=== PATIENT | female | born 1950 | race African-American/Black ===

== ENCOUNTER 2016-12-07 19:42 | Emergency (ER) | payer OTHER ==
[2016-12-07 19:53] VITALS: BP 169/86; PULSE 85; TEMP 101.5; BMI 27.4
--- NOTE | 2016-12-07 20:12 | PDOC ---
History of Present Illness - General History Source: Patient Exam Limitations: No Limitations - History of Present Illness Initial Comments: 12/07/16 20:24 The patient is a 66 year old female with significant past medical history of hypertension, hyperlipidemia, diabetes, and renal insufficiency (dialysis MWF) who presents to the ED with 5 days of persistent dry cough. Patient also reports 5 days of pain to the hip, left-sided rib cage, and low back that radiates down the left leg, upon coughing. She denies diaphoresis, chills, SOB, shoulder pain, arm pain, and jaw pain. After going to the dialysis center today , she was notified she had a fever and was sent to the ER for further evaluation. Patient did not complete her dialysis. . The patient denies abdominal pain, nausea, vomiting, and diarrhea. Allergies: NKDA Social History: No alcohol, tobacco, or drug use reported. Past Surgical History: None reported Trucksmith: Dr. Marely Cooper <Mary Ellen Chicas - Last Filed: 12/07/16 20:40> <Mratir Blanco - Last Filed: 12/07/16 21:35> - General Chief Complaint: SIRS, Suspected/Possible Stated Complaint: FEVER Time Seen by Provider: 12/07/16 19:58 Past History <Mary Ellen Chicas - Last Filed: 12/07/16 20:40> - Past Medical History Diabetes: Yes HTN: Yes Hypercholesterolemia: Yes Suicide Attempt (Hx): No - Surgical History Abdominal Surgery: Yes (hernia not repaired) - Psycho/Social/Smoking Cessation Hx Anxiety: No Suicidal Ideation: No Smoking Status: No Smoking History: Former smoker Have you smoked in the past 12 months: No Number of Cigarettes Smoked Daily: 0 If you are a former smoker, when did you quit?: 40YRS AGO Information on smoking cessation initiated: No Hx Alcohol Use: No Drug/Substance Use Hx: No Substance Use Type: None Hx Substance Use Treatment: No <Martir Blanco - Last Filed: 12/07/16 21:35> - Past Medical History Allergies/Adverse Reactions: Allergies Allergy/AdvReac Type Severity Reaction Status Date / Time No Known Drug Allergies Allergy Verified 12/07/16 19:51 Home Medications: Ambulatory Orders Hydralazine HCl [Apresoline -] 50 mg PO TID 05/30/14 Insulin Glargine,Hum.rec.anlog [Lantus Solostar PEN -] 20 - 25 units SQ ASDIR PRN 05/30/14 Simvastatin [Zocor] 80 mg PO HS 05/30/14 Acetaminophen [Tylenol] 325 mg PO PRN PRN 12/20/14 Aspirin [Aspirin EC] 81 mg PO DAILY 11/07/15 Metoprolol Succinate [Toprol XL -] 50 mg PO DAILY 11/07/15 Bisacodyl [Dulcolax] 5 mg PO PRN PRN 12/04/15 Cholecalciferol (Vitamin D3) [Vitamin D3] 50,000 unit PO WEEKLY 12/04/15 Docusate Sodium [Colace -] 100 mg PO TID PRN 12/04/15 Ferrous Sulfate [Feosol] 325 mg PO BID 12/04/15 Oxycodone HCl/Acetaminophen [Percocet 5-325 mg Tablet] 1 combo PO Q6H PRN #20 tablet 12/04/15 Polyethylene Glycol 3350 [Miralax 119 gm Btl -] 17 gm PO DAILY PRN 12/04/15 Review of Systems - Review of Systems Able to Perform ROS?: Yes Comments:: 12/07/16 20:24 +fever, cough, hip pain, left-sided rib cage pain, back pain radiating down the left leg. Absent: chills, diaphoresis, SOB, abdominal pain, nausea, vomiting, and diarrhea <Mary Ellen Chicas - Last Filed: 12/07/16 20:40> *Physical Exam - Vital Signs Last Vital Signs Temp Pulse Resp BP Pulse Ox 101.5 F H 85 18 169/86 95 12/07/16 19:51 12/07/16 19:51 12/07/16 19:51 12/07/16 19:51 12/07/16 19:51 <Mary Ellen Chicas - Last Filed: 12/07/16 20:40> - Vital Signs Last Vital Signs Temp Pulse Resp BP Pulse Ox 101.5 F H 85 18 169/86 95 12/07/16 19:51 12/07/16 19:51 12/07/16 19:51 12/07/16 19:51 12/07/16 19:51 - Physical Exam General Appearance: Yes: Nourished, Appropriately Dressed. No: Apparent Distress HEENT: positive: EOMI, Normal ENT Inspection Neck: positive: Supple. negative: Tender Respiratory/Chest: positive: Chest Tender (left sided), Lungs Clear, Normal Breath Sounds. negative: Respiratory Distress, Accessory Muscle Use Cardiovascular: positive: Regular Rhythm, Regular Rate Gastrointestinal/Abdominal: positive: Normal Bowel Sounds, Soft. negative: Tender Musculoskeletal: positive: Normal Inspection. negative: CVA Tenderness Extremity: positive: Normal Capillary Refill, Normal Inspection, Normal Range of Motion, Other (rt arm shunt) Integumentary: positive: Normal Color. negative: Rash Neurologic: positive: Fully Oriented, Alert, Normal Mood/Affect, Normal Response , Motor Strength 5/5 <Martir Blanco - Last Filed: 12/07/16 21:35> ED Treatment Course - LABORATORY CBC & Chemistry Diagram: 12/07/16 20:30 12/07/16 20:30 <Mary Ellen Chicas - Last Filed: 12/07/16 20:40> - LABORATORY CBC & Chemistry Diagram: 12/07/16 20:30 12/07/16 20:30 <Martir Blanco - Last Filed: 12/07/16 21:35> Progress Note - Progress Note Progress Note: productive cough fever and back pain likely uri w/ back pain 2/2 cough cxr no consolidates will check her cbc and basic if ok, d/c home 9:32 pm better after meds. no cough. pain c/w muscular labs wnl neg cxr has vanc and gent on board will follow w/ pmd and continue her HD <Martir Blanco - Last Filed: 12/07/16 21:35> *DC/Admit/Observation/Transfer - Attestations Scribe Attestion: 12/07/16 20:24 Documentation prepared by Mary Ellen Chicas, acting as certified medical coder for Martir Blanco MD <Mary Ellen Chicas - Last Filed: 12/07/16 20:40> <Martir Blanco - Last Filed: 12/07/16 21:35> Diagnosis at time of Disposition: Viral infection Low back pain Qualifiers: Chronicity: acute Back pain laterality: bilateral Sciatica presence: with sciatica Sciatica laterality: sciatica of left side Qualified Code(s): M54.42 - Lumbago with sciatica, left side - Discharge Dispostion Disposition: HOME Condition at time of disposition: Improved - Patient Instructions Additional Instructions: TAKE MEDICATIONS PRESCRIBED CALL YOUR DOCTOR TOMORROW FOR FOLLOW UP ROBITUSSIN FOR COUGH, TYLENOL FOR FEVER RETURN IF WORSENING OR NEW SYMPTOMS
[2016-12-07] MEDS ORDERED: ACETAMINOPHEN WITH CODEINE 300MG/30MG TABLET PO ONE (20:17)
[2016-12-07] MEDS ORDERED: ACETAMINOPHEN WITH CODEINE 300MG/30MG TABLET ONE (20:38)
[2016-12-07 21:15] LABS: ALBUMIN 3.6 g/dl (3.4-5.0); BILIRUBIN,TOTAL 0.3 mg/dL (0.2-1.0); CALCIUM 8.4 mg/dL (8.5-10.1); CREATININE 2.6 mg/dL (0.55-1.02); TOT PROT 6.8 g/dl (6.4-8.2)
[2016-12-07 21:17] LABS: BASOPHIL 0.7 % (0-2.0); EOSINOPHIL 1.8 % (0-4.5); MCH 20.9 pg (25.7-33.7); MCHC 30.2 g/dl (32.0-36.0); MEAN CELL VOLUME 69.3 fl (80-96); MEAN PLT VOLUME 11.2 fl (7.5-11.1); PLATELET COUNT 127 K/MM3 (134-434); RDW 18.4 % (11.6-15.6); WHITE BLOOD COUNT 7.7 K/mm3 (4.0-10.0)
[2016-12-07 21:39] LABS: PLATELET ESTIMATE DECREASED (NORMAL)
[2016-12-07 21:40] LABS: ANISOCYTOSIS 1+; HYPOCHROMIA 3+; MICROCYTOSIS 1+; OVALOCYTES FEW
== END 2016-12-07 22:02 | disposition home or self-care (01) ==
LOC: JER 19:42
DX: B34.9 Viral infection, unspecified (principal); M54.42 Lumbago with sciatica, left side; I12.0 Hypertensive chronic kidney disease with stage 5 chronic kidney disease or end stage renal disease; N18.6 End stage renal disease; N17.8 Other acute kidney failure; Z99.2 Dependence on renal dialysis; Z87.891 Personal history of nicotine dependence; E11.9 Type 2 diabetes mellitus without complications; Z79.4 Long term (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 insulin; E78.00 Pure hypercholesterolemia, unspecified
CPT/HCPCS: 36415; 71020-TC; 80053; 85025; 87040; 87804; 99283-25

== ENCOUNTER 2017-04-25 15:10 | Inpatient (IN) | payer OTHER ==
--- NOTE | 2017-04-25 15:33 | PDOC ---
History of Present Illness - General Stated Complaint: RIGHT SIDE PAIN Time Seen by Provider: 04/25/17 15:22 History Source: Patient Exam Limitations: No Limitations - History of Present Illness Initial Comments: 04/25/17 15:33 CHIEF COMPLAINT: Flank pain HISTORY OF PRESENT ILLNESS: This is a 66 year old female with a history of HTN, HLD, GERD, pancreatitis, cholelithiasis, IDDM, and ESRD on HD M// who presents to the ED complaining of right flank pain since Wednesday morning with associated nausea and chills. She reports taking Tylenol without relif of pain. She denies dysuria, hematuria, or any other symptoms. V/s on arrival are notable for BP 192/83. PCP: Dr. Saucedo Bale Coverer: Dr. Cooper REVIEW OF SYSTEMS: GENERAL/CONSTITUTIONAL: Chills, no fever. No weakness. No weight change. HEAD, EYES, EARS, NOSE AND THROAT: No change in vision. No ear pain or discharge. No sore throat. CARDIOVASCULAR: No chest pain or palpitations. RESPIRATORY: No cough, wheezing, or shortness of breath. GASTROINTESTINAL: Nausea. No vomiting, diarrhea or constipation. GENITOURINARY: Right flank pain. No dysuria (does still make some urine). MUSCULOSKELETAL: No joint or muscle swelling or pain. No neck or back pain. SKIN: No rash or easy bruising. NEUROLOGIC: No headache, vertigo, loss of consciousness, or loss of sensation. PSYCHIATRIC: No depression or anxiety. ENDOCRINE: No increased thirst. No abnormal weight change. HEMATOLOGIC/LYMPHATIC: No anemia, easy bleeding, or history of blood clots. ALLERGIC/IMMUNOLOGIC: No hives or skin allergy. No latex allergy. PHYSICAL EXAM: GENERAL: The patient is awake, alert, and fully oriented, in no acute distress. ENT: Pupils equal, round and reactive to light, extraocular movements intact, sclera anicteric, conjunctiva clear. Neck supple. LUNGS: Clear to auscultation bilaterally. Normal excursion. No respiratory distress or use of accessory muscles. CV: RRR, S1/S2, no MRG. Cap refill < 2 sec. ABDOMEN: Soft, non-distended, non-tender. Right CVA exquisitely tender. EXTREMITIES: Normal range of motion, no edema. RUE AVF +bruit +thrill. NEUROLOGICAL: Normal speech, normal gait. CN II-XII grossly intact. PSYCH: Normal mood, normal affect. SKIN: Warm, dry, normal turgor, no rashes or lesions noted. Past History - Past Medical History Allergies/Adverse Reactions: Allergies Allergy/AdvReac Type Severity Reaction Status Date / Time No Known Drug Allergies Allergy Verified 12/07/16 19:51 Home Medications: Ambulatory Orders Hydralazine HCl [Apresoline -] 100 mg PO TID 05/30/14 Cholecalciferol (Vitamin D3) [Vitamin D3] 50,000 unit PO WEEKLY 12/04/15 Docusate Sodium [Colace -] 100 mg PO TID PRN 12/04/15 Atorvastatin Ca [Lipitor] 80 mg PO DAILY 12/08/16 Calcium Acetate [Phoslo -] 667 mg PO TID 12/08/16 Famotidine 10 mg PO BID PRN 12/08/16 Isosorbide Mononitrate [Imdur -] 60 mg PO DAILY 12/08/16 Diabetes: Yes HTN: Yes Hypercholesterolemia: Yes Suicide Attempt (Hx): No - Surgical History Abdominal Surgery: Yes (hernia not repaired) - Psycho/Social/Smoking Cessation Hx Anxiety: No Suicidal Ideation: No Smoking Status: No Smoking History: Former smoker Have you smoked in the past 12 months: No Number of Cigarettes Smoked Daily: 0 If you are a former smoker, when did you quit?: 40YRS AGO Hx Alcohol Use: No Drug/Substance Use Hx: No Substance Use Type: None Hx Substance Use Treatment: No ED Treatment Course - LABORATORY CBC & Chemistry Diagram: 04/25/17 16:30 04/25/17 17:12 Medical Decision Making - Medical Decision Making 04/25/17 17:26 A/P: 66 year old female with flank pain. 1. UA, culture 2. Labs including CBC, comp 3. CTAP spiral renal stone protocol 4. Morphine 4mg IVP for pain, Zofran 4mg IVP for nausea 5. Re-assess 04/25/17 18:11 UA: no WBCs or RBCs 04/25/17 18:28 CTAP perImaging business continuity planner report: bilateral perinephric strandingslightly more pronounced on the left side without hydronephrosis or nephrolithiasis. Bladder wall appears thickened with mild stranding of the surrounding pelvic fat. Findings are concerning for cystitis and possibly ascending infection. UA no WBCs or RBCs. Patient re-evaluated and pain is not improved. Will request observation for pain control/further evaluation. Dr. Saucedo's service paged. 04/25/17 18:[address] Rodriguez- will admit for intractable pain and ?renal colic. *DC/Admit/Observation/Transfer Diagnosis at time of Disposition: Flank pain, Intractable pain Hypertension Qualifiers: Hypertension type: essential hypertension Qualified Code(s): I10 - Essential ( primary) hypertension - Discharge Dispostion Condition at time of disposition: Guarded Admit: Yes
[2017-04-25] MEDS ORDERED: morphine CARPU-JECT 4 MG/1 ML DISP.SYRIN IVPUSH ONE ×2 (15:56→17:27)
[2017-04-25] MEDS ORDERED: ONDANSETRON 4 MG/2 ML VIAL IVPUSH ONE (15:57)
[2017-04-25] MEDS ORDERED: morphine CARPU-JECT 4 MG/1 ML DISP.SYRIN ONE ×2 (16:01→17:57)
--- NOTE | 2017-04-25 16:21 | EKG ---
Test Reason : Blood Pressure : / mmHG Vent. Rate : 066 BPM Atrial Rate : 066 BPM P-R Int : 194 ms QRS Dur : 110 ms QT Int : 434 ms P-R-T Axes : 062 -43 072 degrees QTc Int : 454 ms NORMAL SINUS RHYTHM LEFT AXIS DEVIATION MODERATE VOLTAGE CRITERIA FOR LVH, MAY BE NORMAL VARIANT ABNORMAL ECG WHEN COMPARED WITH ECG OF 20-DEC-2014 20:52, VENT. RATE HAS DECREASED BY 34 BPM MINIMAL CRITERIA FOR SEPTAL INFARCT ARE NO LONGER PRESENT Confirmed by ANA TABARES MD ([id number]) on 04/25/2017 4:21:39 PM Referred By: Confirmed By:ANA TABARES MD
[2017-04-25 16:38] LABS: BASOPHIL 0.7 % (0-2.0); EOSINOPHIL 0.6 % (0-4.5); MCH 21.4 pg (25.7-33.7); MCHC 30.5 g/dl (32.0-36.0); MEAN CELL VOLUME 70.3 fl (80-96); MEAN PLT VOLUME 11.3 fl (7.5-11.1); NEUTROPHILS 78.1 % (42.8-82.8); PLATELET COUNT 157 K/MM3 (134-434); WHITE BLOOD COUNT 5.7 K/mm3 (4.0-10.0)
[2017-04-25 17:00] LABS: HYPOCHROMIA 2+; PLATELET ESTIMATE ADEQUATE (NORMAL)
[2017-04-25 17:40] LABS: URINE APPEARANCE CLEAR; URINE BILIRUBIN NEGATIVE (NEGATIVE); URINE BLOOD NEGATIVE (NEGATIVE); URINE COLOR STRAW; URINE GLUCOSE (UA) 3+ (NEGATIVE); URINE KETONE NEGATIVE (NEGATIVE); URINE LEUK ESTERASE NEGATIVE (NEGATIVE); URINE NITRITE NEGATIVE (NEGATIVE); URINE UROBILINOGEN NEGATIVE E.U./dl (0.2-1.0)
[2017-04-25 17:46] LABS: URINE PROTEIN 2+ (NEGATIVE)
[2017-04-25 17:51] LABS: URINE RBC <1 /hpf (0-3); URINE WBC <1 /hpf (3-5)
[2017-04-25 18:14] LABS: ALBUMIN 3.9 g/dl (3.4-5.0); BILIRUBIN,TOTAL 0.3 mg/dL (0.2-1.0); COCKROFT - GAULT 15.725; CREATININE 3.8 mg/dL (0.55-1.02)
[2017-04-25] MEDS ORDERED: ACETAMINOPHEN 1000 MG/100 ML VIAL (NON FORMULARY) IVPB ONE (18:36)
[2017-04-25] MEDS ORDERED: ACETAMINOPHEN INJECTION 100 ML IVPB ONE (18:46)
[2017-04-25] MEDS ORDERED: RANITIDINE HCL 150 MG TABLET (FP) PO PRN (19:20)
[2017-04-25] MEDS ORDERED: DOCUSATE SODIUM 100 MG CAPSULE (FP) PO PRN (19:20)
[2017-04-25] MEDS ORDERED: HYDROmorphone HCL CARPU-JECT 1 MG/1 ML DISP.SYRIN IVPUSH PRN (19:21)
[2017-04-25] MEDS ORDERED: ONDANSETRON 4 MG/2 ML VIAL IVPB PRN (19:21)
[2017-04-25] MEDS ORDERED: INSULIN (NOVOLOG) ASPART 100 UNITS/ML 10ML VIAL ONE (21:19)
[2017-04-25] MEDS: INSULIN SLIDING SCALE (NOVOLOG) 1 VIAL SQ SCH (21:27)
[2017-04-25] MEDS: HEPARIN NA (PORCINE) 5,000 UNITS/ML 1ML VIAL SQ SCH (21:28)
[2017-04-25] MEDS: ATORVASTATIN CA 80 MG TABLET (FP) PO SCH (21:28)
[2017-04-25] MEDS: hydrALAZINE HCL 50 MG TABLET (FP) PO SCH (21:28)
[2017-04-25 22:46] VITALS: BMI 27.5
[2017-04-26] MEDS ORDERED: DEXTROSE 50%-WATER 50 ML VIAL IVPUSH ONE (04:14)
[2017-04-26] MEDS ORDERED: DEXTROSE 50%-WATER 50 ML DISP.SYRIN ONE (04:15)
[2017-04-26] MEDS ORDERED: DEXTROSE 50%-WATER 50 ML DISP.SYRIN IVPUSH ONE (04:30)
[2017-04-26] MEDS: hydrALAZINE HCL 50 MG TABLET (FP) PO SCH ×3 (05:42→21:20)
[2017-04-26] MEDS: HEPARIN NA (PORCINE) 5,000 UNITS/ML 1ML VIAL SQ SCH ×3 (05:43→21:15)
[2017-04-26] MEDS: INSULIN SLIDING SCALE (NOVOLOG) 1 VIAL SQ SCH ×4 (06:33→21:20)
[2017-04-26 07:58] LABS: BASOPHIL 2.1 % (0-2.0); EOSINOPHIL 0.3 % (0-4.5); MCH 21.8 pg (25.7-33.7); MCHC 31.2 g/dl (32.0-36.0); MEAN CELL VOLUME 69.9 fl (80-96); MEAN PLT VOLUME 11.1 fl (7.5-11.1); NEUTROPHILS 78.6 % (42.8-82.8); PLATELET COUNT 171 K/MM3 (134-434)
[2017-04-26 08:17] LABS: MAGNESIUM 2.4 mg/dL (1.8-2.4)
[2017-04-26 08:18] LABS: COCKROFT - GAULT 17.3145; CREATININE 3.7 mg/dL (0.55-1.02); PHOSPHOROUS 4.8 mg/dL (2.5-4.9)
[2017-04-26] MEDS: CALCIUM ACETATE 667 MG CAPSULE (FP) PO SCH ×3 (08:28→17:47)
[2017-04-26] MEDS: ISOSORBIDE MONONITRATE 60 MG TAB.SR.24H (FP) PO SCH (09:21)
[2017-04-26] MEDS: POLYETHYLENE GLYCOL 3350 119 GM BTL PO SCH (09:22)
[2017-04-26 10:04] LABS: ALBUMIN 3.5 g/dl (3.4-5.0); BILIRUBIN,DIRECT 0.1 mg/dL (0.0-0.2); BILIRUBIN,TOTAL 0.3 mg/dL (0.2-1.0); TOT PROT 6.4 g/dl (6.4-8.2)
[2017-04-26] MEDS ORDERED: EPOETIN ALFA 10,000 UNIT/1 ML VIAL IVPUSH ONE (10:30)
--- NOTE | 2017-04-26 10:59 | CONSULT ---
Consult - text type - Consultation Consultation Note: Renal Consult for ESRD on HD This is a 66 year old woman with PMhx of ESRD on HD (since ) secondary to DM/Hypertension, Hyperlipidemia, Pancreatitis who presened with right sided flank pain and admitted for pain control. Pt denies any fevers at home but did report having chills in the ED. No hx of stones, no dysuria, hematuria. Pt still makes a good quanitity of urine. No N/V/D, Chest pain or sob. Last dialysis was Wednesday. No problems with dialysis access. PMhx: as above Allergies: NKDA Family Hx: NC Social Hx: No T/A/D ROS: as per HPI, all other pertinent ros negative Home Meds: Home Medications Medication Instructions Recorded Hydralazine HCl [Apresoline -] 100 mg PO TID 05/30/14 Cholecalciferol (Vitamin D3) 50,000 unit PO WEEKLY 12/04/15 [Vitamin D3] Docusate Sodium [Colace -] 100 mg PO TID PRN 12/04/15 Atorvastatin Ca [Lipitor] 80 mg PO DAILY 12/08/16 Calcium Acetate [Phoslo -] 667 mg PO TID 12/08/16 Famotidine 10 mg PO BID PRN 12/08/16 Isosorbide Mononitrate [Imdur -] 60 mg PO DAILY 12/08/16 Vital Signs Temperature 97.0 F L 04/26/17 06:05 Pulse Rate 64 04/26/17 10:20 Respiratory Rate 18 04/26/17 10:20 Blood Pressure 207/80 04/26/17 10:20 O2 Sat by Pulse Oximetry (%) 96 04/25/17 21:00 Intake & Output 04/23/17 04/24/17 04/25/17 04/26/17 23:59 23:59 23:59 23:59 Intake Total 500 500 Balance 500 500 Weight 165 lb 3.2 oz 166 lb 3 oz Gen: NAD, awake and alert HEENT: NC/AT, MMM, No JVD CVS: RRR, No M/R Lungs: CTA, no rales or wheeze Abd: soft NT/ND Ext: No edema, clubbing or cyanosis Neuro: No focal defects Access: Right ARM AVAF + thrill and bruit CBC, BMP 04/26/17 06:20 04/26/17 06:20 Laboratory Tests 04/25/17 04/26/17 17:30 06:20 Calcium 9.0 Phosphorus 4.8 Albumin 3.5 Urine Protein 2+ H Urine Glucose (UA) 3+ H Ur Leukocyte Esterase Negative Urine RBC <1 Urine WBC <1 Current Medications Acetaminophen (Tylenol -) 650 mg PO Q4H PRN PRN Reason: FEVER OR PAIN Atorvastatin Calcium (Lipitor -) 80 mg PO HS [facility] Last Admin: 04/25/17 21:28 Dose: 80 mg Calcium Acetate (Phoslo -) 667 mg PO TIDCM [facility] Last Admin: 04/26/17 08:28 Dose: 667 mg Docusate Sodium (Colace -) 100 mg PO TID PRN PRN Reason: CONSTIPATION Heparin Sodium (Porcine) (Heparin -) 5,000 unit SQ TID [facility] Last Admin: 04/26/17 05:43 Dose: Not Given Hydralazine HCl (Apresoline -) 100 mg PO TID [facility] Last Admin: 04/26/17 05:42 Dose: 100 mg Hydromorphone HCl (Dilaudid Injection -) 0.5 mg IVPUSH Q4H PRN PRN Reason: PAIN Insulin Aspart (Novolog Vial Sliding Scale -) 1 vial SQ ACHS [facility] PRN Reason: Protocol Last Admin: 04/26/17 06:33 Dose: Not Given Isosorbide Mononitrate (Imdur -) 60 mg PO DAILY [facility] Last Admin: 04/26/17 09:21 Dose: 60 mg Ondansetron HCl (Zofran Injection) 4 mg IVPB Q6H PRN PRN Reason: NAUSEA Polyethylene Glycol (Miralax (For Daily Use) -) 17 gm PO DAILY [facility] Last Admin: 04/26/17 09:22 Dose: Not Given Ranitidine HCl (Zantac -) 150 mg PO BID PRN PRN Reason: DYSPEPSIA A/P 6 year old woman with PMhx of ESRD on HD (since ) secondary to DM/ Hypertension, Hyperlipidemia, Pancreatitis who presened with right sided flank pain and admitted for pain control. #ESRD on HD for dialysis today, 3 horus, 45 mins Goal UF ~1L Dose all meds for intermittent HD #Flank pain no evidence of stones on the CT Abd, however there was perinephric stranding UA showed no evidence of UTI, Urine culture pending Unclear if pt was on any Abx recently (not given any Abx at dialysis) Management as per primary #CKD Related Anemia Continue Epogen (lower dose as hgb is 11) #Hypertension BP very elevated at the start but improved, now 157/71 UF as tolerated resume antihypertensives post dialysis Thank you Will follow Ignacio Callahan DO
--- NOTE | 2017-04-26 11:58 | HP ---
Admitting History and Physical - Primary Care Physician PCP: Filomena Saucedo - Admission Chief Complaint: My back hurt History of Present Illness: Ms Sosa is a very pleasant 66 year old female who comes in with 3 days of flank pain. She was at HD on Wednesday, and there she developed right sided flank pain. She says it was crampy in nature. It radiated throughout her abdomen. She says she took some tylenol and it originally improved, however it came back and worsened. She did not note fevers with it. She had nausea but no vomiting. She did not have diarrhea. She says she still makes urine, she says it witt in the morning however throughout the day it does not burn. She says the pain became so severe she came in for further evaluation. She says she had some pain earlier today but it resolved. She denies chills, lightheadedness, dizziness, passing out, chest pain, shortness of breath, constipation, or swelling. History Source: Patient Limitations to Obtaining History: No Limitations - Past Medical History Cardiovascular: Yes: HTN, Hyperlipdemia Gastrointestinal: Yes: GERD, Pancreatitis, Other (Hd similar abdominal pain in [place] afew years ago and was told she has gallstones.) Hepatobiliary: Yes: Cholelithiasis Renal/: Yes: Renal Inusuff Heme/Onc: Yes: Anemia, Sickle Cell Trait Endocrine: Yes: Diabetes Mellitus - Past Surgical History Past Surgical History: Yes: None - Smoking History Smoking history: Former smoker Have you smoked in the past 12 months: No Aproximately how many cigarettes per day: 0 If you are a former smoker, when did you quit?: 40YRS AGO - Alcohol/Substance Use Hx Alcohol Use: No History of Substance Use: reports: None - Social History Usual Living Arrangement: Yes: Alone ADL: Independent History of Recent Travel: No Home Medications - Allergies Allergies/Adverse Reactions: Allergies Allergy/AdvReac Type Severity Reaction Status Date / Time No Known Drug Allergies Allergy Verified 12/07/16 19:51 - Home Medications Home Medications: Ambulatory Orders Hydralazine HCl [Apresoline -] 100 mg PO TID 05/30/14 Cholecalciferol (Vitamin D3) [Vitamin D3] 50,000 unit PO WEEKLY 12/04/15 Docusate Sodium [Colace -] 100 mg PO TID PRN 12/04/15 Atorvastatin Ca [Lipitor] 80 mg PO DAILY 12/08/16 Calcium Acetate [Phoslo -] 667 mg PO TID 12/08/16 Famotidine 10 mg PO BID PRN 12/08/16 Isosorbide Mononitrate [Imdur -] 60 mg PO DAILY 12/08/16 Family Disease History - Family Disease History Family Disease History: Other: Son (sickle cell disease, ), Daughter ( sickle cell trait) Review of Systems Findings/Remarks: Full review of systems obtained, as per HPI and otherwise negative Physical Examination Vital Signs: Vital Signs Temperature 97.9 F 04/26/17 10:00 Pulse Rate 61 04/26/17 11:50 Respiratory Rate 18 04/26/17 11:50 Blood Pressure 182/76 04/26/17 11:50 O2 Sat by Pulse Oximetry (%) 96 04/25/17 21:00 Constitutional: Yes: Well Nourished, No Distress, Calm Eyes: Yes: Conjunctiva Clear, EOM Intact, PERRL HENT: Yes: Atraumatic, Normocephalic Cardiovascular: Yes: Regular Rate and Rhythm. No: Gallop, Murmur, Rub Respiratory: Yes: Regular, CTA Bilaterally. No: Rales, Rhonchi, Wheezes Gastrointestinal: Yes: Normal Bowel Sounds, Soft. No: Distention, Tenderness Renal/: No: CVA Tenderness - Left, CVA Tenderness - Right Extremities: Yes: WNL Edema: No Labs: CBC, BMP 04/26/17 06:20 04/26/17 06:20 Imaging - Results Cat Scan: Report Reviewed Problem List - Problems (1) Flank pain Assessment/Plan: -urinalysis normal and no fevers, however CT scan showing stranding and with pain -? UTI vs pyelonephritis -will start rocephin empirically -follow up urine culture -if negative, will discontinue Code(s): R10.9 - UNSPECIFIED ABDOMINAL PAIN (2) Hypertension Assessment/Plan: -continue imdur and hydralazine -elevated, but prior to HD -check after HD Code(s): I10 - ESSENTIAL (PRIMARY) HYPERTENSION Qualifiers: Hypertension type: essential hypertension Qualified Code(s): I10 - Essential (primary) hypertension (3) CKD (chronic kidney disease) Assessment/Plan: -nephrology following -receiving HD today Code(s): N18.9 - CHRONIC KIDNEY DISEASE, UNSPECIFIED Qualifiers: Chronic kidney disease stage: on chronic dialysis Qualified Code(s) : N18.6 - End stage renal disease; Z99.2 - Dependence on renal dialysis (4) Diabetes Assessment/Plan: -diabetic diet -FSBS and SSI Code(s): E11.9 - TYPE 2 DIABETES MELLITUS WITHOUT COMPLICATIONS (5) HLD (hyperlipidemia) Assessment/Plan: -continue statin Code(s): E78.5 - HYPERLIPIDEMIA, UNSPECIFIED
[2017-04-26] MEDS: LACTOBACILLUS ACIDOPHILUS 1 EACH TAB (FP) PO SCH (15:05)
[2017-04-26] MEDS: CEFTRIAXONE 50 ML IVPB SCH (15:06)
[2017-04-26 17:02] LABS: CREATININE 1.2 mg/dL (0.55-1.02)
[2017-04-26] MEDS ORDERED: INSULIN (NOVOLOG) ASPART 100 UNITS/ML 10ML VIAL ONE (21:14)
[2017-04-26] MEDS: ATORVASTATIN CA 80 MG TABLET (FP) PO SCH (21:20)
[2017-04-27] MEDS: HEPARIN NA (PORCINE) 5,000 UNITS/ML 1ML VIAL SQ SCH ×3 (06:00→22:03)
[2017-04-27] MEDS: hydrALAZINE HCL 50 MG TABLET (FP) PO SCH ×3 (06:00→22:03)
[2017-04-27] MEDS: INSULIN SLIDING SCALE (NOVOLOG) 1 VIAL SQ SCH ×4 (06:01→22:05)
[2017-04-27 07:13] LABS: BASOPHIL 0.6 % (0-2.0); EOSINOPHIL 1.6 % (0-4.5); MCHC 31.4 g/dl (32.0-36.0); MEAN CELL VOLUME 69.9 fl (80-96); MEAN PLT VOLUME 10.6 fl (7.5-11.1); NEUTROPHILS 63.6 % (42.8-82.8); PLATELET COUNT 147 K/MM3 (134-434); RDW 15.9 % (11.6-15.6); WHITE BLOOD COUNT 8.6 K/mm3 (4.0-10.0)
[2017-04-27 07:36] LABS: CALCIUM 8.4 mg/dL (8.5-10.1); COCKROFT - GAULT 20.638; CREATININE 3.1 mg/dL (0.55-1.02); MAGNESIUM 1.9 mg/dL (1.8-2.4); PHOSPHOROUS 2.6 mg/dL (2.5-4.9)
[2017-04-27] MEDS: CALCIUM ACETATE 667 MG CAPSULE (FP) PO SCH ×3 (08:13→17:11)
[2017-04-27] MEDS: ISOSORBIDE MONONITRATE 60 MG TAB.SR.24H (FP) PO SCH (09:32)
[2017-04-27] MEDS: CEFTRIAXONE 50 ML IVPB SCH (09:32)
[2017-04-27] MEDS: POLYETHYLENE GLYCOL 3350 119 GM BTL PO SCH (09:32)
[2017-04-27] MEDS: LACTOBACILLUS ACIDOPHILUS 1 EACH TAB (FP) PO SCH (09:32)
[2017-04-27] MEDS: oxyCODONE HCL 5 MG TABLET PO PRN (10:55)
--- NOTE | 2017-04-27 11:59 | PN ---
Progress Note (short form) - Note Progress Note: Renal follow up for ESRD on HD Pt seen and examined at the bedside awake and alert s/p PT this am continues to have right sided flank pain that limited her therapy no fever, chills, dysuria Vital Signs Temperature 98.8 F 04/27/17 09:20 Pulse Rate 94 H 04/27/17 09:20 Respiratory Rate 20 04/27/17 09:20 Blood Pressure 156/72 04/27/17 09:20 O2 Sat by Pulse Oximetry (%) 96 04/25/17 21:00 Intake & Output 04/24/17 04/25/17 04/26/17 04/27/17 23:59 23:59 23:59 23:59 Intake Total 500 1625 700 Balance 500 1625 700 Weight 165 lb 3.2 oz 166 lb 3 oz 166 lb Gen: NAD, CVS: RRR, No M/R Lungs: CTA, no rales or wheeze Abd: soft NT/ND Ext: No edema, clubbing or cyanosis Flank: No rash, no overt tenderness on palpation CBC, BMP 04/27/17 06:05 04/27/17 06:05 Current Medications Acetaminophen (Tylenol -) 650 mg PO Q4H PRN PRN Reason: FEVER OR PAIN Atorvastatin Calcium (Lipitor -) 80 mg PO HS [facility] Last Admin: 04/26/17 21:20 Dose: 80 mg Calcium Acetate (Phoslo -) 667 mg PO TIDCM [facility] Last Admin: 04/27/17 08:13 Dose: 667 mg Docusate Sodium (Colace -) 100 mg PO TID PRN PRN Reason: CONSTIPATION Heparin Sodium (Porcine) (Heparin -) 5,000 unit SQ TID [facility] Last Admin: 04/27/17 06:00 Dose: Not Given Hydralazine HCl (Apresoline -) 100 mg PO TID [facility] Last Admin: 04/27/17 06:00 Dose: 100 mg Hydromorphone HCl (Dilaudid Injection -) 0.5 mg IVPUSH Q4H PRN PRN Reason: PAIN Last Admin: 04/26/17 12:26 Dose: 0.5 mg Ceftriaxone Sodium (Rocephin 1gm Ivpb (Pre-Docked)) 50 mls @ 100 mls/hr IVPB DAILY [facility] Last Admin: 04/27/17 09:32 Dose: 100 mls/hr Insulin Aspart (Novolog Vial Sliding Scale -) 1 vial SQ ACHS [facility] PRN Reason: Protocol Last Admin: 04/27/17 06:01 Dose: 8 units Isosorbide Mononitrate (Imdur -) 60 mg PO DAILY [facility] Last Admin: 04/27/17 09:32 Dose: 60 mg Lactobacillus Acidophilus (Bacid -) 1 tab PO DAILY [facility] Last Admin: 04/27/17 09:32 Dose: 1 tab Ondansetron HCl (Zofran Injection) 4 mg IVPB Q6H PRN PRN Reason: NAUSEA Oxycodone HCl (Roxicodone -) 5 mg PO Q6H PRN PRN Reason: PAIN Last Admin: 04/27/17 10:55 Dose: 5 mg Polyethylene Glycol (Miralax (For Daily Use) -) 17 gm PO DAILY [facility] Last Admin: 04/27/17 09:32 Dose: Not Given Ranitidine HCl (Zantac -) 150 mg PO BID PRN PRN Reason: DYSPEPSIA A/P 6 year old woman with PMhx of ESRD on HD (since ) secondary to DM/ Hypertension, Hyperlipidemia, Pancreatitis who presened with right sided flank pain and admitted for pain control. #ESRD on HD tolerating dialysis yesterday w/o compilation no acute indication for dialysis today #Flank pain no evidence of stones on the CT Abd, however there was perinephric stranding Urine Culture grew less then 100k of enterococcus continues to have pain no evidence of herpatic lesions on the skin would consider continuing Abx tx for this #CKD Related Anemia continue epogen with HD #Hypertension continue hydralazine TID Ignacio Callahan DO
--- NOTE | 2017-04-27 14:31 | PN ---
Progress Note, Physician Chief Complaint: Ms Sosa says her pain is improved but still present. No cp, sob, n/v. Pain is still located in her R flank. She also complains of shooting pain down her left leg but this is chronic and unchanged. - Current Medication List Current Medications: Active Medications Acetaminophen (Tylenol -) 650 mg PO Q4H PRN PRN Reason: FEVER OR PAIN Atorvastatin Calcium (Lipitor -) 80 mg PO HS [facility] Last Admin: 04/26/17 21:20 Dose: 80 mg Calcium Acetate (Phoslo -) 667 mg PO TIDCM [facility] Last Admin: 04/27/17 12:02 Dose: 667 mg Docusate Sodium (Colace -) 100 mg PO TID PRN PRN Reason: CONSTIPATION Epoetin Shar (Epogen -) 6,000 units IVPUSH ONCE ONE Stop: 04/28/17 09:01 Heparin Sodium (Porcine) (Heparin -) 5,000 unit SQ TID [facility] Last Admin: 04/27/17 14:00 Dose: Not Given Hydralazine HCl (Apresoline -) 100 mg PO TID [facility] Last Admin: 04/27/17 14:00 Dose: 100 mg Ceftriaxone Sodium (Rocephin 1gm Ivpb (Pre-Docked)) 50 mls @ 100 mls/hr IVPB DAILY [facility] Last Admin: 04/27/17 09:32 Dose: 100 mls/hr Insulin Aspart (Novolog Vial Sliding Scale -) 1 vial SQ ACHS [facility] PRN Reason: Protocol Last Admin: 04/27/17 12:02 Dose: 4 units Isosorbide Mononitrate (Imdur -) 60 mg PO DAILY [facility] Last Admin: 04/27/17 09:32 Dose: 60 mg Lactobacillus Acidophilus (Bacid -) 1 tab PO DAILY [facility] Last Admin: 04/27/17 09:32 Dose: 1 tab Ondansetron HCl (Zofran Injection) 4 mg IVPB Q6H PRN PRN Reason: NAUSEA Oxycodone HCl (Roxicodone -) 5 mg PO Q6H PRN PRN Reason: PAIN Last Admin: 04/27/17 10:55 Dose: 5 mg Polyethylene Glycol (Miralax (For Daily Use) -) 17 gm PO DAILY [facility] Last Admin: 04/27/17 09:32 Dose: Not Given Ranitidine HCl (Zantac -) 150 mg PO BID PRN PRN Reason: DYSPEPSIA - Objective Vital Signs: Vital Signs Temperature 98.7 F 04/27/17 13:38 Pulse Rate 86 04/27/17 13:38 Respiratory Rate 20 04/27/17 09:20 Blood Pressure 155/70 04/27/17 13:38 O2 Sat by Pulse Oximetry (%) 96 04/25/17 21:00 Constitutional: Yes: Well Nourished, No Distress, Calm Cardiovascular: Yes: Regular Rate and Rhythm. No: Gallop, Murmur, Rub Respiratory: Yes: Regular, CTA Bilaterally. No: Rales, Rhonchi, Wheezes Gastrointestinal: Yes: Normal Bowel Sounds, Soft. No: Distention, Tenderness Extremities: Yes: WNL Edema: No Labs: CBC, BMP 04/27/17 06:05 04/27/17 06:05 Problem List - Problems (1) Flank pain Code(s): R10.9 - UNSPECIFIED ABDOMINAL PAIN (2) Hypertension Code(s): I10 - ESSENTIAL (PRIMARY) HYPERTENSION Qualifiers: Hypertension type: essential hypertension Qualified Code(s): I10 - Essential (primary) hypertension (3) CKD (chronic kidney disease) Code(s): N18.9 - CHRONIC KIDNEY DISEASE, UNSPECIFIED Qualifiers: Chronic kidney disease stage: on chronic dialysis Qualified Code(s) : N18.6 - End stage renal disease; Z99.2 - Dependence on renal dialysis (4) Diabetes Code(s): E11.9 - TYPE 2 DIABETES MELLITUS WITHOUT COMPLICATIONS (5) HLD (hyperlipidemia) Code(s): E78.5 - HYPERLIPIDEMIA, UNSPECIFIED Assessment/Plan (1) Flank pain Assessment/Plan: -urine cultures growing enterococcus -between 50-80K, unsure if actual infection vs colonization -will consult ID since patient has pain and CT scan is suspicious for infection Code(s): R10.9 - UNSPECIFIED ABDOMINAL PAIN (2) Hypertension Assessment/Plan: -continue imdur and hydralazine -elevated -will d/w renal if needs second agent Code(s): I10 - ESSENTIAL (PRIMARY) HYPERTENSION Qualifiers: Hypertension type: essential hypertension Qualified Code(s): I10 - Essential (primary) hypertension (3) CKD (chronic kidney disease) Assessment/Plan: -nephrology following -continue HD per regimen Code(s): N18.9 - CHRONIC KIDNEY DISEASE, UNSPECIFIED Qualifiers: Chronic kidney disease stage: on chronic dialysis Qualified Code(s) : N18.6 - End stage renal disease; Z99.2 - Dependence on renal dialysis (4) Diabetes Assessment/Plan: -diabetic diet -FSBS and SSI -add levemir 10 units bid Code(s): E11.9 - TYPE 2 DIABETES MELLITUS WITHOUT COMPLICATIONS (5) HLD (hyperlipidemia) Assessment/Plan: -continue statin Code(s): E78.5 - HYPERLIPIDEMIA, UNSPECIFIED
--- NOTE | 2017-04-27 15:23 | CONSULT ---
Consult Consult Specialty:: infectious diseases Referred by:: Reason for Consultation:: uti,pyelo - History of Present Illness Chief Complaint: pain rt flank. suprapubic pain History of Present Illness: 66 year old female who comes in with 3 days of flank pain. She was at HD on Wednesday, and there she developed right sided flank pain. She says it was crampy in nature. It radiated throughout her abdomen. She says she took some tylenol and it originally improved, however it came back and worsened. She did not note fevers with it. Patient had nausea and no vomiting patient makes urine Other than that patient is stable, currently she has pretty bad flank pain otherwise patient has no complaints patient also mentions that the pain travels on the rt side patient c/o of dysuria and burning in the urine - History Source History Provided By: Patient Limitations to Obtaining History: No Limitations - Past Medical History Cardio/Vascular: Yes: HTN, Hyperlipdemia Gastrointestinal: Yes: GERD, Pancreatitis, Other (Hd similar abdominal pain in [place] afew years ago and was told she has gallstones.) Hepatobiliary: Yes: Cholelithiasis Renal/: Yes: Renal Inusuff Endocrine: Yes: Diabetes Mellitus - Past Surgical History Past Surgical History: Yes: None - Alcohol/Substance Use Hx Alcohol Use: No History of Substance Use: reports: None - Smoking History Smoking history: Former smoker Have you smoked in the past 12 months: No Aproximately how many cigarettes per day: 0 If you are a former smoker, when did you quit?: 40YRS AGO - Social History ADL: Independent History of Recent Travel: No Home Medications - Allergies Allergies/Adverse Reactions: Allergies Allergy/AdvReac Type Severity Reaction Status Date / Time No Known Drug Allergies Allergy Verified 12/07/16 19:51 - Home Medications Home Medications: Ambulatory Orders Hydralazine HCl [Apresoline -] 100 mg PO TID 05/30/14 Cholecalciferol (Vitamin D3) [Vitamin D3] 50,000 unit PO WEEKLY 12/04/15 Docusate Sodium [Colace -] 100 mg PO TID PRN 12/04/15 Atorvastatin Ca [Lipitor] 80 mg PO DAILY 12/08/16 Calcium Acetate [Phoslo -] 667 mg PO TID 12/08/16 Famotidine 10 mg PO BID PRN 12/08/16 Isosorbide Mononitrate [Imdur -] 60 mg PO DAILY 12/08/16 Family Disease History - Family Disease History Family Disease History: Other: Son (sickle cell disease, ), Daughter ( sickle cell trait) Review of Systems - Review of Systems Constitutional: reports: No Symptoms Eyes: reports: No Symptoms HENT: reports: No Symptoms Neck: reports: No Symptoms Cardiovascular: reports: No Symptoms Respiratory: reports: No Symptoms Gastrointestinal: reports: Abdominal Pain (suprapubic) Genitourinary: reports: Dysuria, Flank Pain, Frequency Musculoskeletal: reports: No Symptoms Integumentary: reports: No Symptoms Neurological: reports: No Symptoms Endocrine: reports: No Symptoms Hematology/Lymphatic: reports: No Symptoms Psychiatric: reports: No Symptoms Physical Exam Vital Signs: Vital Signs Temperature 98.7 F 04/27/17 13:38 Pulse Rate 86 04/27/17 13:38 Respiratory Rate 20 04/27/17 09:20 Blood Pressure 155/70 04/27/17 13:38 O2 Sat by Pulse Oximetry (%) 96 04/25/17 21:00 Constitutional: Yes: Well Nourished, Mild Distress Eyes: Yes: Conjunctiva Clear Neck: Yes: Supple Cardiovascular: Yes: Regular Rate and Rhythm Respiratory: Yes: Regular, CTA Bilaterally Gastrointestinal: Yes: Normal Bowel Sounds, Soft Renal/: Yes: CVA Tenderness - Right, Other (suprapupic pain) Musculoskeletal: Yes: WNL Extremities: Yes: Other Neurological: Yes: Alert, Oriented Psychiatric: Yes: Alert, Oriented Labs: CBC, BMP 04/27/17 06:05 04/27/17 06:05 Imaging - Results Cat Scan: Report Reviewed, Image Reviewed Assessment/Plan Problem List - Problems (1) Flank pain Code(s): R10.9 - UNSPECIFIED ABDOMINAL PAIN (2) Hypertension Code(s): I10 - ESSENTIAL (PRIMARY) HYPERTENSION Qualifiers: Hypertension type: essential hypertension Qualified Code(s): I10 - Essential (primary) hypertension (3) CKD (chronic kidney disease) Code(s): N18.9 - CHRONIC KIDNEY DISEASE, UNSPECIFIED Qualifiers: Chronic kidney disease stage: on chronic dialysis Qualified Code(s) : N18.6 - End stage renal disease; Z99.2 - Dependence on renal dialysis (4) Diabetes Code(s): E11.9 - TYPE 2 DIABETES MELLITUS WITHOUT COMPLICATIONS (5) HLD (hyperlipidemia) Code(s): E78.5 - HYPERLIPIDEMIA, UNSPECIFIED pyelonephritis uti after examining the patient and with the symptoms patient has pyelo and also has uti also has bad renal function plan will change abx to zosyn rest continue as per primary hydration
[2017-04-27] MEDS: PIPERACILLIN/TAZOB 2.25 GM 50 ML IVPB SCH ×2 (16:34→17:14)
[2017-04-27] MEDS: ATORVASTATIN CA 80 MG TABLET (FP) PO SCH (22:03)
[2017-04-27] MEDS: INSULIN DETEMIR 100 UNITS/ML MDV SQ SCH (22:04)
[2017-04-28] MEDS: PIPERACILLIN/TAZOB 2.25 GM 50 ML IVPB SCH ×4 (01:27→17:58)
[2017-04-28] MEDS: hydrALAZINE HCL 50 MG TABLET (FP) PO SCH ×3 (06:06→21:26)
[2017-04-28] MEDS: HEPARIN NA (PORCINE) 5,000 UNITS/ML 1ML VIAL SQ SCH ×4 (06:07→21:28)
[2017-04-28] MEDS ORDERED: INSULIN DETEMIR 100 UNITS/ML MDV SQ ONE (06:37)
[2017-04-28] MEDS ORDERED: INSULIN (NOVOLOG) ASPART 100 UNITS/ML 10ML VIAL ONE ×3 (06:38→21:24)
[2017-04-28] MEDS: INSULIN DETEMIR 100 UNITS/ML MDV SQ SCH ×2 (06:53→21:26)
[2017-04-28] MEDS: INSULIN SLIDING SCALE (NOVOLOG) 1 VIAL SQ SCH ×5 (06:54→21:28)
[2017-04-28] MEDS: CALCIUM ACETATE 667 MG CAPSULE (FP) PO SCH ×3 (09:55→17:53)
[2017-04-28] MEDS ORDERED: EPOETIN ALFA 3,000 UNIT/1 ML ML IVPUSH ONE (10:00)
[2017-04-28] MEDS: ISOSORBIDE MONONITRATE 60 MG TAB.SR.24H (FP) PO SCH ×2 (10:40→13:11)
[2017-04-28] MEDS: POLYETHYLENE GLYCOL 3350 119 GM BTL PO SCH ×2 (10:40→17:03)
[2017-04-28] MEDS: LACTOBACILLUS ACIDOPHILUS 1 EACH TAB (FP) PO SCH ×2 (10:40→13:11)
[2017-04-28 11:02] LABS: ALBUMIN 3.3 g/dl (3.4-5.0); BILIRUBIN,TOTAL 0.3 mg/dL (0.2-1.0); COCKROFT - GAULT 18.87; CREATININE 3.4 mg/dL (0.55-1.02); PHOSPHOROUS 2.9 mg/dL (2.5-4.9); TOT PROT 6.1 g/dl (6.4-8.2)
--- NOTE | 2017-04-28 11:57 | PN ---
Progress Note (short form) - Note Progress Note: Renal follow up for ESRD on HD Pt seen and examined during dialysis pt with high venous pressures will start Heparin IV with dialysis has pain in the flank but is improved today no fever, chills no N/V/D started on zosyn as per ID yesterday Vital Signs Temperature 98.2 F 04/28/17 09:51 Pulse Rate 86 04/28/17 09:51 Respiratory Rate 20 04/28/17 09:51 Blood Pressure 186/77 04/28/17 09:51 O2 Sat by Pulse Oximetry (%) 96 04/25/17 21:00 Intake & Output 04/25/17 04/26/17 04/27/17 04/28/17 23:59 23:59 23:59 23:59 Intake Total 500 1625 1850 100 Balance 500 1625 1850 100 Weight 165 lb 3.2 oz 166 lb 3 oz 166 lb 166 lb 7 oz Gen: NAD, CVS: RRR, No M/R Lungs: CTA, no rales or wheeze Abd: soft NT/ND Ext: No edema, clubbing or cyanosis Flank: No rash, no overt tenderness on palpation CBC, BMP 04/28/17 10:00 Laboratory Tests 04/28/17 10:00 AST 16 ALT 20 Albumin 3.3 L Current Medications Acetaminophen (Tylenol -) 650 mg PO Q4H PRN PRN Reason: FEVER OR PAIN Atorvastatin Calcium (Lipitor -) 80 mg PO HS [facility] Last Admin: 04/27/17 22:03 Dose: 80 mg Calcium Acetate (Phoslo -) 667 mg PO TIDCM [facility] Last Admin: 04/28/17 09:55 Dose: Not Given Docusate Sodium (Colace -) 100 mg PO TID PRN PRN Reason: CONSTIPATION Heparin Sodium (Porcine) (Heparin -) 5,000 unit SQ TID [facility] Last Admin: 04/28/17 06:07 Dose: 5,000 unit Heparin Sodium (Porcine) (Heparin -) 1,000 unit IVPUSH ONCE ONE Stop: 04/28/17 11:21 Hydralazine HCl (Apresoline -) 100 mg PO TID [facility] Last Admin: 04/28/17 06:06 Dose: 100 mg Piperacillin Sod/Tazobactam Sod (Zosyn 2.25gm Ivpb (Pre-Docked)) 50 mls @ 100 mls/hr IVPB Q8H-IV [facility] PRN Reason: Protocol Last Admin: 04/28/17 10:41 Dose: Not Given Insulin Aspart (Novolog Vial Sliding Scale -) 1 vial SQ ACHS [facility] PRN Reason: Protocol Last Admin: 04/28/17 06:54 Dose: 2 units Insulin Detemir (Levemir Vial) 10 units SQ BID@0700,2200 [facility] Last Admin: 04/28/17 06:53 Dose: 10 units Isosorbide Mononitrate (Imdur -) 60 mg PO DAILY [facility] Last Admin: 04/28/17 10:40 Dose: Not Given Lactobacillus Acidophilus (Bacid -) 1 tab PO DAILY [facility] Last Admin: 04/28/17 10:40 Dose: Not Given Ondansetron HCl (Zofran Injection) 4 mg IVPB Q6H PRN PRN Reason: NAUSEA Oxycodone HCl (Roxicodone -) 5 mg PO Q6H PRN PRN Reason: PAIN Last Admin: 04/27/17 10:55 Dose: 5 mg Polyethylene Glycol (Miralax (For Daily Use) -) 17 gm PO DAILY [facility] Last Admin: 04/28/17 10:40 Dose: Not Given Ranitidine HCl (Zantac -) 150 mg PO BID PRN PRN Reason: DYSPEPSIA A/P 6 year old woman with PMhx of ESRD on HD (since ) secondary to DM/ Hypertension, Hyperlipidemia, Pancreatitis who presened with right sided flank pain and admitted for pain control. #ESRD on HD Hd today high venous pressures, started Heparin mid treatment UF as tolerated #Flank pain no evidence of stones on the CT Abd, however there was perinephric stranding Urine Culture grew less then 100k of enterococcus continues to have pain on Zosyn as per ID pain with mild improvement if pt without significant improvement in the next few days may need to consider alternate diagnosis such is renal infarction (less likely given pt without afib , or history of vascular disease) #CKD Related Anemia continue epogen with HD #Hypertension continue hydralazine TID Ignacio Callahan DO
[2017-04-28] MEDS ORDERED: HEPARIN NA (PORCINE) 5,000 UNITS/ML 1ML VIAL IVPUSH ONE (12:00)
--- NOTE | 2017-04-28 12:42 | PN ---
Progress Note, Physician Chief Complaint: Ms Sosa says her pain is improving. No cp, sob, n/v. - Current Medication List Current Medications: Active Medications Acetaminophen (Tylenol -) 650 mg PO Q4H PRN PRN Reason: FEVER OR PAIN Atorvastatin Calcium (Lipitor -) 80 mg PO HS [facility] Last Admin: 04/27/17 22:03 Dose: 80 mg Calcium Acetate (Phoslo -) 667 mg PO TIDCM [facility] Last Admin: 04/28/17 09:55 Dose: Not Given Docusate Sodium (Colace -) 100 mg PO TID PRN PRN Reason: CONSTIPATION Heparin Sodium (Porcine) (Heparin -) 5,000 unit SQ TID [facility] Last Admin: 04/28/17 06:07 Dose: 5,000 unit Hydralazine HCl (Apresoline -) 100 mg PO TID [facility] Last Admin: 04/28/17 06:06 Dose: 100 mg Piperacillin Sod/Tazobactam Sod (Zosyn 2.25gm Ivpb (Pre-Docked)) 50 mls @ 100 mls/hr IVPB Q8H-IV [facility] PRN Reason: Protocol Last Admin: 04/28/17 10:41 Dose: Not Given Insulin Aspart (Novolog Vial Sliding Scale -) 1 vial SQ ACHS [facility] PRN Reason: Protocol Last Admin: 04/28/17 06:54 Dose: 2 units Insulin Detemir (Levemir Vial) 10 units SQ BID@0700,2200 [facility] Last Admin: 04/28/17 06:53 Dose: 10 units Isosorbide Mononitrate (Imdur -) 60 mg PO DAILY [facility] Last Admin: 04/28/17 10:40 Dose: Not Given Lactobacillus Acidophilus (Bacid -) 1 tab PO DAILY [facility] Last Admin: 04/28/17 10:40 Dose: Not Given Ondansetron HCl (Zofran Injection) 4 mg IVPB Q6H PRN PRN Reason: NAUSEA Oxycodone HCl (Roxicodone -) 5 mg PO Q6H PRN PRN Reason: PAIN Last Admin: 04/27/17 10:55 Dose: 5 mg Polyethylene Glycol (Miralax (For Daily Use) -) 17 gm PO DAILY [facility] Last Admin: 04/28/17 10:40 Dose: Not Given Ranitidine HCl (Zantac -) 150 mg PO BID PRN PRN Reason: DYSPEPSIA - Objective Vital Signs: Vital Signs Temperature 98.4 F 04/28/17 10:10 Pulse Rate 88 04/28/17 11:45 Respiratory Rate 18 04/28/17 11:45 Blood Pressure 182/84 04/28/17 11:45 O2 Sat by Pulse Oximetry (%) 96 04/25/17 21:00 Constitutional: Yes: Well Nourished, No Distress, Calm Cardiovascular: Yes: Regular Rate and Rhythm. No: Gallop, Murmur, Rub Respiratory: Yes: Regular, CTA Bilaterally. No: Rales, Rhonchi, Wheezes Gastrointestinal: Yes: Normal Bowel Sounds, Soft. No: Distention, Tenderness Extremities: Yes: WNL Edema: No Labs: CBC, BMP 04/28/17 10:00 Problem List - Problems (1) Flank pain Code(s): R10.9 - UNSPECIFIED ABDOMINAL PAIN (2) Hypertension Code(s): I10 - ESSENTIAL (PRIMARY) HYPERTENSION Qualifiers: Hypertension type: essential hypertension Qualified Code(s): I10 - Essential (primary) hypertension (3) CKD (chronic kidney disease) Code(s): N18.9 - CHRONIC KIDNEY DISEASE, UNSPECIFIED Qualifiers: Chronic kidney disease stage: on chronic dialysis Qualified Code(s) : N18.6 - End stage renal disease; Z99.2 - Dependence on renal dialysis (4) Diabetes Code(s): E11.9 - TYPE 2 DIABETES MELLITUS WITHOUT COMPLICATIONS (5) HLD (hyperlipidemia) Code(s): E78.5 - HYPERLIPIDEMIA, UNSPECIFIED Assessment/Plan (1) Pyelonephritis Assessment/Plan: -appreciate ID assistance -changed antibiotics to zosyn -monitor for improvement -case d/w nephrology Code(s): R10.9 - UNSPECIFIED ABDOMINAL PAIN (2) Hypertension Assessment/Plan: -continue imdur and hydralazine Code(s): I10 - ESSENTIAL (PRIMARY) HYPERTENSION Qualifiers: Hypertension type: essential hypertension Qualified Code(s): I10 - Essential (primary) hypertension (3) CKD (chronic kidney disease) Assessment/Plan: -nephrology following -continue HD per regimen Code(s): N18.9 - CHRONIC KIDNEY DISEASE, UNSPECIFIED Qualifiers: Chronic kidney disease stage: on chronic dialysis Qualified Code(s) : N18.6 - End stage renal disease; Z99.2 - Dependence on renal dialysis (4) Diabetes Assessment/Plan: -diabetic diet -FSBS and SSI -levemir 10 units bid added -increase as necessary Code(s): E11.9 - TYPE 2 DIABETES MELLITUS WITHOUT COMPLICATIONS (5) HLD (hyperlipidemia) Assessment/Plan: -continue statin Code(s): E78.5 - HYPERLIPIDEMIA, UNSPECIFIED
[2017-04-28 13:20] LABS: MCH 21.6 pg (25.7-33.7); MCHC 30.9 g/dl (32.0-36.0); MEAN CELL VOLUME 70.1 fl (80-96); PLATELET COUNT 141 K/MM3 (134-434); RDW 16.3 % (11.6-15.6); WHITE BLOOD COUNT 6.1 K/mm3 (4.0-10.0)
[2017-04-28] MEDS: ACETAMINOPHEN 325 MG TABLET (FP) PO PRN ×2 (14:42→22:56)
[2017-04-28] MEDS: oxyCODONE HCL 5 MG TABLET PO PRN (14:43)
--- NOTE | 2017-04-28 16:16 | PN ---
Progress Note, Physician History of Present Illness: patient had dialysis still in pain - Current Medication List Current Medications: Active Medications Acetaminophen (Tylenol -) 650 mg PO Q4H PRN PRN Reason: FEVER OR PAIN Atorvastatin Calcium (Lipitor -) 80 mg PO HS [facility] Last Admin: 04/27/17 22:03 Dose: 80 mg Calcium Acetate (Phoslo -) 667 mg PO TIDCM [facility] Last Admin: 04/28/17 15:14 Dose: Not Given Docusate Sodium (Colace -) 100 mg PO TID PRN PRN Reason: CONSTIPATION Heparin Sodium (Porcine) (Heparin -) 5,000 unit SQ TID [facility] Last Admin: 04/28/17 15:07 Dose: Not Given Hydralazine HCl (Apresoline -) 100 mg PO TID [facility] Last Admin: 04/28/17 13:10 Dose: 100 mg Piperacillin Sod/Tazobactam Sod (Zosyn 2.25gm Ivpb (Pre-Docked)) 50 mls @ 100 mls/hr IVPB Q8H-IV [facility] PRN Reason: Protocol Last Admin: 04/28/17 14:45 Dose: 100 mls/hr Insulin Aspart (Novolog Vial Sliding Scale -) 1 vial SQ ACHS [facility] PRN Reason: Protocol Last Admin: 04/28/17 15:14 Dose: Not Given Insulin Detemir (Levemir Vial) 10 units SQ BID@0700,2200 [facility] Last Admin: 04/28/17 06:53 Dose: 10 units Isosorbide Mononitrate (Imdur -) 60 mg PO DAILY [facility] Last Admin: 04/28/17 13:11 Dose: 60 mg Lactobacillus Acidophilus (Bacid -) 1 tab PO DAILY [facility] Last Admin: 04/28/17 13:11 Dose: 1 tab Ondansetron HCl (Zofran Injection) 4 mg IVPB Q6H PRN PRN Reason: NAUSEA Last Admin: 04/28/17 15:16 Dose: 4 mg Oxycodone HCl (Roxicodone -) 5 mg PO Q6H PRN PRN Reason: PAIN Last Admin: 04/27/17 10:55 Dose: 5 mg Polyethylene Glycol (Miralax (For Daily Use) -) 17 gm PO DAILY [facility] Last Admin: 04/28/17 10:40 Dose: Not Given Ranitidine HCl (Zantac -) 150 mg PO BID PRN PRN Reason: DYSPEPSIA Last Admin: 04/28/17 13:11 Dose: 150 mg - Objective Vital Signs: Vital Signs Temperature 98.4 F 04/28/17 14:50 Pulse Rate 83 04/28/17 14:50 Respiratory Rate 18 04/28/17 14:15 Blood Pressure 163/81 04/28/17 14:50 O2 Sat by Pulse Oximetry (%) 96 04/25/17 21:00 Constitutional: Yes: Calm, Mild Distress HENT: Yes: Atraumatic Neck: Yes: Supple Cardiovascular: Yes: Regular Rate and Rhythm Respiratory: Yes: Regular, CTA Bilaterally Gastrointestinal: Yes: Normal Bowel Sounds, Soft Genitourinary: Yes: CVA Tenderness - Right, Other Musculoskeletal: Yes: Other Extremities: Yes: Other Neurological: Yes: Alert, Oriented Psychiatric: Yes: Alert Labs: CBC, BMP 04/28/17 10:00 04/28/17 10:00 Assessment/Plan Problem List - Problems (1) Flank pain Code(s): R10.9 - UNSPECIFIED ABDOMINAL PAIN (2) Hypertension Code(s): I10 - ESSENTIAL (PRIMARY) HYPERTENSION Qualifiers: Hypertension type: essential hypertension Qualified Code(s): I10 - Essential (primary) hypertension (3) CKD (chronic kidney disease) Code(s): N18.9 - CHRONIC KIDNEY DISEASE, UNSPECIFIED Qualifiers: Chronic kidney disease stage: on chronic dialysis Qualified Code(s) : N18.6 - End stage renal disease; Z99.2 - Dependence on renal dialysis (4) Diabetes Code(s): E11.9 - TYPE 2 DIABETES MELLITUS WITHOUT COMPLICATIONS (5) HLD (hyperlipidemia) Code(s): E78.5 - HYPERLIPIDEMIA, UNSPECIFIED pyelonephritis uti plan continue current mgmt continue as per primary team
[2017-04-28] MEDS: ATORVASTATIN CA 80 MG TABLET (FP) PO SCH (21:26)
[2017-04-29] MEDS: PIPERACILLIN/TAZOB 2.25 GM 50 ML IVPB SCH ×3 (01:11→18:09)
[2017-04-29 06:06] LABS: HEP B SURFACE AB Reactive (.)
[2017-04-29] MEDS ORDERED: INSULIN (NOVOLOG) ASPART 100 UNITS/ML 10ML VIAL ONE ×3 (06:14→21:08)
[2017-04-29] MEDS: hydrALAZINE HCL 50 MG TABLET (FP) PO SCH ×3 (06:22→21:22)
[2017-04-29] MEDS: HEPARIN NA (PORCINE) 5,000 UNITS/ML 1ML VIAL SQ SCH ×3 (06:23→21:22)
[2017-04-29] MEDS: INSULIN SLIDING SCALE (NOVOLOG) 1 VIAL SQ SCH ×4 (06:24→21:23)
[2017-04-29] MEDS: INSULIN DETEMIR 100 UNITS/ML MDV SQ SCH ×2 (06:25→21:22)
[2017-04-29] MEDS: CALCIUM ACETATE 667 MG CAPSULE (FP) PO SCH ×3 (08:44→18:09)
[2017-04-29] MEDS ORDERED: PT OWN MED DRAWER 7, Y5N ONE (09:14)
[2017-04-29] MEDS: POLYETHYLENE GLYCOL 3350 119 GM BTL PO SCH (09:18)
[2017-04-29] MEDS: ISOSORBIDE MONONITRATE 60 MG TAB.SR.24H (FP) PO SCH (09:19)
[2017-04-29] MEDS: LACTOBACILLUS ACIDOPHILUS 1 EACH TAB (FP) PO SCH (09:19)
--- NOTE | 2017-04-29 11:53 | PN ---
Progress Note, Physician Chief Complaint: Ms Sosa had pain and nausea with HD yesterday. Today says it is present but not nearly as severe. No cp, sob, n/v. - Current Medication List Current Medications: Active Medications Acetaminophen (Tylenol -) 650 mg PO Q4H PRN PRN Reason: FEVER OR PAIN Last Admin: 04/28/17 22:56 Dose: 650 mg Atorvastatin Calcium (Lipitor -) 80 mg PO HS [facility] Last Admin: 04/28/17 21:26 Dose: 80 mg Calcium Acetate (Phoslo -) 667 mg PO TIDCM [facility] Last Admin: 04/29/17 11:41 Dose: 667 mg Docusate Sodium (Colace -) 100 mg PO TID PRN PRN Reason: CONSTIPATION Heparin Sodium (Porcine) (Heparin -) 5,000 unit SQ TID [facility] Last Admin: 04/29/17 06:23 Dose: Not Given Hydralazine HCl (Apresoline -) 100 mg PO TID [facility] Last Admin: 04/29/17 06:22 Dose: 100 mg Piperacillin Sod/Tazobactam Sod (Zosyn 2.25gm Ivpb (Pre-Docked)) 50 mls @ 100 mls/hr IVPB Q8H-IV [facility] PRN Reason: Protocol Last Admin: 04/29/17 09:18 Dose: 100 mls/hr Insulin Aspart (Novolog Vial Sliding Scale -) 1 vial SQ ACHS [facility] PRN Reason: Protocol Last Admin: 04/29/17 11:40 Dose: 4 units Insulin Detemir (Levemir Vial) 10 units SQ BID@0700,2200 [facility] Last Admin: 04/29/17 06:25 Dose: 10 units Isosorbide Mononitrate (Imdur -) 60 mg PO DAILY [facility] Last Admin: 04/29/17 09:19 Dose: 60 mg Lactobacillus Acidophilus (Bacid -) 1 tab PO DAILY [facility] Last Admin: 04/29/17 09:19 Dose: 1 tab Ondansetron HCl (Zofran Injection) 4 mg IVPB Q6H PRN PRN Reason: NAUSEA Last Admin: 04/28/17 15:16 Dose: 4 mg Oxycodone HCl (Roxicodone -) 5 mg PO Q6H PRN PRN Reason: PAIN Last Admin: 04/27/17 10:55 Dose: 5 mg Polyethylene Glycol (Miralax (For Daily Use) -) 17 gm PO DAILY [facility] Last Admin: 04/29/17 09:18 Dose: 17 grams Ranitidine HCl (Zantac -) 150 mg PO BID PRN PRN Reason: DYSPEPSIA Last Admin: 04/28/17 13:11 Dose: 150 mg - Objective Vital Signs: Vital Signs Temperature 98.1 F 04/29/17 09:07 Pulse Rate 88 04/29/17 09:07 Respiratory Rate 18 04/29/17 09:07 Blood Pressure 153/72 04/29/17 09:07 O2 Sat by Pulse Oximetry (%) 98 04/29/17 09:00 Constitutional: Yes: Well Nourished, No Distress, Calm Cardiovascular: Yes: Regular Rate and Rhythm. No: Gallop, Murmur, Rub Respiratory: Yes: Regular, CTA Bilaterally. No: Rales, Rhonchi, Wheezes Gastrointestinal: Yes: Normal Bowel Sounds, Soft. No: Distention, Tenderness Extremities: Yes: WNL Edema: No Labs: CBC, BMP 04/28/17 10:00 04/28/17 10:00 Problem List - Problems (1) Flank pain Code(s): R10.9 - UNSPECIFIED ABDOMINAL PAIN (2) Hypertension Code(s): I10 - ESSENTIAL (PRIMARY) HYPERTENSION Qualifiers: Hypertension type: essential hypertension Qualified Code(s): I10 - Essential (primary) hypertension (3) CKD (chronic kidney disease) Code(s): N18.9 - CHRONIC KIDNEY DISEASE, UNSPECIFIED Qualifiers: Chronic kidney disease stage: on chronic dialysis Qualified Code(s) : N18.6 - End stage renal disease; Z99.2 - Dependence on renal dialysis (4) Diabetes Code(s): E11.9 - TYPE 2 DIABETES MELLITUS WITHOUT COMPLICATIONS (5) HLD (hyperlipidemia) Code(s): E78.5 - HYPERLIPIDEMIA, UNSPECIFIED Assessment/Plan (1) Pyelonephritis Assessment/Plan: -appreciate ID assistance -however unsure if this is pyelonephritis -continue antibiotics currently -will d/w nephrology other possible causes Code(s): R10.9 - UNSPECIFIED ABDOMINAL PAIN (2) Hypertension Assessment/Plan: -continue imdur and hydralazine Code(s): I10 - ESSENTIAL (PRIMARY) HYPERTENSION Qualifiers: Hypertension type: essential hypertension Qualified Code(s): I10 - Essential (primary) hypertension (3) CKD (chronic kidney disease) Assessment/Plan: -nephrology following -continue HD per regimen Code(s): N18.9 - CHRONIC KIDNEY DISEASE, UNSPECIFIED Qualifiers: Chronic kidney disease stage: on chronic dialysis Qualified Code(s) : N18.6 - End stage renal disease; Z99.2 - Dependence on renal dialysis (4) Diabetes Assessment/Plan: -diabetic diet -FSBS and SSI -levemir 10 units bid added -monitor today, if still hyperglycemic increase dose Code(s): E11.9 - TYPE 2 DIABETES MELLITUS WITHOUT COMPLICATIONS (5) HLD (hyperlipidemia) Assessment/Plan: -continue statin Code(s): E78.5 - HYPERLIPIDEMIA, UNSPECIFIED
--- NOTE | 2017-04-29 14:08 | PN ---
Progress Note (short form) - Note Progress Note: Renal follow up for ESRD on HD Pt seen and examined at the bedside reports having a lot of pain in her right flank earlier today no N/V, CP, sob s/p dialysis yesterday Vital Signs Temperature 98.2 F 04/29/17 13:59 Pulse Rate 100 H 04/29/17 13:59 Respiratory Rate 18 04/29/17 09:07 Blood Pressure 133/70 04/29/17 13:59 O2 Sat by Pulse Oximetry (%) 98 04/29/17 09:00 Intake & Output 04/26/17 04/27/17 04/28/17 04/29/17 23:59 23:59 23:59 23:59 Intake Total 1625 1850 1100 850 Output Total 200 Balance 1625 1850 900 850 Weight 166 lb 3 oz 166 lb 166 lb 7 oz 166 lb 4 oz Gen: NAD, CVS: RRR, No M/R Lungs: CTA, no rales or wheeze Abd: soft NT/ND Ext: No edema, clubbing or cyanosis Flank: No rash, no overt tenderness on palpation CBC, BMP 04/28/17 10:00 04/28/17 10:00 Current Medications Acetaminophen (Tylenol -) 650 mg PO Q4H PRN PRN Reason: FEVER OR PAIN Last Admin: 04/28/17 22:56 Dose: 650 mg Atorvastatin Calcium (Lipitor -) 80 mg PO HS [facility] Last Admin: 04/28/17 21:26 Dose: 80 mg Calcium Acetate (Phoslo -) 667 mg PO TIDCM [facility] Last Admin: 04/29/17 11:41 Dose: 667 mg Docusate Sodium (Colace -) 100 mg PO TID PRN PRN Reason: CONSTIPATION Heparin Sodium (Porcine) (Heparin -) 5,000 unit SQ TID [facility] Last Admin: 04/29/17 14:03 Dose: 5,000 unit Hydralazine HCl (Apresoline -) 100 mg PO TID [facility] Last Admin: 04/29/17 14:02 Dose: 100 mg Piperacillin Sod/Tazobactam Sod (Zosyn 2.25gm Ivpb (Pre-Docked)) 50 mls @ 100 mls/hr IVPB Q8H-IV [facility] PRN Reason: Protocol Last Admin: 04/29/17 09:18 Dose: 100 mls/hr Insulin Aspart (Novolog Vial Sliding Scale -) 1 vial SQ ACHS [facility] PRN Reason: Protocol Last Admin: 04/29/17 11:40 Dose: 4 units Insulin Detemir (Levemir Vial) 10 units SQ BID@0700,2200 [facility] Last Admin: 04/29/17 06:25 Dose: 10 units Isosorbide Mononitrate (Imdur -) 60 mg PO DAILY [facility] Last Admin: 04/29/17 09:19 Dose: 60 mg Lactobacillus Acidophilus (Bacid -) 1 tab PO DAILY [facility] Last Admin: 04/29/17 09:19 Dose: 1 tab Ondansetron HCl (Zofran Injection) 4 mg IVPB Q6H PRN PRN Reason: NAUSEA Last Admin: 04/28/17 15:16 Dose: 4 mg Oxycodone HCl (Roxicodone -) 5 mg PO Q6H PRN PRN Reason: PAIN Last Admin: 04/27/17 10:55 Dose: 5 mg Polyethylene Glycol (Miralax (For Daily Use) -) 17 gm PO DAILY [facility] Last Admin: 04/29/17 09:18 Dose: 17 grams Ranitidine HCl (Zantac -) 150 mg PO BID PRN PRN Reason: DYSPEPSIA Last Admin: 04/28/17 13:11 Dose: 150 mg A/P 66 year old woman with PMhx of ESRD on HD (since ) secondary to DM/ Hypertension, Hyperlipidemia, Pancreatitis who presened with right sided flank pain and admitted for pain control. #ESRD on HD no acute indication for dialysis today dialysis tomorrow following CT with contrast if needed #Flank pain no evidence of stones on the CT Abd, however there was perinephric stranding Urine Culture grew less then 100k of enterococcus paint continued despite 3 days of Abx consider other etiogies like renal infaction, may need cT with contrast #CKD Related Anemia continue epogen with HD #Hypertension continue hydralazine TID Ignacio Callahan DO
--- NOTE | 2017-04-29 14:58 | PN ---
Progress Note, Physician History of Present Illness: clinically patient improving still has quite flank tenderness dialysis - Current Medication List Current Medications: Active Medications Acetaminophen (Tylenol -) 650 mg PO Q4H PRN PRN Reason: FEVER OR PAIN Last Admin: 04/28/17 22:56 Dose: 650 mg Atorvastatin Calcium (Lipitor -) 80 mg PO HS [facility] Last Admin: 04/28/17 21:26 Dose: 80 mg Calcium Acetate (Phoslo -) 667 mg PO TIDCM [facility] Last Admin: 04/29/17 11:41 Dose: 667 mg Docusate Sodium (Colace -) 100 mg PO TID PRN PRN Reason: CONSTIPATION Epoetin Shar (Epogen -) 6,000 units IVPUSH ONCE ONE Stop: 04/30/17 09:01 Heparin Sodium (Porcine) (Heparin -) 5,000 unit SQ TID [facility] Last Admin: 04/29/17 14:03 Dose: 5,000 unit Heparin Sodium (Porcine) (Heparin -) 1,000 unit IVPUSH ONCE ONE Stop: 04/30/17 06:01 Hydralazine HCl (Apresoline -) 100 mg PO TID [facility] Last Admin: 04/29/17 14:02 Dose: 100 mg Piperacillin Sod/Tazobactam Sod (Zosyn 2.25gm Ivpb (Pre-Docked)) 50 mls @ 100 mls/hr IVPB Q8H-IV [facility] PRN Reason: Protocol Last Admin: 04/29/17 09:18 Dose: 100 mls/hr Insulin Aspart (Novolog Vial Sliding Scale -) 1 vial SQ ACHS [facility] PRN Reason: Protocol Last Admin: 04/29/17 11:40 Dose: 4 units Insulin Detemir (Levemir Vial) 10 units SQ BID@0700,2200 [facility] Last Admin: 04/29/17 06:25 Dose: 10 units Isosorbide Mononitrate (Imdur -) 60 mg PO DAILY [facility] Last Admin: 04/29/17 09:19 Dose: 60 mg Lactobacillus Acidophilus (Bacid -) 1 tab PO DAILY [facility] Last Admin: 04/29/17 09:19 Dose: 1 tab Ondansetron HCl (Zofran Injection) 4 mg IVPB Q6H PRN PRN Reason: NAUSEA Last Admin: 04/28/17 15:16 Dose: 4 mg Oxycodone HCl (Roxicodone -) 5 mg PO Q6H PRN PRN Reason: PAIN Last Admin: 04/27/17 10:55 Dose: 5 mg Polyethylene Glycol (Miralax (For Daily Use) -) 17 gm PO DAILY [facility] Last Admin: 04/29/17 09:18 Dose: 17 grams Ranitidine HCl (Zantac -) 150 mg PO BID PRN PRN Reason: DYSPEPSIA Last Admin: 04/28/17 13:11 Dose: 150 mg - Objective Vital Signs: Vital Signs Temperature 98.2 F 04/29/17 13:59 Pulse Rate 100 H 04/29/17 13:59 Respiratory Rate 18 04/29/17 09:07 Blood Pressure 133/70 04/29/17 13:59 O2 Sat by Pulse Oximetry (%) 98 04/29/17 09:00 Constitutional: Yes: Calm, Mild Distress Cardiovascular: Yes: Regular Rate and Rhythm Respiratory: Yes: Regular, CTA Bilaterally Gastrointestinal: Yes: Normal Bowel Sounds, Soft Genitourinary: Yes: CVA Tenderness - Right, Other Musculoskeletal: Yes: WNL Extremities: Yes: WNL Neurological: Yes: Alert, Oriented Psychiatric: Yes: Alert Labs: CBC, BMP 04/28/17 10:00 04/28/17 10:00 Assessment/Plan Problem List - Problems (1) Flank pain Code(s): R10.9 - UNSPECIFIED ABDOMINAL PAIN (2) Hypertension Code(s): I10 - ESSENTIAL (PRIMARY) HYPERTENSION Qualifiers: Hypertension type: essential hypertension Qualified Code(s): I10 - Essential (primary) hypertension (3) CKD (chronic kidney disease) Code(s): N18.9 - CHRONIC KIDNEY DISEASE, UNSPECIFIED Qualifiers: Chronic kidney disease stage: on chronic dialysis Qualified Code(s) : N18.6 - End stage renal disease; Z99.2 - Dependence on renal dialysis (4) Diabetes Code(s): E11.9 - TYPE 2 DIABETES MELLITUS WITHOUT COMPLICATIONS (5) HLD (hyperlipidemia) Code(s): E78.5 - HYPERLIPIDEMIA, UNSPECIFIED pyelonephritis uti plan continue current mgmt continue as per primary team ct scan again to see if there is improvement or detoriation patients flank pain is pretty severe still
[2017-04-29] MEDS: ATORVASTATIN CA 80 MG TABLET (FP) PO SCH (21:22)
[2017-04-30] MEDS: PIPERACILLIN/TAZOB 2.25 GM 50 ML IVPB SCH ×3 (01:04→17:18)
[2017-04-30] MEDS: hydrALAZINE HCL 50 MG TABLET (FP) PO SCH ×3 (05:53→21:38)
[2017-04-30] MEDS: HEPARIN NA (PORCINE) 5,000 UNITS/ML 1ML VIAL SQ SCH ×4 (05:53→21:38)
[2017-04-30] MEDS: INSULIN DETEMIR 100 UNITS/ML MDV SQ SCH ×3 (06:07→21:38)
[2017-04-30] MEDS: INSULIN SLIDING SCALE (NOVOLOG) 1 VIAL SQ SCH ×4 (06:24→21:38)
[2017-04-30 07:38] LABS: CALCIUM 9.2 mg/dL (8.5-10.1); COCKROFT - GAULT 17.323; CREATININE 3.7 mg/dL (0.55-1.02); PHOSPHOROUS 3.4 mg/dL (2.5-4.9)
[2017-04-30 07:42] LABS: BASOPHIL 0.7 % (0-2.0); EOSINOPHIL 3.1 % (0-4.5); MCH 21.9 pg (25.7-33.7); MCHC 31.3 g/dl (32.0-36.0); MEAN CELL VOLUME 69.9 fl (80-96); MEAN PLT VOLUME 10.1 fl (7.5-11.1); NEUTROPHILS 58.8 % (42.8-82.8); PLATELET COUNT 168 K/MM3 (134-434); RDW 15.8 % (11.6-15.6); WHITE BLOOD COUNT 7.3 K/mm3 (4.0-10.0)
[2017-04-30] MEDS: CALCIUM ACETATE 667 MG CAPSULE (FP) PO SCH ×3 (07:47→17:18)
[2017-04-30] MEDS ORDERED: EPOETIN ALFA 3,000 UNIT/1 ML ML IVPUSH ONE (09:00)
[2017-04-30] MEDS ORDERED: HEPARIN NA (PORCINE) 5,000 UNITS/ML 1ML VIAL IVPUSH ONE (09:00)
[2017-04-30 09:15] LABS: HYPOCHROMIA 1+; MICROCYTOSIS 1+; PLATELET ESTIMATE ADEQUATE (NORMAL); POLYCHROMASIA FEW
[2017-04-30] MEDS: ISOSORBIDE MONONITRATE 60 MG TAB.SR.24H (FP) PO SCH ×2 (09:20→14:18)
[2017-04-30] MEDS: LACTOBACILLUS ACIDOPHILUS 1 EACH TAB (FP) PO SCH (09:20)
[2017-04-30] MEDS ORDERED: INSULIN (NOVOLOG) ASPART 100 UNITS/ML 10ML VIAL ONE ×4 (12:12→21:29)
[2017-04-30] MEDS: POLYETHYLENE GLYCOL 3350 119 GM BTL PO SCH (12:19)
--- NOTE | 2017-04-30 12:34 | PN ---
Progress Note, Physician Chief Complaint: Ms Sosa is without complaint today. No cp, sob, n/v, abdominal pain, or back pain. - Current Medication List Current Medications: Active Medications Acetaminophen (Tylenol -) 650 mg PO Q4H PRN PRN Reason: FEVER OR PAIN Last Admin: 04/28/17 22:56 Dose: 650 mg Atorvastatin Calcium (Lipitor -) 80 mg PO HS [facility] Last Admin: 04/29/17 21:22 Dose: 80 mg Calcium Acetate (Phoslo -) 667 mg PO TIDCM [facility] Last Admin: 04/30/17 12:21 Dose: Not Given Docusate Sodium (Colace -) 100 mg PO TID PRN PRN Reason: CONSTIPATION Heparin Sodium (Porcine) (Heparin -) 5,000 unit SQ TID [facility] Last Admin: 04/30/17 07:20 Dose: Not Given Hydralazine HCl (Apresoline -) 100 mg PO TID [facility] Last Admin: 04/30/17 05:53 Dose: 100 mg Piperacillin Sod/Tazobactam Sod (Zosyn 2.25gm Ivpb (Pre-Docked)) 50 mls @ 100 mls/hr IVPB Q8H-IV [facility] PRN Reason: Protocol Last Admin: 04/30/17 09:20 Dose: Not Given Insulin Aspart (Novolog Vial Sliding Scale -) 1 vial SQ ACHS [facility] PRN Reason: Protocol Last Admin: 04/30/17 12:15 Dose: 6 units Insulin Detemir (Levemir Vial) 10 units SQ BID@0700,2200 [facility] Last Admin: 04/30/17 07:19 Dose: Not Given Isosorbide Mononitrate (Imdur -) 60 mg PO DAILY [facility] Last Admin: 04/30/17 09:20 Dose: Not Given Lactobacillus Acidophilus (Bacid -) 1 tab PO DAILY [facility] Last Admin: 04/30/17 09:20 Dose: Not Given Ondansetron HCl (Zofran Injection) 4 mg IVPB Q6H PRN PRN Reason: NAUSEA Last Admin: 04/28/17 15:16 Dose: 4 mg Oxycodone HCl (Roxicodone -) 5 mg PO Q6H PRN PRN Reason: PAIN Last Admin: 04/27/17 10:55 Dose: 5 mg Polyethylene Glycol (Miralax (For Daily Use) -) 17 gm PO DAILY [facility] Last Admin: 04/30/17 12:19 Dose: Not Given Ranitidine HCl (Zantac -) 150 mg PO BID PRN PRN Reason: DYSPEPSIA Last Admin: 04/28/17 13:11 Dose: 150 mg - Objective Vital Signs: Vital Signs Temperature 98.2 F 04/30/17 09:00 Pulse Rate 87 04/30/17 09:00 Respiratory Rate 18 04/30/17 09:00 Blood Pressure 183/78 04/30/17 09:00 O2 Sat by Pulse Oximetry (%) 98 04/30/17 09:00 Constitutional: Yes: Well Nourished, No Distress, Calm Cardiovascular: Yes: Regular Rate and Rhythm. No: Gallop, Murmur, Rub Respiratory: Yes: Regular, CTA Bilaterally. No: Rales, Rhonchi, Wheezes Gastrointestinal: Yes: Normal Bowel Sounds, Soft. No: Distention, Tenderness Extremities: Yes: WNL Edema: No Labs: CBC, BMP 04/30/17 07:05 04/30/17 07:05 Problem List - Problems (1) Flank pain Code(s): R10.9 - UNSPECIFIED ABDOMINAL PAIN (2) Hypertension Code(s): I10 - ESSENTIAL (PRIMARY) HYPERTENSION Qualifiers: Hypertension type: essential hypertension Qualified Code(s): I10 - Essential (primary) hypertension (3) CKD (chronic kidney disease) Code(s): N18.9 - CHRONIC KIDNEY DISEASE, UNSPECIFIED Qualifiers: Chronic kidney disease stage: on chronic dialysis Qualified Code(s) : N18.6 - End stage renal disease; Z99.2 - Dependence on renal dialysis (4) Diabetes Code(s): E11.9 - TYPE 2 DIABETES MELLITUS WITHOUT COMPLICATIONS (5) HLD (hyperlipidemia) Code(s): E78.5 - HYPERLIPIDEMIA, UNSPECIFIED Assessment/Plan (1) Pyelonephritis Assessment/Plan: -CT scan reviewed -no pyelonephritis or infarction -monitor on HD today -if asymptomatic, possible discharge on oral antibiotics if approved by ID Code(s): R10.9 - UNSPECIFIED ABDOMINAL PAIN (2) Hypertension Assessment/Plan: -continue imdur and hydralazine Code(s): I10 - ESSENTIAL (PRIMARY) HYPERTENSION Qualifiers: Hypertension type: essential hypertension Qualified Code(s): I10 - Essential (primary) hypertension (3) CKD (chronic kidney disease) Assessment/Plan: -nephrology following and case discussed -continue HD per regimen Code(s): N18.9 - CHRONIC KIDNEY DISEASE, UNSPECIFIED Qualifiers: Chronic kidney disease stage: on chronic dialysis Qualified Code(s) : N18.6 - End stage renal disease; Z99.2 - Dependence on renal dialysis (4) Diabetes Assessment/Plan: -diabetic diet -FSBS and SSI -will increase levemir in the am and continue pm dose Code(s): E11.9 - TYPE 2 DIABETES MELLITUS WITHOUT COMPLICATIONS (5) HLD (hyperlipidemia) Assessment/Plan: -continue statin Code(s): E78.5 - HYPERLIPIDEMIA, UNSPECIFIED
--- NOTE | 2017-04-30 13:21 | PN ---
Progress Note (short form) - Note Progress Note: Renal follow up for ESRD on HD Pt seen and examined at the bedside no acute complaints s/p CTA of the Abd this am for dialysis today Vital Signs Temperature 98.2 F 04/30/17 09:00 Pulse Rate 87 04/30/17 09:00 Respiratory Rate 18 04/30/17 09:00 Blood Pressure 183/78 04/30/17 09:00 O2 Sat by Pulse Oximetry (%) 98 04/30/17 09:00 Intake & Output 04/27/17 04/28/17 04/29/17 04/30/17 23:59 23:59 23:59 23:59 Intake Total 1850 1100 1150 50 Output Total 200 Balance 1760 125 9053 50 Weight 166 lb 166 lb 7 oz 166 lb 4 oz 166 lb 5 oz Gen: NAD, CVS: RRR, No M/R Lungs: CTA, no rales or wheeze Abd: soft NT/ND Ext: No edema, clubbing or cyanosis CBC, BMP 04/30/17 07:05 04/30/17 07:05 Laboratory Tests 04/30/17 07:05 Calcium 9.2 Phosphorus 3.4 Magnesium 2.0 Current Medications Acetaminophen (Tylenol -) 650 mg PO Q4H PRN PRN Reason: FEVER OR PAIN Last Admin: 04/28/17 22:56 Dose: 650 mg Atorvastatin Calcium (Lipitor -) 80 mg PO HS [facility] Last Admin: 04/29/17 21:22 Dose: 80 mg Calcium Acetate (Phoslo -) 667 mg PO TIDCM [facility] Last Admin: 04/30/17 12:21 Dose: Not Given Docusate Sodium (Colace -) 100 mg PO TID PRN PRN Reason: CONSTIPATION Heparin Sodium (Porcine) (Heparin -) 5,000 unit SQ TID [facility] Last Admin: 04/30/17 07:20 Dose: Not Given Hydralazine HCl (Apresoline -) 100 mg PO TID [facility] Last Admin: 04/30/17 05:53 Dose: 100 mg Piperacillin Sod/Tazobactam Sod (Zosyn 2.25gm Ivpb (Pre-Docked)) 50 mls @ 100 mls/hr IVPB Q8H-IV [facility] PRN Reason: Protocol Last Admin: 04/30/17 09:20 Dose: Not Given Insulin Aspart (Novolog Vial Sliding Scale -) 1 vial SQ ACHS [facility] PRN Reason: Protocol Last Admin: 04/30/17 12:15 Dose: 6 units Insulin Detemir (Levemir Vial) 10 units SQ HS [facility] Insulin Detemir (Levemir Vial) 20 units SQ AM [facility] Isosorbide Mononitrate (Imdur -) 60 mg PO DAILY [facility] Last Admin: 04/30/17 09:20 Dose: Not Given Lactobacillus Acidophilus (Bacid -) 1 tab PO DAILY [facility] Last Admin: 04/30/17 09:20 Dose: Not Given Ondansetron HCl (Zofran Injection) 4 mg IVPB Q6H PRN PRN Reason: NAUSEA Last Admin: 04/28/17 15:16 Dose: 4 mg Oxycodone HCl (Roxicodone -) 5 mg PO Q6H PRN PRN Reason: PAIN Last Admin: 04/27/17 10:55 Dose: 5 mg Polyethylene Glycol (Miralax (For Daily Use) -) 17 gm PO DAILY [facility] Last Admin: 04/30/17 12:19 Dose: Not Given Ranitidine HCl (Zantac -) 150 mg PO BID PRN PRN Reason: DYSPEPSIA Last Admin: 04/28/17 13:11 Dose: 150 mg A/P 66 year old woman with PMhx of ESRD on HD (since ) secondary to DM/ Hypertension, Hyperlipidemia, Pancreatitis who presened with right sided flank pain and admitted for pain control. #ESRD on HD dialysis today with UF as tolerated dose all meds for intermittent HD #Flank pain CTA of the Abd showed no evidence of renal infarction or any other acute pathology pain control continue Abx as per ID pain is overall better today #CKD Related Anemia continue epogen with HD #Hypertension continue hydralazine TID add amlodipine 5mg Daily in addition as BP goal is not achieved Ignacio Callahan DO
[2017-04-30] MEDS: amLODIPine BESYLATE 5 MG TABLET (FP) PO SCH (14:18)
[2017-04-30] MEDS: ACETAMINOPHEN 325 MG TABLET (FP) PO PRN (17:20)
[2017-04-30] MEDS ORDERED: PT OWN MED DRAWER 7, Y5N ONE (19:06)
[2017-04-30] MEDS: ATORVASTATIN CA 80 MG TABLET (FP) PO SCH (21:38)
[2017-05-01] MEDS: ACETAMINOPHEN 325 MG TABLET (FP) PO PRN (00:53)
[2017-05-01] MEDS ORDERED: PT OWN MED DRAWER 7, Y5N ONE (01:03)
[2017-05-01] MEDS: PIPERACILLIN/TAZOB 2.25 GM 50 ML IVPB SCH ×3 (01:06→17:19)
[2017-05-01] MEDS: hydrALAZINE HCL 50 MG TABLET (FP) PO SCH ×3 (06:16→21:18)
[2017-05-01] MEDS: HEPARIN NA (PORCINE) 5,000 UNITS/ML 1ML VIAL SQ SCH ×3 (06:16→21:18)
[2017-05-01] MEDS: INSULIN SLIDING SCALE (NOVOLOG) 1 VIAL SQ SCH ×4 (06:17→21:23)
[2017-05-01] MEDS: INSULIN DETEMIR 100 UNITS/ML MDV SQ SCH ×2 (06:17→21:23)
[2017-05-01] MEDS ORDERED: INSULIN (NOVOLOG) ASPART 100 UNITS/ML 10ML VIAL ONE ×2 (06:49→11:43)
[2017-05-01 07:30] LABS: BASOPHIL 0.7 % (0-2.0); MCH 21.8 pg (25.7-33.7); MCHC 31.1 g/dl (32.0-36.0); MEAN PLT VOLUME 9.3 fl (7.5-11.1); PLATELET COUNT 148 K/MM3 (134-434); RDW 15.9 % (11.6-15.6)
[2017-05-01 08:04] LABS: CALCIUM 8.8 mg/dL (8.5-10.1); COCKROFT - GAULT 20.655; CREATININE 3.1 mg/dL (0.55-1.02)
[2017-05-01 08:06] LABS: PHOSPHOROUS 2.9 mg/dL (2.5-4.9)
[2017-05-01] MEDS: CALCIUM ACETATE 667 MG CAPSULE (FP) PO SCH ×3 (08:53→17:18)
[2017-05-01] MEDS: ISOSORBIDE MONONITRATE 60 MG TAB.SR.24H (FP) PO SCH (10:29)
[2017-05-01] MEDS: POLYETHYLENE GLYCOL 3350 119 GM BTL PO SCH (10:29)
[2017-05-01] MEDS: amLODIPine BESYLATE 5 MG TABLET (FP) PO SCH (10:29)
[2017-05-01] MEDS: LACTOBACILLUS ACIDOPHILUS 1 EACH TAB (FP) PO SCH (10:29)
--- NOTE | 2017-05-01 11:10 | PN ---
Progress Note, Physician History of Present Illness: Last night was having pain in right suprapubic area, but feeling better now. Back apin has resolved. CT done yesterday shewed no stranding og kidneys now, but bladder looked thickened/ irritated. - Current Medication List Current Medications: Active Medications Acetaminophen (Tylenol -) 650 mg PO Q4H PRN PRN Reason: FEVER OR PAIN Last Admin: 05/01/17 00:53 Dose: 650 mg Amlodipine Besylate (Norvasc -) 5 mg PO DAILY [facility] Last Admin: 05/01/17 10:29 Dose: 5 mg Atorvastatin Calcium (Lipitor -) 80 mg PO HS [facility] Last Admin: 04/30/17 21:38 Dose: 80 mg Calcium Acetate (Phoslo -) 667 mg PO TIDCM [facility] Last Admin: 05/01/17 08:53 Dose: 667 mg Docusate Sodium (Colace -) 100 mg PO TID PRN PRN Reason: CONSTIPATION Heparin Sodium (Porcine) (Heparin -) 5,000 unit SQ TID [facility] Last Admin: 05/01/17 06:16 Dose: 5,000 unit Hydralazine HCl (Apresoline -) 100 mg PO TID [facility] Last Admin: 05/01/17 06:16 Dose: 100 mg Piperacillin Sod/Tazobactam Sod (Zosyn 2.25gm Ivpb (Pre-Docked)) 50 mls @ 100 mls/hr IVPB Q8H-IV [facility] PRN Reason: Protocol Last Admin: 05/01/17 10:30 Dose: 100 mls/hr Insulin Aspart (Novolog Vial Sliding Scale -) 1 vial SQ ACHS [facility] PRN Reason: Protocol Last Admin: 05/01/17 06:17 Dose: 2 units Insulin Detemir (Levemir Vial) 10 units SQ HS [facility] Last Admin: 04/30/17 21:38 Dose: 10 units Insulin Detemir (Levemir Vial) 20 units SQ AM [facility] Last Admin: 05/01/17 06:17 Dose: 20 units Isosorbide Mononitrate (Imdur -) 60 mg PO DAILY [facility] Last Admin: 05/01/17 10:29 Dose: 60 mg Lactobacillus Acidophilus (Bacid -) 1 tab PO DAILY [facility] Last Admin: 05/01/17 10:29 Dose: 1 tab Ondansetron HCl (Zofran Injection) 4 mg IVPB Q6H PRN PRN Reason: NAUSEA Last Admin: 04/28/17 15:16 Dose: 4 mg Polyethylene Glycol (Miralax (For Daily Use) -) 17 gm PO DAILY [facility] Last Admin: 05/01/17 10:29 Dose: 17 grams Ranitidine HCl (Zantac -) 150 mg PO BID PRN PRN Reason: DYSPEPSIA Last Admin: 04/28/17 13:11 Dose: 150 mg - Objective Vital Signs: Vital Signs Temperature 98.9 F 05/01/17 06:44 Pulse Rate 85 05/01/17 06:44 Respiratory Rate 21 05/01/17 06:44 Blood Pressure 143/66 05/01/17 06:44 O2 Sat by Pulse Oximetry (%) 98 04/30/17 21:00 Constitutional: Yes: No Distress, Calm Eyes: Yes: Conjunctiva Clear, EOM Intact Cardiovascular: Yes: Regular Rate and Rhythm, S1, S2. No: Murmur Respiratory: Yes: Regular, CTA Bilaterally. No: Rales, Rhonchi, Wheezes Gastrointestinal: Yes: Normal Bowel Sounds, Soft. No: Distention, Tenderness Edema: No Labs: CBC, BMP 05/01/17 06:00 05/01/17 06:00 Assessment/Plan Current Active Problems Pyelonephritis/ UTI ESRD on HD Flank pain (Acute) HLD (hyperlipidemia) (Acute) Hypertension (Acute) -ID to follow-up -tentative discharge if can switch to PO abx
--- NOTE | 2017-05-01 12:08 | PN ---
Progress Note, Physician Chief Complaint: The patient seen in her bed. Feeling much better. IV Abx infusing. Denies any chest pain, or Shortness of breath. Had uneventful HD yesterday. Suprapubic pain occured last night, but has resolved completely. History of Present Illness: 66 y/o female admitted with acute flank pain. Pyelo nephritis. the patient has ESRD, on HD MWF. Had uneventful dialysis yesterday. - Current Medication List Current Medications: Active Medications Acetaminophen (Tylenol -) 650 mg PO Q4H PRN PRN Reason: FEVER OR PAIN Last Admin: 05/01/17 00:53 Dose: 650 mg Amlodipine Besylate (Norvasc -) 5 mg PO DAILY [facility] Last Admin: 05/01/17 10:29 Dose: 5 mg Atorvastatin Calcium (Lipitor -) 80 mg PO HS [facility] Last Admin: 04/30/17 21:38 Dose: 80 mg Calcium Acetate (Phoslo -) 667 mg PO TIDCM [facility] Last Admin: 05/01/17 11:55 Dose: 667 mg Docusate Sodium (Colace -) 100 mg PO TID PRN PRN Reason: CONSTIPATION Heparin Sodium (Porcine) (Heparin -) 5,000 unit SQ TID [facility] Last Admin: 05/01/17 06:16 Dose: 5,000 unit Hydralazine HCl (Apresoline -) 100 mg PO TID [facility] Last Admin: 05/01/17 06:16 Dose: 100 mg Piperacillin Sod/Tazobactam Sod (Zosyn 2.25gm Ivpb (Pre-Docked)) 50 mls @ 100 mls/hr IVPB Q8H-IV [facility] PRN Reason: Protocol Last Admin: 05/01/17 10:30 Dose: 100 mls/hr Insulin Aspart (Novolog Vial Sliding Scale -) 1 vial SQ ACHS [facility] PRN Reason: Protocol Last Admin: 05/01/17 11:57 Dose: 4 units Insulin Detemir (Levemir Vial) 10 units SQ HS [facility] Last Admin: 04/30/17 21:38 Dose: 10 units Insulin Detemir (Levemir Vial) 20 units SQ AM [facility] Last Admin: 05/01/17 06:17 Dose: 20 units Isosorbide Mononitrate (Imdur -) 60 mg PO DAILY [facility] Last Admin: 05/01/17 10:29 Dose: 60 mg Lactobacillus Acidophilus (Bacid -) 1 tab PO DAILY [facility] Last Admin: 05/01/17 10:29 Dose: 1 tab Ondansetron HCl (Zofran Injection) 4 mg IVPB Q6H PRN PRN Reason: NAUSEA Last Admin: 04/28/17 15:16 Dose: 4 mg Polyethylene Glycol (Miralax (For Daily Use) -) 17 gm PO DAILY [facility] Last Admin: 05/01/17 10:29 Dose: 17 grams Ranitidine HCl (Zantac -) 150 mg PO BID PRN PRN Reason: DYSPEPSIA Last Admin: 04/28/17 13:11 Dose: 150 mg - Objective Vital Signs: Vital Signs Temperature 98.9 F 05/01/17 06:44 Pulse Rate 85 05/01/17 06:44 Respiratory Rate 21 05/01/17 06:44 Blood Pressure 143/66 05/01/17 06:44 O2 Sat by Pulse Oximetry (%) 98 04/30/17 21:00 Constitutional: Yes: Anxious Eyes: Yes: Conjunctiva Clear HENT: Yes: Normocephalic Cardiovascular: Yes: S1, S2 Respiratory: Yes: CTA Bilaterally Gastrointestinal: Yes: Soft Genitourinary: No: CVA Tenderness - Left, CVA Tenderness - Right Edema: No Labs: CBC, BMP 05/01/17 06:00 05/01/17 06:00 Problem List - Problems (1) Flank pain Code(s): R10.9 - UNSPECIFIED ABDOMINAL PAIN (2) HLD (hyperlipidemia) Code(s): E78.5 - HYPERLIPIDEMIA, UNSPECIFIED (3) Hypertension Code(s): I10 - ESSENTIAL (PRIMARY) HYPERTENSION Qualifiers: Hypertension type: essential hypertension Qualified Code(s): I10 - Essential (primary) hypertension (4) Diabetes Code(s): E11.9 - TYPE 2 DIABETES MELLITUS WITHOUT COMPLICATIONS (5) Pyelonephritis Code(s): N12 - TUBULO-INTERSTITIAL NEPHRITIS, NOT SPCF ACUTE OR CHRONIC (6) End stage renal disease Code(s): N18.6 - END STAGE RENAL DISEASE Assessment/Plan 66 y/o female with ESRD, now with acute pyelonephritis. IV antibiotics in place. Clinical improvement significant since admission. Next HD on Wednesday.
--- NOTE | 2017-05-01 14:48 | PN ---
Progress Note, Physician History of Present Illness: clinically patient improving flank pain improving - Current Medication List Current Medications: Active Medications Acetaminophen (Tylenol -) 650 mg PO Q4H PRN PRN Reason: FEVER OR PAIN Last Admin: 05/01/17 00:53 Dose: 650 mg Amlodipine Besylate (Norvasc -) 5 mg PO DAILY [facility] Last Admin: 05/01/17 10:29 Dose: 5 mg Atorvastatin Calcium (Lipitor -) 80 mg PO HS [facility] Last Admin: 04/30/17 21:38 Dose: 80 mg Calcium Acetate (Phoslo -) 667 mg PO TIDCM [facility] Last Admin: 05/01/17 11:55 Dose: 667 mg Docusate Sodium (Colace -) 100 mg PO TID PRN PRN Reason: CONSTIPATION Heparin Sodium (Porcine) (Heparin -) 5,000 unit SQ TID [facility] Last Admin: 05/01/17 14:09 Dose: 5,000 unit Hydralazine HCl (Apresoline -) 100 mg PO TID [facility] Last Admin: 05/01/17 14:08 Dose: 100 mg Piperacillin Sod/Tazobactam Sod (Zosyn 2.25gm Ivpb (Pre-Docked)) 50 mls @ 100 mls/hr IVPB Q8H-IV [facility] PRN Reason: Protocol Last Admin: 05/01/17 10:30 Dose: 100 mls/hr Insulin Aspart (Novolog Vial Sliding Scale -) 1 vial SQ ACHS [facility] PRN Reason: Protocol Last Admin: 05/01/17 11:57 Dose: 4 units Insulin Detemir (Levemir Vial) 10 units SQ HS [facility] Last Admin: 04/30/17 21:38 Dose: 10 units Insulin Detemir (Levemir Vial) 20 units SQ AM [facility] Last Admin: 05/01/17 06:17 Dose: 20 units Isosorbide Mononitrate (Imdur -) 60 mg PO DAILY [facility] Last Admin: 05/01/17 10:29 Dose: 60 mg Lactobacillus Acidophilus (Bacid -) 1 tab PO DAILY [facility] Last Admin: 05/01/17 10:29 Dose: 1 tab Ondansetron HCl (Zofran Injection) 4 mg IVPB Q6H PRN PRN Reason: NAUSEA Last Admin: 04/28/17 15:16 Dose: 4 mg Polyethylene Glycol (Miralax (For Daily Use) -) 17 gm PO DAILY [facility] Last Admin: 05/01/17 10:29 Dose: 17 grams Ranitidine HCl (Zantac -) 150 mg PO BID PRN PRN Reason: DYSPEPSIA Last Admin: 04/28/17 13:11 Dose: 150 mg - Objective Vital Signs: Vital Signs Temperature 98.6 F 05/01/17 14:16 Pulse Rate 90 05/01/17 14:16 Respiratory Rate 20 05/01/17 09:30 Blood Pressure 144/66 05/01/17 14:16 O2 Sat by Pulse Oximetry (%) 98 04/30/17 21:00 Constitutional: Yes: Calm, Mild Distress Cardiovascular: Yes: Regular Rate and Rhythm Respiratory: Yes: Regular, CTA Bilaterally Gastrointestinal: Yes: Normal Bowel Sounds, Soft Musculoskeletal: Yes: WNL Extremities: Yes: Other Neurological: Yes: Alert, Oriented Psychiatric: Yes: Alert Labs: CBC, BMP 05/01/17 06:00 05/01/17 06:00 - ....Imaging Cat Scan: Report Reviewed, Image Reviewed Assessment/Plan Problem List - Problems (1) Flank pain Code(s): R10.9 - UNSPECIFIED ABDOMINAL PAIN (2) Hypertension Code(s): I10 - ESSENTIAL (PRIMARY) HYPERTENSION Qualifiers: Hypertension type: essential hypertension Qualified Code(s): I10 - Essential (primary) hypertension (3) CKD (chronic kidney disease) Code(s): N18.9 - CHRONIC KIDNEY DISEASE, UNSPECIFIED Qualifiers: Chronic kidney disease stage: on chronic dialysis Qualified Code(s) : N18.6 - End stage renal disease; Z99.2 - Dependence on renal dialysis (4) Diabetes Code(s): E11.9 - TYPE 2 DIABETES MELLITUS WITHOUT COMPLICATIONS (5) HLD (hyperlipidemia) Code(s): E78.5 - HYPERLIPIDEMIA, UNSPECIFIED pyelonephritis uti plan continue abx ct scan result noted
--- NOTE | 2017-05-01 14:50 | PN ---
Progress Note, Physician History of Present Illness: patients flank pain much better still with suprapubic pain while urination - Current Medication List Current Medications: Active Medications Acetaminophen (Tylenol -) 650 mg PO Q4H PRN PRN Reason: FEVER OR PAIN Last Admin: 05/01/17 00:53 Dose: 650 mg Amlodipine Besylate (Norvasc -) 5 mg PO DAILY [facility] Last Admin: 05/01/17 10:29 Dose: 5 mg Atorvastatin Calcium (Lipitor -) 80 mg PO HS [facility] Last Admin: 04/30/17 21:38 Dose: 80 mg Calcium Acetate (Phoslo -) 667 mg PO TIDCM [facility] Last Admin: 05/01/17 11:55 Dose: 667 mg Docusate Sodium (Colace -) 100 mg PO TID PRN PRN Reason: CONSTIPATION Heparin Sodium (Porcine) (Heparin -) 5,000 unit SQ TID [facility] Last Admin: 05/01/17 14:09 Dose: 5,000 unit Hydralazine HCl (Apresoline -) 100 mg PO TID [facility] Last Admin: 05/01/17 14:08 Dose: 100 mg Piperacillin Sod/Tazobactam Sod (Zosyn 2.25gm Ivpb (Pre-Docked)) 50 mls @ 100 mls/hr IVPB Q8H-IV [facility] PRN Reason: Protocol Last Admin: 05/01/17 10:30 Dose: 100 mls/hr Insulin Aspart (Novolog Vial Sliding Scale -) 1 vial SQ ACHS [facility] PRN Reason: Protocol Last Admin: 05/01/17 11:57 Dose: 4 units Insulin Detemir (Levemir Vial) 10 units SQ HS [facility] Last Admin: 04/30/17 21:38 Dose: 10 units Insulin Detemir (Levemir Vial) 20 units SQ AM [facility] Last Admin: 05/01/17 06:17 Dose: 20 units Isosorbide Mononitrate (Imdur -) 60 mg PO DAILY [facility] Last Admin: 05/01/17 10:29 Dose: 60 mg Lactobacillus Acidophilus (Bacid -) 1 tab PO DAILY [facility] Last Admin: 05/01/17 10:29 Dose: 1 tab Ondansetron HCl (Zofran Injection) 4 mg IVPB Q6H PRN PRN Reason: NAUSEA Last Admin: 04/28/17 15:16 Dose: 4 mg Polyethylene Glycol (Miralax (For Daily Use) -) 17 gm PO DAILY [facility] Last Admin: 05/01/17 10:29 Dose: 17 grams Ranitidine HCl (Zantac -) 150 mg PO BID PRN PRN Reason: DYSPEPSIA Last Admin: 04/28/17 13:11 Dose: 150 mg - Objective Vital Signs: Vital Signs Temperature 98.6 F 05/01/17 14:16 Pulse Rate 90 05/01/17 14:16 Respiratory Rate 20 05/01/17 09:30 Blood Pressure 144/66 05/01/17 14:16 O2 Sat by Pulse Oximetry (%) 98 04/30/17 21:00 Constitutional: Yes: No Distress, Calm Cardiovascular: Yes: Regular Rate and Rhythm Respiratory: Yes: Regular, CTA Bilaterally Gastrointestinal: Yes: Normal Bowel Sounds, Soft Musculoskeletal: Yes: WNL Extremities: Yes: WNL Neurological: Yes: Alert, Oriented Psychiatric: Yes: Alert Labs: CBC, BMP 05/01/17 06:00 05/01/17 06:00 Assessment/Plan Problem List - Problems (1) Flank pain Code(s): R10.9 - UNSPECIFIED ABDOMINAL PAIN (2) Hypertension Code(s): I10 - ESSENTIAL (PRIMARY) HYPERTENSION Qualifiers: Hypertension type: essential hypertension Qualified Code(s): I10 - Essential (primary) hypertension (3) CKD (chronic kidney disease) Code(s): N18.9 - CHRONIC KIDNEY DISEASE, UNSPECIFIED Qualifiers: Chronic kidney disease stage: on chronic dialysis Qualified Code(s) : N18.6 - End stage renal disease; Z99.2 - Dependence on renal dialysis (4) Diabetes Code(s): E11.9 - TYPE 2 DIABETES MELLITUS WITHOUT COMPLICATIONS (5) HLD (hyperlipidemia) Code(s): E78.5 - HYPERLIPIDEMIA, UNSPECIFIED pyelonephritis uti plan continue abx will probably change to oral on minday after evaluating her
[2017-05-01] MEDS: ATORVASTATIN CA 80 MG TABLET (FP) PO SCH (21:18)
[2017-05-02] MEDS: PIPERACILLIN/TAZOB 2.25 GM 50 ML IVPB SCH ×3 (02:34→18:09)
[2017-05-02] MEDS: hydrALAZINE HCL 50 MG TABLET (FP) PO SCH ×3 (06:18→22:16)
[2017-05-02] MEDS: HEPARIN NA (PORCINE) 5,000 UNITS/ML 1ML VIAL SQ SCH ×3 (06:18→22:00)
[2017-05-02] MEDS: INSULIN SLIDING SCALE (NOVOLOG) 1 VIAL SQ SCH ×4 (06:22→22:17)
[2017-05-02] MEDS: INSULIN DETEMIR 100 UNITS/ML MDV SQ SCH ×2 (06:24→22:17)
[2017-05-02] MEDS: CALCIUM ACETATE 667 MG CAPSULE (FP) PO SCH ×3 (08:51→18:09)
--- NOTE | 2017-05-02 09:42 | PN ---
Progress Note, Physician History of Present Illness: Feeling OK, still slight discomfort in RLQ, but less than day before. No fevers overnight - Current Medication List Current Medications: Active Medications Acetaminophen (Tylenol -) 650 mg PO Q4H PRN PRN Reason: FEVER OR PAIN Last Admin: 05/01/17 00:53 Dose: 650 mg Amlodipine Besylate (Norvasc -) 5 mg PO DAILY [facility] Last Admin: 05/01/17 10:29 Dose: 5 mg Atorvastatin Calcium (Lipitor -) 80 mg PO HS [facility] Last Admin: 05/01/17 21:18 Dose: 80 mg Calcium Acetate (Phoslo -) 667 mg PO TIDCM [facility] Last Admin: 05/02/17 08:51 Dose: 667 mg Docusate Sodium (Colace -) 100 mg PO TID PRN PRN Reason: CONSTIPATION Heparin Sodium (Porcine) (Heparin -) 5,000 unit SQ TID [facility] Last Admin: 05/02/17 06:18 Dose: 5,000 unit Hydralazine HCl (Apresoline -) 100 mg PO TID [facility] Last Admin: 05/02/17 06:18 Dose: 100 mg Piperacillin Sod/Tazobactam Sod (Zosyn 2.25gm Ivpb (Pre-Docked)) 50 mls @ 100 mls/hr IVPB Q8H-IV [facility] PRN Reason: Protocol Last Admin: 05/02/17 02:34 Dose: 100 mls/hr Insulin Aspart (Novolog Vial Sliding Scale -) 1 vial SQ ACHS [facility] PRN Reason: Protocol Last Admin: 05/02/17 06:22 Dose: Not Given Insulin Detemir (Levemir Vial) 10 units SQ HS [facility] Last Admin: 05/01/17 21:23 Dose: 10 units Insulin Detemir (Levemir Vial) 20 units SQ AM [facility] Last Admin: 05/02/17 06:24 Dose: 20 units Isosorbide Mononitrate (Imdur -) 60 mg PO DAILY [facility] Last Admin: 05/01/17 10:29 Dose: 60 mg Lactobacillus Acidophilus (Bacid -) 1 tab PO DAILY [facility] Last Admin: 05/01/17 10:29 Dose: 1 tab Ondansetron HCl (Zofran Injection) 4 mg IVPB Q6H PRN PRN Reason: NAUSEA Last Admin: 04/28/17 15:16 Dose: 4 mg Polyethylene Glycol (Miralax (For Daily Use) -) 17 gm PO DAILY [facility] Last Admin: 05/01/17 10:29 Dose: Not Given Ranitidine HCl (Zantac -) 150 mg PO BID PRN PRN Reason: DYSPEPSIA Last Admin: 04/28/17 13:11 Dose: 150 mg - Objective Vital Signs: Vital Signs Temperature 99.2 F 05/02/17 06:48 Pulse Rate 90 05/02/17 06:48 Respiratory Rate 21 05/02/17 06:48 Blood Pressure 146/85 05/02/17 06:48 O2 Sat by Pulse Oximetry (%) 98 05/01/17 21:00 Constitutional: Yes: No Distress, Calm Neck: Yes: Supple, Trachea Midline Cardiovascular: Yes: Regular Rate and Rhythm, S1, S2. No: Murmur Respiratory: Yes: Regular, CTA Bilaterally. No: Rales, Rhonchi, Wheezes Gastrointestinal: Yes: Normal Bowel Sounds, Soft, Tenderness (mild tenderness suprapubic area). No: Distention Extremities: Yes: Other (right arm AVG) Neurological: Yes: Alert, Oriented Labs: CBC, BMP 05/01/17 06:00 05/01/17 06:00 Assessment/Plan Current Active Problems Pyelonephritis/ UTI ESRD on HD Flank pain (Acute) HLD (hyperlipidemia) (Acute) Hypertension (Acute) -ealulated by ID -to remain on IV abx until tomorrow (due for dialysis as well)
[2017-05-02] MEDS ORDERED: PT OWN MED DRAWER 7, Y5N ONE (09:46)
[2017-05-02] MEDS: ISOSORBIDE MONONITRATE 60 MG TAB.SR.24H (FP) PO SCH (09:59)
[2017-05-02] MEDS: amLODIPine BESYLATE 5 MG TABLET (FP) PO SCH (09:59)
[2017-05-02] MEDS: LACTOBACILLUS ACIDOPHILUS 1 EACH TAB (FP) PO SCH (09:59)
[2017-05-02] MEDS: POLYETHYLENE GLYCOL 3350 119 GM BTL PO SCH (10:00)
[2017-05-02] MEDS ORDERED: INSULIN (NOVOLOG) ASPART 100 UNITS/ML 10ML VIAL ONE ×2 (11:34→22:09)
--- NOTE | 2017-05-02 12:04 | PN ---
Progress Note, Physician Chief Complaint: The patient seen in her bed. Feeling better. Has some pain in the right side of face. IV Abx infusing. Denies any chest pain, or Shortness of breath. No urinary complaint. History of Present Illness: 66 y/o female admitted with acute flank pain. Pyeloneohritis. IV Abx infusing. - Current Medication List Current Medications: Active Medications Acetaminophen (Tylenol -) 650 mg PO Q4H PRN PRN Reason: FEVER OR PAIN Last Admin: 05/01/17 00:53 Dose: 650 mg Amlodipine Besylate (Norvasc -) 5 mg PO DAILY [facility] Last Admin: 05/02/17 09:59 Dose: 5 mg Atorvastatin Calcium (Lipitor -) 80 mg PO HS [facility] Last Admin: 05/01/17 21:18 Dose: 80 mg Calcium Acetate (Phoslo -) 667 mg PO TIDCM [facility] Last Admin: 05/02/17 11:37 Dose: 667 mg Docusate Sodium (Colace -) 100 mg PO TID PRN PRN Reason: CONSTIPATION Heparin Sodium (Porcine) (Heparin -) 5,000 unit SQ TID [facility] Last Admin: 05/02/17 06:18 Dose: 5,000 unit Hydralazine HCl (Apresoline -) 100 mg PO TID [facility] Last Admin: 05/02/17 06:18 Dose: 100 mg Piperacillin Sod/Tazobactam Sod (Zosyn 2.25gm Ivpb (Pre-Docked)) 50 mls @ 100 mls/hr IVPB Q8H-IV [facility] PRN Reason: Protocol Last Admin: 05/02/17 09:59 Dose: 100 mls/hr Insulin Aspart (Novolog Vial Sliding Scale -) 1 vial SQ ACHS [facility] PRN Reason: Protocol Last Admin: 05/02/17 11:37 Dose: 6 units Insulin Detemir (Levemir Vial) 10 units SQ HS [facility] Last Admin: 05/01/17 21:23 Dose: 10 units Insulin Detemir (Levemir Vial) 20 units SQ AM [facility] Last Admin: 05/02/17 06:24 Dose: 20 units Isosorbide Mononitrate (Imdur -) 60 mg PO DAILY [facility] Last Admin: 05/02/17 09:59 Dose: 60 mg Lactobacillus Acidophilus (Bacid -) 1 tab PO DAILY [facility] Last Admin: 05/02/17 09:59 Dose: 1 tab Ondansetron HCl (Zofran Injection) 4 mg IVPB Q6H PRN PRN Reason: NAUSEA Last Admin: 04/28/17 15:16 Dose: 4 mg Polyethylene Glycol (Miralax (For Daily Use) -) 17 gm PO DAILY [facility] Last Admin: 05/02/17 10:00 Dose: Not Given Ranitidine HCl (Zantac -) 150 mg PO BID PRN PRN Reason: DYSPEPSIA Last Admin: 04/28/17 13:11 Dose: 150 mg - Objective Vital Signs: Vital Signs Temperature 98.5 F 05/02/17 09:58 Pulse Rate 85 05/02/17 09:58 Respiratory Rate 20 05/02/17 09:58 Blood Pressure 154/87 05/02/17 09:58 O2 Sat by Pulse Oximetry (%) 98 05/01/17 21:00 Constitutional: Yes: No Distress, Anxious Eyes: Yes: Conjunctiva Clear HENT: Yes: Normocephalic Cardiovascular: Yes: S1, S2 Respiratory: Yes: CTA Bilaterally Gastrointestinal: Yes: Normal Bowel Sounds, Soft. No: Ascites, Distention Genitourinary: No: Bladder Distention, CVA Tenderness - Left, CVA Tenderness - Right Edema: No Labs: CBC, BMP 05/01/17 06:00 05/01/17 06:00 Problem List - Problems (1) Flank pain Code(s): R10.9 - UNSPECIFIED ABDOMINAL PAIN (2) HLD (hyperlipidemia) Code(s): E78.5 - HYPERLIPIDEMIA, UNSPECIFIED (3) Hypertension Code(s): I10 - ESSENTIAL (PRIMARY) HYPERTENSION Qualifiers: Hypertension type: essential hypertension Qualified Code(s): I10 - Essential (primary) hypertension (4) Diabetes Code(s): E11.9 - TYPE 2 DIABETES MELLITUS WITHOUT COMPLICATIONS (5) Pyelonephritis Code(s): N12 - TUBULO-INTERSTITIAL NEPHRITIS, NOT SPCF ACUTE OR CHRONIC (6) End stage renal disease Code(s): N18.6 - END STAGE RENAL DISEASE Assessment/Plan 66 y/o female with ESRD, now with acute Pyelonephritis. IV antibiotics infusing. Clinical improvement significant since admission. Next HD tomorrow. Marely Cooper MD
--- NOTE | 2017-05-02 12:25 | PN ---
Progress Note, Physician History of Present Illness: patients flank pain much better patient has no suprapubic complaints - Current Medication List Current Medications: Active Medications Acetaminophen (Tylenol -) 650 mg PO Q4H PRN PRN Reason: FEVER OR PAIN Last Admin: 05/01/17 00:53 Dose: 650 mg Amlodipine Besylate (Norvasc -) 5 mg PO DAILY [facility] Last Admin: 05/02/17 09:59 Dose: 5 mg Atorvastatin Calcium (Lipitor -) 80 mg PO HS [facility] Last Admin: 05/01/17 21:18 Dose: 80 mg Calcium Acetate (Phoslo -) 667 mg PO TIDCM [facility] Last Admin: 05/02/17 11:37 Dose: 667 mg Docusate Sodium (Colace -) 100 mg PO TID PRN PRN Reason: CONSTIPATION Epoetin Shar (Procrit -) 10,000 unit SQ ONCE ONE Stop: 05/03/17 12:08 Heparin Sodium (Porcine) (Heparin -) 5,000 unit SQ TID [facility] Last Admin: 05/02/17 06:18 Dose: 5,000 unit Hydralazine HCl (Apresoline -) 100 mg PO TID [facility] Last Admin: 05/02/17 06:18 Dose: 100 mg Piperacillin Sod/Tazobactam Sod (Zosyn 2.25gm Ivpb (Pre-Docked)) 50 mls @ 100 mls/hr IVPB Q8H-IV [facility] PRN Reason: Protocol Last Admin: 05/02/17 09:59 Dose: 100 mls/hr Insulin Aspart (Novolog Vial Sliding Scale -) 1 vial SQ ACHS [facility] PRN Reason: Protocol Last Admin: 05/02/17 11:37 Dose: 6 units Insulin Detemir (Levemir Vial) 10 units SQ HS [facility] Last Admin: 05/01/17 21:23 Dose: 10 units Insulin Detemir (Levemir Vial) 20 units SQ AM [facility] Last Admin: 05/02/17 06:24 Dose: 20 units Isosorbide Mononitrate (Imdur -) 60 mg PO DAILY [facility] Last Admin: 05/02/17 09:59 Dose: 60 mg Lactobacillus Acidophilus (Bacid -) 1 tab PO DAILY [facility] Last Admin: 05/02/17 09:59 Dose: 1 tab Ondansetron HCl (Zofran Injection) 4 mg IVPB Q6H PRN PRN Reason: NAUSEA Last Admin: 04/28/17 15:16 Dose: 4 mg Polyethylene Glycol (Miralax (For Daily Use) -) 17 gm PO DAILY [facility] Last Admin: 05/02/17 10:00 Dose: Not Given Ranitidine HCl (Zantac -) 150 mg PO BID PRN PRN Reason: DYSPEPSIA Last Admin: 04/28/17 13:11 Dose: 150 mg - Objective Vital Signs: Vital Signs Temperature 98.5 F 05/02/17 09:58 Pulse Rate 85 05/02/17 09:58 Respiratory Rate 20 05/02/17 09:58 Blood Pressure 154/87 05/02/17 09:58 O2 Sat by Pulse Oximetry (%) 98 05/01/17 21:00 Constitutional: Yes: No Distress, Calm Cardiovascular: Yes: Regular Rate and Rhythm Respiratory: Yes: Regular, CTA Bilaterally Gastrointestinal: Yes: Normal Bowel Sounds, Soft Musculoskeletal: Yes: WNL Extremities: Yes: WNL Neurological: Yes: Alert, Oriented Psychiatric: Yes: Alert Labs: CBC, BMP 05/01/17 06:00 05/01/17 06:00 Assessment/Plan Problem List - Problems (1) Flank pain Code(s): R10.9 - UNSPECIFIED ABDOMINAL PAIN (2) Hypertension Code(s): I10 - ESSENTIAL (PRIMARY) HYPERTENSION Qualifiers: Hypertension type: essential hypertension Qualified Code(s): I10 - Essential (primary) hypertension (3) CKD (chronic kidney disease) Code(s): N18.9 - CHRONIC KIDNEY DISEASE, UNSPECIFIED Qualifiers: Chronic kidney disease stage: on chronic dialysis Qualified Code(s) : N18.6 - End stage renal disease; Z99.2 - Dependence on renal dialysis (4) Diabetes Code(s): E11.9 - TYPE 2 DIABETES MELLITUS WITHOUT COMPLICATIONS (5) HLD (hyperlipidemia) Code(s): E78.5 - HYPERLIPIDEMIA, UNSPECIFIED pyelonephritis uti plan continue abx will change to oral on wednesday
[2017-05-02] MEDS: ATORVASTATIN CA 80 MG TABLET (FP) PO SCH (22:16)
[2017-05-03] MEDS: PIPERACILLIN/TAZOB 2.25 GM 50 ML IVPB SCH ×2 (01:27→11:46)
[2017-05-03] MEDS: hydrALAZINE HCL 50 MG TABLET (FP) PO SCH ×2 (05:57→14:06)
[2017-05-03] MEDS: INSULIN SLIDING SCALE (NOVOLOG) 1 VIAL SQ SCH ×2 (06:04→12:11)
[2017-05-03] MEDS: INSULIN DETEMIR 100 UNITS/ML MDV SQ SCH (06:04)
[2017-05-03] MEDS ORDERED: PT OWN MED DRAWER 7, Y5N ONE (06:42)
[2017-05-03] MEDS: CALCIUM ACETATE 667 MG CAPSULE (FP) PO SCH ×2 (07:53→11:51)
[2017-05-03 08:28] LABS: ALBUMIN 3.6 g/dl (3.4-5.0); COCKROFT - GAULT 16.405; CREATININE 3.9 mg/dL (0.55-1.02)
[2017-05-03 08:28] LABS: EOSINOPHIL 4.1 % (0-4.5); MCH 21.8 pg (25.7-33.7); MCHC 30.8 g/dl (32.0-36.0); MEAN CELL VOLUME 70.7 fl (80-96); NEUTROPHILS 54.4 % (42.8-82.8); PLATELET COUNT 162 K/MM3 (134-434); RDW 16.5 % (11.6-15.6); WHITE BLOOD COUNT 5.5 K/mm3 (4.0-10.0)
[2017-05-03 08:29] LABS: BILIRUBIN,TOTAL 0.7 mg/dL (0.2-1.0); TOT PROT 6.6 g/dl (6.4-8.2)
[2017-05-03] MEDS ORDERED: EPOETIN ALFA 10,000 UNIT/1 ML VIAL SQ ONE (09:00)
--- NOTE | 2017-05-03 11:35 | PN ---
Progress Note (short form) - Note Progress Note: Renal follow up for ESRD on HD Pt seen and examined during dialysis access functioning well, goal UF is 2-2.5 BP stable pt continues to have tenderness in the left and right flank and some epigastric discomfort Vital Signs Temperature 98.1 F 05/03/17 07:15 Pulse Rate 86 05/03/17 10:55 Respiratory Rate 18 05/03/17 10:55 Blood Pressure 173/84 05/03/17 10:55 O2 Sat by Pulse Oximetry (%) 98 05/02/17 21:00 Intake & Output 04/30/17 05/01/17 05/02/17 05/03/17 23:59 23:59 23:59 23:59 Intake Total 100 1350 1550 Balance 100 1350 1550 Weight 166 lb 5 oz 166 lb 4 oz 166 lb Gen: NAD CVS: RRR, No M/R Lungs: CTA, no rales or wheeze Abd: soft NT/ND Ext: No edema, clubbing or cyanosis CBC, BMP 05/03/17 07:20 05/03/17 05:38 Laboratory Tests 05/03/17 05:38 Calcium 9.0 Albumin 3.6 Current Medications Acetaminophen (Tylenol -) 650 mg PO Q4H PRN PRN Reason: FEVER OR PAIN Last Admin: 05/01/17 00:53 Dose: 650 mg Amlodipine Besylate (Norvasc -) 5 mg PO DAILY [facility] Last Admin: 05/02/17 09:59 Dose: 5 mg Atorvastatin Calcium (Lipitor -) 80 mg PO HS [facility] Last Admin: 05/02/17 22:16 Dose: 80 mg Calcium Acetate (Phoslo -) 667 mg PO TIDCM [facility] Last Admin: 05/03/17 07:53 Dose: Not Given Docusate Sodium (Colace -) 100 mg PO TID PRN PRN Reason: CONSTIPATION Hydralazine HCl (Apresoline -) 100 mg PO TID [facility] Last Admin: 05/03/17 05:57 Dose: 100 mg Piperacillin Sod/Tazobactam Sod (Zosyn 2.25gm Ivpb (Pre-Docked)) 50 mls @ 100 mls/hr IVPB Q8H-IV [facility] PRN Reason: Protocol Last Admin: 05/03/17 01:27 Dose: 100 mls/hr Insulin Aspart (Novolog Vial Sliding Scale -) 1 vial SQ ACHS [facility] PRN Reason: Protocol Last Admin: 05/03/17 06:04 Dose: Not Given Insulin Detemir (Levemir Vial) 10 units SQ HS [facility] Last Admin: 05/02/17 22:17 Dose: 10 units Insulin Detemir (Levemir Vial) 20 units SQ AM [facility] Last Admin: 05/03/17 06:04 Dose: Not Given Isosorbide Mononitrate (Imdur -) 60 mg PO DAILY [facility] Last Admin: 05/02/17 09:59 Dose: 60 mg Lactobacillus Acidophilus (Bacid -) 1 tab PO DAILY [facility] Last Admin: 05/02/17 09:59 Dose: 1 tab Ondansetron HCl (Zofran Injection) 4 mg IVPB Q6H PRN PRN Reason: NAUSEA Last Admin: 04/28/17 15:16 Dose: 4 mg Polyethylene Glycol (Miralax (For Daily Use) -) 17 gm PO DAILY [facility] Last Admin: 05/02/17 10:00 Dose: Not Given Ranitidine HCl (Zantac -) 150 mg PO BID PRN PRN Reason: DYSPEPSIA Last Admin: 04/28/17 13:11 Dose: 150 mg A/P 66 year old woman with PMhx of ESRD on HD (since ) secondary to DM/ Hypertension, Hyperlipidemia, Pancreatitis who presened with right sided flank pain and admitted for pain control. #ESRD on HD tolerating dialysis well dose all meds for intermittent HD #Flank pain CTA of the Abd showed no evidence of renal infarction or any other acute pathology supportive care IV Abx as per ID #CKD Related Anemia continue epogen with HD #Hypertension continue hydralazine and amlodpine titrate as needed Ignacio Callahan DO
[2017-05-03] MEDS: POLYETHYLENE GLYCOL 3350 119 GM BTL PO SCH (11:47)
[2017-05-03] MEDS: amLODIPine BESYLATE 5 MG TABLET (FP) PO SCH (11:47)
[2017-05-03] MEDS: LACTOBACILLUS ACIDOPHILUS 1 EACH TAB (FP) PO SCH (11:47)
[2017-05-03] MEDS: ISOSORBIDE MONONITRATE 60 MG TAB.SR.24H (FP) PO SCH (11:47)
[2017-05-03 12:10] VITALS: BP 184/93
[2017-05-03] MEDS ORDERED: INSULIN (NOVOLOG) ASPART 100 UNITS/ML 10ML VIAL ONE (12:10)
[2017-05-03] MEDS: ACETAMINOPHEN 325 MG TABLET (FP) PO PRN (14:06)
[2017-05-03 14:08] VITALS: PULSE 86; TEMP 98.2
--- NOTE | 2017-05-03 14:13 | PN ---
Progress Note, Physician History of Present Illness: still has side pain but no flank pain stable - Current Medication List Current Medications: Active Medications Acetaminophen (Tylenol -) 650 mg PO Q4H PRN PRN Reason: FEVER OR PAIN Last Admin: 05/03/17 14:06 Dose: 650 mg Amlodipine Besylate (Norvasc -) 5 mg PO DAILY [facility] Last Admin: 05/03/17 11:47 Dose: 5 mg Atorvastatin Calcium (Lipitor -) 80 mg PO HS [facility] Last Admin: 05/02/17 22:16 Dose: 80 mg Calcium Acetate (Phoslo -) 667 mg PO TIDCM [facility] Last Admin: 05/03/17 11:51 Dose: 667 mg Ciprofloxacin (Cipro (Restricted To Id)) 250 mg PO DAILY [facility] Docusate Sodium (Colace -) 100 mg PO TID PRN PRN Reason: CONSTIPATION Hydralazine HCl (Apresoline -) 100 mg PO TID [facility] Last Admin: 05/03/17 14:06 Dose: 100 mg Insulin Aspart (Novolog Vial Sliding Scale -) 1 vial SQ ACHS [facility] PRN Reason: Protocol Last Admin: 05/03/17 12:11 Dose: 2 units Insulin Detemir (Levemir Vial) 10 units SQ HS [facility] Last Admin: 05/02/17 22:17 Dose: 10 units Insulin Detemir (Levemir Vial) 20 units SQ AM [facility] Last Admin: 05/03/17 06:04 Dose: Not Given Isosorbide Mononitrate (Imdur -) 60 mg PO DAILY [facility] Last Admin: 05/03/17 11:47 Dose: 60 mg Lactobacillus Acidophilus (Bacid -) 1 tab PO DAILY [facility] Last Admin: 05/03/17 11:47 Dose: 1 tab Ondansetron HCl (Zofran Injection) 4 mg IVPB Q6H PRN PRN Reason: NAUSEA Last Admin: 04/28/17 15:16 Dose: 4 mg Polyethylene Glycol (Miralax (For Daily Use) -) 17 gm PO DAILY [facility] Last Admin: 05/03/17 11:47 Dose: 17 grams Ranitidine HCl (Zantac -) 150 mg PO BID PRN PRN Reason: DYSPEPSIA Last Admin: 04/28/17 13:11 Dose: 150 mg - Objective Vital Signs: Vital Signs Temperature 98.2 F 05/03/17 14:00 Pulse Rate 86 05/03/17 14:00 Respiratory Rate 20 05/03/17 14:00 Blood Pressure 184/93 05/03/17 12:09 O2 Sat by Pulse Oximetry (%) 98 05/02/17 21:00 Constitutional: Yes: No Distress, Calm Cardiovascular: Yes: Regular Rate and Rhythm Respiratory: Yes: Regular, CTA Bilaterally Gastrointestinal: Yes: Normal Bowel Sounds, Soft Musculoskeletal: Yes: WNL Extremities: Yes: Other Neurological: Yes: Alert, Oriented Psychiatric: Yes: Alert, Oriented Labs: CBC, BMP 05/03/17 07:20 05/03/17 05:38 Assessment/Plan Problem List - Problems (1) Flank pain Code(s): R10.9 - UNSPECIFIED ABDOMINAL PAIN (2) Hypertension Code(s): I10 - ESSENTIAL (PRIMARY) HYPERTENSION Qualifiers: Hypertension type: essential hypertension Qualified Code(s): I10 - Essential (primary) hypertension (3) CKD (chronic kidney disease) Code(s): N18.9 - CHRONIC KIDNEY DISEASE, UNSPECIFIED Qualifiers: Chronic kidney disease stage: on chronic dialysis Qualified Code(s) : N18.6 - End stage renal disease; Z99.2 - Dependence on renal dialysis (4) Diabetes Code(s): E11.9 - TYPE 2 DIABETES MELLITUS WITHOUT COMPLICATIONS (5) HLD (hyperlipidemia) Code(s): E78.5 - HYPERLIPIDEMIA, UNSPECIFIED pyelonephritis uti patient doing well improving plan will change to cipro orally will need it for 10 more days on dialysis day to give after dialysis rest as per primary
[2017-05-03] MEDS ORDERED: CIPROFLOXACIN 250 MG TABLET (RESTRICTED TO ID) PO SCH (14:15)
--- NOTE | 2017-05-03 14:41 | DS ---
Physical Examination Vital Signs: Vital Signs Temperature 98.2 F 05/03/17 14:00 Pulse Rate 86 05/03/17 14:00 Respiratory Rate 20 05/03/17 14:00 Blood Pressure 184/93 05/03/17 12:09 O2 Sat by Pulse Oximetry (%) 98 05/02/17 21:00 Constitutional: Yes: Well Nourished, No Distress, Calm Cardiovascular: Yes: Regular Rate and Rhythm. No: Gallop, Murmur, Rub Respiratory: Yes: Regular, CTA Bilaterally. No: Rales, Rhonchi, Wheezes Gastrointestinal: Yes: Normal Bowel Sounds, Soft. No: Distention, Tenderness Extremities: Yes: WNL Edema: No Labs: CBC, BMP 05/03/17 07:20 05/03/17 05:38 Discharge Summary Reason For Visit: FLANK PAIN, HYPERTENSION Current Active Problems End stage renal disease (Acute) Flank pain (Acute) HLD (hyperlipidemia) (Acute) Hypertension (Acute) Intractable pain (Acute) Hospital Course: (1) Pyelonephritis Code(s): R10.9 - UNSPECIFIED ABDOMINAL PAIN (2) Hypertension Code(s): I10 - ESSENTIAL (PRIMARY) HYPERTENSION Qualifiers: Hypertension type: essential hypertension Qualified Code(s): I10 - Essential (primary) hypertension (3) CKD (chronic kidney disease) Code(s): N18.9 - CHRONIC KIDNEY DISEASE, UNSPECIFIED Qualifiers: Chronic kidney disease stage: on chronic dialysis Qualified Code(s) : N18.6 - End stage renal disease; Z99.2 - Dependence on renal dialysis (4) Diabetes Code(s): E11.9 - TYPE 2 DIABETES MELLITUS WITHOUT COMPLICATIONS (5) HLD (hyperlipidemia) Code(s): E78.5 - HYPERLIPIDEMIA, UNSPECIFIED Ms Sosa is a 66 year old female who came in with flank pain and was found to have pyelonephritis. She was seen by nephrology and continued on HD. ID was consulted and she was treated with zosyn. She had a CT scan to rule out ischemia , it was negative. She improved significantly and is safe for discharge on cipro per ID 34 minutes spent in preparation of this discharge Condition: Good - Instructions Diet, Activity, Other Instructions: resume previous diet and activity Referrals: Filomena Saucedo MD [Primary Care Provider] - Ignacio Callahan MD [Staff Physician] - Delphine Pollack MD [Staff Physician] - Disposition: HOME - Home Medications Comprehensive Discharge Medication List: Ambulatory Orders Hydralazine HCl [Apresoline -] 100 mg PO TID 05/30/14 Cholecalciferol (Vitamin D3) [Vitamin D3] 50,000 unit PO WEEKLY 12/04/15 Docusate Sodium [Colace -] 100 mg PO TID PRN 12/04/15 Atorvastatin Ca [Lipitor] 80 mg PO DAILY 12/08/16 Calcium Acetate [Phoslo -] 667 mg PO TID 12/08/16 Famotidine 10 mg PO BID PRN 12/08/16 Isosorbide Mononitrate [Imdur -] 60 mg PO DAILY 12/08/16 Amlodipine Besylate [Norvasc -] 5 mg PO DAILY #30 tablet 05/03/17 Blood Sugar Diagnostic [Accu-Chek Guide Test Strip] 1 each ACHS #1 box Blood-Glucose Meter [Accu-Chek Guide Monitor System] 1 each ACHS #1 each 11/07 Ciprofloxacin [Cipro -] 250 mg PO DAILY #10 tablet 05/03/17 Insulin (Levemir) [Levemir Vial] 10 units SQ HS #1 bottle 05/03/17 Insulin (Levemir) [Levemir Vial] 20 units SQ AM #1 bottle 05/03/17 Lactobacillus Acidophilus [Bacid -] 1 tab PO DAILY tab 05/03/17
== END 2017-05-03 16:02 | disposition home or self-care (01) | DRG 463 ==
LOC: JER 15:10 → JERBED 18:49 → UNDOADMIN 18:59 → JERBED 20:33 → J6S 20:59
PROVIDERS: ADMIT Internal Medicine; ATTEND Internal Medicine
PROC: 5A1D60Z (ICD-10-PCS; principal; 2017-05-03)
DX: N10 Acute pyelonephritis (principal); E11.22 Type 2 diabetes mellitus with diabetic chronic kidney disease; E78.5 Hyperlipidemia, unspecified; I12.0 Hypertensive chronic kidney disease with stage 5 chronic kidney disease or end stage renal disease; N18.6 End stage renal disease; K21.9 Gastro-esophageal reflux disease without esophagitis; Z99.2 Dependence on renal dialysis; D63.1 Anemia in chronic kidney disease
CPT/HCPCS: 36415; 74174-TC; 74176; 80048; 80053; 80076; 81003; 81015; 82565; 83735; 84100; 84520; 85025; 85027; 86704; 86706; 86708; 86803; 87086; 87186; 87340; 93005; 93010; 97116-GP; 97161-GP; 99281-25; 99283-25; J0885; J1644

== ENCOUNTER 2017-05-19 19:33 | Inpatient (IN) | payer OTHER ==
--- NOTE | 2017-05-19 19:55 | PDOC ---
History of Present Illness - History of Present Illness Initial Comments: 05/19/17 20:41 Patient is a 66 year old female with significant medical hx of HTN, HLD, GERD, pancreatitis, cholelithiasis, renal insufficiency (HD M/W/F), anemia, and DM who is presenting to the ED with three days of bloody diarrhea. The patient states that she began having multiple episodes of bloody diarrhea after having dialysis three days ago. She notes having nine episodes yesterday and complains of generalized abdominal pain and soreness. The patient states that she was told she had a fever when she went to dialysis today. Denies vomiting, lightheadedness, LOC, dysuria, or hematuria. Patient has had an endoscopy in the past which was normal but has never had a colonoscopy. Denies any hx of GI illness in the past. Patient was recently discharged from admission on 05/03/17 for pyelonephritis where she was treated with zosyn and discharged on cipro. Alligator Trapper: Marely Cooper MD <Suzi Cunningham - Last Filed: 05/20/17 00:35> <Veronica Vasquez - Last Filed: 05/21/17 08:24> - General Chief Complaint: Rectal Bleed Stated Complaint: BLOOD IN STOOL Time Seen by Provider: 05/19/17 19:55 Past History <Suzi Cnuningham - Last Filed: 05/20/17 00:35> - Past Medical History Diabetes: Yes Dialysis: Yes HTN: Yes Hypercholesterolemia: Yes Suicide Attempt (Hx): No - Surgical History Abdominal Surgery: Yes (hernia not repaired) - Psycho/Social/Smoking Cessation Hx Anxiety: No Suicidal Ideation: No Smoking Status: No Smoking History: Never smoked Have you smoked in the past 12 months: No Number of Cigarettes Smoked Daily: 0 If you are a former smoker, when did you quit?: 40YRS AGO Information on smoking cessation initiated: No Hx Alcohol Use: No Drug/Substance Use Hx: No Substance Use Type: None Hx Substance Use Treatment: No <Veronica Vasquez - Last Filed: 05/21/17 08:24> - Past Medical History Allergies/Adverse Reactions: Allergies Allergy/AdvReac Type Severity Reaction Status Date / Time No Known Drug Allergies Allergy Verified 05/19/17 19:48 Home Medications: Ambulatory Orders Hydralazine HCl [Apresoline -] 100 mg PO TID 05/30/14 Cholecalciferol (Vitamin D3) [Vitamin D3] 50,000 unit PO WEEKLY 12/04/15 Docusate Sodium [Colace -] 100 mg PO TID PRN 12/04/15 Atorvastatin Ca [Lipitor] 80 mg PO DAILY 12/08/16 Calcium Acetate [Phoslo -] 667 mg PO TID 12/08/16 Famotidine 10 mg PO BID PRN 12/08/16 Isosorbide Mononitrate [Imdur -] 60 mg PO DAILY 12/08/16 Amlodipine Besylate [Norvasc -] 5 mg PO DAILY #30 tablet 05/03/17 Blood Sugar Diagnostic [Accu-Chek Guide Test Strip] 1 each ACHS #1 box Blood-Glucose Meter [Accu-Chek Guide Monitor System] 1 each ACHS #1 each 11/07 Ciprofloxacin [Cipro -] 250 mg PO DAILY #10 tablet 05/03/17 Insulin (Levemir) [Levemir Vial] 10 units SQ HS #1 bottle 05/03/17 Insulin (Levemir) [Levemir Vial] 20 units SQ AM #1 bottle 05/03/17 Lactobacillus Acidophilus [Bacid -] 1 tab PO DAILY tab 05/03/17 Review of Systems - Review of Systems Comments:: 05/19/17 20:41 GENERAL/CONSTITUTIONAL: Fever. No chills. No weakness. HEAD, EYES, EARS, NOSE AND THROAT: No change in vision. No ear pain or discharge. No sore throat. CARDIOVASCULAR: No chest pain or shortness of breath. RESPIRATORY: No cough, wheezing, or hemoptysis. GASTROINTESTINAL: Bloody diarrhea, generalized abdominal pain. No nausea, vomiting, or constipation. GENITOURINARY: No dysuria, frequency, or change in urination. MUSCULOSKELETAL: No joint or muscle swelling or pain. No neck or back pain. ENDOCRINE: No increased thirst. No abnormal weight change. SKIN: No rash NEUROLOGIC: No headache, vertigo, loss of consciousness, or change in strength/ sensation. <Suzi Cunningham - Last Filed: 05/20/17 00:35> *Physical Exam - Vital Signs Last Vital Signs Temp Pulse Resp BP Pulse Ox 98.7 F 81 14 187/76 97 05/19/17 19:50 05/19/17 19:50 05/19/17 19:50 05/19/17 19:50 05/19/17 19:50 - Physical Exam Comments: 05/19/17 22:49 GENERAL: Awake, alert, and fully oriented, in no acute distress HEAD: No signs of trauma EYES: PERRLA, EOMI, sclera anicteric, conjunctiva clear ENT: Auricles normal inspection, hearing grossly normal, nares patent, oropharynx clear without exudates. Moist mucosa NECK: Normal ROM, supple, no lymphadenopathy, JVD, or masses LUNGS: Breath sounds equal, clear to auscultation bilaterally. No wheezes, and no crackles HEART: Regular rate and rhythm, normal S1 and S2, no murmurs, rubs or gallops ABDOMEN: Soft, diffusely tender with no guarding or rebound, normoactive bowel sounds. No masses EXTREMITIES: Normal range of motion, no edema. No clubbing or cyanosis. No cords, erythema, or tenderness NEUROLOGICAL: Cranial nerves II through XII grossly intact. Normal speech, normal gait SKIN: Warm, Dry, normal turgor, no rashes or lesions noted. HEMATOLOGIC/LYMPHATIC: No anemia, easy bleeding, or history of blood clots. ALLERGIC/IMMUNOLOGIC: No hives or skin allergy. RECTAL: Nontender, no external lesions, no stool in vault. <Suzi Cunningham - Last Filed: 05/20/17 00:35> - Vital Signs Last Vital Signs Temp Pulse Resp BP Pulse Ox 98.7 F 81 14 187/76 97 05/19/17 19:50 05/19/17 19:50 05/19/17 19:50 05/19/17 19:50 05/19/17 19:50 <Veronica Vasquez - Last Filed: 05/21/17 08:24> ED Treatment Course - LABORATORY CBC & Chemistry Diagram: 05/19/17 20:15 05/19/17 20:15 - RADIOLOGY Radiograph Interpretation: 05/20/17 00:35 Risk Management Director: ([email or web address]) Report Date: 05/19/2017 23:40:00 Report Status: Preliminary Begin of Report Content Referring Physician: Veronica Vasquez Patient Name: Tio Sosa This is a preliminary report by imaging risk control field representative Exam: Noncontrast CT abdomen and pelvis Images: 507 Clinical indication: Diffuse abdominal pain and tenderness. Findings: The lung bases are clear. The liver, gallbladder spleen and pancreas all have a normal unenhanced appearance. The adrenal glands are unremarkable. The kidneys have a normal unenhanced appearance. No calculi are seen. There is no hydronephrosis or hydroureter. A small to moderate-sized fat containing umbilical hernia is noted. The gastrointestinal tract does not appear obstructed. No thickened or dilated small bowel is seen. The appendix has a normal appearance. Mild apparent thickening of the colon is noted predominantly involving the sigmoid which could be due to suboptimal distention but may or present mild colitis. There is questionable involvement of the descending colon and splenic flexure. No other thickened or dilated bowel is seen. The uterus is anteverted. No adnexal masses are seen. The urinary bladder is unremarkable. Flattening of the IVC is noted which suggests hypovolemia. Impression: Mild thickening of the splenic flexure left colon and sigmoid colon , consistent with colitis which may be infectious or inflammatory. Ischemia should also be considered in this distribution. Flattening of the IVC suggests hypovolemia. THIS DOCUMENT HAS BEEN ELECTRONICALLY SIGNED Darci Menard M.D. 05/20/2017 00: 24 GRISELDA Brito Please call Imaging Data Specialist [phone] ([phone]) with questions. End of Report Content <Suzi Cunningham - Last Filed: 05/20/17 00:35> - LABORATORY CBC & Chemistry Diagram: 05/19/17 20:15 05/19/17 20:15 <Veronica Vasquez - Last Filed: 05/21/17 08:24> Medical Decision Making - Medical Decision Making CT suspicious for colitis, possibly ischemic colitis. Covered with abx. D/w Dr. Cummings. Will admit. <Veronica Vasquez - Last Filed: 05/21/17 08:24> *DC/Admit/Observation/Transfer - Attestations Scribe Attestion: 05/19/17 20:42 Documentation prepared by Suzi Cunningham, acting as director of graduate medical education for Veronica Vasquez MD. <Suzi Cunningham - Last Filed: 05/20/17 00:35> - Discharge Dispostion Admit: Yes <Veronica Vasquez - Last Filed: 05/21/17 08:24> Diagnosis at time of Disposition: Colitis - Discharge Dispostion Condition at time of disposition: Stable - Referrals
[2017-05-19 20:49] LABS: BASOPHIL 0.3 % (0-2.0); EOSINOPHIL 0.8 % (0-4.5); MCH 21.8 pg (25.7-33.7); MEAN CELL VOLUME 70.4 fl (80-96); MEAN PLT VOLUME 11.1 fl (7.5-11.1); PLATELET COUNT 141 K/MM3 (134-434); RDW 16.5 % (11.6-15.6); WHITE BLOOD COUNT 9.3 K/mm3 (4.0-10.0)
[2017-05-19 21:04] LABS: INR 1.04 (0.82-1.09); PROTHROMBIN TIME (PATIENT) 11.4 SEC (9.98-11.88)
[2017-05-19 21:16] LABS: ALBUMIN 3.5 g/dl (3.4-5.0); ANION GAP 10 (8-16); CO2 30 mmol/L (21-32); CREATININE 2.2 mg/dL (0.55-1.02); GLUCOSE,RANDOM 79 mg/dL (74-106); SGOT/AST 33 U/L (15-37); SGPT/ALT 29 U/L (12-78)
[2017-05-19 21:18] LABS: ALK PHOS 76 U/L (45-117); BILIRUBIN,TOTAL 0.3 mg/dL (0.2-1.0)
[2017-05-19 21:39] LABS: HYPOCHROMIA 2+; MICROCYTOSIS 1+; PLATELET ESTIMATE ADEQUATE (NORMAL); POIKILOCYTOSIS 1+
[2017-05-19 21:40] LABS: OVALOCYTES RARE; TARGET CELLS 1+
[2017-05-20] MEDS ORDERED: morphine CARPU-JECT 4 MG/1 ML DISP.SYRIN IVPUSH ONE (00:32)
[2017-05-20] MEDS ORDERED: PIPERACILLIN/TAZOB 3.375 GM 3.375 GM in DEXTROSE 5%-WATER - 50 ML IVPB ONE (00:33)
[2017-05-20] MEDS ORDERED: ONDANSETRON 4 MG/2 ML VIAL IVPB PRN (00:41)
[2017-05-20] MEDS ORDERED: ACETAMINOPHEN 325 MG TABLET (FP) PO PRN (00:41)
[2017-05-20] MEDS ORDERED: morphine CARPU-JECT 2 MG/1 ML DISP.SYRIN IVPUSH PRN (00:41)
[2017-05-20] MEDS ORDERED: PIPERACILLIN/TAZOB 3.375 GM 50 ML IVPB ONE (00:42)
[2017-05-20] MEDS ORDERED: morphine CARPU-JECT 4 MG/1 ML DISP.SYRIN ONE (00:42)
[2017-05-20] MEDS ORDERED: METRONIDAZOLE 500 MG PREMIXED 100 ML IVPB ONE (01:54)
[2017-05-20] MEDS: METRONIDAZOLE 500 MG PREMIXED 100 ML IVPB SCH ×2 (02:03→09:39)
[2017-05-20 03:40] VITALS: BMI 26.6
[2017-05-20] MEDS: hydrALAZINE HCL 50 MG TABLET (FP) PO SCH ×3 (06:31→21:59)
[2017-05-20] MEDS: INSULIN SLIDING SCALE (NOVOLOG) 1 VIAL SQ SCH ×4 (06:33→21:58)
[2017-05-20] MEDS: amLODIPine BESYLATE 5 MG TABLET (FP) PO SCH (09:37)
[2017-05-20] MEDS: ISOSORBIDE MONONITRATE 60 MG TAB.SR.24H (FP) PO SCH (09:37)
[2017-05-20] MEDS: PANTOPRAZOLE SODIUM 40 MG/100 ML PRE-DOCKED IVPB SCH (09:39)
[2017-05-20] MEDS ORDERED: PIPERACILLIN/TAZOB 2.25 GM 50 ML IVPB ONE (10:00)
[2017-05-20] MEDS ORDERED: PANTOPRAZOLE SODIUM 40 MG in SODIUM CHLORIDE 100 ML IVPB SCH (10:00)
--- NOTE | 2017-05-20 11:47 | CONSULT ---
Consult Consult Specialty:: Drs. Cooper/ [place] Referred by:: Dr. Cummings Reason for Consultation:: Patient is a 66 year old female with significant medical hx of HTN, HLD, GERD, pancreatitis, cholelithiasis, ESRD (HD M/W/F), anemia, and DM who is presenting to the ED with three days of bloody diarrhea. The patient states that she began having multiple episodes of bloody diarrhea after having dialysis three days ago. She notes having nine episodes yesterday and complains of generalized abdominal pain and soreness. The patient had a fever when she went to dialysis today. Patient had endoscopy in the past which was normal but has never had a colonoscopy. Denies any hx of GI illness in the past. Patient was recently discharged from admission on 05/03/17 for pyelonephritis where she was treated with zosyn and discharged on cipro. - History of Present Illness Chief Complaint: Bloody diarrhea - History Source History Provided By: Patient - Past Medical History Cardio/Vascular: Yes: HTN, Hyperlipdemia Gastrointestinal: Yes: GERD, Pancreatitis, Other (Hd similar abdominal pain in [place] afew years ago and was told she has gallstones.) Hepatobiliary: Yes: Cholelithiasis Renal/: Yes: Renal Inusuff Endocrine: Yes: Diabetes Mellitus - Past Surgical History Past Surgical History: Yes: None - Alcohol/Substance Use Hx Alcohol Use: No History of Substance Use: reports: None - Smoking History Smoking history: Never smoked Have you smoked in the past 12 months: No Aproximately how many cigarettes per day: 0 If you are a former smoker, when did you quit?: 40YRS AGO - Social History ADL: Independent History of Recent Travel: No Home Medications - Allergies Allergies/Adverse Reactions: Allergies Allergy/AdvReac Type Severity Reaction Status Date / Time No Known Drug Allergies Allergy Verified 05/19/17 19:48 - Home Medications Home Medications: Ambulatory Orders Hydralazine HCl [Apresoline -] 100 mg PO TID 05/30/14 Cholecalciferol (Vitamin D3) [Vitamin D3] 50,000 unit PO WEEKLY 12/04/15 Docusate Sodium [Colace -] 100 mg PO TID PRN 12/04/15 Atorvastatin Ca [Lipitor] 80 mg PO DAILY 12/08/16 Calcium Acetate [Phoslo -] 667 mg PO TID 12/08/16 Famotidine 10 mg PO BID PRN 12/08/16 Isosorbide Mononitrate [Imdur -] 60 mg PO DAILY 12/08/16 Amlodipine Besylate [Norvasc -] 5 mg PO DAILY #30 tablet 05/03/17 Blood Sugar Diagnostic [Accu-Chek Guide Test Strip] 1 each ACHS #1 box Blood-Glucose Meter [Accu-Chek Guide Monitor System] 1 each ACHS #1 each 11/07 Ciprofloxacin [Cipro -] 250 mg PO DAILY #10 tablet 05/03/17 Insulin (Levemir) [Levemir Vial] 10 units SQ HS #1 bottle 05/03/17 Insulin (Levemir) [Levemir Vial] 20 units SQ AM #1 bottle 05/03/17 Lactobacillus Acidophilus [Bacid -] 1 tab PO DAILY tab 05/03/17 Family Disease History - Family Disease History Family Disease History: Other: Son (sickle cell disease, ), Daughter ( sickle cell trait) Review of Systems - Review of Systems Constitutional: reports: Fever HENT: reports: No Symptoms Cardiovascular: denies: Chest Pain, Palpitations, Shortness of Breath Respiratory: denies: Cough, SOB on Exertion Gastrointestinal: reports: Diarrhea, Rectal Bleeding. denies: Vomiting, Vomiting Blood Genitourinary: denies: Burning Neurological: denies: Change in LOC Physical Exam Vital Signs: Vital Signs Temperature 98.4 F 05/20/17 06:56 Pulse Rate 68 05/20/17 06:56 Respiratory Rate 18 05/20/17 06:56 Blood Pressure 178/73 05/20/17 06:56 O2 Sat by Pulse Oximetry (%) 96 05/20/17 03:29 Constitutional: Yes: Anxious Eyes: Yes: Conjunctiva Clear HENT: Yes: Normocephalic Neck: Yes: Decreased ROM Cardiovascular: Yes: S1, S2 Respiratory: Yes: CTA Bilaterally. No: Rales, Rhonchi Gastrointestinal: Yes: Normal Bowel Sounds Renal/: No: CVA Tenderness - Left, CVA Tenderness - Right Neurological: Yes: Alert, Oriented Psychiatric: Yes: Alert, Oriented Problem List - Problems (1) Colitis Code(s): K52.9 - NONINFECTIVE GASTROENTERITIS AND COLITIS, UNSPECIFIED (2) Diabetes Code(s): E11.9 - TYPE 2 DIABETES MELLITUS WITHOUT COMPLICATIONS (3) End stage renal disease Code(s): N18.6 - END STAGE RENAL DISEASE (4) HLD (hyperlipidemia) Code(s): E78.5 - HYPERLIPIDEMIA, UNSPECIFIED (5) Hypertension Code(s): I10 - ESSENTIAL (PRIMARY) HYPERTENSION Assessment/Plan 66 y/o female with multiple medical problems, admitted with bloody diarrhea. Has ESRD, on HD. Next HD tomorrow. GI w/u as ordered. Orders for HD as ordered. Thank you. Will follow with you. Marely Cooper MD
--- NOTE | 2017-05-20 13:54 | CONS ---
DATE OF CONSULTATION: 05/20/2017 REQUESTING PHYSICIAN: Jared Cummings MD HISTORY OF PRESENT ILLNESS: The patient is a 66-year-old female admitted through [facility] for evaluation of diarrhea as well as rectal bleeding. She states being in her usual state of health up until Wednesday when she developed multiple loose bowel movements. Bowel movements are non-bloody, and then, after several episodes of diarrhea, she noted blood mixed in with the stool. The stool itself was brown in color, however, loose to liquidy. She denied any associated abdominal pain, nausea, vomiting, fevers, or chills. She was recently admitted to [facility] from April 25 to May 03 for flank pain. She was found to have pyelonephritis and at that time she had been evaluated by Nephrology and was treated with Zosyn. At that time, she also had a CTA that revealed moderate thickening of the urinary bladder, no acute pathology within the abdomen or pelvis. While it was a CTA, the abdominal vessels were not mentioned in the read. She is a patient of Dr. Alex Pearce. She was last evaluated in November of 2014 for epigastric discomfort by myself and Dr. Lantigua. Apparently, she was also admitted in 2013 for abdominal pain. She underwent upper endoscopy, GI series, was noted to have gastroesophageal reflux, esophageal spasms, normal stomach and otherwise normal duodenum. She had had a colonoscopy in [address] Pearce leading to the removal of a sigmoid tubular adenoma. It appears at that time, she was evaluated for an ascending urinary tract infection, as well. It appears that there is a question of a hypoattenuation in the pancreatic head on previous imaging studies, and followup MRI was unremarkable, and in 09/2014, she had an upper GI series that revealed short segment of irregularity in the esophagus with limited distensibility, but the upper endoscopy failed to reveal any significant pathology. There has been no further rectal bleeding. She had a CT scan that questioned if she had a left-sided colitis. However, on review of the images, it does appear a mild if any colitis. PAST MEDICAL HISTORY: Includes diabetes mellitus type 2, hypertension, hyperlipidemia, chronic kidney disease on hemodialysis, GERD, history of constipation, colonic adenoma in 2011, hyperlipidemia. PAST SURGICAL HISTORY: Includes cataract removal, right iridectomy, and AV fistula. 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 FAMILY HISTORY: Her father with history of prostate cancer. Her mother from complications of childbirth. Nine siblings, one daughter healthy, one son (he had sickle cell disease with complications). ALLERGIES: No known drug allergies. MEDICATIONS PRIOR TO ADMISSION: Include PhosLo, Imdur, Lipitor, famotidine, lactobacillus, Levemir, insulin, amlodipine, REVIEW OF SYSTEMS: She denied any chest pain, shortness of breath, nausea, or or vomiting. She did have diarrhea. She did complain of lower abdominopelvic cramping. PHYSICAL EXAMINATION: General: Patient is found lying comfortably in her bed. She appeared to be in no apparent distress. Vital signs: Temperature was 98.4, pulse 68, blood pressure of 178/73. HEENT: Sclerae anicteric. Neck: Supple. Heart: Examination of the heart revealed a regular rate and rhythm. She did have a 2/6 systolic ejection murmur heard best at the right sternal border. Lungs: Clear to auscultation. Abdomen: Examination of the abdomen, the abdomen was nondistended. She did have a reducible nontender umbilical hernia that appeared to be fluid-filled. Otherwise, there were no other scars. She had normal active bowel sounds. No hepatosplenomegaly was appreciated. No masses were palpated. No tenderness was elicited. Extremities: Examination of the extremities revealed no lower extremity edema. Digital rectal: This were no external lesions and no masses. There was no blood or stool in the rectal vault. Of note, the nurse did show me the patients last bowel movement that was collected, and it did appear to be watery soft and brown, devoid of blood. LABORATORY EVALUATION: White blood count 9.3, hemoglobin 11.9, hematocrit 38.5, platelets of 141. INR 1.04. Sodium 140, potassium 3.4, chloride 100, bicarbonate 30, BUN of 18, creatinine 2.2, AST of 33, ALT of 29, alkaline phosphatase 76, total bilirubin 0.3, with an albumin of 3.5. Stool sent for occult blood was negative, and the specimen sent from the emergency room. Radiology report CT scan of the abdomen and pelvis as noted in the history of present illness. IMPRESSION: A 66-year-old female with what sounds like a primary complaint being diarrhea over the last 2 to 3 days with subsequent bright red blood in the toilet following bowel movements. I suspect that the patient may have had hemorrhoidal irritation secondary to her multiple diarrheal bowel movements as opposed to primary bleeding phenomenon. She has been recently admitted to the hospital. She is immunocompromised given her renal dysfunction, and Clostridium difficile associated diarrhea would need to be considered. I have ordered a stool for Clostridium difficile. I recommend starting her empirically on Flagyl. She is on Zosyn. I am unclear why she is on Zosyn at this time. The need for her continued antibiotics needs to be clarified. Other recommendations will be made pending her clinical course. I think you for this consultative opportunity. LITA BRAMBILA DO [id number]
[2017-05-20] MEDS: metroNIDAZOLE 250 MG TABLET PO SCH ×2 (14:47→21:58)
--- NOTE | 2017-05-20 15:26 | HP ---
Admitting History and Physical - Primary Care Physician PCP: Filomena Saucedo - Admission Chief Complaint: I had diarrhea History of Present Illness: Ms Sosa is a 66 year old female who was recently treated for renal colic and pyelonephritis who presents with diarrhea and bright red blood per rectum. She says she started having diarrhea after she left the hospital. She says it was soft and formed, not liquid, but she was going up to 10 times a day. One time it was dark black but she says after that it turned green. Then this Wednesday she says she started having blood. She said it was a lot at first but then it tapered off. Now she says she mainly sees blood on the tissue with some blood in the toilet. She brought this to the attention of her dialysis and was sent in. She says that she is having fevers, and chills, lightheadedness, chest pain , shortness of breath, nausea with minimal vomiting, and diffuse pain in her back and legs. She becomes very vague when endorsing complaints, like when asked to describer her chest pain she makes a punching motion. When asked where it is, she rubs her entire chest. When asked if it radiates, she says yes but then says she does not know where it radiates. Similar responses were garnered when asked about her other complaints (like she says "I just am" when asked about her shortness of breath). History Source: Patient Limitations to Obtaining History: Poor Historian - Past Medical History Cardiovascular: Yes: HTN, Hyperlipdemia Gastrointestinal: Yes: GERD, Pancreatitis, Other (Hd similar abdominal pain in [place] afew years ago and was told she has gallstones.) Hepatobiliary: Yes: Cholelithiasis Renal/: Yes: Renal Inusuff Heme/Onc: Yes: Anemia, Sickle Cell Trait Endocrine: Yes: Diabetes Mellitus - Past Surgical History Past Surgical History: Yes: None - Smoking History Smoking history: Never smoked Have you smoked in the past 12 months: No Aproximately how many cigarettes per day: 0 If you are a former smoker, when did you quit?: 40YRS AGO - Alcohol/Substance Use Hx Alcohol Use: No History of Substance Use: reports: None - Social History Usual Living Arrangement: Yes: Alone ADL: Independent History of Recent Travel: No Home Medications - Allergies Allergies/Adverse Reactions: Allergies Allergy/AdvReac Type Severity Reaction Status Date / Time No Known Drug Allergies Allergy Verified 05/19/17 19:48 - Home Medications Home Medications: Ambulatory Orders Hydralazine HCl [Apresoline -] 100 mg PO TID 05/30/14 Cholecalciferol (Vitamin D3) [Vitamin D3] 50,000 unit PO WEEKLY 12/04/15 Docusate Sodium [Colace -] 100 mg PO TID PRN 12/04/15 Atorvastatin Ca [Lipitor] 80 mg PO DAILY 12/08/16 Calcium Acetate [Phoslo -] 667 mg PO TID 12/08/16 Famotidine 10 mg PO BID PRN 12/08/16 Isosorbide Mononitrate [Imdur -] 60 mg PO DAILY 12/08/16 Amlodipine Besylate [Norvasc -] 5 mg PO DAILY #30 tablet 05/03/17 Blood Sugar Diagnostic [Accu-Chek Guide Test Strip] 1 each ACHS #1 box Blood-Glucose Meter [Accu-Chek Guide Monitor System] 1 each ACHS #1 each 11/07 Ciprofloxacin [Cipro -] 250 mg PO DAILY #10 tablet 05/03/17 Insulin (Levemir) [Levemir Vial] 10 units SQ HS #1 bottle 05/03/17 Insulin (Levemir) [Levemir Vial] 20 units SQ AM #1 bottle 05/03/17 Lactobacillus Acidophilus [Bacid -] 1 tab PO DAILY tab 05/03/17 Family Disease History - Family Disease History Family Disease History: Other: Son (sickle cell disease, ), Daughter ( sickle cell trait) Review of Systems Findings/Remarks: Full review of systems obtained and as per HPI. Positive response elicited by every question. Physical Examination Vital Signs: Vital Signs Temperature 98.4 F 05/20/17 06:56 Pulse Rate 68 05/20/17 06:56 Respiratory Rate 18 05/20/17 06:56 Blood Pressure 178/73 05/20/17 06:56 O2 Sat by Pulse Oximetry (%) 95 05/20/17 09:00 Constitutional: Yes: Well Nourished, No Distress, Calm Cardiovascular: Yes: Regular Rate and Rhythm. No: Gallop, Murmur, Rub Respiratory: Yes: Regular, CTA Bilaterally. No: Rales, Rhonchi, Wheezes Gastrointestinal: Yes: Normal Bowel Sounds, Soft. No: Distention, Tenderness Extremities: Yes: WNL Edema: No Labs: Laboratory Results - last 24 hr 05/19/17 05/19/17 05/19/17 20:15 20:15 20:15 WBC 9.3 D RBC 5.46 H Hgb 11.9 Hct 38.5 MCV 70.4 L MCHC 31.0 L RDW 16.5 H Plt Count 141 MPV 11.1 D Neutrophils % 78.0 D Lymphocytes % 9.5 D Monocytes % 11.4 H Eosinophils % 0.8 D Basophils % 0.3 Platelet Estimate Adequate Platelet Comment Few giant plts Hypochromic-Microcytic 2+ Poikilocytosis 1+ Microcytosis 1+ Target Cells 1+ Ovalocytes Rare Morphology Comment Slide scanned INR 1.04 Sodium 140 Potassium 3.4 L Chloride 100 Carbon Dioxide 30 Anion Gap 10 BUN 18 D Creatinine 2.2 H D Creat Clearance w eGFR 22.20 POC Glucometer Random Glucose 79 Calcium 9.0 Total Bilirubin 0.3 D AST 33 D ALT 29 D Alkaline Phosphatase 76 Total Protein 7.0 Albumin 3.5 Stool Occult Blood Blood Type Antibody Screen 05/19/17 05/20/17 05/20/17 22:16 01:10 03:23 WBC RBC Hgb Hct MCV MCHC RDW Plt Count MPV Neutrophils % Lymphocytes % Monocytes % Eosinophils % Basophils % Platelet Estimate Platelet Comment Hypochromic-Microcytic Poikilocytosis Microcytosis Target Cells Ovalocytes Morphology Comment INR Sodium Potassium Chloride Carbon Dioxide Anion Gap BUN Creatinine Creat Clearance w eGFR POC Glucometer 150 Random Glucose Calcium Total Bilirubin AST ALT Alkaline Phosphatase Total Protein Albumin Stool Occult Blood Negative Blood Type O POSITIVE Antibody Screen Negative 05/20/17 05/20/17 06:30 10:13 WBC RBC Hgb Hct MCV MCHC RDW Plt Count MPV Neutrophils % Lymphocytes % Monocytes % Eosinophils % Basophils % Platelet Estimate Platelet Comment Hypochromic-Microcytic Poikilocytosis Microcytosis Target Cells Ovalocytes Morphology Comment INR Sodium Potassium Chloride Carbon Dioxide Anion Gap BUN Creatinine Creat Clearance w eGFR POC Glucometer 107 141 Random Glucose Calcium Total Bilirubin AST ALT Alkaline Phosphatase Total Protein Albumin Stool Occult Blood Blood Type Antibody Screen Imaging - Results Cat Scan: Report Reviewed Problem List - Problems (1) Colitis Assessment/Plan: -patient presents with diarrhea and found to have colitis on CT scan -was on broad spectrum antibiotics recently, concern for c. diff -admitted to hospital -GI consulted and note reviewed -agree with flagyl, changed from IV to po -stool sent for c. diff -given zosyn overnight, will not continue this medication at this point unless clinical indication is found Code(s): K52.9 - NONINFECTIVE GASTROENTERITIS AND COLITIS, UNSPECIFIED (2) GI bleed Assessment/Plan: -suspect this is hemorrhoidal secondary to diarrhea -also H/H is improved since last admission -appreciate GI assistance -treat underlying colitis -continue to monitor to evaluate if has need for scoping Code(s): K92.2 - GASTROINTESTINAL HEMORRHAGE, UNSPECIFIED (3) Diabetes Assessment/Plan: -diabetic diet -SSI Code(s): E11.9 - TYPE 2 DIABETES MELLITUS WITHOUT COMPLICATIONS (4) End stage renal disease Assessment/Plan: -nephrology following -continue HD MWF Code(s): N18.6 - END STAGE RENAL DISEASE (5) Hypertension Assessment/Plan: -continue norvasc and hydralazine Code(s): I10 - ESSENTIAL (PRIMARY) HYPERTENSION
[2017-05-20] MEDS ORDERED: PIPERACILLIN/TAZOB 2.25 GM 50 ML IVPB SCH (18:00)
[2017-05-20] MEDS ORDERED: INSULIN (NOVOLOG) ASPART 100 UNITS/ML 10ML VIAL ONE (20:35)
[2017-05-21] MEDS: hydrALAZINE HCL 50 MG TABLET (FP) PO SCH ×3 (05:00→21:58)
[2017-05-21] MEDS: PANTOPRAZOLE SODIUM 40 MG/100 ML PRE-DOCKED IVPB SCH ×2 (05:52→09:56)
[2017-05-21] MEDS: INSULIN SLIDING SCALE (NOVOLOG) 1 VIAL SQ SCH ×4 (06:23→21:59)
[2017-05-21] MEDS: metroNIDAZOLE 250 MG TABLET PO SCH ×3 (07:26→22:01)
[2017-05-21 08:40] LABS: BASOPHIL 0.6 % (0-2.0); MCH 21.9 pg (25.7-33.7); MCHC 31.3 g/dl (32.0-36.0); MEAN CELL VOLUME 70.1 fl (80-96); NEUTROPHILS 72.1 % (42.8-82.8); PLATELET COUNT 159 K/MM3 (134-434); RDW 16.2 % (11.6-15.6); WHITE BLOOD COUNT 9.1 K/mm3 (4.0-10.0)
[2017-05-21] MEDS ORDERED: PT OWN MED DRAWER 7, Y5N ONE ×2 (09:05→21:43)
[2017-05-21 09:06] LABS: ALBUMIN 3.4 g/dl (3.4-5.0); ANION GAP 10 (8-16); CALCIUM 8.8 mg/dL (8.5-10.1); CO2 26 mmol/L (21-32); GLUCOSE,RANDOM 174 mg/dL (74-106); MAGNESIUM 2.1 mg/dL (1.8-2.4)
[2017-05-21 09:10] LABS: ALK PHOS 69 U/L (45-117); BILIRUBIN,TOTAL 0.4 mg/dL (0.2-1.0); CREATININE 3.6 mg/dL (0.55-1.02); PHOSPHOROUS 2.5 mg/dL (2.5-4.9); SGOT/AST 19 U/L (15-37); SGPT/ALT 21 U/L (12-78); TOT PROT 6.4 g/dl (6.4-8.2)
[2017-05-21] MEDS ORDERED: NITROGLYCERIN SUBLINGUAL 1/150 0.4 MG TAB SL ONE (09:47)
[2017-05-21] MEDS: ISOSORBIDE MONONITRATE 60 MG TAB.SR.24H (FP) PO SCH (09:54)
[2017-05-21] MEDS: amLODIPine BESYLATE 5 MG TABLET (FP) PO SCH (10:08)
[2017-05-21] MEDS ORDERED: RANITIDINE HCL 150 MG TABLET (FP) PO ONE (10:17)
[2017-05-21] MEDS ORDERED: ASPIRIN 325 MG ENTERIC COATED TABLET (FP) PO ONE (10:19)
[2017-05-21 10:36] LABS: TROPONIN I 0.02 ng/ml (0.00-0.05)
--- NOTE | 2017-05-21 10:42 | PN ---
Progress Note, Physician Chief Complaint: Called to room for rapid response. Patient was on HD and developed sudden onset chest pain that radiated to her arm. She describes it as a burning/eating away pain that feels better when she leans forward. She has shortness of breath with it. Received nitro and the pain is improving. - Current Medication List Current Medications: Active Medications Acetaminophen (Tylenol -) 650 mg PO Q6H PRN PRN Reason: FEVER OR PAIN Amlodipine Besylate (Norvasc -) 5 mg PO DAILY [facility] Last Admin: 05/21/17 10:08 Dose: Not Given Aspirin (Ecotrin -) 325 mg PO ONCE ONE Stop: 05/21/17 10:20 Hydralazine HCl (Apresoline -) 100 mg PO TID [facility] Last Admin: 05/21/17 05:00 Dose: Not Given Insulin Aspart (Novolog Vial Sliding Scale -) 1 vial SQ ACHS [facility] PRN Reason: Protocol Last Admin: 05/21/17 10:08 Dose: Not Given Isosorbide Mononitrate (Imdur -) 60 mg PO DAILY [facility] Last Admin: 05/21/17 09:54 Dose: 60 mg Metronidazole (Flagyl -) 500 mg PO TID [facility] Last Admin: 05/21/17 07:26 Dose: Not Given Morphine Sulfate (Morphine Injection -) 1 mg IVPUSH Q4H PRN PRN Reason: PAIN Ondansetron HCl (Zofran Injection) 4 mg IVPB Q6H PRN PRN Reason: NAUSEA Pantoprazole Sodium (Protonix 40mg Ivpb (Pre-Docked)) 40 mg IVPB DAILY [facility] Last Admin: 05/21/17 09:56 Dose: Not Given - Objective Vital Signs: Vital Signs Temperature 97.4 F L 05/21/17 06:25 Pulse Rate 94 H 05/21/17 08:30 Respiratory Rate 18 05/21/17 08:30 Blood Pressure 152/65 05/21/17 08:30 O2 Sat by Pulse Oximetry (%) 95 05/20/17 21:00 Constitutional: Yes: Moderate Distress Cardiovascular: Yes: Tachycardia, Pulse Irregular. No: Gallop, Murmur, Rub Respiratory: Yes: Regular, CTA Bilaterally. No: Rales, Rhonchi, Wheezes Gastrointestinal: Yes: Normal Bowel Sounds, Soft. No: Distention, Tenderness Extremities: Yes: WNL Edema: No Labs: CBC, BMP 05/21/17 07:30 05/21/17 07:30 INR, PTT INR 1.04 (0.82-1.09) 05/19/17 20:15 Problem List - Problems (1) Atrial fibrillation Assessment/Plan: -patient present with new onset atrial fibrillation on HD -cardiology consulted and seeing -place on toprol -transfer to telemetry when bed available -hold on anticoagulation Code(s): I48.91 - UNSPECIFIED ATRIAL FIBRILLATION (2) Chest pain Assessment/Plan: -difficult to distinguish -to me, made it sound more like chest pain -to cardiology, presented it as abdominal pain -will give aspirin -check cardiac enzymes x3 -will also give zantac -monitor Code(s): R07.9 - CHEST PAIN, UNSPECIFIED (3) Colitis Assessment/Plan: -suspect c. diff -continue flagyl Code(s): K52.9 - NONINFECTIVE GASTROENTERITIS AND COLITIS, UNSPECIFIED (4) GI bleed Assessment/Plan: -suspect hemorrhoidal -GI following Code(s): K92.2 - GASTROINTESTINAL HEMORRHAGE, UNSPECIFIED (5) Diabetes Assessment/Plan: -continue current management Code(s): E11.9 - TYPE 2 DIABETES MELLITUS WITHOUT COMPLICATIONS (6) End stage renal disease Assessment/Plan: -HD stopped 1 hour early secondary to chest pain -nephrology following Code(s): N18.6 - END STAGE RENAL DISEASE (7) Hypertension Assessment/Plan: -continue current management Code(s): I10 - ESSENTIAL (PRIMARY) HYPERTENSION
--- NOTE | 2017-05-21 10:46 | PN ---
Progress Note (short form) - Note Progress Note: Came to see patient. She was in dialysis and rapid response was callled. Blood pressure was markedly elevated, she was found to be in afib w/ RVR and was being evaluated by Hospitalist team. no abdominal complaints. Awaiting stool studies.
--- NOTE | 2017-05-21 11:37 | HOSP ---
Subjective - Review of Symptoms Events since last encounter: Rapid response was called at 9:50am to dialysis unit where patient was receiving dialysis. Patient c/o severe suddensubsternal chest pain, stabbing like, acute onset. BP was elevated at > 200 systolic. Gave all morning meds include BP meds. Ordered cardiac enzyme, cxr, and stat EKG. Pt received SL nitroglycerin and pain was relieved somewhat. BP improved upon reassessment. Physical Examination Vital Signs: Vital Signs Temperature 98.3 F 05/21/17 08:30 Pulse Rate 81 05/21/17 08:30 Respiratory Rate 18 05/21/17 08:30 Blood Pressure 159/70 05/21/17 08:30 O2 Sat by Pulse Oximetry (%) 96 05/21/17 09:00 Cardiovascular: Yes: Regular Rate and Rhythm, Tachycardia, S1, S2 Respiratory: Yes: CTA Bilaterally Labs: CBC, BMP 05/21/17 07:30 05/21/17 07:30 Hospitalist Encounter Assessment: Chest pain r/o ACS - Stat CXR, EKG and SL nitro - trend trop - morphine PRN Visit type - Emergency Visit Emergency Visit: No - New Patient This patient is new to me today: Yes Date on this admission: 05/21/17 - Critical Care Critical Care patient: No
--- NOTE | 2017-05-21 11:44 | PN ---
Progress Note, Physician History of Present Illness: Events of this morning reviewed. The patient is awake, alert. Chest pain much better. Anxious. Does not feel any palpitation. Dialysis was terminated at about 2.5 hrs. - Current Medication List Current Medications: Active Medications Acetaminophen (Tylenol -) 650 mg PO Q6H PRN PRN Reason: FEVER OR PAIN Amlodipine Besylate (Norvasc -) 5 mg PO DAILY [facility] Last Admin: 05/21/17 10:08 Dose: Not Given Hydralazine HCl (Apresoline -) 100 mg PO TID [facility] Last Admin: 05/21/17 05:00 Dose: Not Given Insulin Aspart (Novolog Vial Sliding Scale -) 1 vial SQ ACHS [facility] PRN Reason: Protocol Last Admin: 05/21/17 10:08 Dose: Not Given Isosorbide Mononitrate (Imdur -) 60 mg PO DAILY [facility] Last Admin: 05/21/17 09:54 Dose: 60 mg Metronidazole (Flagyl -) 500 mg PO TID [facility] Last Admin: 05/21/17 07:26 Dose: Not Given Morphine Sulfate (Morphine Injection -) 1 mg IVPUSH Q4H PRN PRN Reason: PAIN Ondansetron HCl (Zofran Injection) 4 mg IVPB Q6H PRN PRN Reason: NAUSEA Pantoprazole Sodium (Protonix 40mg Ivpb (Pre-Docked)) 40 mg IVPB DAILY [facility] Last Admin: 05/21/17 09:56 Dose: Not Given - Objective Vital Signs: Vital Signs Temperature 98.3 F 05/21/17 08:30 Pulse Rate 85 05/21/17 11:00 Respiratory Rate 18 05/21/17 11:00 Blood Pressure 158/140 05/21/17 11:00 O2 Sat by Pulse Oximetry (%) 96 05/21/17 09:00 Constitutional: Yes: Anxious, Mild Distress HENT: Yes: Atraumatic Cardiovascular: Yes: Pulse Irregular, S1, S2 Respiratory: Yes: Diminished, Poor Air Entry Gastrointestinal: Yes: Normal Bowel Sounds, Soft. No: Palpable Mass, Tenderness Musculoskeletal: No: Back Pain, Joint Stiffness, Joint Swelling, Muscle Pain Labs: CBC, BMP 05/21/17 07:30 05/21/17 07:30 INR, PTT INR 1.04 (0.82-1.09) 06/28/17 20:15 Problem List - Problems (1) Colitis Code(s): K52.9 - NONINFECTIVE GASTROENTERITIS AND COLITIS, UNSPECIFIED (2) Diabetes Code(s): E11.9 - TYPE 2 DIABETES MELLITUS WITHOUT COMPLICATIONS (3) End stage renal disease Code(s): N18.6 - END STAGE RENAL DISEASE (4) HLD (hyperlipidemia) Code(s): E78.5 - HYPERLIPIDEMIA, UNSPECIFIED (5) Hypertension Code(s): I10 - ESSENTIAL (PRIMARY) HYPERTENSION (6) Chest pain Code(s): R07.9 - CHEST PAIN, UNSPECIFIED Assessment/Plan 66 y/o female with multiple medical problems, admitted with bloody diarrhea. Developed Acute chest pain and new onset A Fib this morning, while on dialysis. HD was terminated and the patient transferred to Telemetry. Hgb/ Hct in acceptable range, and is highly unlikely to be the cause of the cardiac event. Will follow the patient with you. Thank you. Marely Cooper MD
--- NOTE | 2017-05-21 11:48 | CON.CARD ---
Cardiology Consult (text) - Consultation Consultation Note: cc: abd pain, rectal bleeding hpi: 66 f hx htn, hld, esrd on hd, dm here with abd pain, rectal bleeding. Several days of bloody diarrhea and abd/epigastric burning pain. No cp sob palps dizzy loc pnd orthopnea le edema. Admitted for colitis, on abx. Today during hd developed new onset afib with rvr (up to 120s). During HD she had complained of same epigastric pain that she presented with. Currently comfortable. Sees me for cardio. pmh: per hpi psh: avf social: no tob fam: no premature cad ros: per hpi; no vomiting, alejandra, vision changes, wt loss, dysuria, hematuria, rash , cough, nasal congestion meds: Home Medications Medication Instructions Recorded Hydralazine HCl [Apresoline -] 100 mg PO TID 05/30/14 Cholecalciferol (Vitamin D3) 50,000 unit PO WEEKLY 12/04/15 [Vitamin D3] Docusate Sodium [Colace -] 100 mg PO TID PRN 12/04/15 Atorvastatin Ca [Lipitor] 80 mg PO DAILY 12/08/16 Calcium Acetate [Phoslo -] 667 mg PO TID 12/08/16 Famotidine 10 mg PO BID PRN 12/08/16 Isosorbide Mononitrate [Imdur -] 60 mg PO DAILY 12/08/16 Amlodipine Besylate [Norvasc -] 5 mg PO DAILY #30 tablet 05/03/17 Blood Sugar Diagnostic [Accu-Chek 1 each ACHS #1 box 05/03/17 Guide Test Strip] Blood-Glucose Meter [Accu-Chek 1 each ACHS #1 each 05/03/17 Guide Monitor System] Ciprofloxacin [Cipro -] 250 mg PO DAILY #10 tablet 05/03/17 Insulin (Levemir) [Levemir Vial] 10 units SQ HS #1 bottle 05/03/17 Insulin (Levemir) [Levemir Vial] 20 units SQ AM #1 bottle 05/03/17 Lactobacillus Acidophilus [Bacid -] 1 tab PO DAILY tab 05/03/17 pe: Vital Signs Period Temp Pulse Resp BP Sys/Baig Pulse Ox Last 24 Hr 97.4 F-99.5 F 48-99 18-20 137-202/61-177 95-96 nad no jvd irreg s1s2 no mrg cta bl nl eff aaox3 no le le/c/c abd mild diff tender, +bs, nd no jaundice diaphores +dp pt no carotid bruits Laboratory Last Values WBC 9.1 K/mm3 (4.0-10.0) 05/21/17 07:30 RBC 5.15 M/mm3 (3.60-5.2) 05/21/17 07:30 Hgb 11.3 GM/dL (10.7-15.3) 05/21/17 07:30 Hct 36.1 % (32.4-45.2) 05/21/17 07:30 MCV 70.1 fl (80-96) L 05/21/17 07:30 MCHC 31.3 g/dl (32.0-36.0) L 05/21/17 07:30 RDW 16.2 % (11.6-15.6) H 05/21/17 07:30 Plt Count 159 K/MM3 (134-434) 05/21/17 07:30 MPV 11.0 fl (7.5-11.1) 05/21/17 07:30 Neutrophils % 72.1 % (42.8-82.8) 05/21/17 07:30 Lymphocytes % 11.8 % (8-40) D 05/21/17 07:30 Monocytes % 12.5 % (3.8-10.2) H 05/21/17 07:30 Eosinophils % 3.0 % (0-4.5) D 05/21/17 07:30 Basophils % 0.6 % (0-2.0) 05/21/17 07:30 Platelet Estimate Adequate (NORMAL) 05/19/17 20:15 Platelet Comment Few giant plts 05/19/17 20:15 Hypochromic-Microcytic 2+ 05/19/17 20:15 Poikilocytosis 1+ 05/19/17 20:15 Microcytosis 1+ 05/19/17 20:15 Target Cells 1+ 05/19/17 20:15 Ovalocytes Rare 05/19/17 20:15 Morphology Comment Slide scanned 05/19/17 20:15 INR 1.04 (0.82-1.09) 05/19/17 20:15 Sodium 138 mmol/L (136-145) 05/21/17 07:30 Potassium 3.5 mmol/L (3.5-5.1) 05/21/17 07:30 Chloride 102 mmol/L (98-107) 05/21/17 07:30 Carbon Dioxide 26 mmol/L (21-32) 05/21/17 07:30 Anion Gap 10 (8-16) 05/21/17 07:30 BUN 28 mg/dL (7-18) H D 05/21/17 07:30 Creatinine 3.6 mg/dL (0.55-1.02) H D 05/21/17 07:30 Creat Clearance w eGFR 12.57 (>60) 05/21/17 07:30 POC Glucometer 170 UNITS (()) 05/21/17 09:50 Random Glucose 174 mg/dL (74-106) H D 05/21/17 07:30 Calcium 8.8 mg/dL (8.5-10.1) 05/21/17 07:30 Phosphorus 2.5 mg/dL (2.5-4.9) 05/21/17 07:30 Magnesium 2.1 mg/dL (1.8-2.4) 05/21/17 07:30 Total Bilirubin 0.4 mg/dL (0.2-1.0) D 05/21/17 07:30 GGT Cancelled 05/21/17 07:30 AST 19 U/L (15-37) D 05/21/17 07:30 ALT 21 U/L (12-78) D 05/21/17 07:30 Alkaline Phosphatase 69 U/L (45-117) 05/21/17 07:30 Creatine Kinase 76 IU/L (26-192) 05/21/17 09:50 Troponin I 0.02 ng/ml (0.00-0.05) 05/21/17 09:50 Total Protein 6.4 g/dl (6.4-8.2) 05/21/17 07:30 Albumin 3.4 g/dl (3.4-5.0) 05/21/17 07:30 Stool Occult Blood Negative (NEGATIVE) 05/19/17 22:16 Blood Type O POSITIVE 05/20/17 01:10 Antibody Screen Negative 05/20/17 01:10 echo 04/2016: mild conc lvh, nl lvef, nl rv, mild lae, mild mr, trace-mild tr mibi 08/2016: no ecg changes, nl mpi, nl lvef ecg 05/21/17: afib, vr 118, nl qtc, no ischemic changes, lvh cxr: clear lungs a/p: 66 f hx htn, hld, esrd on hd, dm here with abd pain, rectal bleeding. new onset afib: -monitor on tele -HR currently improved -will start low dose bb and monitor response -check updated echo, tsh -chadsvasc 4 warrants AC but also with rectal bleeding (?colitis vs hemroids). Would start with hep gtt for ac if ok by GI. cp, epigastric pain: -atypical symptom, seems GI related -had similar symptom in past which was evaluated with nuclear stress test 2015 which was normal -ecg w/o ischemic changes and ce's neg x1 -monitor on tele, finish tadeo -treatment of colitis per GI/PMD htn: -continue home meds, monitor hld: -cont home statin
[2017-05-21] MEDS: METOPROLOL SUCCINATE 25 MG TAB.SR.24H (FP) PO SCH (15:04)
--- NOTE | 2017-05-21 16:38 | EKG ---
Test Reason : Blood Pressure : / mmHG Vent. Rate : 123 BPM Atrial Rate : 111 BPM P-R Int : 000 ms QRS Dur : 096 ms QT Int : 320 ms P-R-T Axes : 000 -39 070 degrees QTc Int : 458 ms ATRIAL FIBRILLATION WITH RAPID VENTRICULAR RESPONSE LEFT AXIS DEVIATION MINIMAL VOLTAGE CRITERIA FOR LVH, MAY BE NORMAL VARIANT NONSPECIFIC ST ABNORMALITY ABNORMAL ECG WHEN COMPARED WITH ECG OF 21-MAY-2017 09:47, NO SIGNIFICANT CHANGE WAS FOUND Confirmed by MD LISET, SERAFIN ([id number]) on 05/21/2017 4:37:41 PM Referred By: Confirmed By:SERAFIN HUTCHINS MD
--- NOTE | 2017-05-21 16:40 | EKG ---
Test Reason : Blood Pressure : / mmHG Vent. Rate : 118 BPM Atrial Rate : 120 BPM P-R Int : 000 ms QRS Dur : 096 ms QT Int : 350 ms P-R-T Axes : 000 -41 068 degrees QTc Int : 490 ms ATRIAL FIBRILLATION WITH RAPID VENTRICULAR RESPONSE LEFT AXIS DEVIATION MINIMAL VOLTAGE CRITERIA FOR LVH, MAY BE NORMAL VARIANT ST depression, consider subendocardial injury ABNORMAL ECG Confirmed by MD LISET, SERAFIN ([id number]) on 05/21/2017 4:39:30 PM Referred By: Confirmed By:SERAFIN HUTCHINS MD
[2017-05-21 17:52] LABS: TROPONIN I 0.32 ng/ml (0.00-0.05)
[2017-05-22] MEDS: metroNIDAZOLE 250 MG TABLET PO SCH ×3 (06:23→22:10)
[2017-05-22] MEDS: hydrALAZINE HCL 50 MG TABLET (FP) PO SCH ×3 (06:23→22:10)
[2017-05-22] MEDS: INSULIN SLIDING SCALE (NOVOLOG) 1 VIAL SQ SCH ×4 (06:26→22:10)
[2017-05-22 08:14] LABS: BASOPHIL 0.5 % (0-2.0); MCH 21.9 pg (25.7-33.7); MEAN CELL VOLUME 70.5 fl (80-96); MEAN PLT VOLUME 10.8 fl (7.5-11.1); NEUTROPHILS 55.1 % (42.8-82.8); PLATELET COUNT 148 K/MM3 (134-434); RDW 16.3 % (11.6-15.6)
[2017-05-22 08:31] LABS: ANION GAP 7 (8-16); CALCIUM 8.3 mg/dL (8.5-10.1); CO2 31 mmol/L (21-32); CREATININE 3.8 mg/dL (0.55-1.02); GLUCOSE,RANDOM 189 mg/dL (74-106); MAGNESIUM 2.1 mg/dL (1.8-2.4); PHOSPHOROUS 2.5 mg/dL (2.5-4.9)
[2017-05-22 08:41] LABS: THYROID STIMULATING HORMONE 1.02 uIU/ml (0.358-3.74)
--- NOTE | 2017-05-22 08:58 | PN ---
Progress Note, Physician Chief Complaint: afib, atyp cp History of Present Illness: this morning had pain in LUQ/under L breast, radiating up to L arm now resolved (on its own) no sob, palpitations, leg swelling no cigs - Current Medication List Current Medications: Active Medications Acetaminophen (Tylenol -) 650 mg PO Q6H PRN PRN Reason: FEVER OR PAIN Amlodipine Besylate (Norvasc -) 5 mg PO DAILY [facility] Last Admin: 05/21/17 10:08 Dose: Not Given Hydralazine HCl (Apresoline -) 100 mg PO TID [facility] Last Admin: 05/22/17 06:23 Dose: 100 mg Insulin Aspart (Novolog Vial Sliding Scale -) 1 vial SQ ACHS [facility] PRN Reason: Protocol Last Admin: 05/22/17 06:26 Dose: 2 units Isosorbide Mononitrate (Imdur -) 60 mg PO DAILY [facility] Last Admin: 05/21/17 09:54 Dose: 60 mg Metoprolol Succinate (Toprol Xl -) 25 mg PO DAILY [facility] Last Admin: 05/21/17 15:04 Dose: 25 mg Metronidazole (Flagyl -) 500 mg PO TID [facility] Last Admin: 05/22/17 06:23 Dose: 500 mg Morphine Sulfate (Morphine Injection -) 1 mg IVPUSH Q4H PRN PRN Reason: PAIN Ondansetron HCl (Zofran Injection) 4 mg IVPB Q6H PRN PRN Reason: NAUSEA Pantoprazole Sodium (Protonix 40mg Ivpb (Pre-Docked)) 40 mg IVPB DAILY [facility] Last Admin: 05/21/17 09:56 Dose: Not Given - Objective Vital Signs: Vital Signs Temperature 98.6 F 05/22/17 06:12 Pulse Rate 80 05/22/17 06:12 Respiratory Rate 20 05/22/17 06:12 Blood Pressure 156/80 05/22/17 06:12 O2 Sat by Pulse Oximetry (%) 96 05/21/17 21:00 Constitutional: Yes: No Distress, Calm Eyes: No: Sclera Icterus HENT: No: Nasal Congestion Cardiovascular: Yes: Regular Rate and Rhythm, S1, S2, Other (PMI non diplaced). No: Gallop, Murmur Respiratory: Yes: CTA Bilaterally. No: Accessory Muscle Use, Rales, Wheezes Gastrointestinal: Yes: Normal Bowel Sounds, Soft. No: Tenderness Musculoskeletal: Yes: Other (No kyphosis) Extremities: No: Cold Edema: No Integumentary: No: Jaundice Neurological: Yes: Alert, Oriented (x3) Psychiatric: No: Agitated Labs: CBC, BMP 05/22/17 05:35 05/22/17 05:35 INR, PTT INR 1.04 (0.82-1.09) 05/19/17 20:15 - ....Imaging EKG: Other (tele: NSR) Assessment/Plan Echo 05/08 here: nl LVSF; nl RV; mod LAE; mild MR mibi 08/2016: no ecg changes, nl mpi, nl lvef ecg 05/21/17: afib, vr 118, nl qtc, no ischemic changes, lvh ecg 05/22: NR, LVH with repol abn (no ST shifts)--no signif change vs priors here cxr: clear lungs a/p: 66 f hx htn, hld, esrd on hd, dm here with abd pain, rectal bleeding. new onset afib: -spontaneously converted to sinus within 24 hrs -started metoprolol 25mg here--BP and HR tolerating, cont same -TSH normal -chadsvasc 4 warrants AC -holding off on AC due to active bloody diarrhea -expect once colitis is treated she will stop bleeding--rec GI input into timing of safe initiation of AC here atypc cp, epigastric pain: -atypical symptom, ? related to active colitis -per dr munroe, pt had similar symptom in past which was evaluated with nuclear stress test 08/2016 which was normal -ecg w/o ischemic changes at time of episode -trop 0.02-->0.32-->0.47, rpt ecg without ischemic change--suspect demand ischemia related to tachycardia -f/u trop in am (trend labs until trop peaks) -recent normal nuclear stress test--defer rpt ischemia eval unless clinical picture changes -ongoing atypical sx's not suspicious for angina, ? GI etiology (colitis? gas/ bloating? GERD?) -observe sx's with treatment of colitis per GI/PMD htn: -variable bp's, often mildly to moderately elevated here -cont present meds, observe trend for now hld: -cont home statin
[2017-05-22] MEDS: amLODIPine BESYLATE 5 MG TABLET (FP) PO SCH (09:24)
[2017-05-22] MEDS: ISOSORBIDE MONONITRATE 60 MG TAB.SR.24H (FP) PO SCH (09:25)
[2017-05-22] MEDS: METOPROLOL SUCCINATE 25 MG TAB.SR.24H (FP) PO SCH (09:25)
[2017-05-22] MEDS: PANTOPRAZOLE SODIUM 40 MG/100 ML PRE-DOCKED IVPB SCH (09:25)
[2017-05-22 10:16] LABS: TROPONIN I 0.47 ng/ml (0.00-0.05)
--- NOTE | 2017-05-22 11:59 | PN ---
Progress Note, Physician History of Present Illness: The patient lying in bed. Comfortable. Complaints of nonspecific pains in the left lateral chest and shoulders. Cardiac w/u in progress. Cardiac rhythm Sinus per the monitor. Still with loose BM, but no blood. - Current Medication List Current Medications: Active Medications Acetaminophen (Tylenol -) 650 mg PO Q6H PRN PRN Reason: FEVER OR PAIN Amlodipine Besylate (Norvasc -) 5 mg PO DAILY [facility] Last Admin: 05/22/17 09:24 Dose: 5 mg Hydralazine HCl (Apresoline -) 100 mg PO TID [facility] Last Admin: 05/22/17 06:23 Dose: 100 mg Insulin Aspart (Novolog Vial Sliding Scale -) 1 vial SQ ACHS [facility] PRN Reason: Protocol Last Admin: 05/22/17 06:26 Dose: 2 units Isosorbide Mononitrate (Imdur -) 60 mg PO DAILY [facility] Last Admin: 05/22/17 09:25 Dose: 60 mg Metoprolol Succinate (Toprol Xl -) 25 mg PO DAILY [facility] Last Admin: 05/22/17 09:25 Dose: 25 mg Metronidazole (Flagyl -) 500 mg PO TID [facility] Last Admin: 05/22/17 06:23 Dose: 500 mg Morphine Sulfate (Morphine Injection -) 1 mg IVPUSH Q4H PRN PRN Reason: PAIN Ondansetron HCl (Zofran Injection) 4 mg IVPB Q6H PRN PRN Reason: NAUSEA Pantoprazole Sodium (Protonix 40mg Ivpb (Pre-Docked)) 40 mg IVPB DAILY [facility] Last Admin: 05/22/17 09:25 Dose: 40 mg - Objective Vital Signs: Vital Signs Temperature 98.6 F 05/22/17 06:12 Pulse Rate 80 05/22/17 06:12 Respiratory Rate 20 05/22/17 06:12 Blood Pressure 156/80 05/22/17 06:12 O2 Sat by Pulse Oximetry (%) 96 05/21/17 21:00 Constitutional: Yes: Well Nourished, Calm HENT: Yes: Normocephalic Neck: Yes: Trachea Midline Cardiovascular: Yes: Regular Rate and Rhythm, S1, S2 Respiratory: Yes: CTA Bilaterally, Poor Air Entry. No: Rales, Rhonchi Gastrointestinal: Yes: Normal Bowel Sounds, Soft Labs: CBC, BMP 05/22/17 05:35 05/22/17 05:35 INR, PTT INR 1.04 (0.82-1.09) 05/19/17 20:15 Problem List - Problems (1) Colitis Code(s): K52.9 - NONINFECTIVE GASTROENTERITIS AND COLITIS, UNSPECIFIED (2) Diabetes Code(s): E11.9 - TYPE 2 DIABETES MELLITUS WITHOUT COMPLICATIONS (3) End stage renal disease Code(s): N18.6 - END STAGE RENAL DISEASE (4) HLD (hyperlipidemia) Code(s): E78.5 - HYPERLIPIDEMIA, UNSPECIFIED (5) Hypertension Code(s): I10 - ESSENTIAL (PRIMARY) HYPERTENSION (6) Chest pain Code(s): R07.9 - CHEST PAIN, UNSPECIFIED Assessment/Plan 66 y/o female with multiple medical problems, admitted with bloody diarrhea. Developed Acute chest pain and new onset Was in A Fib, now back in Sinus. Hgb ( 10.8) in acceptable range. Cardiac w/u in progress. Will follow the patient with you. Thank you. Marely Cooper MD
[2017-05-22] MEDS ORDERED: PT OWN MED DRAWER 7, Y5N ONE (14:09)
--- NOTE | 2017-05-22 14:19 | PN ---
GI Progress Note Subjective: Feels better today Converted back into sinus rhythm No abdominal pain No rectal bleeding Diarrhea still there, somewhat improved in terms of frequency - Objective Vital Signs: Vital Signs Temperature 98.9 F 05/22/17 12:19 Pulse Rate 77 05/22/17 12:19 Respiratory Rate 20 05/22/17 12:19 Blood Pressure 144/58 05/22/17 12:19 O2 Sat by Pulse Oximetry (%) 96 05/22/17 09:00 Constitutional: Calm Eyes: No: Sclera Icterus Cardiovascular: Yes: Regular Rate and Rhythm. No: Murmur ...Auscultate: Yes: Normoactive Bowel Sounds ...Palpate: No: Tenderness ...Percussion: No: Tympanitic Edema: No Neurological: Yes: Alert, Oriented Labs: CBC, BMP 05/22/17 05:35 05/22/17 05:35 INR, PTT INR 1.04 (0.82-1.09) 05/19/17 20:15 Microbiology 05/20/17 12:20 Stool Clostridium difficile Antigen (MONIKA) - Positive 05/20/17 12:20 Stool Clostridium difficile Toxin Assay - Negative Problem List - Problems (1) Diarrhea Assessment/Plan: Diarrhea persists, no bleeding. I think that the copious bowel movements described at home led to the rectal bleeding She is C. Diff antigen positive with active diarrhea. I advise continuing flagyl for now, ordered a stool for C.. diff toxin PCR, started probiotic No absolute GI contraindication for A/C Code(s): R19.7 - DIARRHEA, UNSPECIFIED
[2017-05-22] MEDS: LACTOBACILLUS ACIDOPHILUS 1 EACH TAB (FP) PO SCH (14:24)
--- NOTE | 2017-05-22 14:53 | EKG ---
Test Reason : Blood Pressure : / mmHG Vent. Rate : 075 BPM Atrial Rate : 075 BPM P-R Int : 164 ms QRS Dur : 114 ms QT Int : 422 ms P-R-T Axes : 068 -33 095 degrees QTc Int : 471 ms NORMAL SINUS RHYTHM LEFT AXIS DEVIATION MODERATE VOLTAGE CRITERIA FOR LVH, MAY BE NORMAL VARIANT NONSPECIFIC T WAVE ABNORMALITY PROLONGED QT ABNORMAL ECG WHEN COMPARED WITH ECG OF 21-MAY-2017 10:08, SINUS RHYTHM HAS REPLACED ATRIAL FIBRILLATION VENT. RATE HAS DECREASED BY [address] NO LONGER DEPRESSED IN LATERAL LEADS T WAVE INVERSION MORE EVIDENT IN LATERAL LEADS Confirmed by ASTRID HOFF MD ([id number]) on 05/22/2017 2:52:57 PM Referred By: Tariq PRICE Confirmed By:ASTRID HOFF MD
--- NOTE | 2017-05-22 16:16 | PN ---
Progress Note (short form) - Note Progress Note: No palpitations today Abd oain is less Has GERD O/E Vital Signs Period Temp Pulse Resp BP Sys/Baig Pulse Ox Last 24 Hr 98.2 F-98.9 F 68-80 16-20 112-156/52-80 96-96 Heart regular Lungs clear Abd soft Ext no edema Current Medications Acetaminophen (Tylenol -) 650 mg PO Q6H PRN PRN Reason: FEVER OR PAIN Amlodipine Besylate (Norvasc -) 5 mg PO DAILY [facility] Last Admin: 05/22/17 09:24 Dose: 5 mg Hydralazine HCl (Apresoline -) 100 mg PO TID [facility] Last Admin: 05/22/17 14:19 Dose: 100 mg Insulin Aspart (Novolog Vial Sliding Scale -) 1 vial SQ ACHS [facility] PRN Reason: Protocol Last Admin: 05/22/17 12:00 Dose: 8 units Isosorbide Mononitrate (Imdur -) 60 mg PO DAILY [facility] Last Admin: 05/22/17 09:25 Dose: 60 mg Lactobacillus Acidophilus (Bacid -) 1 tab PO DAILY [facility] Last Admin: 05/22/17 14:24 Dose: 1 tab Metoprolol Succinate (Toprol Xl -) 25 mg PO DAILY [facility] Last Admin: 05/22/17 09:25 Dose: 25 mg Metronidazole (Flagyl -) 500 mg PO TID [facility] Last Admin: 05/22/17 14:19 Dose: 500 mg Morphine Sulfate (Morphine Injection -) 1 mg IVPUSH Q4H PRN PRN Reason: PAIN Ondansetron HCl (Zofran Injection) 4 mg IVPB Q6H PRN PRN Reason: NAUSEA Pantoprazole Sodium (Protonix 40mg Ivpb (Pre-Docked)) 40 mg IVPB DAILY [facility] Last Admin: 05/22/17 09:25 Dose: 40 mg Laboratory Results - last 24 hr 05/21/17 05/21/17 05/21/17 16:00 16:16 21:57 WBC RBC Hgb Hct MCV MCHC RDW Plt Count MPV Neutrophils % Lymphocytes % Monocytes % Eosinophils % Basophils % Sodium Potassium Chloride Carbon Dioxide Anion Gap BUN Creatinine POC Glucometer 358 143 Random Glucose Calcium Phosphorus Magnesium Creatine Kinase 83 Troponin I 0.32 H [facility] 05/22/17 05/22/17 05/22/17 05:35 05:35 06:10 WBC 6.0 D RBC 4.93 Hgb 10.8 Hct 34.8 MCV 70.5 L MCHC 31.0 L RDW 16.3 H Plt Count 148 MPV 10.8 Neutrophils % 55.1 D Lymphocytes % 25.4 D Monocytes % 14.0 H Eosinophils % 5.0 H Basophils % 0.5 Sodium 139 Potassium 3.6 Chloride 101 Carbon Dioxide 31 Anion Gap 7 L BUN 29 H Creatinine 3.8 H POC Glucometer 198 Random Glucose 189 H Calcium 8.3 L Phosphorus 2.5 Magnesium 2.1 Creatine Kinase 66 Troponin I 0.47 H TSH 1.02 05/22/17 05/22/17 08:40 10:50 WBC RBC Hgb Hct MCV MCHC RDW Plt Count MPV Neutrophils % Lymphocytes % Monocytes % Eosinophils % Basophils % Sodium Potassium Chloride Carbon Dioxide Anion Gap BUN Creatinine POC Glucometer 347 Random Glucose Calcium Phosphorus Magnesium Creatine Kinase Cancelled Troponin I Cancelled TSH A&(1) Atrial fibrillation Assessment/Plan: Will need A/C once cleared by GI Code(s): I48.91 - UNSPECIFIED ATRIAL FIBRILLATION (2) Chest pain Assessment/Plan: Appears due to GERD. Trial of Omeprazole Code(s): R07.9 - CHEST PAIN, UNSPECIFIED (3) Colitis Assessment/Plan: -resolving Code(s): K52.9 - NONINFECTIVE GASTROENTERITIS AND COLITIS, UNSPECIFIED (4) GI bleed Assessment/Plan: -resoolved Code(s): K92.2 - GASTROINTESTINAL HEMORRHAGE, UNSPECIFIED (5) Diabetes Assessment/Plan: -continue current management Code(s): E11.9 - TYPE 2 DIABETES MELLITUS WITHOUT COMPLICATIONS (6) End stage renal disease Assessment/Plan: -HD stopped 1 hour early secondary to chest pain -nephrology following Code(s): N18.6 - END STAGE RENAL DISEASE (7) Hypertension Assessment/Plan: -continue current management Code(s): I10 - ESSENTIAL (PRIMARY) HYPERTENSION P
[2017-05-23] MEDS ORDERED: PT OWN MED DRAWER 7, Y5N ONE ×2 (05:54→21:23)
[2017-05-23] MEDS: hydrALAZINE HCL 50 MG TABLET (FP) PO SCH ×3 (06:03→21:32)
[2017-05-23] MEDS: metroNIDAZOLE 250 MG TABLET PO SCH ×3 (06:03→21:32)
[2017-05-23] MEDS: INSULIN SLIDING SCALE (NOVOLOG) 1 VIAL SQ SCH ×4 (06:04→21:33)
[2017-05-23 08:29] LABS: TROPONIN I 0.27 ng/ml (0.00-0.05)
--- NOTE | 2017-05-23 08:46 | PN ---
Progress Note, Physician Chief Complaint: afib History of Present Illness: no cp diffuse abd uneasiness, no intense pains no sob, palpit - Current Medication List Current Medications: Active Medications Acetaminophen (Tylenol -) 650 mg PO Q6H PRN PRN Reason: FEVER OR PAIN Amlodipine Besylate (Norvasc -) 5 mg PO DAILY [facility] Last Admin: 05/22/17 09:24 Dose: 5 mg Hydralazine HCl (Apresoline -) 100 mg PO TID [facility] Last Admin: 05/23/17 06:03 Dose: 100 mg Insulin Aspart (Novolog Vial Sliding Scale -) 1 vial SQ ACHS [facility] PRN Reason: Protocol Last Admin: 05/23/17 06:04 Dose: Not Given Isosorbide Mononitrate (Imdur -) 60 mg PO DAILY [facility] Last Admin: 05/22/17 09:25 Dose: 60 mg Lactobacillus Acidophilus (Bacid -) 1 tab PO DAILY [facility] Last Admin: 05/22/17 14:24 Dose: 1 tab Metoprolol Succinate (Toprol Xl -) 25 mg PO DAILY [facility] Last Admin: 05/22/17 09:25 Dose: 25 mg Metronidazole (Flagyl -) 500 mg PO TID [facility] Last Admin: 05/23/17 06:03 Dose: 500 mg Morphine Sulfate (Morphine Injection -) 1 mg IVPUSH Q4H PRN PRN Reason: PAIN Ondansetron HCl (Zofran Injection) 4 mg IVPB Q6H PRN PRN Reason: NAUSEA Pantoprazole Sodium (Protonix 40mg Ivpb (Pre-Docked)) 40 mg IVPB DAILY [facility] Last Admin: 05/22/17 09:25 Dose: 40 mg - Objective Vital Signs: Vital Signs Temperature 97.9 F 05/23/17 05:00 Pulse Rate 77 05/23/17 05:00 Respiratory Rate 18 05/23/17 05:00 Blood Pressure 146/72 05/23/17 05:00 O2 Sat by Pulse Oximetry (%) 97 05/22/17 21:00 Constitutional: Yes: Well Nourished, No Distress, Calm Cardiovascular: Yes: Regular Rate and Rhythm, S1, S2. No: Gallop, Murmur Respiratory: Yes: Regular, CTA Bilaterally. No: Accessory Muscle Use, Rales, Wheezes Extremities: No: Cold Edema: No Neurological: Yes: Alert, Oriented Psychiatric: No: Agitated Labs: CBC, BMP 05/22/17 05:35 05/22/17 05:35 INR, PTT INR 1.04 (0.82-1.09) 05/19/17 20:15 - ....Imaging EKG: Other (tele: NSR) Assessment/Plan Echo 05/08 here: nl LVSF; nl RV; mod LAE; mild MR mibi 08/2016: no ecg changes, nl mpi, nl lvef ecg 05/21/17: afib, vr 118, nl qtc, no ischemic changes, lvh ecg 05/22: NR, LVH with repol abn (no ST shifts)--no signif change vs priors here cxr: clear lungs a/p: 66 f hx htn, hld, esrd on hd, dm here with abd pain, rectal bleeding. new onset afib: -spontaneously converted to sinus within 24 hrs -started metoprolol 25mg here--BP and HR tolerating, cont same -TSH normal -chadsvasc 4 warrants AC -GI input appreciated: likely low risk for massive GIB and AC not contraindicated--start eliquis -monitor H/H and watch for melena/rectal bleeding atyp cp, epigastric pain, colitis (suspected c. dif): -atypical symptom, ? related to active colitis -per dr munroe, pt had similar symptom in past which was evaluated with nuclear stress test 08/2016 which was normal -ecg w/o ischemic changes at time of episode -trop 0.02-->0.32-->0.47-->0.27, rpt ecg without ischemic change--uspect demand ischemia related to tachycardia given clinical picture not suggestive of small NSTEMI and recent normal nuclear stress test -ongoing atypical sx's not suspicious for angina, suspect GI etiology (colitis? gas/bloating? GERD?) -observe sx's with treatment of colitis per GI/PMD htn: -variable bp's, often mildly to moderately elevated here -cont present meds, observe trend for now hld: -cont home statin D/C TELEMETRY
--- NOTE | 2017-05-23 09:40 | PN ---
GI Progress Note Subjective: Patient states feeling well Improved diarrhea No abdominal pain - Objective Vital Signs: Vital Signs Temperature 97.9 F 05/23/17 05:00 Pulse Rate 77 05/23/17 05:00 Respiratory Rate 18 05/23/17 05:00 Blood Pressure 146/72 05/23/17 05:00 O2 Sat by Pulse Oximetry (%) 97 05/22/17 21:00 Constitutional: Calm Cardiovascular: Yes: Regular Rate and Rhythm, Murmur Gastrointestinal Inspection: No: Distention ...Auscultate: Yes: Normoactive Bowel Sounds ...Palpate: No: Tenderness Neurological: Yes: Alert, Oriented Labs: CBC, BMP 05/22/17 05:35 05/22/17 05:35 INR, PTT INR 1.04 (0.82-1.09) 05/19/17 20:15 Problem List - Problems (1) Diarrhea Assessment/Plan: Improved Continue flagyl 500mg PO TID for total of 14 days Probiotic Await C. Diff Toxin PCR Code(s): R19.7 - DIARRHEA, UNSPECIFIED
[2017-05-23] MEDS: ISOSORBIDE MONONITRATE 60 MG TAB.SR.24H (FP) PO SCH (10:40)
[2017-05-23] MEDS: LACTOBACILLUS ACIDOPHILUS 1 EACH TAB (FP) PO SCH (10:40)
[2017-05-23] MEDS: PANTOPRAZOLE SODIUM 40 MG/100 ML PRE-DOCKED IVPB SCH (10:40)
[2017-05-23] MEDS: METOPROLOL SUCCINATE 25 MG TAB.SR.24H (FP) PO SCH (10:41)
[2017-05-23] MEDS: APIXABAN 5 MG TABLET PO SCH ×2 (10:41→21:39)
[2017-05-23] MEDS: amLODIPine BESYLATE 5 MG TABLET (FP) PO SCH (10:41)
--- NOTE | 2017-05-23 12:39 | PN ---
Progress Note (short form) - Note Progress Note: No loose sttols or blood No chest pain or palpitations O/E Vital Signs Period Temp Pulse Resp BP Sys/Baig Pulse Ox Last 24 Hr 97.9 F-98.7 F 72-77 18-20 124-146/54-72 97 Heart regular Lungs clear Abd soft Ext no edema Current Medications Acetaminophen (Tylenol -) 650 mg PO Q6H PRN PRN Reason: FEVER OR PAIN Amlodipine Besylate (Norvasc -) 5 mg PO DAILY [facility] Last Admin: 05/23/17 10:41 Dose: 5 mg Apixaban (Eliquis -) 5 mg PO BID [facility] Last Admin: 05/23/17 10:41 Dose: 5 mg Hydralazine HCl (Apresoline -) 100 mg PO TID [facility] Last Admin: 05/23/17 06:03 Dose: 100 mg Insulin Aspart (Novolog Vial Sliding Scale -) 1 vial SQ ACHS [facility] PRN Reason: Protocol Last Admin: 05/23/17 12:03 Dose: 8 units Isosorbide Mononitrate (Imdur -) 60 mg PO DAILY [facility] Last Admin: 05/23/17 10:40 Dose: 60 mg Lactobacillus Acidophilus (Bacid -) 1 tab PO DAILY [facility] Last Admin: 05/23/17 10:40 Dose: 1 tab Metoprolol Succinate (Toprol Xl -) 25 mg PO DAILY [facility] Last Admin: 05/23/17 10:41 Dose: 25 mg Metronidazole (Flagyl -) 500 mg PO TID [facility] Last Admin: 05/23/17 06:03 Dose: 500 mg Morphine Sulfate (Morphine Injection -) 1 mg IVPUSH Q4H PRN PRN Reason: PAIN Ondansetron HCl (Zofran Injection) 4 mg IVPB Q6H PRN PRN Reason: NAUSEA Pantoprazole Sodium (Protonix 40mg Ivpb (Pre-Docked)) 40 mg IVPB DAILY [facility] Last Admin: 05/23/17 10:40 Dose: 40 mg Laboratory Results - last 24 hr 05/22/17 05/23/17 05/23/17 22:09 05:35 05:50 POC Glucometer 400 142 Creatine Kinase 56 Troponin I 0.27 H 05/23/17 11:20 POC Glucometer 309 Creatine Kinase Troponin I &(1) Atrial fibrillation Assessment/Plan: Code(s): I48.91 - UNSPECIFIED ATRIAL FIBRILLATION On Eliquis and stable (2) Chest pain Assessment/Plan: Appears due to GERD. Trial of Omeprazole Code(s): R07.9 - CHEST PAIN, UNSPECIFIED (3) C. Diff Colitis Assessment/Plan: -On Flagyl Code(s): K52.9 - NONINFECTIVE GASTROENTERITIS AND COLITIS, UNSPECIFIED (4) GI bleed Assessment/Plan: -resoolved Code(s): K92.2 - GASTROINTESTINAL HEMORRHAGE, UNSPECIFIED (5) Diabetes Assessment/Plan: -continue current management Code(s): E11.9 - TYPE 2 DIABETES MELLITUS WITHOUT COMPLICATIONS (6) End stage renal disease Assessment/Plan: -HD stopped 1 hour early secondary to chest pain -nephrology following Code(s): N18.6 - END STAGE RENAL DISEASE (7) Hypertension Assessment/Plan: -continue current management Code(s): I10 - ESSENTIAL (PRIMARY) HYPERTENSION P
--- NOTE | 2017-05-23 17:56 | PN ---
Progress Note, Physician History of Present Illness: The patient lying in bed. Comfortable. No new complaints. No diarrhea today. - Current Medication List Current Medications: Active Medications Acetaminophen (Tylenol -) 650 mg PO Q6H PRN PRN Reason: FEVER OR PAIN Amlodipine Besylate (Norvasc -) 5 mg PO DAILY [facility] Last Admin: 05/23/17 10:41 Dose: 5 mg Apixaban (Eliquis -) 5 mg PO BID [facility] Last Admin: 05/23/17 10:41 Dose: 5 mg Hydralazine HCl (Apresoline -) 100 mg PO TID [facility] Last Admin: 05/23/17 16:39 Dose: 100 mg Insulin Aspart (Novolog Vial Sliding Scale -) 1 vial SQ ACHS [facility] PRN Reason: Protocol Last Admin: 05/23/17 12:03 Dose: 8 units Isosorbide Mononitrate (Imdur -) 60 mg PO DAILY [facility] Last Admin: 05/23/17 10:40 Dose: 60 mg Lactobacillus Acidophilus (Bacid -) 1 tab PO DAILY [facility] Last Admin: 05/23/17 10:40 Dose: 1 tab Metoprolol Succinate (Toprol Xl -) 25 mg PO DAILY [facility] Last Admin: 05/23/17 10:41 Dose: 25 mg Metronidazole (Flagyl -) 500 mg PO TID [facility] Last Admin: 05/23/17 16:39 Dose: 500 mg Morphine Sulfate (Morphine Injection -) 1 mg IVPUSH Q4H PRN PRN Reason: PAIN Ondansetron HCl (Zofran Injection) 4 mg IVPB Q6H PRN PRN Reason: NAUSEA Pantoprazole Sodium (Protonix 40mg Ivpb (Pre-Docked)) 40 mg IVPB DAILY [facility] Last Admin: 05/23/17 10:40 Dose: 40 mg - Objective Vital Signs: Vital Signs Temperature 97.9 F 05/23/17 05:00 Pulse Rate 77 05/23/17 05:00 Respiratory Rate 18 05/23/17 10:00 Blood Pressure 146/72 05/23/17 05:00 O2 Sat by Pulse Oximetry (%) 97 05/23/17 10:00 Constitutional: Yes: Well Nourished, Anxious Eyes: Yes: Conjunctiva Clear HENT: Yes: Normocephalic Cardiovascular: Yes: Regular Rate and Rhythm, S1, S2 Respiratory: Yes: CTA Bilaterally. No: Rales, Rhonchi Gastrointestinal: Yes: Normal Bowel Sounds, Soft Musculoskeletal: No: Back Pain, Joint Stiffness Labs: CBC, BMP 05/22/17 05:35 05/22/17 05:35 INR, PTT INR 1.04 (0.82-1.09) 05/19/17 20:15 Problem List - Problems (1) Colitis Code(s): K52.9 - NONINFECTIVE GASTROENTERITIS AND COLITIS, UNSPECIFIED (2) Diabetes Code(s): E11.9 - TYPE 2 DIABETES MELLITUS WITHOUT COMPLICATIONS (3) End stage renal disease Code(s): N18.6 - END STAGE RENAL DISEASE (4) HLD (hyperlipidemia) Code(s): E78.5 - HYPERLIPIDEMIA, UNSPECIFIED (5) Hypertension Code(s): I10 - ESSENTIAL (PRIMARY) HYPERTENSION (6) Chest pain Code(s): R07.9 - CHEST PAIN, UNSPECIFIED Assessment/Plan 66 y/o female with multiple medical problems, admitted with bloody diarrhea. resolved now. On flagyl Awaiting c Diff titer Developed Acute chest pain and new onset Was in A Fib, now back in Sinus. Hgb ( 10.8) in acceptable range. Next HD tomorrow. Thank you. Marely Cooper MD
[2017-05-24] MEDS: hydrALAZINE HCL 50 MG TABLET (FP) PO SCH ×3 (05:53→21:32)
[2017-05-24] MEDS: metroNIDAZOLE 250 MG TABLET PO SCH ×3 (05:53→21:31)
[2017-05-24] MEDS: INSULIN SLIDING SCALE (NOVOLOG) 1 VIAL SQ SCH ×4 (06:03→21:32)
[2017-05-24 08:07] LABS: MCH 22.1 pg (25.7-33.7); MCHC 31.4 g/dl (32.0-36.0); MEAN CELL VOLUME 70.2 fl (80-96); MEAN PLT VOLUME 10.4 fl (7.5-11.1); PLATELET COUNT 188 K/MM3 (134-434); RDW 15.9 % (11.6-15.6); WHITE BLOOD COUNT 8.1 K/mm3 (4.0-10.0)
[2017-05-24] MEDS ORDERED: PT OWN MED DRAWER 7, Y5N ONE ×2 (09:37→10:25)
--- NOTE | 2017-05-24 09:43 | PN ---
Progress Note, Physician Chief Complaint: AF History of Present Illness: examined during HD. no cp, sob. described "pulsating" in chest during HD--thinks perhaps due to fluid removal rate too rapid no syncope - Current Medication List Current Medications: Active Medications Acetaminophen (Tylenol -) 650 mg PO Q6H PRN PRN Reason: FEVER OR PAIN Amlodipine Besylate (Norvasc -) 5 mg PO DAILY [facility] Last Admin: 05/23/17 10:41 Dose: 5 mg Apixaban (Eliquis -) 5 mg PO BID [facility] Last Admin: 05/23/17 21:39 Dose: 5 mg Epoetin Shar (Procrit -) 10,000 unit SQ ONCE ONE Stop: 05/24/17 17:59 Hydralazine HCl (Apresoline -) 100 mg PO TID [facility] Last Admin: 05/24/17 05:53 Dose: 100 mg Insulin Aspart (Novolog Vial Sliding Scale -) 1 vial SQ ACHS [facility] PRN Reason: Protocol Last Admin: 05/24/17 06:03 Dose: Not Given Isosorbide Mononitrate (Imdur -) 60 mg PO DAILY [facility] Last Admin: 05/23/17 10:40 Dose: 60 mg Lactobacillus Acidophilus (Bacid -) 1 tab PO DAILY [facility] Last Admin: 05/23/17 10:40 Dose: 1 tab Metoprolol Succinate (Toprol Xl -) 25 mg PO DAILY [facility] Last Admin: 05/23/17 10:41 Dose: 25 mg Metronidazole (Flagyl -) 500 mg PO TID [facility] Last Admin: 05/24/17 05:53 Dose: 500 mg Morphine Sulfate (Morphine Injection -) 1 mg IVPUSH Q4H PRN PRN Reason: PAIN Ondansetron HCl (Zofran Injection) 4 mg IVPB Q6H PRN PRN Reason: NAUSEA Pantoprazole Sodium (Protonix 40mg Ivpb (Pre-Docked)) 40 mg IVPB DAILY [facility] Last Admin: 05/23/17 10:40 Dose: 40 mg - Objective Vital Signs: Vital Signs Temperature 99.2 F 05/24/17 06:00 Pulse Rate 82 05/24/17 06:00 Respiratory Rate 20 05/24/17 06:00 Blood Pressure 158/76 05/24/17 06:00 O2 Sat by Pulse Oximetry (%) 95 05/23/17 21:00 Constitutional: Yes: Well Nourished, No Distress, Calm Cardiovascular: Yes: Regular Rate and Rhythm, S1, S2. No: Gallop, Murmur Respiratory: Yes: Regular, CTA Bilaterally (anteriorly). No: Accessory Muscle Use Extremities: No: Cold Edema: No Neurological: Yes: Alert, Oriented Psychiatric: No: Agitated Labs: CBC, BMP 05/24/17 06:30 05/22/17 05:35 INR, PTT INR 1.04 (0.82-1.09) 05/19/17 20:15 Assessment/Plan Echo 05/08 here: nl LVSF; nl RV; mod LAE; mild MR mibi 08/2016: no ecg changes, nl mpi, nl lvef ecg 05/21/17: afib, vr 118, nl qtc, no ischemic changes, lvh ecg 05/22: NR, LVH with repol abn (no ST shifts)--no signif change vs priors here cxr: clear lungs a/p: 66 f hx htn, hld, esrd on hd, dm here with abd pain, rectal bleeding. new onset afib: -spontaneously converted to sinus within 24 hrs -started metoprolol 25mg here--BP and HR tolerating, cont same -TSH normal -chadsvasc 4 warrants AC -GI input appreciated: likely low risk for massive GIB and AC not contraindicated--start eliquis -monitor H/H and watch for melena/rectal bleeding atyp cp, epigastric pain, colitis (suspected c. dif): -atypical symptoms here, sec to c. dif colitis +/- other GI etioogy? -per dr munroe, pt had similar symptom in past which was evaluated with nuclear stress test 08/2016 which was normal -ecg w/o ischemic changes at time of episode -trop 0.02-->0.32-->0.47-->0.27, rpt ecg without ischemic change--suspect demand ischemia related to tachycardia given clinical picture not suggestive of small NSTEMI, and with recent normal nuclear stress test. no further w/u indicated unless clinical picture changes -observe sx's with treatment of colitis per GI/PMD htn: -overall well controlled hld: -cont home statin
[2017-05-24] MEDS: APIXABAN 5 MG TABLET PO SCH ×2 (09:44→21:32)
[2017-05-24] MEDS: LACTOBACILLUS ACIDOPHILUS 1 EACH TAB (FP) PO SCH (09:44)
[2017-05-24] MEDS: ISOSORBIDE MONONITRATE 60 MG TAB.SR.24H (FP) PO SCH (09:44)
[2017-05-24] MEDS: METOPROLOL SUCCINATE 25 MG TAB.SR.24H (FP) PO SCH (09:44)
[2017-05-24] MEDS: amLODIPine BESYLATE 5 MG TABLET (FP) PO SCH (09:44)
[2017-05-24] MEDS: PANTOPRAZOLE SODIUM 40 MG/100 ML PRE-DOCKED IVPB SCH (10:06)
[2017-05-24] MEDS ORDERED: INSULIN (NOVOLOG) ASPART 100 UNITS/ML 10ML VIAL ONE ×2 (11:13→11:17)
[2017-05-24] MEDS ORDERED: EPOETIN ALFA 10,000 UNIT/1 ML VIAL SQ ONE (11:30)
--- NOTE | 2017-05-24 13:23 | PN ---
Progress Note, Physician History of Present Illness: The patient lying in bed. Comfortable. No new complaints. Seen on HD.Tolerates well. No chest pain. NO GI bleeding. - Current Medication List Current Medications: Active Medications Acetaminophen (Tylenol -) 650 mg PO Q6H PRN PRN Reason: FEVER OR PAIN Amlodipine Besylate (Norvasc -) 5 mg PO DAILY [facility] Last Admin: 05/24/17 09:44 Dose: 5 mg Apixaban (Eliquis -) 5 mg PO BID [facility] Last Admin: 05/24/17 09:44 Dose: 5 mg Hydralazine HCl (Apresoline -) 100 mg PO TID [facility] Last Admin: 05/24/17 05:53 Dose: 100 mg Insulin Aspart (Novolog Vial Sliding Scale -) 1 vial SQ ACHS [facility] PRN Reason: Protocol Last Admin: 05/24/17 11:55 Dose: 6 units Isosorbide Mononitrate (Imdur -) 60 mg PO DAILY [facility] Last Admin: 05/24/17 09:44 Dose: 60 mg Lactobacillus Acidophilus (Bacid -) 1 tab PO DAILY [facility] Last Admin: 05/24/17 09:44 Dose: 1 tab Metoprolol Succinate (Toprol Xl -) 25 mg PO DAILY [facility] Last Admin: 05/24/17 09:44 Dose: 25 mg Metronidazole (Flagyl -) 500 mg PO TID [facility] Last Admin: 05/24/17 05:53 Dose: 500 mg Morphine Sulfate (Morphine Injection -) 1 mg IVPUSH Q4H PRN PRN Reason: PAIN Ondansetron HCl (Zofran Injection) 4 mg IVPB Q6H PRN PRN Reason: NAUSEA Last Admin: 05/24/17 10:05 Dose: 4 mg Pantoprazole Sodium (Protonix 40mg Ivpb (Pre-Docked)) 40 mg IVPB DAILY [facility] Last Admin: 05/24/17 10:06 Dose: 40 mg - Objective Vital Signs: Vital Signs Temperature 98.4 F 05/24/17 11:25 Pulse Rate 82 05/24/17 12:00 Respiratory Rate 18 05/24/17 12:00 Blood Pressure 153/80 05/24/17 12:00 O2 Sat by Pulse Oximetry (%) 95 05/24/17 09:00 Constitutional: Yes: No Distress, Calm Eyes: Yes: Conjunctiva Clear HENT: Yes: Normocephalic Neck: Yes: Supple Cardiovascular: Yes: Regular Rate and Rhythm, S1, S2 Respiratory: Yes: Regular, CTA Bilaterally. No: Rales, Rhonchi Gastrointestinal: Yes: Normal Bowel Sounds, Soft Extremities: No: Calf Tenderness Labs: CBC, BMP 05/24/17 06:30 05/22/17 05:35 INR, PTT INR 1.04 (0.82-1.09) 05/19/17 20:15 Problem List - Problems (1) Colitis Code(s): K52.9 - NONINFECTIVE GASTROENTERITIS AND COLITIS, UNSPECIFIED (2) Diabetes Code(s): E11.9 - TYPE 2 DIABETES MELLITUS WITHOUT COMPLICATIONS (3) End stage renal disease Code(s): N18.6 - END STAGE RENAL DISEASE (4) HLD (hyperlipidemia) Code(s): E78.5 - HYPERLIPIDEMIA, UNSPECIFIED (5) Hypertension Code(s): I10 - ESSENTIAL (PRIMARY) HYPERTENSION (6) Chest pain Code(s): R07.9 - CHEST PAIN, UNSPECIFIED Assessment/Plan 66 y/o female with multiple medical problems, admitted with bloody diarrhea. resolved now. On flagyl Awaiting C. diff titer Developed Acute chest pain and new onset A Fib, now back in Sinus. Hgb ( 11.3) in acceptable range. Orders reviewed with the RN. Thank you. Marely Cooper MD
--- NOTE | 2017-05-24 17:09 | PN ---
Progress Note, Physician Chief Complaint: Patient complains of palpitations and dyspnea with HD. Otherwise says she is feeling well. No chest pain. Diarrhea resolving. - Current Medication List Current Medications: Active Medications Acetaminophen (Tylenol -) 650 mg PO Q6H PRN PRN Reason: FEVER OR PAIN Amlodipine Besylate (Norvasc -) 5 mg PO DAILY [facility] Last Admin: 05/24/17 09:44 Dose: 5 mg Apixaban (Eliquis -) 5 mg PO BID [facility] Last Admin: 05/24/17 09:44 Dose: 5 mg Hydralazine HCl (Apresoline -) 100 mg PO TID [facility] Last Admin: 05/24/17 15:47 Dose: 100 mg Insulin Aspart (Novolog Vial Sliding Scale -) 1 vial SQ ACHS [facility] PRN Reason: Protocol Last Admin: 05/24/17 15:50 Dose: 6 units Isosorbide Mononitrate (Imdur -) 60 mg PO DAILY [facility] Last Admin: 05/24/17 09:44 Dose: 60 mg Lactobacillus Acidophilus (Bacid -) 1 tab PO DAILY [facility] Last Admin: 05/24/17 09:44 Dose: 1 tab Metoprolol Succinate (Toprol Xl -) 25 mg PO DAILY [facility] Last Admin: 05/24/17 09:44 Dose: 25 mg Metronidazole (Flagyl -) 500 mg PO TID [facility] Last Admin: 05/24/17 15:47 Dose: 500 mg Morphine Sulfate (Morphine Injection -) 1 mg IVPUSH Q4H PRN PRN Reason: PAIN Ondansetron HCl (Zofran Injection) 4 mg IVPB Q6H PRN PRN Reason: NAUSEA Last Admin: 05/24/17 10:05 Dose: 4 mg Pantoprazole Sodium (Protonix 40mg Ivpb (Pre-Docked)) 40 mg IVPB DAILY [facility] Last Admin: 05/24/17 10:06 Dose: 40 mg - Objective Vital Signs: Vital Signs Temperature 98.4 F 05/24/17 11:25 Pulse Rate 75 05/24/17 15:55 Respiratory Rate 18 05/24/17 15:55 Blood Pressure 146/78 05/24/17 15:55 O2 Sat by Pulse Oximetry (%) 95 05/24/17 09:00 Constitutional: Yes: Well Nourished, No Distress, Calm Cardiovascular: Yes: Regular Rate and Rhythm. No: Gallop, Murmur, Rub Respiratory: Yes: Regular, CTA Bilaterally. No: Rales, Rhonchi, Wheezes Gastrointestinal: Yes: Normal Bowel Sounds, Soft. No: Distention, Tenderness Extremities: Yes: WNL Edema: No Labs: CBC, BMP 05/24/17 06:30 05/22/17 05:35 INR, PTT INR 1.04 (0.82-1.09) 05/19/17 20:15 Problem List - Problems (1) Atrial fibrillation Code(s): I48.91 - UNSPECIFIED ATRIAL FIBRILLATION (2) Chest pain Code(s): R07.9 - CHEST PAIN, UNSPECIFIED (3) Colitis Code(s): K52.9 - NONINFECTIVE GASTROENTERITIS AND COLITIS, UNSPECIFIED (4) GI bleed Code(s): K92.2 - GASTROINTESTINAL HEMORRHAGE, UNSPECIFIED (5) Diabetes Code(s): E11.9 - TYPE 2 DIABETES MELLITUS WITHOUT COMPLICATIONS (6) End stage renal disease Code(s): N18.6 - END STAGE RENAL DISEASE (7) Hypertension Code(s): I10 - ESSENTIAL (PRIMARY) HYPERTENSION Assessment/Plan (1) Colitis Assessment/Plan: -secondary to c. diff -awaiting PCR -continue flagyl, improving Code(s): K52.9 - NONINFECTIVE GASTROENTERITIS AND COLITIS, UNSPECIFIED (2) GI bleed Assessment/Plan: -appreciate GI assistance -resolved Code(s): K92.2 - GASTROINTESTINAL HEMORRHAGE, UNSPECIFIED (3) Diabetes Assessment/Plan: -diabetic diet -SSI Code(s): E11.9 - TYPE 2 DIABETES MELLITUS WITHOUT COMPLICATIONS (4) End stage renal disease Assessment/Plan: -nephrology following -continue HD MWF Code(s): N18.6 - END STAGE RENAL DISEASE (5) Hypertension Assessment/Plan: -continue norvasc and hydralazine Code(s): I10 - ESSENTIAL (PRIMARY) HYPERTENSION (6) New onset atrial fibrillation -cardiology following -spontaneously converted -placed on metoprolol -placed on eliquis
[2017-05-24 22:49] LABS: TROPONIN I 0.1 ng/ml (0.00-0.05)
[2017-05-25] MEDS: hydrALAZINE HCL 50 MG TABLET (FP) PO SCH ×3 (06:28→22:23)
[2017-05-25] MEDS: metroNIDAZOLE 250 MG TABLET PO SCH ×3 (06:28→22:23)
[2017-05-25] MEDS: INSULIN SLIDING SCALE (NOVOLOG) 1 VIAL SQ SCH ×4 (06:29→22:24)
[2017-05-25 07:32] LABS: MCHC 31.6 g/dl (32.0-36.0); MEAN CELL VOLUME 69.5 fl (80-96); MEAN PLT VOLUME 10.4 fl (7.5-11.1); PLATELET COUNT 174 K/MM3 (134-434); WHITE BLOOD COUNT 8.3 K/mm3 (4.0-10.0)
[2017-05-25 08:04] LABS: ANION GAP 7 (8-16); CALCIUM 8.4 mg/dL (8.5-10.1); CO2 33 mmol/L (21-32); CREATININE 3.2 mg/dL (0.55-1.02); GLUCOSE,RANDOM 175 mg/dL (74-106); MAGNESIUM 1.8 mg/dL (1.8-2.4); PHOSPHOROUS 2.4 mg/dL (2.5-4.9)
--- NOTE | 2017-05-25 08:36 | PN ---
Progress Note (short form) - Note Progress Note: PATIENT ADMITTED WITH BLOODY DIARRHEA. DX WITH C DIFF COLITIS . NOW ON FLAGYL. DENIES FURTHER BLOODY DIARRHEA . SOME ABDOMINAL CRAMPING . NO CP / NO SOB . HAD EPISODE OF CP WITH AFIB AT DIALYSIS . EPISODE POSSIBLY RELATED TO TOO RAPID FLUID REMOVAL. SEEN BY CARDIOLOGY <> AFIB CONVERTED TO NSR IN 24 HOURS. PLACED ON ELIQUIS . ON BB RX AND TOLERATING. ELEVATED TROPONIN LEVELS FELT BY CARDIOLOGY TO BE RELATED TO DEMAND ISCHEMIA FROM TACHYCARDIA AND NOT NSTEMI. Selected Entries 05/25/17 05:14 Temperature 99.3 F Pulse Rate 76 Respiratory 18 Rate Blood Pressure 129/59 Laboratory Tests 05/24/17 05/25/17 05/25/17 20:50 05:59 06:00 WBC 8.3 RBC 5.30 H Hgb 11.7 Hct 36.9 MCV 69.5 L MCHC 31.6 L RDW 16.0 H Plt Count 174 Sodium Potassium Chloride Carbon Dioxide Anion Gap BUN Creatinine POC Glucometer 154 Random Glucose Calcium Phosphorus Magnesium Creatine Kinase 38 Troponin I 0.10 H 05/25/17 06:00 WBC RBC Hgb Hct MCV MCHC RDW Plt Count Sodium 141 Potassium 4.1 Chloride 101 Carbon Dioxide 33 H Anion Gap 7 L BUN 28 H Creatinine 3.2 H POC Glucometer Random Glucose 175 H Calcium 8.4 L Phosphorus 2.4 L Magnesium 1.8 Creatine Kinase Troponin I P/E <> AWAKE / ALERT / NO DISTRESS. HEENT <> NECK SUPPLE / CAROTIDS NO BRUITS COR <> S 1 S 2 NSR / NO M NO G CHESTS <> CLEAR P & A ABD <> BS 2 + / NONTENDER / NO REBOUND / NO GUARDING. EXT <>NO CALF TENDERNESS IMP : COLITIS / C DIFF RENAL FAILURE ON HD. PAF <> NSR WITHIN 24 HRS DIABETES DEMAND ISCHEMIA HTN PLAN : CONTINUE FLAGYL FOLLOW LABS SAME CARDIAC MEDS CONTINUE ELIQUIS CARDIOLOGY FOLLOWUP. RENAL FOLLOWUP.
[2017-05-25] MEDS ORDERED: PT OWN MED DRAWER 7, Y5N ONE ×2 (11:31→21:24)
[2017-05-25] MEDS: LACTOBACILLUS ACIDOPHILUS 1 EACH TAB (FP) PO SCH (11:33)
[2017-05-25] MEDS: APIXABAN 5 MG TABLET PO SCH ×2 (11:33→22:23)
[2017-05-25] MEDS: amLODIPine BESYLATE 5 MG TABLET (FP) PO SCH (11:34)
[2017-05-25] MEDS: ISOSORBIDE MONONITRATE 60 MG TAB.SR.24H (FP) PO SCH (11:34)
[2017-05-25] MEDS: METOPROLOL SUCCINATE 25 MG TAB.SR.24H (FP) PO SCH (11:34)
[2017-05-25] MEDS: PANTOPRAZOLE SODIUM 40 MG/100 ML PRE-DOCKED IVPB SCH (11:37)
[2017-05-25] MEDS ORDERED: INSULIN (NOVOLOG) ASPART 100 UNITS/ML 10ML VIAL ONE (12:34)
--- NOTE | 2017-05-25 14:00 | EKG ---
Test Reason : Blood Pressure : / mmHG Vent. Rate : 077 BPM Atrial Rate : 077 BPM P-R Int : 180 ms QRS Dur : 098 ms QT Int : 422 ms P-R-T Axes : 067 -35 083 degrees QTc Int : 477 ms NORMAL SINUS RHYTHM POSSIBLE LEFT ATRIAL ENLARGEMENT LEFT AXIS DEVIATION LEFT VENTRICULAR HYPERTROPHY CANNOT RULE OUT SEPTAL INFARCT , AGE UNDETERMINED DIFFUSE ST-T ABNORMALITIES ABNORMAL ECG WHEN COMPARED WITH ECG OF 22-MAY-2017 09:05, QS PATTERN IN LEAD V2, WITH T WAVE INVERSIONS ASWMI NEEDS EXCLUSION CORELATE CLINICALLY 7W NURSE NOTIFIED Confirmed by CINDA WARD MD ([id number]) on 05/25/2017 2:00:11 PM Referred By: Confirmed By:CINDA WARD MD
[2017-05-25 15:18] LABS: TROPONIN I 0.05 ng/ml (0.00-0.05)
[2017-05-26] MEDS: hydrALAZINE HCL 50 MG TABLET (FP) PO SCH ×3 (06:20→22:01)
[2017-05-26] MEDS: metroNIDAZOLE 250 MG TABLET PO SCH ×3 (06:20→22:01)
[2017-05-26] MEDS: INSULIN SLIDING SCALE (NOVOLOG) 1 VIAL SQ SCH ×4 (06:32→22:02)
--- NOTE | 2017-05-26 10:36 | PN ---
Progress Note (short form) - Note Progress Note: Chief Complaint: AF History of Present Illness: still with same occasional epigastric/chest pain no sob. no dizzy no syncope - Current Medication List Current Medications Generic Name Dose Route Start Last Admin Trade Name Freq PRN Reason Stop Dose Admin Acetaminophen 650 mg 05/20/17 00:41 Tylenol - PO Q6H PRN FEVER OR PAIN Amlodipine Besylate 5 mg 05/20/17 10:00 05/25/17 11:34 Norvasc - PO 5 mg DAILY [facility] Administration Apixaban 5 mg 05/23/17 10:00 05/25/17 22:23 Eliquis - PO 5 mg BID [facility] Administration Hydralazine HCl 100 mg 05/20/17 06:00 05/26/17 06:20 Apresoline - PO 100 mg TID [facility] Administration Insulin Aspart 1 vial 05/20/17 07:00 05/26/17 06:32 Novolog Vial Sliding Scale - SQ 4 units ACHS [facility] Administration Protocol Isosorbide Mononitrate 60 mg 05/20/17 10:00 05/25/17 11:34 Imdur - PO 60 mg DAILY [facility] Administration Lactobacillus Acidophilus 1 tab 05/22/17 14:30 05/25/17 11:33 Bacid - PO 1 tab DAILY [facility] Administration Metoprolol Succinate 25 mg 05/21/17 15:00 05/25/17 11:34 Toprol Xl - PO 25 mg DAILY [facility] Administration Metronidazole 500 mg 05/20/17 14:00 05/26/17 06:20 Flagyl - PO 500 mg TID [facility] Administration Morphine Sulfate 1 mg 05/20/17 00:41 Morphine Injection - IVPUSH Q4H PRN PAIN Ondansetron HCl 4 mg 05/20/17 00:41 05/24/17 10:05 Zofran Injection IVPB 4 mg Q6H PRN Administration NAUSEA Pantoprazole Sodium 40 mg 05/20/17 10:00 05/25/17 11:37 Protonix 40mg Ivpb (Pre-Docked) IVPB 40 mg DAILY [facility] Administration - Objective Vital Signs: Vital Signs Period Temp Pulse Resp BP Sys/Baig Pulse Ox Last 24 Hr 97.5 F-98.9 F 66-80 18-20 138-154/63-82 98 Constitutional: Yes: Well Nourished, No Distress, Calm Cardiovascular: Yes: Regular Rate and Rhythm, S1, S2. No: Gallop, Murmur Respiratory: Yes: Regular, CTA Bilaterally No: Accessory Muscle Use Extremities: No: Cold Edema: No Neurological: Yes: Alert, Oriented Psychiatric: No: Agitated no jaundice, diaphoresis Labs: CBC, BMP 05/25/17 06:00 05/25/17 06:00 Echo 05/08 here: nl LVSF; nl RV; mod LAE; mild MR mibi 08/2016: no ecg changes, nl mpi, nl lvef ecg 05/21/17: afib, vr 118, nl qtc, no ischemic changes, lvh ecg 05/22: NR, LVH with repol abn (no ST shifts)--no signif change vs priors here cxr: clear lungs a/p: 66 f hx htn, hld, esrd on hd, dm here with abd pain, rectal bleeding. new onset afib: -spontaneously converted to sinus within 24 hrs -started metoprolol 25mg here--BP and HR tolerating, cont same -TSH normal -chadsvasc 4 warrants AC -GI input appreciated: likely low risk for massive GIB and AC not contraindicated--started eliquis -monitor H/H and watch for melena/rectal bleeding atyp cp, epigastric pain, colitis (suspected c. dif): -atypical symptoms here, sec to c. dif colitis +/- other GI etioogy? -per dr munroe, pt had similar symptom in past which was evaluated with nuclear stress test 08/2016 which was normal -ecg w/o ischemic changes at time of episode -trop 0.02-->0.32-->0.47-->0.27, rpt ecg without ischemic change--suspect demand ischemia related to tachycardia given clinical picture not suggestive of small NSTEMI, and with recent normal nuclear stress test. no further w/u indicated unless clinical picture changes -observe sx's with treatment of colitis per GI/PMD htn: -overall well controlled hld: -cont home statin
--- NOTE | 2017-05-26 10:42 | EKG ---
Test Reason : Blood Pressure : / mmHG Vent. Rate : 071 BPM Atrial Rate : 071 BPM P-R Int : 180 ms QRS Dur : 104 ms QT Int : 432 ms P-R-T Axes : 001 -38 073 degrees QTc Int : 469 ms NORMAL SINUS RHYTHM LEFT AXIS DEVIATION VOLTAGE CRITERIA FOR LEFT VENTRICULAR HYPERTROPHY ABNORMAL ECG WHEN COMPARED WITH ECG OF 24-MAY-2017 19:31, NO SIGNIFICANT CHANGE WAS FOUND Confirmed by KAVYA CHAIREZ, ASTRID ([id number]) on 05/26/2017 10:42:42 AM Referred By: Confirmed By:ASTRID HOFF MD
[2017-05-26] MEDS ORDERED: EPOETIN ALFA 10,000 UNIT/1 ML VIAL IVPUSH ONE (11:00)
[2017-05-26 12:06] LABS: MCH 21.9 pg (25.7-33.7); MCHC 31.5 g/dl (32.0-36.0); MEAN CELL VOLUME 69.5 fl (80-96); MEAN PLT VOLUME 10.3 fl (7.5-11.1); PLATELET COUNT 190 K/MM3 (134-434); RDW 15.8 % (11.6-15.6); WHITE BLOOD COUNT 8.8 K/mm3 (4.0-10.0)
[2017-05-26 12:50] LABS: ANION GAP 11 (8-16); CALCIUM 9.2 mg/dL (8.5-10.1); CO2 28 mmol/L (21-32); GLUCOSE,RANDOM 268 mg/dL (74-106)
[2017-05-26 12:52] LABS: CREATININE 3.8 mg/dL (0.55-1.02)
--- NOTE | 2017-05-26 13:48 | PN ---
Progress Note, Physician Chief Complaint: Ms Sosa says she feels bad with HD. However denies cp, sob, n/v currently. Says diarrhea has resolved - Current Medication List Current Medications: Active Medications Acetaminophen (Tylenol -) 650 mg PO Q6H PRN PRN Reason: FEVER OR PAIN Amlodipine Besylate (Norvasc -) 5 mg PO DAILY [facility] Last Admin: 05/25/17 11:34 Dose: 5 mg Apixaban (Eliquis -) 5 mg PO BID [facility] Last Admin: 05/25/17 22:23 Dose: 5 mg Hydralazine HCl (Apresoline -) 100 mg PO TID [facility] Last Admin: 05/26/17 06:20 Dose: 100 mg Insulin Aspart (Novolog Vial Sliding Scale -) 1 vial SQ ACHS [facility] PRN Reason: Protocol Last Admin: 05/26/17 06:32 Dose: 4 units Isosorbide Mononitrate (Imdur -) 60 mg PO DAILY [facility] Last Admin: 05/25/17 11:34 Dose: 60 mg Lactobacillus Acidophilus (Bacid -) 1 tab PO DAILY [facility] Last Admin: 05/25/17 11:33 Dose: 1 tab Metoprolol Succinate (Toprol Xl -) 25 mg PO DAILY [facility] Last Admin: 05/25/17 11:34 Dose: 25 mg Metronidazole (Flagyl -) 500 mg PO TID [facility] Last Admin: 05/26/17 06:20 Dose: 500 mg Morphine Sulfate (Morphine Injection -) 1 mg IVPUSH Q4H PRN PRN Reason: PAIN Ondansetron HCl (Zofran Injection) 4 mg IVPB Q6H PRN PRN Reason: NAUSEA Last Admin: 05/24/17 10:05 Dose: 4 mg Pantoprazole Sodium (Protonix 40mg Ivpb (Pre-Docked)) 40 mg IVPB DAILY [facility] Last Admin: 05/25/17 11:37 Dose: 40 mg - Objective Vital Signs: Vital Signs Temperature 98.7 F 05/26/17 11:10 Pulse Rate 94 H 05/26/17 13:15 Respiratory Rate 18 05/26/17 13:15 Blood Pressure 122/64 05/26/17 13:15 O2 Sat by Pulse Oximetry (%) 98 05/25/17 21:00 Constitutional: Yes: Well Nourished, No Distress, Calm Cardiovascular: Yes: Regular Rate and Rhythm. No: Gallop, Murmur, Rub Respiratory: Yes: Regular, CTA Bilaterally. No: Rales, Rhonchi, Wheezes Gastrointestinal: Yes: Normal Bowel Sounds, Soft. No: Distention, Tenderness Extremities: Yes: WNL Edema: No Labs: CBC, BMP 05/26/17 11:15 05/26/17 11:15 INR, PTT INR 1.04 (0.82-1.09) 05/19/17 20:15 Problem List - Problems (1) Atrial fibrillation Code(s): I48.91 - UNSPECIFIED ATRIAL FIBRILLATION (2) Chest pain Code(s): R07.9 - CHEST PAIN, UNSPECIFIED (3) Colitis Code(s): K52.9 - NONINFECTIVE GASTROENTERITIS AND COLITIS, UNSPECIFIED (4) GI bleed Code(s): K92.2 - GASTROINTESTINAL HEMORRHAGE, UNSPECIFIED (5) Diabetes Code(s): E11.9 - TYPE 2 DIABETES MELLITUS WITHOUT COMPLICATIONS (6) End stage renal disease Code(s): N18.6 - END STAGE RENAL DISEASE (7) Hypertension Code(s): I10 - ESSENTIAL (PRIMARY) HYPERTENSION Assessment/Plan (1) Colitis Assessment/Plan: -secondary to c. diff -PCR not sent, suspect secondary to resolution -continue flagyl Code(s): K52.9 - NONINFECTIVE GASTROENTERITIS AND COLITIS, UNSPECIFIED (2) GI bleed Assessment/Plan: -appreciate GI assistance -resolved Code(s): K92.2 - GASTROINTESTINAL HEMORRHAGE, UNSPECIFIED (3) Diabetes Assessment/Plan: -diabetic diet -SSI Code(s): E11.9 - TYPE 2 DIABETES MELLITUS WITHOUT COMPLICATIONS (4) End stage renal disease Assessment/Plan: -nephrology following -continue HD MWF Code(s): N18.6 - END STAGE RENAL DISEASE (5) Hypertension Assessment/Plan: -continue norvasc and hydralazine Code(s): I10 - ESSENTIAL (PRIMARY) HYPERTENSION (6) New onset atrial fibrillation -cardiology following -spontaneously converted -placed on metoprolol -placed on eliquis plan for dispo in am
[2017-05-26 13:54] LABS: ANISOCYTOSIS 2+; HYPOCHROMIA 3+; MICROCYTOSIS 2+
--- NOTE | 2017-05-26 14:17 | PN ---
Progress Note (short form) - Note Progress Note: Renal Follow up for ESRD on HD Pt seen and examined during dialysis BP high 180/90 UF goal is 2.8 reports feeling palpitations when first starting dialysis but denies any CP, Pressure or SOB Vital Signs Temperature 98.7 F 05/26/17 11:10 Pulse Rate 87 05/26/17 14:15 Respiratory Rate 18 05/26/17 14:15 Blood Pressure 117/68 05/26/17 14:15 O2 Sat by Pulse Oximetry (%) 98 05/25/17 21:00 Intake & Output 05/23/17 05/24/17 05/25/17 05/26/17 23:59 23:59 23:59 23:59 Intake Total 567 539 0420 Output Total 2 Balance 748 878 6250 Gen: NAD CVS: RRR, NO M/R Lungs: CTA Abd: soft NT/ND Ext: No edema, clubbing or cyanosis CBC, BMP 05/26/17 11:15 05/26/17 11:15 Current Medications Acetaminophen (Tylenol -) 650 mg PO Q6H PRN PRN Reason: FEVER OR PAIN Amlodipine Besylate (Norvasc -) 5 mg PO DAILY [facility] Last Admin: 05/25/17 11:34 Dose: 5 mg Apixaban (Eliquis -) 5 mg PO BID [facility] Last Admin: 05/25/17 22:23 Dose: 5 mg Hydralazine HCl (Apresoline -) 100 mg PO TID [facility] Last Admin: 05/26/17 06:20 Dose: 100 mg Insulin Aspart (Novolog Vial Sliding Scale -) 1 vial SQ ACHS [facility] PRN Reason: Protocol Last Admin: 05/26/17 06:32 Dose: 4 units Isosorbide Mononitrate (Imdur -) 60 mg PO DAILY [facility] Last Admin: 05/25/17 11:34 Dose: 60 mg Lactobacillus Acidophilus (Bacid -) 1 tab PO DAILY [facility] Last Admin: 05/25/17 11:33 Dose: 1 tab Metoprolol Succinate (Toprol Xl -) 25 mg PO DAILY [facility] Last Admin: 05/25/17 11:34 Dose: 25 mg Metronidazole (Flagyl -) 500 mg PO TID [facility] Last Admin: 05/26/17 06:20 Dose: 500 mg Morphine Sulfate (Morphine Injection -) 1 mg IVPUSH Q4H PRN PRN Reason: PAIN Ondansetron HCl (Zofran Injection) 4 mg IVPB Q6H PRN PRN Reason: NAUSEA Last Admin: 05/24/17 10:05 Dose: 4 mg Pantoprazole Sodium (Protonix 40mg Ivpb (Pre-Docked)) 40 mg IVPB DAILY [facility] Last Admin: 05/25/17 11:37 Dose: 40 mg A/P 66 year old woman with PMhx of ESRD on HD, Hypertension, IDDM presented with palpiations and found to have new onset Afib #ESRD on HD Pt is tolerating HD well UF goal is 2.8L BP high but will trend BP during the treatment WIll continue HD on MWF schedule dose all meds for intermittent HD #New Afib on Eliquis Cardiology following Rate controlled Ignacio Callahan DO
[2017-05-26] MEDS ORDERED: INSULIN (NOVOLOG) ASPART 100 UNITS/ML 10ML VIAL ONE (17:50)
[2017-05-26] MEDS: ISOSORBIDE MONONITRATE 60 MG TAB.SR.24H (FP) PO SCH (17:56)
[2017-05-26] MEDS: amLODIPine BESYLATE 5 MG TABLET (FP) PO SCH (17:56)
[2017-05-26] MEDS: APIXABAN 5 MG TABLET PO SCH ×2 (17:57→22:01)
[2017-05-26] MEDS: LACTOBACILLUS ACIDOPHILUS 1 EACH TAB (FP) PO SCH (17:57)
[2017-05-26] MEDS: METOPROLOL SUCCINATE 25 MG TAB.SR.24H (FP) PO SCH (18:01)
[2017-05-26] MEDS ORDERED: PT OWN MED DRAWER 7, Y5N ONE (20:51)
[2017-05-27] MEDS: metroNIDAZOLE 250 MG TABLET PO SCH ×3 (06:25→21:33)
[2017-05-27] MEDS: hydrALAZINE HCL 50 MG TABLET (FP) PO SCH ×3 (06:25→21:33)
[2017-05-27] MEDS: INSULIN SLIDING SCALE (NOVOLOG) 1 VIAL SQ SCH ×4 (06:30→21:34)
[2017-05-27 09:12] LABS: MCH 21.5 pg (25.7-33.7); MCHC 30.7 g/dl (32.0-36.0); MEAN CELL VOLUME 70.1 fl (80-96); MEAN PLT VOLUME 10.1 fl (7.5-11.1); PLATELET COUNT 205 K/MM3 (134-434)
[2017-05-27] MEDS: LACTOBACILLUS ACIDOPHILUS 1 EACH TAB (FP) PO SCH (10:20)
[2017-05-27] MEDS: APIXABAN 5 MG TABLET PO SCH ×2 (10:20→21:34)
[2017-05-27] MEDS: amLODIPine BESYLATE 5 MG TABLET (FP) PO SCH (10:20)
[2017-05-27] MEDS: METOPROLOL SUCCINATE 25 MG TAB.SR.24H (FP) PO SCH (10:20)
[2017-05-27] MEDS: PANTOPRAZOLE 40 MG TABLET (FP) PO SCH (10:20)
[2017-05-27] MEDS: ISOSORBIDE MONONITRATE 60 MG TAB.SR.24H (FP) PO SCH (10:20)
--- NOTE | 2017-05-27 11:56 | PN ---
Progress Note (short form) - Note Progress Note: Renal Follow up for ESRD on HD Pt seen and examined at the bedside no acute complaints no fevers after yesterday afternoon no abd pain, sob, cough, diarrhea Vital Signs Temperature 98.6 F 05/27/17 05:00 Pulse Rate 73 05/27/17 05:00 Respiratory Rate 20 05/27/17 05:00 Blood Pressure 141/61 05/27/17 05:00 O2 Sat by Pulse Oximetry (%) 98 05/25/17 21:00 Intake & Output 05/24/17 05/25/17 05/26/17 05/27/17 23:59 23:59 23:59 23:59 Intake Total 220 1080 1060 100 Output Total 2 Balance 220 1078 1060 100 Gen: NAD CVS: RRR, NO M/R Lungs: CTA Abd: soft NT/ND Ext: No edema, clubbing or cyanosis CBC, BMP 05/27/17 09:00 05/26/17 11:15 Current Medications Acetaminophen (Tylenol -) 650 mg PO Q6H PRN PRN Reason: FEVER OR PAIN Last Admin: 05/26/17 17:56 Dose: 650 mg Amlodipine Besylate (Norvasc -) 5 mg PO DAILY [facility] Last Admin: 05/27/17 10:20 Dose: 5 mg Apixaban (Eliquis -) 5 mg PO BID [facility] Last Admin: 05/27/17 10:20 Dose: 5 mg Hydralazine HCl (Apresoline -) 100 mg PO TID [facility] Last Admin: 05/27/17 06:25 Dose: 100 mg Insulin Aspart (Novolog Vial Sliding Scale -) 1 vial SQ ACHS [facility] PRN Reason: Protocol Last Admin: 05/27/17 06:30 Dose: 4 units Isosorbide Mononitrate (Imdur -) 60 mg PO DAILY [facility] Last Admin: 05/27/17 10:20 Dose: 60 mg Lactobacillus Acidophilus (Bacid -) 1 tab PO DAILY [facility] Last Admin: 05/27/17 10:20 Dose: 1 tab Metoprolol Succinate (Toprol Xl -) 25 mg PO DAILY [facility] Last Admin: 05/27/17 10:20 Dose: 25 mg Metronidazole (Flagyl -) 500 mg PO TID [facility] Last Admin: 05/27/17 06:25 Dose: 500 mg Morphine Sulfate (Morphine Injection -) 1 mg IVPUSH Q4H PRN PRN Reason: PAIN Ondansetron HCl (Zofran Injection) 4 mg IVPB Q6H PRN PRN Reason: NAUSEA Last Admin: 05/24/17 10:05 Dose: 4 mg Pantoprazole Sodium (Protonix -) 40 mg PO DAILY [facility] Last Admin: 05/27/17 10:20 Dose: 40 mg A/P 66 year old woman with PMhx of ESRD on HD, Hypertension, IDDM presented with palpiations and found to have new onset Afib #ESRD on HD s/p dialysis yesterday tolerated it well no indication for [employer] today next treatment tomorrow (inpatient vs outpatient) #New Afib on Eliquis Cardiology following Rate controlled #Fever no recurrence of the fever blood cultures collected no leukocytosis on CBC today Ignacio Callahan DO
--- NOTE | 2017-05-27 13:09 | PN ---
Progress Note, Physician Chief Complaint: Ms Sosa says she feels good today. No cp, sob, n/v. However says she kept waking up last night with sweats. - Current Medication List Current Medications: Active Medications Acetaminophen (Tylenol -) 650 mg PO Q6H PRN PRN Reason: FEVER OR PAIN Last Admin: 05/26/17 17:56 Dose: 650 mg Amlodipine Besylate (Norvasc -) 5 mg PO DAILY [facility] Last Admin: 05/27/17 10:20 Dose: 5 mg Apixaban (Eliquis -) 5 mg PO BID [facility] Last Admin: 05/27/17 10:20 Dose: 5 mg Hydralazine HCl (Apresoline -) 100 mg PO TID [facility] Last Admin: 05/27/17 06:25 Dose: 100 mg Insulin Aspart (Novolog Vial Sliding Scale -) 1 vial SQ ACHS [facility] PRN Reason: Protocol Last Admin: 05/27/17 12:21 Dose: 10 units Isosorbide Mononitrate (Imdur -) 60 mg PO DAILY [facility] Last Admin: 05/27/17 10:20 Dose: 60 mg Lactobacillus Acidophilus (Bacid -) 1 tab PO DAILY [facility] Last Admin: 05/27/17 10:20 Dose: 1 tab Metoprolol Succinate (Toprol Xl -) 25 mg PO DAILY [facility] Last Admin: 05/27/17 10:20 Dose: 25 mg Metronidazole (Flagyl -) 500 mg PO TID [facility] Last Admin: 05/27/17 06:25 Dose: 500 mg Morphine Sulfate (Morphine Injection -) 1 mg IVPUSH Q4H PRN PRN Reason: PAIN Ondansetron HCl (Zofran Injection) 4 mg IVPB Q6H PRN PRN Reason: NAUSEA Last Admin: 05/24/17 10:05 Dose: 4 mg Pantoprazole Sodium (Protonix -) 40 mg PO DAILY [facility] Last Admin: 05/27/17 10:20 Dose: 40 mg - Objective Vital Signs: Vital Signs Temperature 98.6 F 05/27/17 05:00 Pulse Rate 73 05/27/17 05:00 Respiratory Rate 20 05/27/17 05:00 Blood Pressure 141/61 05/27/17 05:00 O2 Sat by Pulse Oximetry (%) 98 05/25/17 21:00 Constitutional: Yes: Well Nourished, No Distress, Calm Cardiovascular: Yes: Regular Rate and Rhythm. No: Gallop, Murmur, Rub Respiratory: Yes: Regular, CTA Bilaterally. No: Rales, Rhonchi, Wheezes Gastrointestinal: Yes: Normal Bowel Sounds, Soft, Distention, Tenderness Extremities: Yes: WNL Edema: No Labs: CBC, BMP 05/27/17 09:00 05/26/17 11:15 INR, PTT INR 1.04 (0.82-1.09) 05/19/17 20:15 Problem List - Problems (1) Atrial fibrillation Code(s): I48.91 - UNSPECIFIED ATRIAL FIBRILLATION (2) Chest pain Code(s): R07.9 - CHEST PAIN, UNSPECIFIED (3) Colitis Code(s): K52.9 - NONINFECTIVE GASTROENTERITIS AND COLITIS, UNSPECIFIED (4) GI bleed Code(s): K92.2 - GASTROINTESTINAL HEMORRHAGE, UNSPECIFIED (5) Diabetes Code(s): E11.9 - TYPE 2 DIABETES MELLITUS WITHOUT COMPLICATIONS (6) End stage renal disease Code(s): N18.6 - END STAGE RENAL DISEASE (7) Hypertension Code(s): I10 - ESSENTIAL (PRIMARY) HYPERTENSION Assessment/Plan (1) Colitis Assessment/Plan: -secondary to c. diff -PCR not sent, suspect secondary to resolution -continue flagyl Code(s): K52.9 - NONINFECTIVE GASTROENTERITIS AND COLITIS, UNSPECIFIED (2) GI bleed Assessment/Plan: -appreciate GI assistance -resolved Code(s): K92.2 - GASTROINTESTINAL HEMORRHAGE, UNSPECIFIED (3) Diabetes Assessment/Plan: -diabetic diet -SSI Code(s): E11.9 - TYPE 2 DIABETES MELLITUS WITHOUT COMPLICATIONS (4) End stage renal disease Assessment/Plan: -nephrology following -continue HD MWF Code(s): N18.6 - END STAGE RENAL DISEASE (5) Hypertension Assessment/Plan: -continue norvasc and hydralazine Code(s): I10 - ESSENTIAL (PRIMARY) HYPERTENSION (6) New onset atrial fibrillation -cardiology following -spontaneously converted -placed on metoprolol -placed on eliquis (7) Fever -low suspicion it is infectious in nature -patient does not appear septic -blood cultures sent, will follow up -if remains afebrile for 48 hours, normal WBC, and NGTD can discharge home
[2017-05-27] MEDS ORDERED: SIMETHICONE 80 MG TAB.CHEW (FP) PO ONE (19:45)
[2017-05-28 00:19] LABS: HEP B SURFACE AB Reactive (.)
[2017-05-28] MEDS: hydrALAZINE HCL 50 MG TABLET (FP) PO SCH ×2 (06:15→14:55)
[2017-05-28] MEDS: INSULIN SLIDING SCALE (NOVOLOG) 1 VIAL SQ SCH ×2 (06:16→13:13)
[2017-05-28] MEDS: metroNIDAZOLE 250 MG TABLET PO SCH ×2 (06:16→13:08)
[2017-05-28 07:14] LABS: BASOPHIL 1.2 % (0-2.0); EOSINOPHIL 3.3 % (0-4.5); MCH 21.8 pg (25.7-33.7); MCHC 31.6 g/dl (32.0-36.0); MEAN CELL VOLUME 69.1 fl (80-96); MEAN PLT VOLUME 10.2 fl (7.5-11.1); NEUTROPHILS 55.4 % (42.8-82.8); PLATELET COUNT 207 K/MM3 (134-434); RDW 15.6 % (11.6-15.6); WHITE BLOOD COUNT 8.2 K/mm3 (4.0-10.0)
[2017-05-28 07:37] LABS: MAGNESIUM 2.1 mg/dL (1.8-2.4); PHOSPHOROUS 3.3 mg/dL (2.5-4.9)
[2017-05-28 10:52] LABS: ANION GAP 11 (8-16); CALCIUM 9.1 mg/dL (8.5-10.1); CO2 28 mmol/L (21-32); CREATININE 4.2 mg/dL (0.55-1.02)
[2017-05-28 11:05] LABS: GLUCOSE,RANDOM 305 mg/dL (74-106)
--- NOTE | 2017-05-28 11:37 | PN ---
Progress Note (short form) - Note Progress Note: Chief Complaint: AF History of Present Illness: seen during HD no sob. no dizzy no syncope bm's have reduced epigastric/cp improving - Current Medication List Current Medications Generic Name Dose Route Start Last Admin Trade Name Freq PRN Reason Stop Dose Admin Acetaminophen 650 mg 05/20/17 00:41 05/26/17 17:56 Tylenol - PO 650 mg Q6H PRN Administration FEVER OR PAIN Amlodipine Besylate 5 mg 05/20/17 10:00 05/27/17 10:20 Norvasc - PO 5 mg DAILY [facility] Administration Apixaban 5 mg 05/23/17 10:00 05/27/17 21:34 Eliquis - PO 5 mg BID [facility] Administration Hydralazine HCl 100 mg 05/20/17 06:00 05/28/17 06:15 Apresoline - PO 100 mg TID [facility] Administration Insulin Aspart 1 vial 05/20/17 07:00 05/28/17 06:16 Novolog Vial Sliding Scale - SQ 6 units ACHS [facility] Administration Protocol Isosorbide Mononitrate 60 mg 05/20/17 10:00 05/27/17 10:20 Imdur - PO 60 mg DAILY [facility] Administration Lactobacillus Acidophilus 1 tab 05/22/17 14:30 05/27/17 10:20 Bacid - PO 1 tab DAILY [facility] Administration Metoprolol Succinate 25 mg 05/21/17 15:00 05/27/17 10:20 Toprol Xl - PO 25 mg DAILY [facility] Administration Metronidazole 500 mg 05/20/17 14:00 05/28/17 06:16 Flagyl - PO 500 mg TID [facility] Administration Morphine Sulfate 1 mg 05/20/17 00:41 Morphine Injection - IVPUSH Q4H PRN PAIN Ondansetron HCl 4 mg 05/20/17 00:41 05/24/17 10:05 Zofran Injection IVPB 4 mg Q6H PRN Administration NAUSEA Pantoprazole Sodium 40 mg 05/27/17 10:00 05/27/17 10:20 Protonix - PO 40 mg DAILY [facility] Administration - Objective Vital Signs: Vital Signs Period Temp Pulse Resp BP Sys/Baig Pulse Ox Last 24 Hr 97.8 F-99 F 69-79 18-20 142-175/64-77 96 Constitutional: Yes: Well Nourished, No Distress, Calm Cardiovascular: Yes: Regular Rate and Rhythm, S1, S2. No: Gallop, Murmur Respiratory: Yes: Regular, CTA Bilaterally No: Accessory Muscle Use Extremities: No: Cold Edema: No Neurological: Yes: Alert, Oriented Psychiatric: No: Agitated no jaundice, diaphoresis Labs: CBC, BMP 05/28/17 06:00 05/28/17 09:00 Echo 05/08 here: nl LVSF; nl RV; mod LAE; mild MR mibi 08/2016: no ecg changes, nl mpi, nl lvef ecg 05/21/17: afib, vr 118, nl qtc, no ischemic changes, lvh ecg 05/22: NR, LVH with repol abn (no ST shifts)--no signif change vs priors here cxr: clear lungs a/p: 66 f hx htn, hld, esrd on hd, dm here with abd pain, rectal bleeding. new onset afib: -spontaneously converted to sinus within 24 hrs -started metoprolol 25mg here--BP and HR tolerating, cont same -TSH normal -chadsvasc 4 warrants AC -GI input appreciated: likely low risk for massive GIB and AC not contraindicated--started eliquis here, hgb stable, no bleeding atyp cp, epigastric pain, colitis (suspected c. dif): -atypical symptoms here, sec to c. dif colitis +/- other GI etiology? -pt had similar symptom in past which was evaluated with nuclear stress test 2015 which was normal -ecg w/o ischemic changes at time of episode -trop 0.02-->0.32-->0.47-->0.27, rpt ecg without ischemic change--suspect demand ischemia related to tachycardia given clinical picture not suggestive of small NSTEMI, and with recent normal nuclear stress test. no further w/u indicated unless clinical picture changes -observe sx's with treatment of colitis, have been improving htn: -cont current meds hld: -cont home statin
--- NOTE | 2017-05-28 13:02 | DS ---
Physical Examination Vital Signs: Vital Signs Temperature 97.8 F 05/28/17 06:05 Pulse Rate 83 05/28/17 12:10 Respiratory Rate 18 05/28/17 12:10 Blood Pressure 149/64 05/28/17 12:10 O2 Sat by Pulse Oximetry (%) 96 05/27/17 21:00 Constitutional: Yes: Well Nourished, No Distress, Calm Cardiovascular: Yes: Regular Rate and Rhythm. No: Gallop, Murmur, Rub Respiratory: Yes: Regular, CTA Bilaterally. No: Rales, Rhonchi, Wheezes Gastrointestinal: Yes: Normal Bowel Sounds, Soft. No: Distention, Tenderness Extremities: Yes: WNL Edema: No Labs: CBC, BMP 05/28/17 06:00 Discharge Summary Reason For Visit: COLITIS Current Active Problems Atrial fibrillation (Acute) Chest pain (Acute) Colitis (Acute) Diarrhea (Acute) GI bleed (Acute) Hospital Course: (1) Atrial fibrillation Code(s): I48.91 - UNSPECIFIED ATRIAL FIBRILLATION (2) Chest pain Code(s): R07.9 - CHEST PAIN, UNSPECIFIED (3) Colitis Code(s): K52.9 - NONINFECTIVE GASTROENTERITIS AND COLITIS, UNSPECIFIED (4) GI bleed Code(s): K92.2 - GASTROINTESTINAL HEMORRHAGE, UNSPECIFIED (5) Diabetes Code(s): E11.9 - TYPE 2 DIABETES MELLITUS WITHOUT COMPLICATIONS (6) End stage renal disease Code(s): N18.6 - END STAGE RENAL DISEASE (7) Hypertension Code(s): I10 - ESSENTIAL (PRIMARY) HYPERTENSION Ms Sosa is a 66 year old female who came in with colitis and was found to have new onset atrial fibrillation. She presented with diarrhea and was positive for c. diff. Started on flagyl and PCR ordered, but unable to obtain as diarrhea stopped with flagyl. She had chest pain and was found to have atrial fibrillation. She was seen by cardiology and spontaneously converted. She will be maintained on low dose beta jason and anticoagulation. She improved and was being prepared for discharge but spiked fevers after HD. She was cultured and observed, this was negative. She is safe for discharge home. 35 minutes spent in preparation of this discharge Condition: Stable - Instructions Diet, Activity, Other Instructions: resume previous diet and activity Referrals: Marely Cooper MD [Primary Care Provider] - Alex Pearce MD [Staff Physician] - Filomena Saucedo MD [Non Staff, Medical] - Disposition: HOME - Home Medications Comprehensive Discharge Medication List: Ambulatory Orders Hydralazine HCl [Apresoline -] 100 mg PO TID 05/30/14 Cholecalciferol (Vitamin D3) [Vitamin D3] 50,000 unit PO WEEKLY 12/04/15 Atorvastatin Ca [Lipitor] 80 mg PO DAILY 12/08/16 Calcium Acetate [Phoslo -] 667 mg PO TID 12/08/16 Isosorbide Mononitrate [Imdur -] 60 mg PO DAILY 12/08/16 Amlodipine Besylate [Norvasc -] 5 mg PO DAILY #30 tablet 05/03/17 Blood Sugar Diagnostic [Accu-Chek Guide Test Strip] 1 each ACHS #1 box Blood-Glucose Meter [Accu-Chek Guide Monitor System] 1 each ACHS #1 each 11/07 Insulin (Levemir) [Levemir Vial] 10 units SQ HS #1 bottle 05/03/17 Insulin (Levemir) [Levemir Vial] 20 units SQ AM #1 bottle 05/03/17 Apixaban [Eliquis -] 5 mg PO BID #60 tablet 05/28/17 Lactobacillus Acidophilus [Bacid -] 1 tab PO DAILY #7 tab 05/28/17 Metoprolol Succinate [Toprol XL -] 25 mg PO DAILY #30 tab.sr 05/28/17 Metronidazole [Flagyl -] 500 mg PO TID #50 tablet 05/28/17 Pantoprazole Sodium [Protonix -] 40 mg PO DAILY #30 tab.ec 05/28/17
[2017-05-28] MEDS ORDERED: INSULIN (NOVOLOG) ASPART 100 UNITS/ML 10ML VIAL ONE (13:07)
[2017-05-28] MEDS: amLODIPine BESYLATE 5 MG TABLET (FP) PO SCH (13:08)
[2017-05-28] MEDS: METOPROLOL SUCCINATE 25 MG TAB.SR.24H (FP) PO SCH (13:09)
[2017-05-28] MEDS: LACTOBACILLUS ACIDOPHILUS 1 EACH TAB (FP) PO SCH (13:09)
[2017-05-28] MEDS: APIXABAN 5 MG TABLET PO SCH (13:09)
[2017-05-28] MEDS: ISOSORBIDE MONONITRATE 60 MG TAB.SR.24H (FP) PO SCH (13:09)
[2017-05-28] MEDS: PANTOPRAZOLE 40 MG TABLET (FP) PO SCH (13:09)
[2017-05-28 13:23] LABS: CREATININE 1.2 mg/dL (0.55-1.02)
--- NOTE | 2017-05-28 13:47 | PN ---
Progress Note (short form) - Note Progress Note: Renal Follow up for ESRD on HD Pt seen and examined during dialysis BP stable, AVF with good flow has some chest discomfort (burning) and palliations, and also reports some discomfort in the lower abd Vital Signs Temperature 97.8 F 05/28/17 06:05 Pulse Rate 83 05/28/17 12:10 Respiratory Rate 18 05/28/17 12:10 Blood Pressure 149/64 05/28/17 12:10 O2 Sat by Pulse Oximetry (%) 96 05/27/17 21:00 Intake & Output 05/25/17 05/26/17 05/27/17 05/28/17 23:59 23:59 23:59 23:59 Intake Total 1080 1060 700 100 Output Total 2 Balance 1078 1060 700 100 Gen: NAD CVS: RRR, NO M/R Lungs: CTA Abd: soft NT/ND Ext: No edema, clubbing or cyanosis CBC, BMP 05/28/17 06:00 05/28/17 12:10 Current Medications Acetaminophen (Tylenol -) 650 mg PO Q6H PRN PRN Reason: FEVER OR PAIN Last Admin: 05/26/17 17:56 Dose: 650 mg Amlodipine Besylate (Norvasc -) 5 mg PO DAILY [facility] Last Admin: 05/28/17 13:08 Dose: 5 mg Apixaban (Eliquis -) 5 mg PO BID [facility] Last Admin: 05/28/17 13:09 Dose: 5 mg Hydralazine HCl (Apresoline -) 100 mg PO TID [facility] Last Admin: 05/28/17 06:15 Dose: 100 mg Insulin Aspart (Novolog Vial Sliding Scale -) 1 vial SQ ACHS [facility] PRN Reason: Protocol Last Admin: 05/28/17 13:13 Dose: 4 units Isosorbide Mononitrate (Imdur -) 60 mg PO DAILY [facility] Last Admin: 05/28/17 13:09 Dose: 60 mg Lactobacillus Acidophilus (Bacid -) 1 tab PO DAILY [facility] Last Admin: 05/28/17 13:09 Dose: 1 tab Metoprolol Succinate (Toprol Xl -) 25 mg PO DAILY [facility] Last Admin: 05/28/17 13:09 Dose: 25 mg Metronidazole (Flagyl -) 500 mg PO TID [facility] Last Admin: 05/28/17 13:08 Dose: 500 mg Morphine Sulfate (Morphine Injection -) 1 mg IVPUSH Q4H PRN PRN Reason: PAIN Ondansetron HCl (Zofran Injection) 4 mg IVPB Q6H PRN PRN Reason: NAUSEA Last Admin: 05/24/17 10:05 Dose: 4 mg Pantoprazole Sodium (Protonix -) 40 mg PO DAILY [facility] Last Admin: 05/28/17 13:09 Dose: 40 mg A/P 66 year old woman with PMhx of ESRD on HD, Hypertension, IDDM presented with palpiations and found to have new onset Afib #ESRD on HD tolerating dialysis well UF 2.8L as tolerated to resume HD as outpatient on Wednesday #New Afib on Eliquis Cardiology following Rate controlled #Fever blood cultures negative not currently on Abx Ignacio Callahan DO
[2017-05-28 14:28] VITALS: TEMP 98.5
[2017-05-28 14:57] VITALS: BP 152/70; PULSE 79
== END 2017-05-28 16:50 | disposition home or self-care (01) | DRG 248 ==
LOC: JER 19:33 → JERBED 05-20 00:31 → UNDOADMIN 05-20 01:05 → J5S 05-20 02:31 → J4W 05-21 17:18 → J7W 05-23 14:43
PROVIDERS: ADMIT Internal Medicine Geriatric Medicine; ATTEND Internal Medicine Geriatric Medicine
PROC: 5A1D60Z (ICD-10-PCS; principal; 2017-05-20)
DX: A04.7 Enterocolitis due to Clostridium difficile (principal); E11.22 Type 2 diabetes mellitus with diabetic chronic kidney disease; I12.0 Hypertensive chronic kidney disease with stage 5 chronic kidney disease or end stage renal disease; N18.6 End stage renal disease; I48.91 Unspecified atrial fibrillation; I24.8 Other forms of acute ischemic heart disease; K92.2 Gastrointestinal hemorrhage, unspecified; K21.9 Gastro-esophageal reflux disease without esophagitis; E78.5 Hyperlipidemia, unspecified; D64.9 Anemia, unspecified; Z79.4 Long term (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 insulin; Z99.2 Dependence on renal dialysis; R07.89 Other chest pain; R50.9 Fever, unspecified; Z87.891 Personal history of nicotine dependence; Z80.42 Family history of malignant neoplasm of prostate
CPT/HCPCS: 36415; 71010-TC; 74176-TC; 80048; 80053; 82272; 82550; 82565; 83735; 84100; 84443; 84484; 84520; 85025; 85027; 85610; 86704; 86706; 86708; 86803; 86850; 86900; 86901; 87040; 87045; 87046; 87177; 87209; 87324; 87340; 87449; 93005; 93010; 93306-TC; 99284-25; J0885

== ENCOUNTER 2017-07-22 10:26 | Emergency (ER) | payer OTHER ==
[2017-07-22 11:11] VITALS: TEMP 98.7; BMI 25.7
--- NOTE | 2017-07-22 11:24 | PDOC ---
History of Present Illness - General Chief Complaint: Pain Stated Complaint: ABD PAIN Time Seen by Provider: 07/22/17 10:29 History Source: Patient - History of Present Illness Initial Comments: 07/22/17 11:22 Patient is a 66 y.o. female who presents to the ED today c/o 5 day h/o intermittent, diffuse, cramping abdominal pain as well as intermittent rectal bleed Past History - Past Medical History Allergies/Adverse Reactions: Allergies Allergy/AdvReac Type Severity Reaction Status Date / Time No Known Drug Allergies Allergy Verified 07/22/17 11:34 Home Medications: Ambulatory Orders Hydralazine HCl [Apresoline -] 100 mg PO TID 05/30/14 Atorvastatin Ca [Lipitor] 80 mg PO DAILY 12/08/16 Amlodipine Besylate [Norvasc -] 5 mg PO DAILY #30 tablet 05/03/17 Blood Sugar Diagnostic [Accu-Chek Guide Test Strip] 1 each ACHS #1 box Blood-Glucose Meter [Accu-Chek Guide Monitor System] 1 each ACHS #1 each 11/07 Insulin (Levemir) [Levemir Vial] 10 units SQ HS #1 bottle 05/03/17 Insulin (Levemir) [Levemir Vial] 20 units SQ AM #1 bottle 05/03/17 Apixaban [Eliquis -] 5 mg PO BID #60 tablet 05/28/17 Metoprolol Succinate [Toprol XL -] 25 mg PO DAILY #30 tab.sr 05/28/17 Famotidine [Pepcid] 20 mg PO TID #21 tablet 07/22/17 Diabetes: Yes Dialysis: Yes HTN: Yes Hypercholesterolemia: Yes Suicide Attempt (Hx): No - Surgical History Abdominal Surgery: Yes (hernia not repaired) - Psycho/Social/Smoking Cessation Hx Anxiety: No Suicidal Ideation: No Smoking Status: No Smoking History: Unknown if ever smoked Have you smoked in the past 12 months: No Number of Cigarettes Smoked Daily: 0 If you are a former smoker, when did you quit?: 40YRS AGO Hx Alcohol Use: No Drug/Substance Use Hx: No Substance Use Type: None Hx Substance Use Treatment: No *Physical Exam - Vital Signs Last Vital Signs Temp Pulse Resp BP Pulse Ox 98.7 F 90 18 205/72 100 07/22/17 10:48 07/22/17 10:48 07/22/17 10:48 07/22/17 10:48 07/22/17 10:48 ED Treatment Course - LABORATORY CBC & Chemistry Diagram: 07/22/17 11:20 07/22/17 11:20 - RADIOLOGY Radiology Studies Ordered: Category Date Time Status ABDOMEN & PELVIS CT W/O CONTR [CT] Stat CT Scan 07/22/17 11:13 Ordered CHEST PA & LAT [RAD] Stat Radiology 07/22/17 11:02 Ordered Medical Decision Making - Medical Decision Making 07/22/17 11:24 Initial differential diagnosis is for PLAN 1. CBC, CMP 2. Amylase 3. FOBT 4. PTT, INR, Type and Screen 07/22/17 11:25 *DC/Admit/Observation/Transfer Diagnosis at time of Disposition: Abdominal pain - Discharge Dispostion Disposition: HOME Condition at time of disposition: Good Admit: No - Referrals Referrals: Erin Jack MD [Primary Care Provider] - Mitesh Watts MD [Staff Physician] - - Patient Instructions Additional Instructions: You were evaluated today in the ED for abdominal pain and rectal bleed. Please call Dr. Watts to schedule an appointment within the next 1-2 weeks for gastroenterology (stomach) evaluation. A prescription for Pepcid for relief of your symptoms has been called to your pharmacy. Please follow up with Dr. Del Valle as scheduled for [email or web address]. Please return to the ED should you experience severe pain, shortness of breath or chest pain.
[2017-07-22 11:29] VITALS: BP 172/63; PULSE 77
[2017-07-22 11:32] LABS: BASOPHIL 0.6 % (0-2.0); MCH 21.3 pg (25.7-33.7); MCHC 31.3 g/dl (32.0-36.0); MEAN PLT VOLUME 9.8 fl (7.5-11.1); NEUTROPHILS 76.3 % (42.8-82.8); PLATELET COUNT 141 K/MM3 (134-434); RDW 16.3 % (11.6-15.6); WHITE BLOOD COUNT 9.5 K/mm3 (4.0-10.0)
[2017-07-22 11:43] LABS: INR 1.22 (0.82-1.09); PROTHROMBIN TIME (PATIENT) 13.5 SEC (9.98-11.88)
[2017-07-22 11:46] LABS: ACTIVATED PTT 37.2 SECONDS (26.9-34.4)
[2017-07-22 11:55] LABS: ALBUMIN 3.6 g/dl (3.4-5.0); ALK PHOS 92 U/L (45-117); ANION GAP 9 (8-16); BILIRUBIN,TOTAL 0.4 mg/dL (0.2-1.0); CO2 31 mmol/L (21-32); CPK 57 IU/L (26-192); CREATININE 3.2 mg/dL (0.55-1.02); GLUCOSE,RANDOM 186 mg/dL (74-106); SGOT/AST 15 U/L (15-37); SGPT/ALT 28 U/L (12-78); TOT PROT 6.9 g/dl (6.4-8.2); TROPONIN I < 0.02 ng/ml (0.00-0.05)
[2017-07-22 11:58] LABS: HYPOCHROMIA 2+
[2017-07-22 11:59] LABS: MICROCYTOSIS 1+; TARGET CELLS 1+; TEAR DROP CELLS 1+
[2017-07-22 15:15] LABS: URINE APPEARANCE CLOUDY; URINE BILIRUBIN NEGATIVE (NEGATIVE); URINE BLOOD NEGATIVE (NEGATIVE); URINE COLOR YELLOW; URINE GLUCOSE (UA) 3+ (NEGATIVE); URINE KETONE NEGATIVE (NEGATIVE); URINE LEUK ESTERASE NEGATIVE (NEGATIVE); URINE NITRITE NEGATIVE (NEGATIVE); URINE UROBILINOGEN NEGATIVE mg/dL (0.2-1.0)
[2017-07-22 15:16] LABS: URINE PROTEIN 2+ (NEGATIVE)
[2017-07-22 15:18] LABS: URINE HYALINE CAST 26 /lpf; URINE MUCUS RARE; URINE RBC 1 /hpf (0-3); URINE WBC 3 /hpf (3-5)
--- NOTE | 2017-07-22 15:45 | EKG ---
Test Reason : Blood Pressure : / mmHG Vent. Rate : 082 BPM Atrial Rate : 082 BPM P-R Int : 186 ms QRS Dur : 094 ms QT Int : 396 ms P-R-T Axes : 058 -44 061 degrees QTc Int : 462 ms NORMAL SINUS RHYTHM POSSIBLE LEFT ATRIAL ENLARGEMENT LEFT AXIS DEVIATION LEFT VENTRICULAR HYPERTROPHY ABNORMAL ECG WHEN COMPARED WITH ECG OF 25-MAY-2017 14:49, NO SIGNIFICANT CHANGE WAS FOUND Confirmed by YADIRA CHAIREZ, CLAUDIO ([id number]) on 07/22/2017 3:45:36 PM Referred By: Confirmed By:CLAUDIO MAY MD
--- NOTE | 2017-07-22 18:01 | PDOC ---
Attending Attestation - Resident Resident Name: Alina Sanchez - ED Attending Attestation I have performed the following: I have examined & evaluated the patient, The case was reviewed & discussed with the resident, I agree w/resident's findings & plan, Exceptions are as noted - HPI HPI: 07/22/17 17:52 66 F wit h/o HTN, DM, ESRD on HD, presenting with abdominal pain and BRBPR. Pt states that she has pain in her lower abdomen radiating up to her epigastric area. Denies any pain in her chest, denies SOB. Pt states that she had a BM that had red streaks in it, which prompted her to come to the ER. Pt denies any N/V. Denies F/C. Pt was admitted 2 months earlier for similar complaint. Was found to have C diff colitis and treated with abx. She denies any diarrhea today. 07/22/17 17:55 - Physicial Exam PE: 07/22/17 17:54 "GENERAL: Awake, alert, and fully oriented, in no acute distress HEAD: No signs of trauma EYES: PERRLA, EOMI, sclera anicteric, conjunctiva clear ENT: Auricles normal inspection, hearing grossly normal, nares patent, oropharynx clear without exudates. Moist mucosa NECK: Normal ROM, supple, no lymphadenopathy, JVD, or masses LUNGS: Breath sounds equal, clear to auscultation bilaterally. No wheezes, and no crackles HEART: Regular rate and rhythm, normal S1 and S2, no murmurs, rubs or gallops ABDOMEN: Soft, +epigastric and LLQ TTP, normoactive bowel sounds. No guarding, no rebound. No masses EXTREMITIES: Normal range of motion, no edema. No clubbing or cyanosis. No cords, erythema, or tenderness NEUROLOGICAL: Cranial nerves II through XII grossly intact. Normal speech, normal gait SKIN: Warm, Dry, normal turgor, no rashes or lesions noted. " - Medical Decision Making 07/22/17 17:54 66 F with epigastric pain, and BRBPR. Likely gastritis vs pancreatitis. HOwever , given lower quadrant TTP, will obtain CTAP. Pt with brown stool on exam, guaiac negative. Unlikely to have GI bleed. ACS unlikely, as pt has nonischemic EKG. - Labs, trop - CTAP 07/22/17 18:01 CTAP negative for acute pathology. Pt seen and evaluated by machining manager Dr. Whitley Posadas, who, after reviewing EKG and labs, agrees that pt's pain is unlikely to be cardiac in etiology. Pt reassessed. Given meal tray, which she tolerated without problem. Pt reports improvement in her abdominal pain. Exam nontender.
--- NOTE | 2017-07-22 19:12 | CON.CARD ---
Cardiology Consult (text) - Consultation Consultation Note: CC: cp Ambulatory Orders Hydralazine HCl [Apresoline -] 100 mg PO TID 05/30/14 Atorvastatin Ca [Lipitor] 80 mg PO DAILY 12/08/16 Amlodipine Besylate [Norvasc -] 5 mg PO DAILY #30 tablet 05/03/17 Blood Sugar Diagnostic [Accu-Chek Guide Test Strip] 1 each ACHS #1 box Blood-Glucose Meter [Accu-Chek Guide Monitor System] 1 each ACHS #1 each 11/07 Insulin (Levemir) [Levemir Vial] 10 units SQ HS #1 bottle 05/03/17 Insulin (Levemir) [Levemir Vial] 20 units SQ AM #1 bottle 05/03/17 Apixaban [Eliquis -] 5 mg PO BID #60 tablet 05/28/17 Metoprolol Succinate [Toprol XL -] 25 mg PO DAILY #30 tab.sr 05/28/17 Famotidine [Pepcid] 20 mg PO TID #21 tablet 07/22/17 Vital Signs - 24 hr 07/22/17 07/22/17 10:48 11:27 Temperature 98.7 F Pulse Rate 90 Pulse Rate [ 77 Left] Respiratory 18 Rate Blood Pressure 205/72 Blood Pressure 172/63 [Left Arm] O2 Sat by Pulse 100 Oximetry (%) Intake & Output 07/20/17 07/21/17 07/22/17 07/23/17 07:59 07:59 07:59 07:59 Weight 155 lb CBC, BMP 07/22/17 11:20 07/22/17 11:20 no cardiovascular indications for admission. full note to follow.
== END 2017-07-22 19:29 | disposition home or self-care (01) ==
LOC: JER 10:26
DX: R10.9 Unspecified abdominal pain (principal); Z87.891 Personal history of nicotine dependence; E11.9 Type 2 diabetes mellitus without complications; I10 Essential (primary) hypertension; E78.00 Pure hypercholesterolemia, unspecified; Z79.4 Long term (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 insulin; Z99.2 Dependence on renal dialysis
CPT/HCPCS: 36415; 71020-TC; 74176-TC; 80053; 81003; 81015; 82150; 82272; 84484; 85025; 85610; 85730; 86850; 86900; 86901; 93005; 93010; 99282-25

== ENCOUNTER 2017-10-29 19:25 | Emergency (ER) | payer MEDICARE, OTHER ==
[2017-10-29 20:06] VITALS: BMI 25.8
--- NOTE | 2017-10-29 20:40 | PDOC ---
History of Present Illness <Ridge Meza - Last Filed: 10/30/17 01:11> - General History Source: Patient Exam Limitations: No Limitations <Martine Montenegro - Last Filed: 10/30/17 01:31> - General Chief Complaint: Blood Pressure Problem Stated Complaint: LEG PAIN,HYPERTENSION Time Seen by Provider: 10/29/17 20:14 - History of Present Illness Initial Comments: This is a 67 YOF with h/o ESRD (on HD MWF), IDDM, HTN (medicated), and HLD who was BIBA from her HD clinic for left-sided bodily pain which she states originated in the left foot and radiated up the leg, thorax, chest, neck, and head. The pain started during her HD session, felt like a 10/10 cramping, and has since improved to 8/10. She has had similar left foot pain before (for the past several years) which awakens her from sleep but resolves spontaneously. She denies any recent fever, chills, nausea, vomiting, diarrhea, dysuria, hematuria, SOB, sweats, or other symptoms. EMS noted that her blood pressure on their arrival on scene was 188/92. (Martine Montenegro) Past History <Ridge Meza - Last Filed: 10/30/17 01:11> - Past Medical History Diabetes: Yes Dialysis: Yes HTN: Yes Hypercholesterolemia: Yes - Surgical History Abdominal Surgery: Yes (hernia not repaired) - Suicide/Smoking/Psychosocial Hx Smoking Status: No Smoking History: Never smoked Have you smoked in the past 12 months: No Number of Cigarettes Smoked Daily: 0 If you are a former smoker, when did you quit?: 40YRS AGO Information on smoking cessation initiated: No Hx Alcohol Use: No Drug/Substance Use Hx: No Substance Use Type: None Hx Substance Use Treatment: No <Martine Montenegro - Last Filed: 10/30/17 01:31> - Past Medical History Allergies/Adverse Reactions: Allergies Allergy/AdvReac Type Severity Reaction Status Date / Time No Known Drug Allergies Allergy Verified 10/29/17 20:02 Home Medications: Ambulatory Orders Hydralazine HCl [Apresoline -] 100 mg PO TID 05/30/14 Atorvastatin Ca [Lipitor] 80 mg PO DAILY 12/08/16 Amlodipine Besylate [Norvasc -] 5 mg PO DAILY #30 tablet 05/03/17 Metoprolol Succinate [Toprol XL -] 25 mg PO DAILY #30 tab.sr 05/28/17 Review of Systems - Review of Systems Able to Perform ROS?: Yes Constitutional: No: Chills, Diaphoresis, Fever, Unexplained wgt Loss HEENTM: No: Nose Congestion, Throat Pain Respiratory: No: Cough, Shortness of Breath Cardiac (ROS): Yes: Chest Pain. No: Palpitations ABD/GI: No: Constipated, Diarrhea, Nausea, Vomiting : No: Burning, Dysuria, Hematuria Musculoskeletal: Yes: Back Pain (left-sided), Neck Pain (right-sided) Integumentary: No: Bruising, Rash Neurological: Yes: Headache. No: Numbness, Tingling, Weakness, Dizziness Endocrine: No: Unexplained Weight Gain, Unexplained Weight Loss <Martine Montenegro Filed: 10/30/17 01:31> *Physical Exam - Physical Exam General Appearance: Yes: Nourished, Appropriately Dressed, Other (Older adult female who is alert and answering questions appropriately, fully clothed initially). No: Apparent Distress HEENT: positive: EOMI, YONG, Normal Voice, Hearing Grossly Normal. negative: Scleral Icterus (R), Scleral Icterus (L), Nasal Congestion Neck: positive: Tender (paraspinous tenderness and muscle spasm bilaterally L>R) , Trachea midline, Supple. negative: Rigid, Tender midline Respiratory/Chest: positive: Lungs Clear, Normal Breath Sounds. negative: Respiratory Distress, Crackles, Rhonchi, Stridor, Wheezing Cardiovascular: positive: Regular Rhythm, Regular Rate. negative: Murmur Gastrointestinal/Abdominal: positive: Normal Bowel Sounds, Soft. negative: Tender, Organomegaly, Pulsatile Mass, Guarding Musculoskeletal: positive: Normal Inspection, CVA Tenderness (L>R). negative: Decreased Range of Motion, Vertebral Tenderness Extremity: positive: Normal Capillary Refill, Normal Inspection, Normal Range of Motion. negative: Tender, Cyanosis Integumentary: positive: Normal Color, Dry, Warm. negative: Erythema, Rash, Bruising Neurologic: positive: tab builder II-XII NML intact, Fully Oriented, Alert, Normal Mood/ Affect, Normal Response, Motor Strength 5/5, Other (negative Trousseau sign) <Montenegro,Martine - Last Filed: 10/30/17 01:31> - Vital Signs Last Vital Signs Temp Pulse Resp BP Pulse Ox 99.0 F 87 14 173/68 96 10/29/17 20:02 10/29/17 20:02 10/29/17 20:02 10/29/17 20:02 10/29/17 20:02 ED Treatment Course - LABORATORY CBC & Chemistry Diagram: 10/29/17 21:06 10/29/17 21:06 <Ridge Meza - Last Filed: 10/30/17 01:11> - LABORATORY CBC & Chemistry Diagram: 10/29/17 21:06 10/29/17 21:06 <Martine Montenegro - Last Filed: 10/30/17 01:31> - ADDITIONAL ORDERS Additional order review: Laboratory Results 10/29/17 10/29/17 10/29/17 23:23 21:06 21:06 PT with INR INR Sodium 138 Potassium 3.9 Chloride 101 Carbon Dioxide 32 Anion Gap 5 L BUN 25 H Creatinine 2.8 H Creat Clearance w eGFR 16.75 Random Glucose 284 H D Calcium 8.2 L Magnesium 2.3 Total Bilirubin 0.2 D AST 17 ALT 22 D Alkaline Phosphatase 74 Creatine Kinase 137 Troponin I < 0.02 Total Protein 6.8 Albumin 3.5 Lipase 320 Urine Color Yellow Urine Appearance Slcloudy Urine pH 6.0 Ur Specific [place] 1.012 Urine Protein 1+ H Urine Glucose (UA) 3+ H Urine Ketones Negative Urine Blood Negative Urine Nitrite Negative Urine Bilirubin Negative Urine Urobilinogen Negative Urine WBC (Auto) 1 Urine RBC (Auto) 1 Ur Epithelial Cells Rare 10/29/17 21:06 PT with INR 12.30 H INR 1.09 Sodium Potassium Chloride Carbon Dioxide Anion Gap BUN Creatinine Creat Clearance w eGFR Random Glucose Calcium Magnesium Total Bilirubin AST ALT Alkaline Phosphatase Creatine Kinase Troponin I Total Protein Albumin Lipase Urine Color Urine Appearance Urine pH Ur Specific [place] Urine Protein Urine Glucose (UA) Urine Ketones Urine Blood Urine Nitrite Urine Bilirubin Urine Urobilinogen Urine WBC (Auto) Urine RBC (Auto) Ur Epithelial Cells 10/29/17 21:06 RBC 4.89 MCV 71.6 L MCHC 31.2 L RDW 15.8 H MPV 11.1 D Neutrophils % 65.9 Lymphocytes % 20.6 D Monocytes % 12.2 H Eosinophils % 0.8 Basophils % 0.5 - RADIOLOGY Radiology Studies Ordered: Category Date Time Status CHEST X-RAY PORTABLE* [RAD] Stat Radiology 10/29/17 20:30 Taken DUPLEX ART. LOWER COMPL US [US] Stat Ultrasound 10/29/17 20:53 Completed DUPLEX VASCUL US-1 LEG [US] Stat Ultrasound 10/29/17 20:31 Completed - Medications Given in the ED: ED Medications Discontinued Medications Generic Name Dose Route Start Last Admin Trade Name F[place]arleen PRN Reason Stop Dose Admin Acetaminophen 1,000 mg 10/29/17 21:12 10/29/17 21:27 Ofirmev Injection - IVPB 10/29/17 21:13 1,000 mg ONCE ONE Administration Medical Decision Making <Ridge Meza - Last Filed: 10/30/17 01:11> <Martine Montenegro - Last Filed: 10/30/17 01:31> - Medical Decision Making 67 YOF with ESRD on HD, HTN, HLD, IDDM BIBA for left leg, trunk, thorax, chest, neck, and head pain during HD. States that the HD was almost finished and they had to cut it only slightly short. On exam she is hypertensive to mid-170s systolic, no distress, alert, conversive , L>R CVA ttp and LLE ttp. No vertebral ttp but left paraspinous ttp cervical region. CNII-XII intact and otherwise neurologically intact. DDX IBNLT LLE DVT, arterial embolism, hypocalcemia (unionized?), other electrolyte derangement, ACS, ICH. Ordered is CBCD, CMP, cardiac panel, lipase, UA cx, EKG, CXR, duplex vein and artery LLE. 10/29/17 23:55 Labs result with mild hypocalcemia, elevated BUN and Cr expected in ESRD, and hyperglycemia (<300). US negative for DVT or arterial stenosis/thromboembolism. CXR negative for acute cardiopulmonary processes. Awaiting results of UA. 10/30/17 01:30 UA is negative. EKG without acute changes. The patient is appropriate for DC home with close OP followup. Return precautions are discussed. (Martine Montenegro) *DC/Admit/Observation/Transfer <Ridge Meza - Last Filed: 10/30/17 01:11> - Discharge Dispostion Admit: No <Martine Montenegro - Last Filed: 10/30/17 01:31> Diagnosis at time of Disposition: Leg cramp - Discharge Dispostion Disposition: HOME Condition at time of disposition: Stable - Patient Instructions Printed Discharge Instructions: DI for Leg Pain Additional Instructions: Please follow up with Dr. Torres within 1 week. If you experience worsening pain, swelling, fevers, chest pain, shortness of breath, or any other concerning symptoms, return to the ER immediately.
[2017-10-29] MEDS ORDERED: ACETAMINOPHEN 1000 MG/100 ML VIAL (NON FORMULARY) IVPB ONE (21:12)
[2017-10-29] MEDS ORDERED: ACETAMINOPHEN INJECTION 100 ML IVPB ONE (21:18)
[2017-10-29 21:29] LABS: BASOPHIL 0.5 % (0-2.0); EOSINOPHIL 0.8 % (0-4.5); MCH 22.3 pg (25.7-33.7); MCHC 31.2 g/dl (32.0-36.0); MEAN CELL VOLUME 71.6 fl (80-96); MEAN PLT VOLUME 11.1 fl (7.5-11.1); NEUTROPHILS 65.9 % (42.8-82.8); PLATELET COUNT 144 K/MM3 (134-434); RDW 15.8 % (11.6-15.6); WHITE BLOOD COUNT 7.7 K/mm3 (4.0-10.0)
[2017-10-29 21:46] LABS: INR 1.09 (0.82-1.09); PROTHROMBIN TIME (PATIENT) 12.3 SEC (9.98-11.88)
--- NOTE | 2017-10-29 21:55 | PDOC ---
Attending Attestation - Resident Resident Name: Montenegro,Martine - ED Attending Attestation I have performed the following: I have examined & evaluated the patient, The case was reviewed & discussed with the resident, I agree w/resident's findings & plan, Exceptions are as noted - HPI HPI: 10/29/17 21:51 67 F with ESRD (on HD MWF), IDDM, HTN, and HLD, presenting to ER with BLE pain. The pain began as she was finishing HD today. She states that it feels like a severe cramp running down her legs, L>R. Pt states that she has had this problem for years. Pt denies any significant swelling of either leg. Denies weakness or numbness in her legs. No CP/SOB. The pain has subsided significantly since arriving to ER. - Physicial Exam PE: 10/29/17 21:53 "GENERAL: Awake, alert, and fully oriented, in no acute distress HEAD: No signs of trauma EYES: PERRLA, EOMI, sclera anicteric, conjunctiva clear ENT: Auricles normal inspection, hearing grossly normal, nares patent, oropharynx clear without exudates. Moist mucosa NECK: Nontender, no stepoffs, Normal ROM, supple, no lymphadenopathy, JVD, or masses LUNGS: Breath sounds equal, clear to auscultation bilaterally. No wheezes, and no crackles HEART: Regular rate and rhythm, normal S1 and S2, no murmurs, rubs or gallops ABDOMEN: Soft, nontender, normoactive bowel sounds. No guarding, no rebound. No masses EXTREMITIES: Normal range of motion, no edema. No clubbing or cyanosis. No cords, erythema, or tenderness NEUROLOGICAL: Cranial nerves II through XII intact. 5/5 strength and sensation in all extremities, Normal speech, normal gait SKIN: Warm, Dry, normal turgor, no rashes or lesions noted. " - Medical Decision Making 10/29/17 21:54 67 F with BLE pain after HD today. Likely muscle cramps caused by dialysis. Pt with no signs of DVT on exam. Pulses equal in both legs, making arterial embolus unlikely as well. Pt with no neuro deficits. - Labs - arterial and venous US BLE - Pain control 10/30/17 01:14 CBC,CMP WBC 7.7 K/mm3 (4.0-10.0) 10/29/17 21:06 RBC 4.89 M/mm3 (3.60-5.2) 10/29/17 21:06 Hgb 10.9 GM/dL (10.7-15.3) 10/29/17 21:06 Hct 35.0 % (32.4-45.2) 10/29/17 21:06 MCV 71.6 fl (80-96) L 10/29/17 21:06 MCH 22.3 pg (25.7-33.7) L 10/29/17 21:06 MCHC 31.2 g/dl (32.0-36.0) L 10/29/17 21:06 RDW 15.8 % (11.6-15.6) H 10/29/17 21:06 Plt Count 144 K/MM3 (134-434) 10/29/17 21:06 MPV 11.1 fl (7.5-11.1) D 10/29/17 21:06 Neutrophils % 65.9 % (42.8-82.8) 10/29/17 21:06 Lymphocytes % 20.6 % (8-40) D 10/29/17 21:06 Monocytes % 12.2 % (3.8-10.2) H 10/29/17 21:06 Eosinophils % 0.8 % (0-4.5) 10/29/17 21:06 Basophils % 0.5 % (0-2.0) 10/29/17 21:06 Sodium 138 mmol/L (136-145) 10/29/17 21:06 Potassium 3.9 mmol/L (3.5-5.1) 10/29/17 21:06 Chloride 101 mmol/L (98-107) 10/29/17 21:06 Carbon Dioxide 32 mmol/L (21-32) 10/29/17 21:06 Anion Gap 5 (8-16) L 10/29/17 21:06 BUN 25 mg/dL (7-18) H 10/29/17 21:06 Creatinine 2.8 mg/dL (0.55-1.02) H 10/29/17 21:06 Creat Clearance w eGFR 16.75 (>60) 10/29/17 21:06 Random Glucose 284 mg/dL (74-106) H D 10/29/17 21:06 Calcium 8.2 mg/dL (8.5-10.1) L 10/29/17 21:06 Magnesium 2.3 mg/dL (1.8-2.4) 10/29/17 21:06 Total Bilirubin 0.2 mg/dL (0.2-1.0) D 10/29/17 21:06 AST 17 U/L (15-37) 10/29/17 21:06 ALT 22 U/L (12-78) D 10/29/17 21:06 Alkaline Phosphatase 74 U/L (45-117) 10/29/17 21:06 Creatine Kinase 137 IU/L (26-192) 10/29/17 21:06 Troponin I < 0.02 ng/ml (0.00-0.05) 10/29/17 21:06 Total Protein 6.8 g/dl (6.4-8.2) 10/29/17 21:06 Albumin 3.5 g/dl (3.4-5.0) 10/29/17 21:06 Lipase 320 U/L (73-393) 10/29/17 21:06 Labs unremarkable. Arterial and venous dopplers without clot. Pt reassessed - now with significant improvement in pain. Vitals normal. Clinically stable for DC.
[2017-10-29 22:00] LABS: ALBUMIN 3.5 g/dl (3.4-5.0); ANION GAP 5 (8-16); BILIRUBIN,TOTAL 0.2 mg/dL (0.2-1.0); CALCIUM 8.2 mg/dL (8.5-10.1); CO2 32 mmol/L (21-32); CREATININE 2.8 mg/dL (0.55-1.02); GLUCOSE,RANDOM 284 mg/dL (74-106); MAGNESIUM 2.3 mg/dL (1.8-2.4); SGOT/AST 17 U/L (15-37); SGPT/ALT 22 U/L (12-78); TOT PROT 6.8 g/dl (6.4-8.2)
[2017-10-29 22:03] LABS: ALK PHOS 74 U/L (45-117); CPK 137 IU/L (26-192); TROPONIN I < 0.02 ng/ml (0.00-0.05)
[2017-10-29 23:35] LABS: URINE APPEARANCE SLCLOUDY; URINE BILIRUBIN NEGATIVE (NEGATIVE); URINE BLOOD NEGATIVE (NEGATIVE); URINE COLOR YELLOW; URINE GLUCOSE (UA) 3+ (NEGATIVE); URINE KETONE NEGATIVE (NEGATIVE); URINE LEUK ESTERASE NEGATIVE (NEGATIVE); URINE NITRITE NEGATIVE (NEGATIVE); URINE UROBILINOGEN NEGATIVE mg/dL (0.2-1.0)
[2017-10-30 00:01] LABS: URINE PROTEIN 1+ (NEGATIVE)
[2017-10-30 00:02] LABS: URINE RBC 1 /hpf (0-3); URINE WBC 1 /hpf (3-5)
[2017-10-30 02:15] VITALS: BP 173/67; PULSE 86; TEMP 98
[2017-10-30 12:04] LABS: URINE LEUK ESTERASE Negative (NEGATIVE)
--- NOTE | 2017-10-30 21:17 | EKG ---
Test Reason : Blood Pressure : / mmHG Vent. Rate : 072 BPM Atrial Rate : 072 BPM P-R Int : 192 ms QRS Dur : 094 ms QT Int : 422 ms P-R-T Axes : 066 -32 064 degrees QTc Int : 462 ms NORMAL SINUS RHYTHM LEFT AXIS DEVIATION MODERATE VOLTAGE CRITERIA FOR LVH, MAY BE NORMAL VARIANT ABNORMAL ECG WHEN COMPARED WITH ECG OF 22-JUL-2017 10:33, NO SIGNIFICANT CHANGE WAS FOUND Confirmed by PETEY ANDERSON MD ([id number]) on 10/30/2017 9:17:21 PM Referred By: Confirmed By:PETEY ANDERSON MD
== END 2017-10-30 02:16 | disposition home or self-care (01) ==
LOC: JER 19:25
PROC: 3E0337Z Introduction of Electrolytic and Water Balance Substance into Peripheral Vein, Percutaneous Approach (ICD-10-PCS; principal; 2017-10-29)
DX: R25.2 Cramp and spasm (principal); E11.22 Type 2 diabetes mellitus with diabetic chronic kidney disease; I12.0 Hypertensive chronic kidney disease with stage 5 chronic kidney disease or end stage renal disease; N18.6 End stage renal disease; Z99.2 Dependence on renal dialysis; E78.5 Hyperlipidemia, unspecified
CPT/HCPCS: 36415; 71010-TC; 80053; 81003; 81015; 82550; 83690; 83735; 84484; 85025; 85610; 87086; 93005; 93010; 93925-TC; 93971-TC; 96360; 99281-25

== ENCOUNTER 2017-12-13 19:00 | Inpatient (IN) | payer MEDICARE, OTHER ==
--- NOTE | 2017-12-13 21:00 | PDOC ---
Rapid Medical Evaluation Time Seen by Provider: 12/13/17 19:30 Medical Evaluation: Allergies Allergy/AdvReac Type Severity Reaction Status Date / Time No Known Drug Allergies Allergy Verified 10/29/17 20:02 12/13/17 20:56 The patient presents with a chief complaint of: Fever, cough, reports that urine smells, sent from dialysis I have performed a brief in-person evaluation of this patient. Pertinent physical exam findings: Temp 103, HR 100, Lower mid abdominal pain. Rhonchi cleared with cough. I have ordered the following: CBC, CMP, UA, UC, Chest xray, Blood cultures. Lactic acid, rapid influenza The patient will proceed to the ED for further evaluation. Discharge Disposition - Diagnosis Fever Qualifiers: Fever type: unspecified Qualified Code(s): R50.9 - Fever, unspecified - Referrals - Patient Instructions - Post Discharge Activity
[2017-12-13] MEDS ORDERED: ACETAMINOPHEN 325 MG TABLET (FP) PO ONE (21:03)
[2017-12-13 21:07] VITALS: BMI 22.4
[2017-12-13 21:34] LABS: BASO % 0.6 % (0-2.0); HEMOGLOBIN 12.2 GM/dL (10.7-15.3); LYMPH % 5.5 % (8-40); MCH 21.2 pg (25.7-33.7); MCHC 30.6 g/dl (32.0-36.0); MEAN CELL VOLUME 69.3 fl (80-96); MEAN PLT VOLUME 11.8 fl (7.5-11.1); MONO % 13.8 % (3.8-10.2); NEUT % 79.1 % (42.8-82.8); PLATELET COUNT 107 K/MM3 (134-434); RBC 5.78 M/mm3 (3.60-5.2); RDW 15.5 % (11.6-15.6); WHITE BLOOD COUNT 7.2 K/mm3 (4.0-10.0)
[2017-12-13 21:39] LABS: ADD RBC MORPHOLOGY YES
[2017-12-13 21:50] LABS: INR 1.12 (0.82-1.09); PROTHROMBIN TIME (PATIENT) 12.7 SEC (9.98-11.88)
[2017-12-13 21:52] LABS: ACTIVATED PTT 35.7 SECONDS (26.9-34.4)
[2017-12-13 22:11] LABS: ALBUMIN 3.7 g/dl (3.4-5.0); ANION GAP 6 (8-16); BLOOD UREA NITROGEN 28 mg/dL (7-18); CALCIUM 8.4 mg/dL (8.5-10.1); CHLORIDE 99 mmol/L (98-107); CO2 31 mmol/L (21-32); GLUCOSE,RANDOM 95 mg/dL (74-106); POTASSIUM 3.8 mmol/L (3.5-5.1); SODIUM 136 mmol/L (136-145)
[2017-12-13 22:16] LABS: ANISOCYTOSIS 1+; PLATELET ESTIMATE DECREASED
[2017-12-13 22:17] LABS: ALK PHOS 100 U/L (45-117); BILIRUBIN,TOTAL 0.2 mg/dL (0.2-1.0); CREATININE 2.7 mg/dL (0.55-1.02); SGOT/AST 32 U/L (15-37); SGPT/ALT 43 U/L (12-78); TOT PROT 7.1 g/dl (6.4-8.2)
[2017-12-13] MEDS ORDERED: ACETAMINOPHEN 325 MG TABLET (FP) ONE (23:00)
--- NOTE | 2017-12-13 23:28 | PDOC ---
History of Present Illness <Neeru Rodriguez - Last Filed: 12/13/17 23:27> - General History Source: Patient Exam Limitations: No Limitations - History of Present Illness Initial Comments: 12/13/17 23:28 The patient is a 67 year old female with a significant past medical history of ESRD (on HD MWF), IDDM, HTN, HLD, and an umbilical hernia who presents to the ED with cough and abdominal pain for 2 days. The patient reports she finished dialysis today and was sent to the ED for a non productive cough. She states she urinates secondary to cough and has slight dysuria. She also reports generalized abdominal pain that is worsened in the lower quadrant. Patient states her abdominal pain is worsened with cough and she also reports mid sternal chest pain secondary to cough. She also reports a subjective fever and slight throat pain secondary to swallowing associated with present symptoms. Patient states her symptoms started after she received pneumovax on Wednesday. Denies nausea, vomiting, or diarrhea. [place] shortness of breath. Denies headache or dizziness. Denies nasal congestion or rhinorrhea. Denies any other symptoms. <Fanny Brody - Last Filed: 12/13/17 23:28> <Mehul Kinney - Last Filed: 12/14/17 02:59> - General Chief Complaint: SIRS, Suspected/Possible Stated Complaint: FEVER Time Seen by Provider: 12/13/17 19:30 Past History - Past Medical History COPD: No Diabetes: Yes Dialysis: Yes HTN: Yes Hypercholesterolemia: Yes - Surgical History Abdominal Surgery: Yes (hernia not repaired) - Suicide/Smoking/Psychosocial Hx Smoking Status: No Smoking History: Never smoked Have you smoked in the past 12 months: No Number of Cigarettes Smoked Daily: 0 If you are a former smoker, when did you quit?: 40YRS AGO Information on smoking cessation initiated: No Hx Alcohol Use: No Drug/Substance Use Hx: No Substance Use Type: None Hx Substance Use Treatment: No <Neeru Rodriguez - Last Filed: 12/13/17 23:27> <Fanny Brody - Last Filed: 12/13/17 23:28> <Mehul Kinney - Last Filed: 12/14/17 02:59> - Past Medical History Allergies/Adverse Reactions: Allergies Allergy/AdvReac Type Severity Reaction Status Date / Time No Known Drug Allergies Allergy Verified 12/13/17 21:07 Home Medications: Ambulatory Orders Hydralazine HCl [Apresoline -] 100 mg PO TID 05/30/14 Atorvastatin Ca [Lipitor] 80 mg PO DAILY 12/08/16 Amlodipine Besylate [Norvasc -] 5 mg PO DAILY #30 tablet 05/03/17 Metoprolol Succinate [Toprol XL -] 25 mg PO DAILY #30 tab.sr 05/28/17 Review of Systems - Review of Systems Able to Perform ROS?: Yes Comments:: 12/13/17 23:28 CONSTITUTIONAL:+ fever Absent: no fatigue EYES: Absent: visual changes ENT: + throat pain Absent: ear pain CARDIOVASCULAR: + chest pain Absent: no palpitations RESPIRATORY: + cough Absent: no SOB GI:+ abdominal pain Absent: no nausea, no vomiting, no constipation, no diarrhea GENITOURINARY: +dysuria Absent: no hematuria MUSKULOSKELETAL: Absent: back pain, no arthralgia, no myalgia SKIN: Absent: rash NEURO: Absent: headache All Other Systems: Reviewed and Negative <Fanny Brody - Last Filed: 12/13/17 23:28> *Physical Exam - Vital Signs Last Vital Signs Temp Pulse Resp BP Pulse Ox 103.1 F H 105 H 22 121/73 93 L 12/13/17 20:57 12/13/17 20:57 12/13/17 20:57 12/13/17 20:57 12/13/17 20:57 <Neeru Rodriguez - Last Filed: 12/13/17 23:27> - Vital Signs Last Vital Signs Temp Pulse Resp BP Pulse Ox 103.1 F H 105 H 22 121/73 93 L 12/13/17 20:57 12/13/17 20:57 12/13/17 20:57 12/13/17 20:57 12/13/17 20:57 - Physical Exam Comments: 12/13/17 23:28 GENERAL: Well-appearing, well-nourished. No apparent distress. HEENT: Normocephalic, atraumatic. PERRL, EOM intact. CARDIOVASCULAR: + Tachycardic, regular rhythm. Normal S1, S2. PULMONARY: Clear to auscultation bilaterally. ABDOMEN: +superpubic tenderness, no gaurding or rebound. Soft, non-distended. EXTREMITIES: + thrill to fistula on the right upper extremity. Trace pitting edema on the lower extremities bilaterally. Normal ROM in all four extremities. SKIN: Warm, dry. No rash NEUROLOGICAL: No focal neurological deficits. Normal speech. <Mary GraceArnulfoarmando - Last Filed: 12/13/17 23:28> - Vital Signs Last Vital Signs Temp Pulse Resp BP Pulse Ox 103.1 F H 105 H 22 121/73 93 L 12/13/17 20:57 12/13/17 20:57 12/13/17 20:57 12/13/17 20:57 12/13/17 20:57 <Mehul Kinney - Last Filed: 12/14/17 02:59> ED Treatment Course - LABORATORY CBC & Chemistry Diagram: 12/13/17 21:20 12/13/17 21:20 - ADDITIONAL ORDERS Additional order review: Laboratory Results 12/13/17 12/13/17 12/13/17 21:20 21:20 21:20 PT with INR INR PTT (Actin FS) Sodium 136 Potassium 3.8 Chloride 99 Carbon Dioxide 31 Anion Gap 6 L BUN 28 H Creatinine 2.7 H Creat Clearance w eGFR 17.47 Random Glucose 95 Lactic Acid 0.9 Calcium 8.4 L Total Bilirubin 0.2 AST 32 ALT 43 Alkaline Phosphatase 100 Creatine Kinase 190 Creatine Kinase Index 0.5 CK-MB (CK-2) < 1.000 Troponin I 0.03 Total Protein 7.1 Albumin 3.7 Blood Type O POSITIVE Antibody Screen Negative 12/13/17 21:20 PT with INR 12.70 H INR 1.12 PTT (Actin FS) 35.7 H Sodium Potassium Chloride Carbon Dioxide Anion Gap BUN Creatinine Creat Clearance w eGFR Random Glucose Lactic Acid Calcium Total Bilirubin AST ALT Alkaline Phosphatase Creatine Kinase Creatine Kinase Index CK-MB (CK-2) Troponin I Total Protein Albumin Blood Type Antibody Screen 12/13/17 21:20 RBC 5.78 H MCV 69.3 L MCHC 30.6 L RDW 15.5 MPV 11.8 H Neutrophils % 79.1 D Lymphocytes % 5.5 L D Monocytes % 13.8 H Eosinophils % 1.0 Basophils % 0.6 - Medications Given in the ED: ED Medications Discontinued Medications Generic Name Dose Route Start Last Admin Trade Name Freq PRN Reason Stop Dose Admin Acetaminophen 650 mg 12/13/17 21:03 12/13/17 23:05 Tylenol - PO 12/13/17 21:04 650 mg ONCE ONE Administration <Neeru Rodriguez - Last Filed: 12/13/17 23:27> - LABORATORY CBC & Chemistry Diagram: 12/13/17 21:20 12/13/17 21:20 - ADDITIONAL ORDERS Additional order review: Laboratory Results 12/13/17 12/13/17 12/13/17 21:20 21:20 21:20 PT with INR INR PTT (Actin FS) Sodium 136 Potassium 3.8 Chloride 99 Carbon Dioxide 31 Anion Gap 6 L BUN 28 H Creatinine 2.7 H Creat Clearance w eGFR 17.47 Random Glucose 95 Lactic Acid 0.9 Calcium 8.4 L Total Bilirubin 0.2 AST 32 ALT 43 Alkaline Phosphatase 100 Creatine Kinase 190 Creatine Kinase Index 0.5 CK-MB (CK-2) < 1.000 Troponin I 0.03 Total Protein 7.1 Albumin 3.7 Blood Type O POSITIVE Antibody Screen Negative 12/13/17 21:20 PT with INR 12.70 H INR 1.12 PTT (Actin FS) 35.7 H Sodium Potassium Chloride Carbon Dioxide Anion Gap BUN Creatinine Creat Clearance w eGFR Random Glucose Lactic Acid Calcium Total Bilirubin AST ALT Alkaline Phosphatase Creatine Kinase Creatine Kinase Index CK-MB (CK-2) Troponin I Total Protein Albumin Blood Type Antibody Screen 12/13/17 21:20 RBC 5.78 H MCV 69.3 L MCHC 30.6 L RDW 15.5 MPV 11.8 H Neutrophils % 79.1 D Lymphocytes % 5.5 L D Monocytes % 13.8 H Eosinophils % 1.0 Basophils % 0.6 - Medications Given in the ED: ED Medications Discontinued Medications Generic Name Dose Route Start Last Admin Trade Name Freq PRN Reason Stop Dose Admin Acetaminophen 650 mg 12/13/17 21:03 12/13/17 23:05 Tylenol - PO 12/13/17 21:04 650 mg ONCE ONE Administration <Fanny Brody - Last Filed: 12/13/17 23:28> - LABORATORY CBC & Chemistry Diagram: 12/13/17 21:20 12/13/17 21:20 - ADDITIONAL ORDERS Additional order review: Laboratory Results 12/13/17 12/13/17 12/13/17 21:20 21:20 21:20 PT with INR INR PTT (Actin FS) Sodium Potassium Chloride Carbon Dioxide Anion Gap BUN Creatinine Creat Clearance w eGFR Random Glucose Lactic Acid 0.9 Calcium Total Bilirubin AST ALT Alkaline Phosphatase Creatine Kinase Creatine Kinase Index CK-MB (CK-2) Troponin I Total Protein Albumin Lipase 449 H Blood Type O POSITIVE Antibody Screen Negative 12/13/17 12/13/17 21:20 21:20 PT with INR 12.70 H INR 1.12 PTT (Actin FS) 35.7 H Sodium 136 Potassium 3.8 Chloride 99 Carbon Dioxide 31 Anion Gap 6 L BUN 28 H Creatinine 2.7 H Creat Clearance w eGFR 17.47 Random Glucose 95 Lactic Acid Calcium 8.4 L Total Bilirubin 0.2 AST 32 ALT 43 Alkaline Phosphatase 100 Creatine Kinase 190 Creatine Kinase Index 0.5 CK-MB (CK-2) < 1.000 Troponin I 0.03 Total Protein 7.1 Albumin 3.7 Lipase Blood Type Antibody Screen 12/14/17 01:00 Influenza Types A,B Antigen (MONIKA) - Final Nasopharyngeal Swab - Final 12/13/17 21:20 RBC 5.78 H MCV 69.3 L MCHC 30.6 L RDW 15.5 MPV 11.8 H Neutrophils % 79.1 D Lymphocytes % 5.5 L D Monocytes % 13.8 H Eosinophils % 1.0 Basophils % 0.6 - Medications Given in the ED: ED Medications Discontinued Medications Generic Name Dose Route Start Last Admin Trade Name Freq PRN Reason Stop Dose Admin Acetaminophen 650 mg 12/13/17 21:03 12/13/17 23:05 Tylenol - PO 12/13/17 21:04 650 mg ONCE ONE Administration Vancomycin HCl 1,000 mg/ 250 mls @ 250 mls/hr 12/14/17 01:14 12/14/17 02:25 Dextrose IVPB 12/14/17 02:13 250 mls/hr ONCE ONE Administration Protocol Azithromycin 500 mg/ Dextrose 250 mls @ 250 mls/hr 12/14/17 01:16 12/14/17 01 :43 IVPB 12/14/17 02:15 250 mls/hr ONCE ONE Administration Sodium Chloride 1,000 mls @ 1,000 mls/hr 12/14/17 01:58 12/14/17 02:07 Normal Saline - IV 12/14/17 02:57 1,000 mls/hr ASDIR STA Administration <Kinney,Mehul - Last Filed: 12/14/17 02:59> *DC/Admit/Observation/Transfer <Neeru Rodriguez - Last Filed: 12/13/17 23:27> - Attestations Scribe Attestion: 12/13/17 23:28 Documentation prepared by Fanny Brody, acting as medical language specialist for Neeru Rodriguez DO <Fanny Brody - Last Filed: 12/13/17 23:28> - Discharge Dispostion Admit: Yes <Mehul Kinney - Last Filed: 12/14/17 02:59> Diagnosis at time of Disposition: Pancreatitis Fever Qualifiers: Fever type: unspecified Qualified Code(s): R50.9 - Fever, unspecified - Referrals Referrals: STAFF,NOT ON [Primary Care Provider] - - Patient Instructions - Post Discharge Activity
[2017-12-14] MEDS ORDERED: VANCOMYCIN 1,000 MG in DEXTROSE 5%-WATER - 250 ML IVPB ONE (01:14)
[2017-12-14] MEDS ORDERED: PIPERACIL/TAZOB 3.375 GM 3.375 GM/50 ML PREMIX IVPB ONE (01:15)
[2017-12-14] MEDS ORDERED: AZITHROMYCIN IVPB 500 MG in DEXTROSE 5%-WATER - 250 ML IVPB ONE (01:16)
[2017-12-14] MEDS ORDERED: AZITHROMYCIN IVPB 250 ML IVPB ONE (01:38)
[2017-12-14] MEDS ORDERED: SODIUM CHLORIDE 1,000 ML IV STA (01:58)
--- NOTE | 2017-12-14 02:18 | HP ---
Admitting History and Physical - Primary Care Physician PCP: Erin Jack - Admission Chief Complaint: Fever, Cough, Abdominal Pain, Dysuria History of Present Illness: This is a 67 y/o woman who presented to the ED from the [facility] for fever, cough, abdominal pain and dysuria. Patient reports feeling ill since last Wednesday after receiving the Flu vaccine. She reports having Fever, bodyaches , throat pain and burning, dark- greenish malodorous urine. She denies SOB, CP, N/V/D, constipation. Patient denies recent sick contacts History Source: Patient Limitations to Obtaining History: No Limitations - Past Medical History Cardiovascular: Yes: HTN, Hyperlipdemia Gastrointestinal: Yes: GERD, Pancreatitis, Other (Hd similar abdominal pain in [place] afew years ago and was told she has gallstones.) Hepatobiliary: Yes: Cholelithiasis Renal/: Yes: Renal Inusuff, Hemodialysis Heme/Onc: Yes: Anemia, Sickle Cell Trait Endocrine: Yes: Diabetes Mellitus - Past Surgical History Past Surgical History: Yes: AV Fistula/Graft (right upper arm) - Smoking History Smoking history: Never smoked Have you smoked in the past 12 months: No Aproximately how many cigarettes per day: 0 If you are a former smoker, when did you quit?: 40YRS AGO - Alcohol/Substance Use Hx Alcohol Use: No History of Substance Use: reports: None - Social History Usual Living Arrangement: Yes: Alone ADL: Independent History of Recent Travel: No Home Medications - Allergies Allergies/Adverse Reactions: Allergies Allergy/AdvReac Type Severity Reaction Status Date / Time No Known Drug Allergies Allergy Verified 12/13/17 21:07 - Home Medications Home Medications: Ambulatory Orders Hydralazine HCl [Apresoline -] 100 mg PO TID 05/30/14 Atorvastatin Ca [Lipitor] 80 mg PO DAILY 12/08/16 Amlodipine Besylate [Norvasc -] 5 mg PO DAILY #30 tablet 05/03/17 Metoprolol Succinate [Toprol XL -] 25 mg PO DAILY #30 tab.sr 05/28/17 Family Disease History - Family Disease History Family Disease History: Other: Son (sickle cell disease, ), Daughter ( sickle cell trait) Review of Systems - Review of Systems Constitutional: reports: Chills, Fever, Loss of Appetite, Malaise, Weakness Eyes: reports: No Symptoms HENT: reports: Throat Pain Neck: reports: No Symptoms Cardiovascular: reports: Edema (lower legs) Respiratory: reports: Cough Gastrointestinal: reports: Abdominal Pain. denies: Constipation, Diarrhea, Rectal Bleeding Genitourinary: reports: Burning, Dysuria Breasts: reports: No Symptoms Reported Musculoskeletal: reports: Back Pain Neurological: reports: No Symptoms Endocrine: reports: No Symptoms Hematology/Lymphatic: reports: No Symptoms Psychiatric: reports: No Symptoms Pain Intensity: 5 Physical Examination Vital Signs: Vital Signs Temperature 103.1 F H 12/13/17 20:57 Pulse Rate 105 H 12/13/17 20:57 Respiratory Rate 22 12/13/17 20:57 Blood Pressure 121/73 12/13/17 20:57 O2 Sat by Pulse Oximetry (%) 93 L 12/13/17 20:57 Constitutional: Yes: No Distress, Calm, Thin Eyes: Yes: WNL, Conjunctiva Clear, EOM Intact, PERRL HENT: Yes: WNL, Atraumatic, Normocephalic Neck: Yes: WNL, Supple, Trachea Midline Cardiovascular: Yes: WNL, Regular Rate and Rhythm, S1, S2 Respiratory: Yes: Cough, On Nasal O2, Rales (bases), Rhonchi, Tachypnea, Wheezes Gastrointestinal: Yes: Normal Bowel Sounds, Tenderness (supra pubic), Tenderness , Epigastrium Musculoskeletal: Yes: WNL Extremities: Yes: WNL, Other (AV Fistula- +thrill noted) Edema: Yes Edema: LLE: 2+, RLE: 2+ Peripheral Pulses WNL: Yes Integumentary: Yes: WNL Neurological: Yes: WNL, Alert, Oriented, Cran Nerves II-XII Intact ...Motor Strength: WNL Psychiatric: Yes: WNL Labs: CBC, BMP 12/13/17 21:20 12/13/17 21:20 Laboratory Results - last 24 hr 12/13/17 12/13/17 12/13/17 21:20 21:20 21:20 WBC 7.2 RBC 5.78 H Hgb 12.2 D Hct 40.0 MCV 69.3 L MCH 21.2 L MCHC 30.6 L RDW 15.5 Plt Count 107 L D MPV 11.8 H Neutrophils % 79.1 D Lymphocytes % 5.5 L D Monocytes % 13.8 H Eosinophils % 1.0 Basophils % 0.6 Hypochromia 1+ Platelet Estimate Decreased Platelet Comment No clumping noted Anisocytosis 1+ Microcytosis 1+ PT with INR 12.70 H INR 1.12 PTT (Actin FS) 35.7 H Sodium 136 Potassium 3.8 Chloride 99 Carbon Dioxide 31 Anion Gap 6 L BUN 28 H Creatinine 2.7 H Creat Clearance w eGFR 17.47 Random Glucose 95 Lactic Acid Calcium 8.4 L Total Bilirubin 0.2 AST 32 ALT 43 Alkaline Phosphatase 100 Creatine Kinase 190 Creatine Kinase Index 0.5 CK-MB (CK-2) < 1.000 Troponin I 0.03 Total Protein 7.1 Albumin 3.7 Lipase Blood Type Antibody Screen 12/13/17 12/13/17 12/13/17 21:20 21:20 21:20 WBC RBC Hgb Hct MCV MCH MCHC RDW Plt Count MPV Neutrophils % Lymphocytes % Monocytes % Eosinophils % Basophils % Hypochromia Platelet Estimate Platelet Comment Anisocytosis Microcytosis PT with INR INR PTT (Actin FS) Sodium Potassium Chloride Carbon Dioxide Anion Gap BUN Creatinine Creat Clearance w eGFR Random Glucose Lactic Acid 0.9 Calcium Total Bilirubin AST ALT Alkaline Phosphatase Creatine Kinase Creatine Kinase Index CK-MB (CK-2) Troponin I Total Protein Albumin Lipase 449 H Blood Type O POSITIVE Antibody Screen Negative Imaging - Results Chest X-ray: Image Reviewed (?RML Infiltrate) EKG: Pending Problem List - Problems (1) Sepsis Code(s): A41.9 - SEPSIS, UNSPECIFIED ORGANISM (2) Fever Code(s): R50.9 - FEVER, UNSPECIFIED Qualifiers: Fever type: unspecified Qualified Code(s): R50.9 - Fever, unspecified (3) Abdominal pain Code(s): R10.9 - UNSPECIFIED ABDOMINAL PAIN (4) CKD (chronic kidney disease) Code(s): N18.9 - CHRONIC KIDNEY DISEASE, UNSPECIFIED Qualifiers: Chronic kidney disease stage: on chronic dialysis Qualified Code(s): N18.6 - End stage renal disease (5) End stage renal disease Code(s): N18.6 - END STAGE RENAL DISEASE (6) Atrial fibrillation Code(s): I48.91 - UNSPECIFIED ATRIAL FIBRILLATION (7) Hypertension Code(s): I10 - ESSENTIAL (PRIMARY) HYPERTENSION Qualifiers: Hypertension type: essential hypertension Qualified Code(s): I10 - Essential (primary) hypertension (8) DVT prophylaxis Code(s): [id number] - Assessment/Plan 67 y/o woman with a PMHx of ESRD (M,W,F), HTN, DM. Admitted for Sepsis secondary to Influenza and Superimposed Pneumonia. Plan: 1. ID Sepsis Influenza Pneumonia - Will admit to M/S - Influenza A+, place on isolation precautions- droplet - Tamiflu renal dosing - CURB65 Score 2 - qSOFA 1 - SIRS Criteria MET IV- T max 103.5, P 105, R 22, Spo2 93% - Chest Xray image- suspicious for RML Infiltrate, continue Zosyn renal dosing - Given Vancomycin, Zosyn in ED - Blood Cultures-pending - Appreciate ID Consult - Consider Pulm consult - Tylenol prn - Monitor CBC, BMP - Urine Legionella - Monitor vitals - O2 prn 2. UTI Pyelonephritis - U/A, Urine Culture-pending, ordered straight cath- suspect UTI r/o Pyelonephritis - Continue ABX - Monitor vitals 3.Nephrology ESRD - HD- Mon,Wed, Wed - Appreciate Nephrology Consult- HD Management - Avoid Nephrotoxic agents 4. Endocrinology Diabetes Mellitus Type II - BGMs - ISS 5. Cardiology Afib HTN HLD - Controlled - Monitor BP - [id number] Score 4 - Continue home meds - EKG- pending 6. FEN - Fluid Restrictions 1L - Replete lytes prn - NPO then advance to Renal, Low Na, Diabetic Diet as tolerated 7. DVT Prophylaxis - OOB - Heparin SQ Code Status: Full Code Dispo: Requires Inpatient Care Visit type - Emergency Visit Emergency Visit: Yes ED Registration Date: 12/13/17 Care time: The patient presented to the Emergency Department on the above date and was hospitalized for further evaluation of their emergent condition. - New Patient This patient is new to me today: Yes Date on this admission: 12/14/17 - Critical Care Critical Care patient: No
[2017-12-14] MEDS ORDERED: VANCOMYCIN 1 GRAM (PRE-DOCKED) 1,000 MG/250 ML BAG IVPB ONE (02:22)
[2017-12-14] MEDS ORDERED: OSELTAMIVIR PHOSPHATE 30 MG CAPSULE PO ONE ×2 (02:27→03:16)
[2017-12-14] MEDS ORDERED: PIPERACILLIN/TAZOB 3.375 GM 3.375 GM in DEXTROSE 5%-WATER - 100 ML IVPB ONE (03:15)
[2017-12-14 04:21] LABS: URINE APPEARANCE CLEAR; URINE BILIRUBIN NEGATIVE (NEGATIVE); URINE BLOOD NEGATIVE (NEGATIVE); URINE COLOR LTYELLOW; URINE GLUCOSE (UA) 1+ (NEGATIVE); URINE KETONE NEGATIVE (NEGATIVE); URINE LEUK ESTERASE NEGATIVE (NEGATIVE); URINE NITRITE NEGATIVE (NEGATIVE); URINE UROBILINOGEN NEGATIVE mg/dL (0.2-1.0)
[2017-12-14 05:02] LABS: URINE PROTEIN 2+ (NEGATIVE)
[2017-12-14 05:03] LABS: EPI CELLS RARE /HPF (FEW); URINE BACTERIA RARE /hpf (NONE SEEN)
[2017-12-14 07:51] LABS: BASO % 0.5 % (0-2.0); EOS % 0.3 % (0-4.5); HEMATOCRIT 36.6 % (32.4-45.2); HEMOGLOBIN 11.2 GM/dL (10.7-15.3); LYMPH % 15.5 % (8-40); MCH 21.2 pg (25.7-33.7); MCHC 30.5 g/dl (32.0-36.0); MEAN CELL VOLUME 69.6 fl (80-96); MEAN PLT VOLUME 12.3 fl (7.5-11.1); MONO % 24.2 % (3.8-10.2); NEUT % 59.5 % (42.8-82.8); RBC 5.26 M/mm3 (3.60-5.2); WHITE BLOOD COUNT 5.2 K/mm3 (4.0-10.0)
[2017-12-14 08:28] LABS: ANION GAP 10 (8-16); BLOOD UREA NITROGEN 33 mg/dL (7-18); CALCIUM 8.3 mg/dL (8.5-10.1); CHLORIDE 97 mmol/L (98-107); CO2 29 mmol/L (21-32); GLUCOSE,RANDOM 130 mg/dL (74-106); POTASSIUM 3.9 mmol/L (3.5-5.1); SODIUM 136 mmol/L (136-145)
[2017-12-14 08:31] LABS: AMYLASE 106 U/L (25-115); CREATININE 3.3 mg/dL (0.55-1.02)
[2017-12-14] MEDS ORDERED: ACETAMINOPHEN 325 MG TABLET (FP) ONE (09:08)
[2017-12-14] MEDS: ACETAMINOPHEN 325 MG TABLET (FP) PO PRN ×2 (09:10→18:22)
[2017-12-14] MEDS ORDERED: PIPERACILLIN/TAZOB 2.25 GM/50 ML PREMIX BAG IVPB SCH (10:00)
[2017-12-14] MEDS ORDERED: HEPARIN NA (PORCINE) 5,000 UNITS/ML 1ML VIAL SQ SCH (10:00)
[2017-12-14] MEDS: CEFTRIAXONE 1 G/50 ML PREMIX 50 ML IVPB SCH (11:30)
[2017-12-14] MEDS: AZITHROMYCIN IVPB 250 MG in DEXTROSE 5%-WATER - 250 ML IVPB SCH (12:24)
[2017-12-14 12:25] LABS: PLATELET ESTIMATE DECREASED
[2017-12-14] MEDS: LACTOBACILLUS ACIDOPHILUS 1 EACH TAB (FP) PO SCH (12:29)
--- NOTE | 2017-12-14 13:33 | PN ---
Addendum entered and electronically signed by Quincy Rodriguez MD 12/14/17 16:15 : Patient seen and examined with Meena Sellers NP. Plan discussed and detailed below. Will continue on tamiflu/rocephin/zithromax. When afebrile for 48-72 hours will change to oral antibiotics and plan for discharge. Discrepancy noted between office medication list and patient list. Case d/w Dr Callahan, will obtain HD notes for most up to date medication list. Original Note: Progress Note, Physician Chief Complaint: Pt reports pleuritic chest discomfort upon coughing, and dysuria. Pt appears in no acute distress. Denies chest pain, sob, or n/v/d. - Current Medication List Current Medications: Active Medications Acetaminophen (Tylenol -) 650 mg PO Q6H PRN PRN Reason: FEVER Last Admin: 12/14/17 09:10 Dose: 650 mg Azithromycin 250 mg/ Dextrose 250 mls @ 250 mls/hr IVPB DAILY [facility] Last Admin: 12/14/17 12:24 Dose: 250 mls/hr CEFTRIAXONE 1 G/50 ML PREMIX (Ceftriaxone 1 Gm-D5w Bag) 50 mls @ 100 mls/hr IVPB DAILY [facility] Last Admin: 12/14/17 11:30 Dose: 100 mls/hr Lactobacillus Acidophilus (Bacid -) 1 tab PO DAILY [facility] Last Admin: 12/14/17 12:29 Dose: Not Given Oseltamivir Phosphate (Tamiflu -) 30 mg PO MOWEFR [facility] Stop: 12/24/17 09:59 - Objective Vital Signs: Vital Signs Temperature 101.4 F H 12/14/17 11:00 Pulse Rate 72 12/14/17 11:00 Respiratory Rate 18 12/14/17 11:00 Blood Pressure 150/66 12/14/17 11:00 O2 Sat by Pulse Oximetry (%) 99 12/14/17 11:00 Constitutional: Yes: Well Nourished, No Distress, Calm Cardiovascular: Yes: WNL, Regular Rate and Rhythm Respiratory: Yes: Cough, Diminished, Rales (bibasilar) Gastrointestinal: Yes: Normal Bowel Sounds, Soft, Hernia (umbillical) Extremities: Yes: WNL Edema: No Neurological: Yes: WNL, Alert Psychiatric: Yes: WNL, Alert Labs: CBC, BMP 12/14/17 05:55 12/14/17 07:16 INR, PTT INR 1.12 (0.82-1.09) 12/13/17 21:20 - ....Imaging Chest X-ray: Report Reviewed Problem List - Problems (1) Influenza A Assessment/Plan: Influenza A positive Tamiflu 11/26 Droplet precautions Code(s): J10.1 - FLU DUE TO OTH IDENT INFLUENZA VIRUS W OTH RESP MANIFEST (2) Fever Assessment/Plan: Influenza A positive, chest xray neg, UA neg, wbcs normal, pt hemodynamically stable On Ceftriaxone, Azithromycin per ID Received zosyn and vanco in ed Follow up on blood cultures, urine culture Code(s): R50.9 - FEVER, UNSPECIFIED Qualifiers: Fever type: unspecified Qualified Code(s): R50.9 - Fever, unspecified (3) Dysuria Assessment/Plan: Pt reports dysuria UA neg, UC pending follow up on blood cultures Code(s): R30.0 - DYSURIA (4) CKD (chronic kidney disease) Assessment/Plan: ESRD, on HD Nephrology consulted Code(s): N18.9 - CHRONIC KIDNEY DISEASE, UNSPECIFIED Qualifiers: Chronic kidney disease stage: on chronic dialysis Qualified Code(s): N18.6 - End stage renal disease (5) Diabetes Assessment/Plan: blood sugars stable Received ambulatory medication list, currently on Lantus 30units HS Code(s): E11.9 - TYPE 2 DIABETES MELLITUS WITHOUT COMPLICATIONS Qualifiers: Diabetes mellitus type: type 2 Diabetes mellitus complication status: with kidney complications Diabetes mellitus complication detail: with chronic kidney disease Diabetes mellitus intermediate insulin use: with intermediate use Chronic kidney disease stage: on chronic dialysis Qualified Code(s): E11.22 - Type 2 diabetes mellitus with diabetic chronic kidney disease; N18.6 - End stage renal disease; N18.6 - End stage renal disease; N18.6 - End stage renal disease; N18.6 - End stage renal disease; Z79.4 - longterm (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 insulin; 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; Z79.4 - longterm (current ) use of insulin; Z79.4 - longterm (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 insulin; Z99.2 - Dependence on renal dialysis; Z99.2 - Dependence on renal dialysis; Z99.2 - Dependence on renal dialysis; Z99.2 - Dependence on renal dialysis (6) Hypertension Assessment/Plan: Continue home meds, list verified from dialysis and pcp office Amlodipine 5mg daily Hydralazine 100mg TID Eliquis 5mg bid Isosorbide mononitrate 60mg BID Code(s): I10 - ESSENTIAL (PRIMARY) HYPERTENSION Qualifiers: Hypertension type: essential hypertension Qualified Code(s): I10 - Essential (primary) hypertension (7) Umbilical hernia Assessment/Plan: Stable Will monitor for changes Code(s): K42.9 - UMBILICAL HERNIA WITHOUT OBSTRUCTION OR GANGRENE Qualifiers: Obstruction and gangrene presence: without obstruction or gangrene Qualified Code(s): K42.9 - Umbilical hernia without obstruction or gangrene (8) Pleurisy Assessment/Plan: Pt reports pleuritic pain when coughing, troponin neg Treat the underlying conditions and monitor for improvement Code(s): R09.1 - PLEURISY (9) HLD (hyperlipidemia) Assessment/Plan: Lipitor 80mg daily Code(s): E78.5 - HYPERLIPIDEMIA, UNSPECIFIED
[2017-12-14] MEDS: hydrALAZINE HCL 50 MG TABLET (FP) PO SCH ×2 (14:29→22:20)
--- NOTE | 2017-12-14 15:04 | CON.ID ---
Consult Consult Specialty:: infectious diseases Referred by:: Reason for Consultation:: influenza,fever - History of Present Illness Chief Complaint: weakness cvough ,fever History of Present Illness: 67 year old woman with PMhx of ESRD on HD , Hypertension, DM, Hx of Pancreatitis who came in with complaints of cough, throat pain and abd pain . Patient was worked up and found to have inflenza positive and slightly elevated lipase. Pt s/p last dialysis yesterday w/o issue. + Fever at dialysis. No CP, SOB, N/V. + Anorexia. currently feels very weak and tired - History Source History Provided By: Patient Limitations to Obtaining History: No Limitations - Past Medical History Cardio/Vascular: Yes: HTN, Hyperlipdemia Gastrointestinal: Yes: GERD, Pancreatitis, Other (Hd similar abdominal pain in [place] afew years ago and was told she has gallstones.) Hepatobiliary: Yes: Cholelithiasis Renal/: Yes: Renal Inusuff, Hemodialysis Endocrine: Yes: Diabetes Mellitus - Past Surgical History Past Surgical History: Yes: AV Fistula/Graft (right upper arm) - Alcohol/Substance Use Hx Alcohol Use: No History of Substance Use: reports: None - Smoking History Smoking history: Never smoked Have you smoked in the past 12 months: No Aproximately how many cigarettes per day: 0 If you are a former smoker, when did you quit?: 40YRS AGO - Social History ADL: Independent History of Recent Travel: No Home Medications - Allergies Allergies/Adverse Reactions: Allergies Allergy/AdvReac Type Severity Reaction Status Date / Time No Known Drug Allergies Allergy Verified 12/13/17 21:07 - Home Medications Home Medications: Ambulatory Orders Hydralazine HCl [Apresoline -] 100 mg PO TID 05/30/14 Atorvastatin Ca [Lipitor] 80 mg PO DAILY 12/08/16 Amlodipine Besylate [Norvasc -] 5 mg PO DAILY #30 tablet 05/03/17 Metoprolol Succinate [Toprol XL -] 25 mg PO DAILY #30 tab.sr 05/28/17 Family Disease History - Family Disease History Family Disease History: Other: Son (sickle cell disease, ), Daughter ( sickle cell trait) Review of Systems - Review of Systems Constitutional: reports: Fever, Lethargy, Other Eyes: reports: No Symptoms HENT: reports: No Symptoms Neck: reports: No Symptoms Cardiovascular: reports: No Symptoms Respiratory: reports: No Symptoms Gastrointestinal: reports: No Symptoms Genitourinary: reports: No Symptoms Musculoskeletal: reports: Muscle Weakness Integumentary: reports: No Symptoms Neurological: reports: No Symptoms Endocrine: reports: No Symptoms Hematology/Lymphatic: reports: No Symptoms Psychiatric: reports: No Symptoms Physical Exam Vital Signs: Vital Signs Temperature 101.4 F H 12/14/17 11:00 Pulse Rate 72 12/14/17 11:00 Respiratory Rate 18 12/14/17 11:00 Blood Pressure 150/66 12/14/17 11:00 O2 Sat by Pulse Oximetry (%) 99 12/14/17 11:00 Constitutional: Yes: Mild Distress, Other Eyes: Yes: Conjunctiva Clear HENT: Yes: Atraumatic Neck: Yes: Supple, Trachea Midline Cardiovascular: Yes: Regular Rate and Rhythm Respiratory: Yes: Regular, Poor Air Entry, Other (crackles) Gastrointestinal: Yes: Normal Bowel Sounds, Soft Extremities: Yes: Other (av fistula) Neurological: Yes: Alert Psychiatric: Yes: Alert Labs: CBC, BMP 12/14/17 05:55 12/14/17 07:16 Imaging - Results Chest X-ray: Report Reviewed, Image Reviewed Assessment/Plan Problem List - Problems (1) Influenza A Code(s): J10.1 - FLU DUE TO OTH IDENT INFLUENZA VIRUS W OTH RESP MANIFEST (2) Fever Code(s): R50.9 - FEVER, UNSPECIFIED Qualifiers: Fever type: unspecified Qualified Code(s): R50.9 - Fever, unspecified (3) Dysuria Code(s): R30.0 - DYSURIA (4) CKD (chronic kidney disease) Code(s): N18.9 - CHRONIC KIDNEY DISEASE, UNSPECIFIED Qualifiers: Chronic kidney disease stage: on chronic dialysis Qualified Code(s): N18.6 - End stage renal disease (5) Diabetes Code(s): E11.9 - TYPE 2 DIABETES MELLITUS WITHOUT COMPLICATIONS Qualifiers: Diabetes mellitus type: type 2 Diabetes mellitus complication status: with kidney complications Diabetes mellitus complication detail: with chronic kidney disease 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: with adjunct faculty 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 use Chronic kidney disease stage: on chronic dialysis Qualified Code(s): E11.22 - Type 2 diabetes mellitus with diabetic chronic kidney disease; N18.6 - End stage renal disease; N18.6 - End stage renal disease; N18.6 - End stage renal disease; N18.6 - End stage renal disease; Z79.4 - adjunct faculty 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 (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 insulin; Z79.4 - longterm (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 insulin; Z79.4 - longterm (current ) use of insulin; Z79.4 - adjunct faculty 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 (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 insulin; Z99.2 - Dependence on renal dialysis; Z99.2 - Dependence on renal dialysis; Z99.2 - Dependence on renal dialysis; Z99.2 - Dependence on renal dialysis (6) Hypertension Code(s): I10 - ESSENTIAL (PRIMARY) HYPERTENSION Qualifiers: Hypertension type: essential hypertension Qualified Code(s): I10 - Essential (primary) hypertension (7) Umbilical hernia Code(s): K42.9 - UMBILICAL HERNIA WITHOUT OBSTRUCTION OR GANGRENE Qualifiers: Obstruction and gangrene presence: without obstruction or gangrene Qualified Code(s): K42.9 - Umbilical hernia without obstruction or gangrene (8) Pleurisy Code(s): R09.1 - PLEURISY (9) HLD (hyperlipidemia) Code(s): E78.5 - HYPERLIPIDEMIA, UNSPECIFIED patient has been started on ceftriaxone which i completely agree plan continue abx for now monitor for fever rest as per medicine and nephrology
[2017-12-14] MEDS ORDERED: amLODIPine BESYLATE 5 MG TABLET (FP) PO ONE ×2 (15:23→18:15)
[2017-12-14 15:24] LABS: PLATELET COUNT 92 K/MM3 (134-434)
[2017-12-14] MEDS ORDERED: DOCUSATE SODIUM 100 MG CAPSULE (FP) PO PRN (16:26)
[2017-12-14] MEDS ORDERED: amLODIPine BESYLATE 5 MG TABLET (FP) ONE (16:33)
[2017-12-14] MEDS ORDERED: METOPROLOL SUCCINATE 50 MG TAB.SR.24H (FP) PO ONE (18:15)
--- NOTE | 2017-12-14 18:31 | CON.NEP ---
Consult Consult Specialty:: Nephrology Referred by:: Dr. Rodriguez Reason for Consultation:: ESRD on Hd - History of Present Illness Chief Complaint: Cough, throat Pain, Abd pain, Fever History of Present Illness: This is a 67 year old woman with PMhx of ESRD on HD (MWF), Hypertension, DM, Hx of Pancreatitis who presented with complaints of cough, throat pain and abd pain and found to have influenza and slightly elevated lipase. Pt s/p last dialysis yesterday w/o issue. + Fever at dialysis. No CP, SOB, N/V. + Anorexia. - History Source History Provided By: Patient Limitations to Obtaining History: No Limitations - Past Medical History Cardio/Vascular: Yes: HTN, Hyperlipdemia Gastrointestinal: Yes: GERD, Pancreatitis, Other (Hd similar abdominal pain in [place] afew years ago and was told she has gallstones.) Hepatobiliary: Yes: Cholelithiasis Renal/: Yes: Renal Inusuff, Hemodialysis Endocrine: Yes: Diabetes Mellitus - Past Surgical History Past Surgical History: Yes: AV Fistula/Graft (right upper arm) - Alcohol/Substance Use Hx Alcohol Use: No History of Substance Use: reports: None - Smoking History Smoking history: Never smoked Have you smoked in the past 12 months: No Aproximately how many cigarettes per day: 0 If you are a former smoker, when did you quit?: 40YRS AGO - Social History ADL: Independent History of Recent Travel: No Home Medications - Allergies Allergies/Adverse Reactions: Allergies Allergy/AdvReac Type Severity Reaction Status Date / Time No Known Drug Allergies Allergy Verified 12/13/17 21:07 - Home Medications Home Medications: Ambulatory Orders Hydralazine HCl [Apresoline -] 100 mg PO TID 05/30/14 Atorvastatin Ca [Lipitor] 80 mg PO DAILY 12/08/16 Amlodipine Besylate [Norvasc -] 5 mg PO DAILY #30 tablet 05/03/17 Metoprolol Succinate [Toprol XL -] 25 mg PO DAILY #30 tab.sr 05/28/17 Family Disease History - Family Disease History Family Disease History: Other: Son (sickle cell disease, ), Daughter ( sickle cell trait) Review of Systems - Review of Systems Constitutional: reports: Fever, Lethargy, Loss of Appetite Eyes: reports: No Symptoms HENT: reports: No Symptoms Neck: reports: No Symptoms Cardiovascular: reports: No Symptoms Respiratory: reports: Cough Gastrointestinal: reports: Abdominal Pain Musculoskeletal: reports: No Symptoms Integumentary: reports: No Symptoms Neurological: reports: No Symptoms Nephrology Consult - Height Height: 5 ft 7 in - Weight Weight: 65 kg - BMI Body Mass Index (BMI): 22.4 - Lab Results CBC,BMP: CBC, BMP 12/14/17 05:55 12/14/17 07:16 Anion Gap: Anion Gap Anion Gap 10 (8-16) 12/14/17 07:16 - Imaging Chest X-ray: Report Reviewed - Physical Examination Vital Signs: Vital Signs Temperature 101.1 F H 12/14/17 17:33 Pulse Rate 74 12/14/17 17:33 Respiratory Rate 18 12/14/17 17:33 Blood Pressure 193/73 12/14/17 17:33 O2 Sat by Pulse Oximetry (%) 97 12/14/17 14:25 Constitutional: Yes: No Distress, Calm Eyes: Yes: Conjunctiva Clear HENT: Yes: Atraumatic Neck: Yes: Supple Cardiovascular: Yes: Regular Rate and Rhythm Respiratory: Yes: Regular Gastrointestinal: Yes: Normal Bowel Sounds, Soft. No: Tenderness Renal/: No: Bladder Distention Access for Hemodialysis: AV Fistula Edema: No Assessment/Plan 67 year old woman with PMhx of ESRD on HD (MWF), Hypertension, DM, Hx of Pancreatitis who presented with complaints of cough, throat pain and abd pain and found to have influenza and slightly elevated lipase. #Fever/Influenza/Abd pain + for Influenza A on Ceftriaxone/Zithromax/Tamiflu cultures pending no CXR evidence of PNA Lipase slightly elevated, if continues to rise would check Abd US supportive care #ESRD on HD for dialysis tomorrow as inpatient UF as tolerated Renal Diet Dose all meds for intermittent HD #Hypertension BP above ga[place] in hospital Continue Amlodpine, Hydralazine, Imdur, Metoprolol extra dose of amlodpine and hydralazine to get be given tonight can consider dose of CARLYLE/ARB if bp not well controlled. Thank you Will follow Ignacio Callahan DO
[2017-12-14] MEDS ORDERED: PT OWN MED DRAWER 7, Y5N ONE (21:50)
[2017-12-14] MEDS: ATORVASTATIN CA 80 MG TABLET (FP) PO SCH (22:20)
[2017-12-14] MEDS: APIXABAN 5 MG TABLET PO SCH (22:20)
[2017-12-14] MEDS: INSULIN DETEMIR 100 UNITS/ML MDV SQ SCH (22:20)
[2017-12-14] MEDS: ISOSORBIDE MONONITRATE 60 MG TAB.SR.24H (FP) PO SCH (22:20)
[2017-12-15] MEDS: ACETAMINOPHEN 325 MG TABLET (FP) PO PRN (00:51)
[2017-12-15] MEDS: MENTHOL/PHENOL 1 EACH UD MM PRN ×2 (00:52→07:45)
[2017-12-15] MEDS: hydrALAZINE HCL 50 MG TABLET (FP) PO SCH ×3 (06:15→21:19)
[2017-12-15] MEDS: INSULIN DETEMIR 100 UNITS/ML MDV SQ SCH ×2 (07:06→21:20)
--- NOTE | 2017-12-15 08:07 | EKG ---
Test Reason : Blood Pressure : / mmHG Vent. Rate : 083 BPM Atrial Rate : 083 BPM P-R Int : 176 ms QRS Dur : 098 ms QT Int : 386 ms P-R-T Axes : 071 -21 085 degrees QTc Int : 453 ms NORMAL SINUS RHYTHM NONSPECIFIC T WAVE ABNORMALITY ABNORMAL ECG WHEN COMPARED WITH ECG OF 29-OCT-2017 22:40, NO SIGNIFICANT CHANGE WAS FOUND Confirmed by ASTRID HOFF MD ([id number]) on 12/15/2017 8:07:22 AM Referred By: Confirmed By:ASTRID HOFF MD
[2017-12-15] MEDS ORDERED: ATORVASTATIN CA 80 MG TABLET (FP) PO SCH (10:00)
[2017-12-15] MEDS ORDERED: METOPROLOL SUCCINATE 25 MG TAB.SR.24H (FP) PO SCH (10:00)
[2017-12-15] MEDS: AZITHROMYCIN IVPB 250 MG in DEXTROSE 5%-WATER - 250 ML IVPB SCH (10:08)
[2017-12-15] MEDS: CEFTRIAXONE 1 G/50 ML PREMIX 50 ML IVPB SCH (10:08)
[2017-12-15] MEDS: ISOSORBIDE MONONITRATE 60 MG TAB.SR.24H (FP) PO SCH ×2 (10:09→21:20)
[2017-12-15] MEDS: APIXABAN 5 MG TABLET PO SCH ×2 (10:09→21:20)
[2017-12-15] MEDS: LACTOBACILLUS ACIDOPHILUS 1 EACH TAB (FP) PO SCH (10:09)
[2017-12-15] MEDS: METOPROLOL SUCCINATE 25 MG TAB.SR.24H (FP) PO SCH (10:42)
[2017-12-15] MEDS: amLODIPine BESYLATE 5 MG TABLET (FP) PO SCH (10:42)
[2017-12-15] MEDS: OSELTAMIVIR PHOSPHATE 30 MG CAPSULE PO SCH (10:44)
--- NOTE | 2017-12-15 11:36 | PN ---
Progress Note, Physician Chief Complaint: Pt in bed, a little tearful, reports she's never felt this bad before and that the sorethroat is bothersome. She also reports pleuritic discomfort. Pt appears in no acute distress. Denies chest pain, sob, or n/v/d. - Current Medication List Current Medications: Active Medications Acetaminophen (Tylenol -) 650 mg PO Q6H PRN PRN Reason: FEVER Last Admin: 12/15/17 00:51 Dose: 650 mg Amlodipine Besylate (Norvasc -) 5 mg PO DAILY [facility] Last Admin: 12/15/17 10:42 Dose: Not Given Apixaban (Eliquis -) 5 mg PO BID [facility] Last Admin: 12/15/17 10:09 Dose: 5 mg Atorvastatin Calcium (Lipitor -) 80 mg PO HS [facility] Last Admin: 12/14/17 22:20 Dose: 80 mg Calcium Acetate (Phoslo -) 667 mg PO TIDCM [facility] Docusate Sodium (Colace -) 100 mg PO Q8H PRN PRN Reason: CONSTIPATION Eucalyptus/Menthol/Phenol/Sorbitol (Cepastat Lozenge -) 1 each MM Q4H PRN PRN Reason: SORE THROAT Last Admin: 12/15/17 07:45 Dose: 1 each Hydralazine HCl (Apresoline -) 100 mg PO TID [facility] Last Admin: 12/15/17 06:15 Dose: Not Given Azithromycin 250 mg/ Dextrose 250 mls @ 250 mls/hr IVPB DAILY [facility] Last Admin: 12/15/17 10:08 Dose: 250 mls/hr CEFTRIAXONE 1 G/50 ML PREMIX (Ceftriaxone 1 Gm-D5w Bag) 50 mls @ 100 mls/hr IVPB DAILY [facility] Last Admin: 12/15/17 10:08 Dose: 100 mls/hr Insulin Detemir (Levemir Vial) 15 units SQ BID@0700,2200 [facility] Last Admin: 12/15/17 07:06 Dose: 15 unit Isosorbide Mononitrate (Imdur -) 60 mg PO BID [facility] Last Admin: 12/15/17 10:09 Dose: 60 mg Lactobacillus Acidophilus (Bacid -) 1 tab PO DAILY [facility] Last Admin: 12/15/17 10:09 Dose: 1 tab Metoprolol Succinate (Toprol Xl -) 25 mg PO DAILY [facility] Last Admin: 12/15/17 10:42 Dose: Not Given Oseltamivir Phosphate (Tamiflu -) 30 mg PO MOWEFR [facility] Stop: 12/24/17 09:59 Last Admin: 12/15/17 10:44 Dose: 30 mg - Objective Vital Signs: Vital Signs Temperature 101.2 F H 12/15/17 00:30 Pulse Rate 72 12/15/17 00:30 Respiratory Rate 16 12/15/17 00:30 Blood Pressure 134/63 12/15/17 00:30 O2 Sat by Pulse Oximetry (%) 88 L 12/14/17 21:00 Constitutional: Yes: Well Nourished, No Distress Cardiovascular: Yes: WNL, Regular Rate and Rhythm. No: Gallop, Murmur, Rub Respiratory: Yes: Regular, CTA Bilaterally, Rales (bibasilar) Gastrointestinal: Yes: WNL, Normal Bowel Sounds, Hernia (umbillical) Musculoskeletal: Yes: WNL Extremities: Yes: WNL Edema: No Neurological: Yes: WNL, Alert Psychiatric: Yes: WNL, Alert Labs: CBC, BMP 12/14/17 05:55 12/14/17 07:16 INR, PTT INR 1.12 (0.82-1.09) 12/13/17 21:20 Problem List - Problems (1) Influenza A Code(s): J10.1 - FLU DUE TO OTH IDENT INFLUENZA VIRUS W OTH RESP MANIFEST (2) Fever Code(s): R50.9 - FEVER, UNSPECIFIED Qualifiers: Fever type: unspecified Qualified Code(s): R50.9 - Fever, unspecified (3) Dysuria Code(s): R30.0 - DYSURIA (4) CKD (chronic kidney disease) Code(s): N18.9 - CHRONIC KIDNEY DISEASE, UNSPECIFIED Qualifiers: Chronic kidney disease stage: on chronic dialysis Qualified Code(s): N18.6 - End stage renal disease (5) Diabetes Code(s): E11.9 - TYPE 2 DIABETES MELLITUS WITHOUT COMPLICATIONS Qualifiers: Diabetes mellitus type: type 2 Diabetes mellitus complication status: with kidney complications Diabetes mellitus complication detail: with chronic kidney disease 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 use: with retirement use Chronic kidney disease stage: on chronic dialysis Qualified Code(s): E11.22 - Type 2 diabetes mellitus with diabetic chronic kidney disease; N18.6 - End stage renal disease; N18.6 - End stage renal disease; N18.6 - End stage renal disease; N18.6 - End stage renal disease; Z79.4 - terminal computer operator (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 insulin; Z79.4 - half-way (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 insulin; Z79.4 - terminal computer operator (current ) use of insulin; Z79.4 - terminal computer operator (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 insulin; Z99.2 - Dependence on renal dialysis; Z99.2 - Dependence on renal dialysis; Z99.2 - Dependence on renal dialysis; Z99.2 - Dependence on renal dialysis (6) Hypertension Code(s): I10 - ESSENTIAL (PRIMARY) HYPERTENSION Qualifiers: Hypertension type: essential hypertension Qualified Code(s): I10 - Essential (primary) hypertension (7) Umbilical hernia Code(s): K42.9 - UMBILICAL HERNIA WITHOUT OBSTRUCTION OR GANGRENE Qualifiers: Obstruction and gangrene presence: without obstruction or gangrene Qualified Code(s): K42.9 - Umbilical hernia without obstruction or gangrene (8) Pleurisy Code(s): R09.1 - PLEURISY (9) HLD (hyperlipidemia) Code(s): E78.5 - HYPERLIPIDEMIA, UNSPECIFIED (10) Pancreatitis Code(s): K85.9 - ACUTE PANCREATITIS, UNSPECIFIED * DO NOT USE * Qualifiers: Chronicity: chronic Pancreatitis type: biliary Qualified Code(s): K86.1 - Other chronic pancreatitis (11) Abdominal pain Code(s): R10.9 - UNSPECIFIED ABDOMINAL PAIN Qualifiers: Abdominal location: lower abdomen, unspecified Qualified Code(s): R10.30 - Lower abdominal pain, unspecified Assessment/Plan (1) Influenza A Assessment/Plan: Influenza A positive Tamiflu 2/5 Droplet precautions Code(s): J10.1 - FLU DUE TO OTH IDENT INFLUENZA VIRUS W OTH RESP MANIFEST (2) Fever Assessment/Plan: Influenza A positive, pt continues to be febrile chest xray,UA neg, wbcs wnl On Ceftriaxone, Azithromycin per ID Received zosyn and vanco in ed Follow up on blood cultures, urine culture Code(s): R50.9 - FEVER, UNSPECIFIED Qualifiers: Fever type: unspecified Qualified Code(s): R50.9 - Fever, unspecified (3) Dysuria Assessment/Plan: Pt reports dysuria UA neg, UC pending follow up on blood cultures Code(s): R30.0 - DYSURIA (4) CKD (chronic kidney disease) Assessment/Plan: ESRD, on HD (MWF) Nephrology following Code(s): N18.9 - CHRONIC KIDNEY DISEASE, UNSPECIFIED Qualifiers: Chronic kidney disease stage: on chronic dialysis Qualified Code(s): N18.6 - End stage renal disease (5) Pleurisy Assessment/Plan: Pt reports pleuritic pain when coughing, troponin neg Treat the underlying conditions and monitor for improvement Code(s): R09.1 - PLEURISY (6) Pancreatitis Assessment/Plan: History of gallstones/pancreatitis, lipase mildly elevated Abdominal US if clinical changes/elevation in lipase GI consulted Code(s): K85.9 - ACUTE PANCREATITIS, UNSPECIFIED * DO NOT USE * Qualifiers: Chronicity: chronic Pancreatitis type: biliary Qualified Code(s): K86.1 - Other chronic pancreatitis (7)Abdominal pain Assessment/Plan: Chronic in nature, however lipase elevated As above Code(s): R10.9 - UNSPECIFIED ABDOMINAL PAIN Qualifiers: Abdominal location: lower abdomen, unspecified Qualified Code(s): R10.30 - Lower abdominal pain, unspecified (8) Diabetes Assessment/Plan: blood sugars stable Received ambulatory medication list, currently on Lantus 30units HS Code(s): E11.9 - TYPE 2 DIABETES MELLITUS WITHOUT COMPLICATIONS Qualifiers: Diabetes mellitus type: type 2 Diabetes mellitus complication status: with kidney complications Diabetes mellitus complication detail: with chronic kidney disease Diabetes mellitus retirement insulin use: with retirement use Chronic kidney disease stage: on chronic dialysis Qualified Code(s): E11.22 - Type 2 diabetes mellitus with diabetic chronic kidney disease; N18.6 - End stage renal disease; N18.6 - End stage renal disease; N18.6 - End stage renal disease; N18.6 - End stage renal disease; Z79.4 - half-way (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 insulin; Z79.4 - half-way (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 insulin; Z79.4 - terminal computer operator (current ) use of insulin; Z79.4 - half-way (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 insulin; Z99.2 - Dependence on renal dialysis; Z99.2 - Dependence on renal dialysis; Z99.2 - Dependence on renal dialysis; Z99.2 - Dependence on renal dialysis (9) HLD (hyperlipidemia) Assessment/Plan: Lipitor 80mg daily Code(s): E78.5 - HYPERLIPIDEMIA, UNSPECIFIED (10) Hypertension Assessment/Plan: Continue home meds, list verified from dialysis and pcp office Amlodipine 5mg daily Hydralazine 100mg TID Eliquis 5mg bid Isosorbide mononitrate 60mg BID Metoprolol 25mg daily Code(s): I10 - ESSENTIAL (PRIMARY) HYPERTENSION Qualifiers: Hypertension type: essential hypertension Qualified Code(s): I10 - Essential (primary) hypertension (11) Umbilical hernia Assessment/Plan: Stable Will monitor for changes Code(s): K42.9 - UMBILICAL HERNIA WITHOUT OBSTRUCTION OR GANGRENE Qualifiers: Obstruction and gangrene presence: without obstruction or gangrene Qualified Code(s): K42.9 - Umbilical hernia without obstruction or gangrene
[2017-12-15] MEDS: CALCIUM ACETATE 667 MG CAPSULE (FP) PO SCH ×2 (12:33→17:41)
--- NOTE | 2017-12-15 14:56 | PN ---
Progress Note, Physician History of Present Illness: patient stable no issues awaiting dialysis throat hurts a lot - Current Medication List Current Medications: Active Medications Acetaminophen (Tylenol -) 650 mg PO Q6H PRN PRN Reason: FEVER Last Admin: 12/15/17 00:51 Dose: 650 mg Amlodipine Besylate (Norvasc -) 5 mg PO DAILY [facility] Last Admin: 12/15/17 10:42 Dose: Not Given Apixaban (Eliquis -) 5 mg PO BID [facility] Last Admin: 12/15/17 10:09 Dose: 5 mg Atorvastatin Calcium (Lipitor -) 80 mg PO HS [facility] Last Admin: 12/14/17 22:20 Dose: 80 mg Calcium Acetate (Phoslo -) 667 mg PO TIDCM [facility] Last Admin: 12/15/17 12:33 Dose: 667 mg Docusate Sodium (Colace -) 100 mg PO Q8H PRN PRN Reason: CONSTIPATION Eucalyptus/Menthol/Phenol/Sorbitol (Cepastat Lozenge -) 1 each MM Q4H PRN PRN Reason: SORE THROAT Last Admin: 12/15/17 07:45 Dose: 1 each Hydralazine HCl (Apresoline -) 100 mg PO TID [facility] Last Admin: 12/15/17 13:27 Dose: Not Given Azithromycin 250 mg/ Dextrose 250 mls @ 250 mls/hr IVPB DAILY [facility] Last Admin: 12/15/17 10:08 Dose: 250 mls/hr CEFTRIAXONE 1 G/50 ML PREMIX (Ceftriaxone 1 Gm-D5w Bag) 50 mls @ 100 mls/hr IVPB DAILY [facility] Last Admin: 12/15/17 10:08 Dose: 100 mls/hr Insulin Detemir (Levemir Vial) 15 units SQ BID@0700,2200 [facility] Last Admin: 12/15/17 07:06 Dose: 15 unit Isosorbide Mononitrate (Imdur -) 60 mg PO BID [facility] Last Admin: 12/15/17 10:09 Dose: 60 mg Lactobacillus Acidophilus (Bacid -) 1 tab PO DAILY [facility] Last Admin: 12/15/17 10:09 Dose: 1 tab Metoprolol Succinate (Toprol Xl -) 25 mg PO DAILY [facility] Last Admin: 12/15/17 10:42 Dose: Not Given Oseltamivir Phosphate (Tamiflu -) 30 mg PO MOWEFR [facility] Stop: 12/24/17 09:59 Last Admin: 12/15/17 10:44 Dose: 30 mg - Objective Vital Signs: Vital Signs Temperature 101.2 F H 12/15/17 00:30 Pulse Rate 72 12/15/17 00:30 Respiratory Rate 16 12/15/17 00:30 Blood Pressure 134/63 12/15/17 00:30 O2 Sat by Pulse Oximetry (%) 88 L 12/14/17 21:00 Constitutional: Yes: No Distress, Calm Cardiovascular: Yes: Regular Rate and Rhythm Respiratory: Yes: Regular, CTA Bilaterally Gastrointestinal: Yes: Normal Bowel Sounds, Soft Musculoskeletal: Yes: Other Extremities: Yes: Other Neurological: Yes: Alert, Oriented Psychiatric: Yes: Alert, Oriented Labs: CBC, BMP 12/14/17 05:55 12/14/17 07:16 INR, PTT INR 1.12 (0.82-1.09) 12/13/17 21:20 Assessment/Plan Problem List - Problems (1) Influenza A Code(s): J10.1 - FLU DUE TO OTH IDENT INFLUENZA VIRUS W OTH RESP MANIFEST (2) Fever Code(s): R50.9 - FEVER, UNSPECIFIED Qualifiers: Fever type: unspecified Qualified Code(s): R50.9 - Fever, unspecified (3) Dysuria Code(s): R30.0 - DYSURIA (4) CKD (chronic kidney disease) Code(s): N18.9 - CHRONIC KIDNEY DISEASE, UNSPECIFIED Qualifiers: Chronic kidney disease stage: on chronic dialysis Qualified Code(s): N18.6 - End stage renal disease (5) Diabetes Code(s): E11.9 - TYPE 2 DIABETES MELLITUS WITHOUT COMPLICATIONS Qualifiers: Diabetes mellitus type: type 2 Diabetes mellitus complication status: with kidney complications Diabetes mellitus complication detail: with chronic kidney disease Diabetes mellitus finish photographer insulin use: with senior living use Chronic kidney disease stage: on chronic dialysis Qualified Code(s): E11.22 - Type 2 diabetes mellitus with diabetic chronic kidney disease; N18.6 - End stage renal disease; N18.6 - End stage renal disease; N18.6 - End stage renal disease; N18.6 - End stage renal disease; Z79.4 - poultry pathologist (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 insulin; Z79.4 - skilled nursing (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 insulin; Z79.4 - poultry pathologist (current ) use of insulin; Z79.4 - skilled nursing (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 insulin; Z99.2 - Dependence on renal dialysis; Z99.2 - Dependence on renal dialysis; Z99.2 - Dependence on renal dialysis; Z99.2 - Dependence on renal dialysis (6) Hypertension Code(s): I10 - ESSENTIAL (PRIMARY) HYPERTENSION Qualifiers: Hypertension type: essential hypertension Qualified Code(s): I10 - Essential (primary) hypertension (7) Umbilical hernia Code(s): K42.9 - UMBILICAL HERNIA WITHOUT OBSTRUCTION OR GANGRENE Qualifiers: Obstruction and gangrene presence: without obstruction or gangrene Qualified Code(s): K42.9 - Umbilical hernia without obstruction or gangrene (8) Pleurisy Code(s): R09.1 - PLEURISY (9) HLD (hyperlipidemia) Code(s): E78.5 - HYPERLIPIDEMIA, UNSPECIFIED patient has been started on ceftriaxone which i completely agree plan continue abx saline gargles rest ct as per primary and nephrology
--- NOTE | 2017-12-15 16:14 | PN ---
Progress Note (short form) - Note Progress Note: Dr. Sewell covering for Dr. Pearce: Called for abdominal pain: no current abdominopelvic pain and for elevated lipase: lipase minimally elevated and patient without clinical evidence of pancreatitis. Advise: 1. Given complaints of previously described suprapubic tenderness while coughing along with urinary incontinence, consider urology work-up for abnormal urinary bladder findings noted on previous imaging if this has not already been done. Would defer to primary team regarding this 2. History of adenomatous colon polyp: She expressed wishes to possibly see Dr. Pearce again however she had concerns regarding her insurance. I advised that she call Dr. Pearce's office to see if she can follow-up in office with him. His office information was left in the discharge plan. Otherwise, I advised that she keep her appointment with the evaluation manager that she describes having in [place] for arrange colonoscopy 01/09. She will also need follow-up of the previously described ? hypoattenuating pancreatic lesion seen on previous imaging study. Recall as needed
--- NOTE | 2017-12-15 17:20 | PN ---
Progress Note (short form) - Note Progress Note: Renal follow up for ESRD on HD Pt seen and examined at the bedside continues to feel weak no sob, chest pain has throat pain Vital Signs Temperature 99.1 F 12/15/17 14:25 Pulse Rate 64 12/15/17 14:25 Respiratory Rate 16 12/15/17 14:25 Blood Pressure 129/56 12/15/17 14:25 O2 Sat by Pulse Oximetry (%) 88 L 12/14/17 21:00 Intake & Output 12/12/17 12/13/17 12/14/17 12/15/17 23:59 23:59 23:59 23:59 Intake Total 830 Balance 830 Weight 65 kg 65 kg 78.199 kg CBC, BMP 12/14/17 05:55 12/14/17 07:16 Current Medications Acetaminophen (Tylenol -) 650 mg PO Q6H PRN PRN Reason: FEVER Last Admin: 12/15/17 00:51 Dose: 650 mg Amlodipine Besylate (Norvasc -) 5 mg PO DAILY [facility] Last Admin: 12/15/17 10:42 Dose: Not Given Apixaban (Eliquis -) 5 mg PO BID [facility] Last Admin: 12/15/17 10:09 Dose: 5 mg Atorvastatin Calcium (Lipitor -) 80 mg PO HS [facility] Last Admin: 12/14/17 22:20 Dose: 80 mg Calcium Acetate (Phoslo -) 667 mg PO TIDCM [facility] Last Admin: 12/15/17 12:33 Dose: 667 mg Docusate Sodium (Colace -) 100 mg PO Q8H PRN PRN Reason: CONSTIPATION Eucalyptus/Menthol/Phenol/Sorbitol (Cepastat Lozenge -) 1 each MM Q4H PRN PRN Reason: SORE THROAT Last Admin: 12/15/17 07:45 Dose: 1 each Hydralazine HCl (Apresoline -) 100 mg PO TID [facility] Last Admin: 12/15/17 13:27 Dose: Not Given Azithromycin 250 mg/ Dextrose 250 mls @ 250 mls/hr IVPB DAILY [facility] Last Admin: 12/15/17 10:08 Dose: 250 mls/hr CEFTRIAXONE 1 G/50 ML PREMIX (Ceftriaxone 1 Gm-D5w Bag) 50 mls @ 100 mls/hr IVPB DAILY [facility] Last Admin: 12/15/17 10:08 Dose: 100 mls/hr Insulin Detemir (Levemir Vial) 15 units SQ BID@0700,2200 [facility] Last Admin: 12/15/17 07:06 Dose: 15 unit Isosorbide Mononitrate (Imdur -) 60 mg PO BID [facility] Last Admin: 12/15/17 10:09 Dose: 60 mg Lactobacillus Acidophilus (Bacid -) 1 tab PO DAILY [facility] Last Admin: 12/15/17 10:09 Dose: 1 tab Metoprolol Succinate (Toprol Xl -) 25 mg PO DAILY [facility] Last Admin: 12/15/17 10:42 Dose: Not Given Oseltamivir Phosphate (Tamiflu -) 30 mg PO MOWEFR [facility] Stop: 12/24/17 09:59 Last Admin: 12/15/17 10:44 Dose: 30 mg 67 year old woman with PMhx of ESRD on HD (MWF), Hypertension, DM, Hx of Pancreatitis who presented with complaints of cough, throat pain and abd pain and found to have influenza and slightly elevated lipase. #Fever/Influenza/Abd pain + for Influenza A on Ceftriaxone/=Tamiflu ID following #ESRD on HD dialysis to be deferred to tomorrow in AM #Hypertension BP well controlled Thank you Will follow Ignacio Callahan DO
--- NOTE | 2017-12-15 18:52 | CONS ---
DATE OF CONSULTATION: 12/15/2017 REQUESTING PHYSICIAN: Quincy Rodriguez MD The patient is a 67-year-old female admitted through [facility] Emergency Room on the for evaluation of cough. The patient explained that she received a flu shot during her hemodialysis and shortly after dialysis was finishing, she developed severe cough. She was sent to the emergency room for evaluation of this cough. I was asked to evaluate for abdominal pain. The patient currently denies any abdominal pain, and in review of the ER documentation, it states that she was complaining of suprapubic pain while she was having these episodes of coughing. She tells me that when she coughs, she is incontinent of urine. She had previous CT scans, the last being July 22, 2017, that revealed mild renal atrophy with no evidence of obstructive uropathy; no renal, ureteral, or urinary bladder calculi; normal-appearing appendix; and nonspecific chronic circumferential thickening of the urinary bladder. There was a question of chronic cystitis and/or outlet obstruction. In terms of gastroenterology, she is a patient of Dr. Alex Pearce, and was evaluated in November of 2014 for epigastric discomfort by myself and Dr. Lantigua. Apparently she was also admitted in 2013 for abdominal pain. She underwent upper endoscopy, GI series, was noted to have gastroesophageal reflux, esophageal spasms, normal stomach, and otherwise normal duodenum. She had a colonoscopy in [address] Pearce, leading to the removal of sigmoid tubular adenoma. It appears at that time she was evaluated for an ascending urinary tract infection as well. There was also a question of a hypoattenuation in the pancreatic head on previous imaging studies, and previous followup MRI was unremarkable. In September of 2014, she had an upper GI series that revealed short segment of irregularity in the esophagus with limited distensibility, but the upper endoscopy failed to reveal any significant pathology. She currently denies any dysphagia, odynophagia, nausea, vomiting, rectal bleeding, change in bowel habits. She denies any diarrhea. There has been no gold melena. She does state that she was supposed to have a colonoscopy this November in [place], as there was a question regarding her insurance, and Dr. Pearce's office taking her insurance; however, she said this was postponed back for December. She tells me that she was referred to this physician by Dr. Jack, her PMD. Past medical history includes diabetes mellitus type 2, hypertension, hyperlipidemia, chronic kidney disease on hemodialysis, GERD, history of constipation, colon adenoma in 2012, hyperlipidemia. Past surgical history includes cataract removal, right iridectomy, and right upper extremity fistula. SOCIAL HISTORY: She is single. 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 Former smoker, she quit in 1991. Former alcohol user. She describes her alcohol use as social over 20 years. FAMILY HISTORY: Father with a history of prostate cancer. Mother from complications of childbirth. Nine siblings. One daughter, healthy; one son , had sickle cell disease with complications. ALLERGIES: No known drug allergies. Medications prior to admission include Apresoline, Lipitor, Norvasc, and Toprol. REVIEW OF SYSTEMS: She did have cough. She did complain of pleuritic chest pain along with her cough. No shortness of breath. No nausea, vomiting. No diarrhea. No rectal bleeding. The remainder of GI review of systems as noted in history. She also denies any abdominal pain or pelvic pain currently. PHYSICAL EXAMINATION: General: Patient found lying in her bed. She appeared to be in no apparent distress. Vital Signs: Temperature 99.1, pulse 64, blood pressure 129/56. Sclerae: Anicteric. Neck: Supple. Heart: Regular rate and rhythm. Lungs: Clear lung chau bilaterally. Abdomen: The abdomen was nondistended. She had normoactive bowel sounds. She had a reducible, nontender umbilical hernia. No hepatosplenomegaly was appreciated. There were no scars. No masses were palpated. No tenderness was elicited. Extremities: No lower extremity edema. Digital Rectal Exam: No external lesion, no masses. There was no stool in the rectal vault, just some mucus. Laboratory evaluation revealed white blood count 5.2, hemoglobin 11.2, hematocrit 36.6, platelets of 92, INR 1.12. Sodium of 136, potassium 3.9, chloride 97, bicarbonate 29, BUN 33, creatinine 3.3, glucose 130, AST 32, ALT of 43, alkaline phosphatase of 100, total bilirubin 0.2, amylase 106, lipase 449. Radiology reports showed a chest x-ray on December 13, 2017, that revealed no significant findings. IMPRESSION: A 67-year-old female with cough and what appeared to be suprapubic pressure during her coughing, along with urinary incontinence. Her pain description is not suggestive of pancreatitis, nor are her physical exam findings. Her lipase is elevated at 449; however, the upper limit of normal for this lab is 393. This may continue to be elevated somewhat, given her renal insufficiency. She will need followup. She has had a thickened bladder on previous imaging studies, and given that she has had suprapubic pressure and pelvic discomfort, along with urinary incontinence, consider further evaluation of this, consider a urology evaluation. Workup per primary team. It is unclear if she has had followup of the questionable pancreatic finding noted on previous imaging, and she can follow up with her car top bolter, Dr. Alex Pearce. I did tell her that if there is an insurance issues, she can follow up with her current car top bolter, who she sees in [place], regarding this as well. She did state that she would like to see if she can see Dr. Pearce again, and his discharge information will be left in her discharge summary. If pain continues, consider imaging of her abdomen, such as with CT scan of the abdomen and pelvis with IV and p.o. contrast, and that would likely need to be coordinated with her hemodialysis. I thank you for this consultative opportunity. LITA BRAMBILA DO CD/[id number]
[2017-12-15 19:01] LABS: HEMATOCRIT 35.5 % (32.4-45.2); MCH 21.7 pg (25.7-33.7); RBC 5.07 M/mm3 (3.60-5.2); RDW 15.6 % (11.6-15.6); WHITE BLOOD COUNT 3.1 K/mm3 (4.0-10.0)
[2017-12-15 19:25] LABS: ADD RBC MORPHOLOGY YES
[2017-12-15 19:31] LABS: ANION GAP 6 (8-16); BLOOD UREA NITROGEN 48 mg/dL (7-18); CALCIUM 7.9 mg/dL (8.5-10.1); CHLORIDE 101 mmol/L (98-107); CO2 30 mmol/L (21-32); GLUCOSE,RANDOM 76 mg/dL (74-106); SODIUM 137 mmol/L (136-145)
[2017-12-15 19:33] LABS: CREATININE 3.9 mg/dL (0.55-1.02); PHOSPHOROUS 4.3 mg/dL (2.5-4.9)
[2017-12-15 20:17] LABS: LIPASE 364 U/L (73-393)
[2017-12-15] MEDS: ATORVASTATIN CA 80 MG TABLET (FP) PO SCH (21:20)
[2017-12-15 22:18] LABS: PLATELET COUNT 94 K/MM3 (134-434)
[2017-12-15 22:25] LABS: ANISOCYTOSIS 1+; OVALOCYTE 1+; PLATELET ESTIMATE SLT DECREASE
[2017-12-16] MEDS: hydrALAZINE HCL 50 MG TABLET (FP) PO SCH ×3 (05:52→21:22)
[2017-12-16] MEDS: INSULIN DETEMIR 100 UNITS/ML MDV SQ SCH ×2 (06:00→21:23)
[2017-12-16 08:33] LABS: HEMATOCRIT 33.9 % (32.4-45.2); HEMOGLOBIN 10.3 GM/dL (10.7-15.3); MCH 21.2 pg (25.7-33.7); MCHC 30.3 g/dl (32.0-36.0); MEAN CELL VOLUME 70.1 fl (80-96); PLATELET COUNT 96 K/MM3 (134-434); RBC 4.84 M/mm3 (3.60-5.2); RDW 15.5 % (11.6-15.6); WHITE BLOOD COUNT 2.8 K/mm3 (4.0-10.0)
[2017-12-16] MEDS: CALCIUM ACETATE 667 MG CAPSULE (FP) PO SCH ×3 (08:38→17:44)
[2017-12-16 08:51] LABS: ANION GAP 9 (8-16); BLOOD UREA NITROGEN 54 mg/dL (7-18); CALCIUM 7.7 mg/dL (8.5-10.1); CHLORIDE 104 mmol/L (98-107); CO2 27 mmol/L (21-32); GLUCOSE,RANDOM 137 mg/dL (74-106); PHOSPHOROUS 4.3 mg/dL (2.5-4.9); POTASSIUM 4.2 mmol/L (3.5-5.1); SODIUM 140 mmol/L (136-145)
[2017-12-16 09:17] LABS: LIPASE 319 U/L (73-393)
[2017-12-16] MEDS ORDERED: APIXABAN 5 MG TABLET PO SCH (10:00)
[2017-12-16 12:03] LABS: CREATININE 1.3 mg/dL (0.55-1.02)
[2017-12-16] MEDS: AZITHROMYCIN IVPB 250 MG in DEXTROSE 5%-WATER - 250 ML IVPB SCH (12:30)
[2017-12-16] MEDS: amLODIPine BESYLATE 5 MG TABLET (FP) PO SCH (12:31)
[2017-12-16] MEDS: CEFTRIAXONE 1 G/50 ML PREMIX 50 ML IVPB SCH (12:31)
[2017-12-16] MEDS: APIXABAN 5 MG TABLET PO SCH ×2 (12:31→21:23)
[2017-12-16] MEDS: METOPROLOL SUCCINATE 25 MG TAB.SR.24H (FP) PO SCH (12:31)
--- NOTE | 2017-12-16 13:34 | PN ---
Progress Note, Physician Chief Complaint: Pt in bed,pt appears in no acute distress. She reports pleuritic discomfort and hoarse voice. Denies chest pain, sob, or n/v/d. - Current Medication List Current Medications: Active Medications Acetaminophen (Tylenol -) 650 mg PO Q6H PRN PRN Reason: FEVER Last Admin: 12/15/17 00:51 Dose: 650 mg Amlodipine Besylate (Norvasc -) 5 mg PO DAILY [facility] Last Admin: 12/16/17 12:31 Dose: 5 mg Apixaban (Eliquis -) 5 mg PO BID [facility] Last Admin: 12/16/17 12:31 Dose: 5 mg Atorvastatin Calcium (Lipitor -) 80 mg PO HS [facility] Last Admin: 12/15/17 21:20 Dose: 80 mg Calcium Acetate (Phoslo -) 667 mg PO TIDCM [facility] Last Admin: 12/15/17 17:41 Dose: 667 mg Docusate Sodium (Colace -) 100 mg PO Q8H PRN PRN Reason: CONSTIPATION Eucalyptus/Menthol/Phenol/Sorbitol (Cepastat Lozenge -) 1 each MM Q4H PRN PRN Reason: SORE THROAT Last Admin: 12/15/17 07:45 Dose: 1 each Hydralazine HCl (Apresoline -) 100 mg PO TID [facility] Last Admin: 12/16/17 05:52 Dose: Not Given Azithromycin 250 mg/ Dextrose 250 mls @ 250 mls/hr IVPB DAILY [facility] Last Admin: 12/16/17 12:30 Dose: 250 mls/hr CEFTRIAXONE 1 G/50 ML PREMIX (Ceftriaxone 1 Gm-D5w Bag) 50 mls @ 100 mls/hr IVPB DAILY [facility] Last Admin: 12/16/17 12:31 Dose: 100 mls/hr Insulin Detemir (Levemir Vial) 15 units SQ BID@0700,2200 [facility] Last Admin: 12/16/17 06:00 Dose: Not Given Isosorbide Mononitrate (Imdur -) 60 mg PO BID [facility] Last Admin: 12/15/17 21:20 Dose: 60 mg Lactobacillus Acidophilus (Bacid -) 1 tab PO DAILY [facility] Last Admin: 12/15/17 10:09 Dose: 1 tab Metoprolol Succinate (Toprol Xl -) 25 mg PO DAILY [facility] Last Admin: 12/16/17 12:31 Dose: 25 mg Oseltamivir Phosphate (Tamiflu -) 30 mg PO MOWEFR [facility] Stop: 12/24/17 09:59 Last Admin: 12/15/17 10:44 Dose: 30 mg - Objective Vital Signs: Vital Signs Temperature 98.5 F 12/16/17 12:42 Pulse Rate 60 12/16/17 10:50 Respiratory Rate 20 12/16/17 12:42 Blood Pressure 148/66 12/16/17 12:42 O2 Sat by Pulse Oximetry (%) 92 L 12/15/17 21:00 Constitutional: Yes: Well Nourished, No Distress, Calm Cardiovascular: Yes: WNL Respiratory: Yes: Regular, Diminished, Rales (bibasilar and rml rales posterior thorax). No: SOB Gastrointestinal: Yes: Normal Bowel Sounds, Soft Edema: No Neurological: Yes: WNL, Oriented Psychiatric: Yes: WNL, Alert, Oriented Labs: CBC, BMP 12/16/17 07:15 12/16/17 10:45 INR, PTT INR 1.12 (0.82-1.09) 12/13/17 21:20 Problem List - Problems (1) Influenza A Code(s): J10.1 - FLU DUE TO OTH IDENT INFLUENZA VIRUS W OTH RESP MANIFEST (2) Fever Code(s): R50.9 - FEVER, UNSPECIFIED Qualifiers: Fever type: unspecified Qualified Code(s): R50.9 - Fever, unspecified (3) Dysuria Code(s): R30.0 - DYSURIA (4) CKD (chronic kidney disease) Code(s): N18.9 - CHRONIC KIDNEY DISEASE, UNSPECIFIED Qualifiers: Chronic kidney disease stage: on chronic dialysis Qualified Code(s): N18.6 - End stage renal disease (5) Diabetes Code(s): E11.9 - TYPE 2 DIABETES MELLITUS WITHOUT COMPLICATIONS Qualifiers: Diabetes mellitus type: type 2 Diabetes mellitus complication status: with kidney complications Diabetes mellitus complication detail: with chronic kidney disease Diabetes mellitus chcf insulin use: with chcf use Chronic kidney disease stage: on chronic dialysis Qualified Code(s): E11.22 - Type 2 diabetes mellitus with diabetic chronic kidney disease; N18.6 - End stage renal disease; N18.6 - End stage renal disease; N18.6 - End stage renal disease; N18.6 - End stage renal disease; Z79.4 - intermediate designer (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 insulin; Z79.4 - senior care (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 insulin; Z79.4 - intermediate designer (current ) use of insulin; Z79.4 - senior care (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 insulin; Z99.2 - Dependence on renal dialysis; Z99.2 - Dependence on renal dialysis; Z99.2 - Dependence on renal dialysis; Z99.2 - Dependence on renal dialysis (6) Hypertension Code(s): I10 - ESSENTIAL (PRIMARY) HYPERTENSION Qualifiers: Hypertension type: essential hypertension Qualified Code(s): I10 - Essential (primary) hypertension (7) Umbilical hernia Code(s): K42.9 - UMBILICAL HERNIA WITHOUT OBSTRUCTION OR GANGRENE Qualifiers: Obstruction and gangrene presence: without obstruction or gangrene Qualified Code(s): K42.9 - Umbilical hernia without obstruction or gangrene (8) Pleurisy Code(s): R09.1 - PLEURISY (9) HLD (hyperlipidemia) Code(s): E78.5 - HYPERLIPIDEMIA, UNSPECIFIED (10) Pancreatitis Code(s): K85.9 - ACUTE PANCREATITIS, UNSPECIFIED * DO NOT USE * Qualifiers: Chronicity: chronic Pancreatitis type: biliary Qualified Code(s): K86.1 - Other chronic pancreatitis (11) Abdominal pain Code(s): R10.9 - UNSPECIFIED ABDOMINAL PAIN Qualifiers: Abdominal location: lower abdomen, unspecified Qualified Code(s): R10.30 - Lower abdominal pain, unspecified Assessment/Plan (1) Influenza A Assessment/Plan: Influenza A positive Tamiflu 3/5 Droplet precautions Code(s): J10.1 - FLU DUE TO OTH IDENT INFLUENZA VIRUS W OTH RESP MANIFEST (2) Fever Assessment/Plan: Influenza A positive, pt afebrile for 24 hrs, bibasilar and rml rales- repeat chest xray today UA, blood cultures neg On Ceftriaxone, Azithromycin per ID Will transition to PO antibiotics if afebrile for 48 hrs Code(s): R50.9 - FEVER, UNSPECIFIED Qualifiers: Fever type: unspecified Qualified Code(s): R50.9 - Fever, unspecified (3) Dysuria Assessment/Plan: Pt reports dysuria UA neg, UC pending Code(s): R30.0 - DYSURIA (4) CKD (chronic kidney disease) Assessment/Plan: ESRD, on HD (MWF) Nephrology following Code(s): N18.9 - CHRONIC KIDNEY DISEASE, UNSPECIFIED Qualifiers: Chronic kidney disease stage: on chronic dialysis Qualified Code(s): N18.6 - End stage renal disease (5) Pleurisy Assessment/Plan: Pt reports pleuritic pain when coughing, troponin neg Treat the underlying conditions and monitor for improvement Code(s): R09.1 - PLEURISY (6) Pancreatitis Assessment/Plan: History of gallstones/pancreatitis, lipase normal today No further intervention per GI Code(s): K85.9 - ACUTE PANCREATITIS, UNSPECIFIED * DO NOT USE * Qualifiers: Chronicity: chronic Pancreatitis type: biliary Qualified Code(s): K86.1 - Other chronic pancreatitis (7)Abdominal pain Assessment/Plan: Chronic in nature, lipase normal today As above Code(s): R10.9 - UNSPECIFIED ABDOMINAL PAIN Qualifiers: Abdominal location: lower abdomen, unspecified Qualified Code(s): R10.30 - Lower abdominal pain, unspecified (8) Diabetes Assessment/Plan: blood sugars stable Received ambulatory medication list, currently on Lantus 30units HS Code(s): E11.9 - TYPE 2 DIABETES MELLITUS WITHOUT COMPLICATIONS Qualifiers: Diabetes mellitus type: type 2 Diabetes mellitus complication status: with kidney complications Diabetes mellitus complication detail: with chronic kidney disease 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 use: with middle or intermediate school principal use Chronic kidney disease stage: on chronic dialysis Qualified Code(s): E11.22 - Type 2 diabetes mellitus with diabetic chronic kidney disease; N18.6 - End stage renal disease; N18.6 - End stage renal disease; N18.6 - End stage renal disease; N18.6 - End stage renal disease; Z79.4 - senior care (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 insulin; Z79.4 - intermediate designer (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 insulin; Z79.4 - senior care (current ) use of insulin; Z79.4 - intermediate designer (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 insulin; Z99.2 - Dependence on renal dialysis; Z99.2 - Dependence on renal dialysis; Z99.2 - Dependence on renal dialysis; Z99.2 - Dependence on renal dialysis (9) HLD (hyperlipidemia) Assessment/Plan: Lipitor 80mg daily Code(s): E78.5 - HYPERLIPIDEMIA, UNSPECIFIED (10) Hypertension Assessment/Plan: Continue home meds, list verified from dialysis and pcp office Amlodipine 5mg daily Hydralazine 100mg TID Eliquis 5mg bid Isosorbide mononitrate 60mg BID Metoprolol 25mg daily Code(s): I10 - ESSENTIAL (PRIMARY) HYPERTENSION Qualifiers: Hypertension type: essential hypertension Qualified Code(s): I10 - Essential (primary) hypertension (11) Umbilical hernia Assessment/Plan: Stable Will monitor for changes Code(s): K42.9 - UMBILICAL HERNIA WITHOUT OBSTRUCTION OR GANGRENE Qualifiers: Obstruction and gangrene presence: without obstruction or gangrene Qualified Code(s): K42.9 - Umbilical hernia without obstruction or gangrene
[2017-12-16] MEDS: LACTOBACILLUS ACIDOPHILUS 1 EACH TAB (FP) PO SCH (13:37)
[2017-12-16] MEDS: ISOSORBIDE MONONITRATE 60 MG TAB.SR.24H (FP) PO SCH ×2 (13:38→21:22)
--- NOTE | 2017-12-16 15:05 | PN ---
Progress Note (short form) - Note Progress Note: Renal follow up for ESRD on HD Pt seen and examined at the bedside s/p dialysis earlier today tolerated it well with 2kg UF pt continues to have throat and abd discomfort + cough no fever overnight Vital Signs Temperature 99.1 F 12/15/17 14:25 Pulse Rate 64 12/15/17 14:25 Respiratory Rate 16 12/15/17 14:25 Blood Pressure 129/56 12/15/17 14:25 O2 Sat by Pulse Oximetry (%) 88 L 12/14/17 21:00 Intake & Output 12/12/17 12/13/17 12/14/17 12/15/17 23:59 23:59 23:59 23:59 Intake Total 830 Balance 830 Weight 65 kg 65 kg 78.199 kg awake and alert +cough CTA RRR + epigastric tenderness no edema CBC, BMP 12/16/17 07:15 12/16/17 10:45 Current Medications Acetaminophen (Tylenol -) 650 mg PO Q6H PRN PRN Reason: FEVER Last Admin: 12/15/17 00:51 Dose: 650 mg Amlodipine Besylate (Norvasc -) 5 mg PO DAILY [facility] Last Admin: 12/16/17 12:31 Dose: 5 mg Apixaban (Eliquis -) 5 mg PO BID [facility] Last Admin: 12/16/17 12:31 Dose: 5 mg Atorvastatin Calcium (Lipitor -) 80 mg PO HS [facility] Last Admin: 12/15/17 21:20 Dose: 80 mg Calcium Acetate (Phoslo -) 667 mg PO TIDCM [facility] Last Admin: 12/16/17 13:38 Dose: 667 mg Docusate Sodium (Colace -) 100 mg PO Q8H PRN PRN Reason: CONSTIPATION Eucalyptus/Menthol/Phenol/Sorbitol (Cepastat Lozenge -) 1 each MM Q4H PRN PRN Reason: SORE THROAT Last Admin: 12/15/17 07:45 Dose: 1 each Guaifenesin (Diabetic Tussin Dm -) 5 ml PO Q6H PRN PRN Reason: COUGH Hydralazine HCl (Apresoline -) 100 mg PO TID [facility] Last Admin: 12/16/17 14:22 Dose: 100 mg Azithromycin 250 mg/ Dextrose 250 mls @ 250 mls/hr IVPB DAILY [facility] Last Admin: 12/16/17 12:30 Dose: 250 mls/hr CEFTRIAXONE 1 G/50 ML PREMIX (Ceftriaxone 1 Gm-D5w Bag) 50 mls @ 100 mls/hr IVPB DAILY [facility] Last Admin: 12/16/17 12:31 Dose: 100 mls/hr Insulin Detemir (Levemir Vial) 15 units SQ BID@0700,2200 [facility] Last Admin: 12/16/17 06:00 Dose: Not Given Isosorbide Mononitrate (Imdur -) 60 mg PO BID [facility] Last Admin: 12/16/17 13:38 Dose: 60 mg Lactobacillus Acidophilus (Bacid -) 1 tab PO DAILY [facility] Last Admin: 12/16/17 13:37 Dose: 1 tab Metoprolol Succinate (Toprol Xl -) 25 mg PO DAILY [facility] Last Admin: 12/16/17 12:31 Dose: 25 mg Oseltamivir Phosphate (Tamiflu -) 30 mg PO MOWEFR [facility] Stop: 12/24/17 09:59 Last Admin: 12/15/17 10:44 Dose: 30 mg 67 year old woman with PMhx of ESRD on HD (MWF), Hypertension, DM, Hx of Pancreatitis who presented with complaints of cough, throat pain and abd pain and found to have influenza and slightly elevated lipase. #Fever/Influenza/Abd pain + for Influenza A continue tamiflu on ceftriaxone Lipase levels WNL will start cough suppressant #ESRD on HD tolerated dialysis well this AM will plan for next dialysis to return pt to regular MWF schedule #Hypertension BP well controlled Ignacio Callahan DO
--- NOTE | 2017-12-16 16:03 | PN ---
Progress Note, Physician History of Present Illness: no complaints minimal cough still weak does not like anticoagulant tablet says she feels weird with it and her stomach has issues - Current Medication List Current Medications: Active Medications Acetaminophen (Tylenol -) 650 mg PO Q6H PRN PRN Reason: FEVER Last Admin: 12/15/17 00:51 Dose: 650 mg Amlodipine Besylate (Norvasc -) 5 mg PO DAILY [facility] Last Admin: 12/16/17 12:31 Dose: 5 mg Apixaban (Eliquis -) 5 mg PO BID [facility] Last Admin: 12/16/17 12:31 Dose: 5 mg Atorvastatin Calcium (Lipitor -) 80 mg PO HS [facility] Last Admin: 12/15/17 21:20 Dose: 80 mg Calcium Acetate (Phoslo -) 667 mg PO TIDCM [facility] Last Admin: 12/16/17 13:38 Dose: 667 mg Docusate Sodium (Colace -) 100 mg PO Q8H PRN PRN Reason: CONSTIPATION Eucalyptus/Menthol/Phenol/Sorbitol (Cepastat Lozenge -) 1 each MM Q4H PRN PRN Reason: SORE THROAT Last Admin: 12/15/17 07:45 Dose: 1 each Guaifenesin (Diabetic Tussin Dm -) 5 ml PO Q6H PRN PRN Reason: COUGH Hydralazine HCl (Apresoline -) 100 mg PO TID [facility] Last Admin: 12/16/17 14:22 Dose: 100 mg Azithromycin 250 mg/ Dextrose 250 mls @ 250 mls/hr IVPB DAILY [facility] Last Admin: 12/16/17 12:30 Dose: 250 mls/hr CEFTRIAXONE 1 G/50 ML PREMIX (Ceftriaxone 1 Gm-D5w Bag) 50 mls @ 100 mls/hr IVPB DAILY [facility] Last Admin: 12/16/17 12:31 Dose: 100 mls/hr Insulin Detemir (Levemir Vial) 15 units SQ BID@0700,2200 [facility] Last Admin: 12/16/17 06:00 Dose: Not Given Isosorbide Mononitrate (Imdur -) 60 mg PO BID [facility] Last Admin: 12/16/17 13:38 Dose: 60 mg Lactobacillus Acidophilus (Bacid -) 1 tab PO DAILY [facility] Last Admin: 12/16/17 13:37 Dose: 1 tab Metoprolol Succinate (Toprol Xl -) 25 mg PO DAILY [facility] Last Admin: 12/16/17 12:31 Dose: 25 mg Oseltamivir Phosphate (Tamiflu -) 30 mg PO MOWEFR [facility] Stop: 12/24/17 09:59 Last Admin: 12/15/17 10:44 Dose: 30 mg - Objective Vital Signs: Vital Signs Temperature 97.9 F 12/16/17 14:07 Pulse Rate 66 12/16/17 14:07 Respiratory Rate 18 12/16/17 14:07 Blood Pressure 158/76 12/16/17 14:07 O2 Sat by Pulse Oximetry (%) 95 12/16/17 09:00 Constitutional: Yes: Calm, Mild Distress Cardiovascular: Yes: S1, S2 Respiratory: Yes: Regular, On Nasal O2 Gastrointestinal: Yes: Normal Bowel Sounds, Soft Musculoskeletal: Yes: WNL Extremities: Yes: WNL Neurological: Yes: Alert, Oriented Psychiatric: Yes: Alert, Oriented Labs: CBC, BMP 12/16/17 07:15 12/16/17 10:45 INR, PTT INR 1.12 (0.82-1.09) 12/13/17 21:20 Assessment/Plan Problem List - Problems (1) Influenza A Code(s): J10.1 - FLU DUE TO OTH IDENT INFLUENZA VIRUS W OTH RESP MANIFEST (2) Fever Code(s): R50.9 - FEVER, UNSPECIFIED Qualifiers: Fever type: unspecified Qualified Code(s): R50.9 - Fever, unspecified (3) Dysuria Code(s): R30.0 - DYSURIA (4) CKD (chronic kidney disease) Code(s): N18.9 - CHRONIC KIDNEY DISEASE, UNSPECIFIED Qualifiers: Chronic kidney disease stage: on chronic dialysis Qualified Code(s): N18.6 - End stage renal disease (5) Diabetes Code(s): E11.9 - TYPE 2 DIABETES MELLITUS WITHOUT COMPLICATIONS Qualifiers: Diabetes mellitus type: type 2 Diabetes mellitus complication status: with kidney complications Diabetes mellitus complication detail: with chronic kidney disease 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: with fci use Chronic kidney disease stage: on chronic dialysis Qualified Code(s): E11.22 - Type 2 diabetes mellitus with diabetic chronic kidney disease; N18.6 - End stage renal disease; N18.6 - End stage renal disease; N18.6 - End stage renal disease; N18.6 - End stage renal disease; Z79.4 - [facility] (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 insulin; Z79.4 - [facility] (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 insulin; Z79.4 - adjunct faculty 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 (current ) use of insulin; Z79.4 - adjunct faculty 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 (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 insulin; Z99.2 - Dependence on renal dialysis; Z99.2 - Dependence on renal dialysis; Z99.2 - Dependence on renal dialysis; Z99.2 - Dependence on renal dialysis (6) Hypertension Code(s): I10 - ESSENTIAL (PRIMARY) HYPERTENSION Qualifiers: Hypertension type: essential hypertension Qualified Code(s): I10 - Essential (primary) hypertension (7) Umbilical hernia Code(s): K42.9 - UMBILICAL HERNIA WITHOUT OBSTRUCTION OR GANGRENE Qualifiers: Obstruction and gangrene presence: without obstruction or gangrene Qualified Code(s): K42.9 - Umbilical hernia without obstruction or gangrene (8) Pleurisy Code(s): R09.1 - PLEURISY (9) HLD (hyperlipidemia) Code(s): E78.5 - HYPERLIPIDEMIA, UNSPECIFIED plan will stopabx tomorrow switch zithro to po tomorrow rest continue current mgmt rest as per primary team
[2017-12-16] MEDS: guaiFENesin/D-M SUGAR-FREE/ACLHOL-FREE 118 ML BOTTLE PO PRN (17:49)
[2017-12-16] MEDS: ATORVASTATIN CA 80 MG TABLET (FP) PO SCH (21:22)
[2017-12-17] MEDS: hydrALAZINE HCL 50 MG TABLET (FP) PO SCH ×3 (05:38→21:25)
[2017-12-17] MEDS: INSULIN DETEMIR 100 UNITS/ML MDV SQ SCH ×2 (06:56→21:24)
[2017-12-17 08:25] LABS: BASO % 0.8 % (0-2.0); EOS % 3.8 % (0-4.5); HEMATOCRIT 33.6 % (32.4-45.2); HEMOGLOBIN 10.2 GM/dL (10.7-15.3); LYMPH % 45.6 % (8-40); MCHC 30.2 g/dl (32.0-36.0); MEAN CELL VOLUME 69.6 fl (80-96); MEAN PLT VOLUME 11.4 fl (7.5-11.1); NEUT % 34.8 % (42.8-82.8); PLATELET COUNT 109 K/MM3 (134-434); RBC 4.83 M/mm3 (3.60-5.2); RDW 15.5 % (11.6-15.6); WHITE BLOOD COUNT 3.4 K/mm3 (4.0-10.0)
[2017-12-17 08:29] LABS: CHLORIDE 101 mmol/L (98-107); POTASSIUM 3.9 mmol/L (3.5-5.1); SODIUM 140 mmol/L (136-145)
[2017-12-17] MEDS: CALCIUM ACETATE 667 MG CAPSULE (FP) PO SCH ×3 (08:32→17:42)
[2017-12-17 08:34] LABS: ANION GAP 10 (8-16); BLOOD UREA NITROGEN 41 mg/dL (7-18); CALCIUM 7.8 mg/dL (8.5-10.1); CO2 29 mmol/L (21-32); CREATININE 3.5 mg/dL (0.55-1.02); GLUCOSE,RANDOM 90 mg/dL (74-106); PHOSPHOROUS 3.6 mg/dL (2.5-4.9)
--- NOTE | 2017-12-17 09:13 | PN ---
Progress Note, Physician Chief Complaint: Pt in bed,pt appears in no acute distress. She reports she is feeling better. She reports that the eliquis is causing her diarrhea which happened before admission as well. Pt states she's not taking it at home and PCP told her to take aspirin. Denies chest pain, sob, or n/v/d. - Current Medication List Current Medications: Active Medications Acetaminophen (Tylenol -) 650 mg PO Q6H PRN PRN Reason: FEVER Last Admin: 12/15/17 00:51 Dose: 650 mg Amlodipine Besylate (Norvasc -) 5 mg PO DAILY [facility] Last Admin: 12/16/17 12:31 Dose: 5 mg Apixaban (Eliquis -) 5 mg PO BID [facility] Last Admin: 12/16/17 21:23 Dose: Not Given Atorvastatin Calcium (Lipitor -) 80 mg PO HS [facility] Last Admin: 12/16/17 21:22 Dose: 80 mg Calcium Acetate (Phoslo -) 667 mg PO TIDCM [facility] Last Admin: 12/17/17 08:32 Dose: 667 mg Docusate Sodium (Colace -) 100 mg PO Q8H PRN PRN Reason: CONSTIPATION Eucalyptus/Menthol/Phenol/Sorbitol (Cepastat Lozenge -) 1 each MM Q4H PRN PRN Reason: SORE THROAT Last Admin: 12/15/17 07:45 Dose: 1 each Guaifenesin (Diabetic Tussin Dm -) 5 ml PO Q6H PRN PRN Reason: COUGH Last Admin: 12/16/17 17:49 Dose: 5 ml Hydralazine HCl (Apresoline -) 100 mg PO TID [facility] Last Admin: 12/17/17 05:38 Dose: Not Given Azithromycin 250 mg/ Dextrose 250 mls @ 250 mls/hr IVPB DAILY [facility] Last Admin: 12/16/17 12:30 Dose: 250 mls/hr CEFTRIAXONE 1 G/50 ML PREMIX (Ceftriaxone 1 Gm-D5w Bag) 50 mls @ 100 mls/hr IVPB DAILY [facility] Last Admin: 12/16/17 12:31 Dose: 100 mls/hr Insulin Detemir (Levemir Vial) 15 units SQ BID@0700,2200 [facility] Last Admin: 12/17/17 06:56 Dose: 15 unit Isosorbide Mononitrate (Imdur -) 60 mg PO BID [facility] Last Admin: 12/16/17 21:22 Dose: 60 mg Lactobacillus Acidophilus (Bacid -) 1 tab PO DAILY [facility] Last Admin: 12/16/17 13:37 Dose: 1 tab Metoprolol Succinate (Toprol Xl -) 25 mg PO DAILY [facility] Last Admin: 12/16/17 12:31 Dose: 25 mg Oseltamivir Phosphate (Tamiflu -) 30 mg PO MOWEFR [facility] Stop: 12/24/17 09:59 Last Admin: 12/15/17 10:44 Dose: 30 mg - Objective Vital Signs: Vital Signs Temperature 98.5 F 12/17/17 06:00 Pulse Rate 75 12/17/17 06:00 Respiratory Rate 16 12/17/17 06:00 Blood Pressure 157/90 12/17/17 06:00 O2 Sat by Pulse Oximetry (%) 95 12/16/17 09:00 Labs: CBC, BMP 12/17/17 06:44 12/17/17 06:44 INR, PTT INR 1.12 (0.82-1.09) 12/13/17 21:20 Problem List - Problems (1) Influenza A Code(s): J10.1 - FLU DUE TO OTH IDENT INFLUENZA VIRUS W OTH RESP MANIFEST (2) Fever Code(s): R50.9 - FEVER, UNSPECIFIED Qualifiers: Fever type: unspecified Qualified Code(s): R50.9 - Fever, unspecified (3) Dysuria Code(s): R30.0 - DYSURIA (4) CKD (chronic kidney disease) Code(s): N18.9 - CHRONIC KIDNEY DISEASE, UNSPECIFIED Qualifiers: Chronic kidney disease stage: on chronic dialysis Qualified Code(s): N18.6 - End stage renal disease (5) Diabetes Code(s): E11.9 - TYPE 2 DIABETES MELLITUS WITHOUT COMPLICATIONS Qualifiers: Diabetes mellitus type: type 2 Diabetes mellitus complication status: with kidney complications Diabetes mellitus complication detail: with chronic kidney disease Diabetes mellitus terminal gauger insulin use: with senior care use Chronic kidney disease stage: on chronic dialysis Qualified Code(s): E11.22 - Type 2 diabetes mellitus with diabetic chronic kidney disease; N18.6 - End stage renal disease; N18.6 - End stage renal disease; N18.6 - End stage renal disease; N18.6 - End stage renal disease; Z79.4 - half-way (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 insulin; Z79.4 - terminal gauger (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 insulin; Z79.4 - half-way (current ) use of insulin; Z79.4 - terminal gauger (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 insulin; Z99.2 - Dependence on renal dialysis; Z99.2 - Dependence on renal dialysis; Z99.2 - Dependence on renal dialysis; Z99.2 - Dependence on renal dialysis (6) Hypertension Code(s): I10 - ESSENTIAL (PRIMARY) HYPERTENSION Qualifiers: Hypertension type: essential hypertension Qualified Code(s): I10 - Essential (primary) hypertension (7) Umbilical hernia Code(s): K42.9 - UMBILICAL HERNIA WITHOUT OBSTRUCTION OR GANGRENE Qualifiers: Obstruction and gangrene presence: without obstruction or gangrene Qualified Code(s): K42.9 - Umbilical hernia without obstruction or gangrene (8) Pleurisy Code(s): R09.1 - PLEURISY (9) HLD (hyperlipidemia) Code(s): E78.5 - HYPERLIPIDEMIA, UNSPECIFIED (10) Pancreatitis Code(s): K85.9 - ACUTE PANCREATITIS, UNSPECIFIED * DO NOT USE * Qualifiers: Chronicity: chronic Pancreatitis type: biliary Qualified Code(s): K86.1 - Other chronic pancreatitis (11) Abdominal pain Code(s): R10.9 - UNSPECIFIED ABDOMINAL PAIN Qualifiers: Abdominal location: lower abdomen, unspecified Qualified Code(s): R10.30 - Lower abdominal pain, unspecified (12) Diarrhea Code(s): R19.7 - DIARRHEA, UNSPECIFIED Assessment/Plan (1) Influenza A Assessment/Plan: Influenza A positive Tamiflu 5/5 Droplet precautions until completion of tx Code(s): J10.1 - FLU DUE TO OTH IDENT INFLUENZA VIRUS W OTH RESP MANIFEST (2) Fever Assessment/Plan: pt afebrile for 48 hrs UA/UC, blood cultures neg On Ceftriaxone, Azithromycin per ID Will transition to PO antibiotics today per ID recs Code(s): R50.9 - FEVER, UNSPECIFIED Qualifiers: Fever type: unspecified Qualified Code(s): R50.9 - Fever, unspecified (3) Dysuria Assessment/Plan: UA/UC neg Code(s): R30.0 - DYSURIA (4) CKD (chronic kidney disease) Assessment/Plan: ESRD, on HD (MWF) Nephrology following Code(s): N18.9 - CHRONIC KIDNEY DISEASE, UNSPECIFIED Qualifiers: Chronic kidney disease stage: on chronic dialysis Qualified Code(s): N18.6 - End stage renal disease (5) Pleurisy Assessment/Plan: secondary to flu trop neg Treat the underlying conditions and monitor for improvement Code(s): R09.1 - PLEURISY (6) Pancreatitis Assessment/Plan: History of gallstones/pancreatitis, lipase normal No further intervention per GI Code(s): K85.9 - ACUTE PANCREATITIS, UNSPECIFIED * DO NOT USE * Qualifiers: Chronicity: chronic Pancreatitis type: biliary Qualified Code(s): K86.1 - Other chronic pancreatitis (7)Abdominal pain Assessment/Plan: Chronic in nature, lipase normal today As above GI consulted, no further intervention Code(s): R10.9 - UNSPECIFIED ABDOMINAL PAIN Qualifiers: Abdominal location: lower abdomen, unspecified Qualified Code(s): R10.30 - Lower abdominal pain, unspecified (8) Diabetes Assessment/Plan: blood sugars stable Received ambulatory medication list, currently on Lantus 30units HS Code(s): E11.9 - TYPE 2 DIABETES MELLITUS WITHOUT COMPLICATIONS Qualifiers: Diabetes mellitus type: type 2 Diabetes mellitus complication status: with kidney complications Diabetes mellitus complication detail: with chronic kidney disease Diabetes mellitus terminal gauger insulin use: with terminal gauger use Chronic kidney disease stage: on chronic dialysis Qualified Code(s): E11.22 - Type 2 diabetes mellitus with diabetic chronic kidney disease; N18.6 - End stage renal disease; N18.6 - End stage renal disease; N18.6 - End stage renal disease; N18.6 - End stage renal disease; Z79.4 - terminal gauger (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 insulin; Z79.4 - half-way (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 insulin; Z79.4 - half-way (current ) use of insulin; Z79.4 - half-way (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 insulin; Z99.2 - Dependence on renal dialysis; Z99.2 - Dependence on renal dialysis; Z99.2 - Dependence on renal dialysis; Z99.2 - Dependence on renal dialysis (9) HLD (hyperlipidemia) Assessment/Plan: Lipitor 80mg daily Code(s): E78.5 - HYPERLIPIDEMIA, UNSPECIFIED (10) Hypertension Assessment/Plan: Continue home meds, list verified from dialysis and pcp office Amlodipine 5mg daily Hydralazine 100mg TID Eliquis 5mg bid- stopped, pt refuses because "it causes her diarrhea" pt reports she was told to take aspirin by pcp. Cardiology consulted Isosorbide mononitrate 60mg BID Metoprolol 25mg daily Code(s): I10 - ESSENTIAL (PRIMARY) HYPERTENSION Qualifiers: Hypertension type: essential hypertension Qualified Code(s): I10 - Essential (primary) hypertension (11) Umbilical hernia Assessment/Plan: Stable Will monitor for changes Code(s): K42.9 - UMBILICAL HERNIA WITHOUT OBSTRUCTION OR GANGRENE Qualifiers: Obstruction and gangrene presence: without obstruction or gangrene Qualified Code(s): K42.9 - Umbilical hernia without obstruction or gangrene (12) Diarrhea Assessment/plan: Pt reports frequent diarrhea/gi discomfort, pt believes this to be related to eliquis, pt reports she had diarrhea when she took eliquis outpt, for which she stopped eliquis ,was told by pcp to take aspirin Cdiff test ordered
[2017-12-17] MEDS: AZITHROMYCIN IVPB 250 MG in DEXTROSE 5%-WATER - 250 ML IVPB SCH (10:19)
[2017-12-17] MEDS: CEFTRIAXONE 1 G/50 ML PREMIX 50 ML IVPB SCH (10:29)
[2017-12-17] MEDS: amLODIPine BESYLATE 5 MG TABLET (FP) PO SCH (10:29)
[2017-12-17] MEDS: ISOSORBIDE MONONITRATE 60 MG TAB.SR.24H (FP) PO SCH ×2 (10:29→21:25)
[2017-12-17] MEDS: APIXABAN 5 MG TABLET PO SCH ×2 (10:29→10:30)
[2017-12-17] MEDS: LACTOBACILLUS ACIDOPHILUS 1 EACH TAB (FP) PO SCH (10:29)
[2017-12-17] MEDS: METOPROLOL SUCCINATE 25 MG TAB.SR.24H (FP) PO SCH (10:30)
[2017-12-17] MEDS: OSELTAMIVIR PHOSPHATE 30 MG CAPSULE PO SCH (10:30)
[2017-12-17] MEDS: guaiFENesin/D-M SUGAR-FREE/ACLHOL-FREE 118 ML BOTTLE PO PRN (10:42)
--- NOTE | 2017-12-17 14:58 | PN ---
Progress Note, Physician History of Present Illness: starting to feel better still weak coughing dry - Current Medication List Current Medications: Active Medications Acetaminophen (Tylenol -) 650 mg PO Q6H PRN PRN Reason: FEVER Last Admin: 12/15/17 00:51 Dose: 650 mg Amlodipine Besylate (Norvasc -) 5 mg PO DAILY [facility] Last Admin: 12/17/17 10:29 Dose: 5 mg Apixaban (Eliquis -) 2.5 mg PO BID [facility] Atorvastatin Calcium (Lipitor -) 80 mg PO HS [facility] Last Admin: 12/16/17 21:22 Dose: 80 mg Calcium Acetate (Phoslo -) 667 mg PO TIDCM [facility] Last Admin: 12/17/17 12:23 Dose: Not Given Docusate Sodium (Colace -) 100 mg PO Q8H PRN PRN Reason: CONSTIPATION Eucalyptus/Menthol/Phenol/Sorbitol (Cepastat Lozenge -) 1 each MM Q4H PRN PRN Reason: SORE THROAT Last Admin: 12/15/17 07:45 Dose: 1 each Guaifenesin (Diabetic Tussin Dm -) 5 ml PO Q6H PRN PRN Reason: COUGH Last Admin: 12/17/17 10:42 Dose: 5 ml Hydralazine HCl (Apresoline -) 100 mg PO TID [facility] Last Admin: 12/17/17 14:51 Dose: 100 mg Azithromycin 250 mg/ Dextrose 250 mls @ 250 mls/hr IVPB DAILY [facility] Last Admin: 12/17/17 10:19 Dose: 250 mls/hr Insulin Detemir (Levemir Vial) 15 units SQ BID@0700,2200 [facility] Last Admin: 12/17/17 06:56 Dose: 15 unit Isosorbide Mononitrate (Imdur -) 60 mg PO BID [facility] Last Admin: 12/17/17 10:29 Dose: 60 mg Lactobacillus Acidophilus (Bacid -) 1 tab PO DAILY [facility] Last Admin: 12/17/17 10:29 Dose: 1 tab Metoprolol Succinate (Toprol Xl -) 25 mg PO DAILY [facility] Last Admin: 12/17/17 10:30 Dose: 25 mg Oseltamivir Phosphate (Tamiflu -) 30 mg PO MOWEFR [facility] Stop: 12/24/17 09:59 Last Admin: 12/17/17 10:30 Dose: 30 mg - Objective Vital Signs: Vital Signs Temperature 98.6 F 12/17/17 10:13 Pulse Rate 69 12/17/17 12:10 Respiratory Rate 18 12/17/17 12:10 Blood Pressure 169/78 12/17/17 12:10 O2 Sat by Pulse Oximetry (%) 95 12/17/17 09:00 Constitutional: Yes: Calm, Mild Distress Cardiovascular: Yes: Pulse Irregular, S1, S2 Respiratory: Yes: On Nasal O2, Poor Air Entry, Rhonchi Gastrointestinal: Yes: Normal Bowel Sounds, Soft Musculoskeletal: Yes: WNL Extremities: Yes: WNL Neurological: Yes: Alert, Oriented Psychiatric: Yes: Alert, Oriented Labs: CBC, BMP 12/17/17 06:44 12/17/17 06:44 INR, PTT INR 1.12 (0.82-1.09) 12/13/17 21:20 - ....Imaging Chest X-ray: Report Reviewed, Image Reviewed Assessment/Plan Problem List - Problems (1) Influenza A Code(s): J10.1 - FLU DUE TO OTH IDENT INFLUENZA VIRUS W OTH RESP MANIFEST (2) Fever Code(s): R50.9 - FEVER, UNSPECIFIED Qualifiers: Fever type: unspecified Qualified Code(s): R50.9 - Fever, unspecified (3) Dysuria Code(s): R30.0 - DYSURIA (4) CKD (chronic kidney disease) Code(s): N18.9 - CHRONIC KIDNEY DISEASE, UNSPECIFIED Qualifiers: Chronic kidney disease stage: on chronic dialysis Qualified Code(s): N18.6 - End stage renal disease (5) Diabetes Code(s): E11.9 - TYPE 2 DIABETES MELLITUS WITHOUT COMPLICATIONS Qualifiers: Diabetes mellitus type: type 2 Diabetes mellitus complication status: with kidney complications Diabetes mellitus complication detail: with chronic kidney disease Diabetes mellitus roasterman insulin use: with usp use Chronic kidney disease stage: on chronic dialysis Qualified Code(s): E11.22 - Type 2 diabetes mellitus with diabetic chronic kidney disease; N18.6 - End stage renal disease; N18.6 - End stage renal disease; N18.6 - End stage renal disease; N18.6 - End stage renal disease; Z79.4 - shelter (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 insulin; Z79.4 - technician terminal and repeater (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 insulin; Z79.4 - technician terminal and repeater (current ) use of insulin; Z79.4 - shelter (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 insulin; Z99.2 - Dependence on renal dialysis; Z99.2 - Dependence on renal dialysis; Z99.2 - Dependence on renal dialysis; Z99.2 - Dependence on renal dialysis (6) Hypertension Code(s): I10 - ESSENTIAL (PRIMARY) HYPERTENSION Qualifiers: Hypertension type: essential hypertension Qualified Code(s): I10 - Essential (primary) hypertension (7) Umbilical hernia Code(s): K42.9 - UMBILICAL HERNIA WITHOUT OBSTRUCTION OR GANGRENE Qualifiers: Obstruction and gangrene presence: without obstruction or gangrene Qualified Code(s): K42.9 - Umbilical hernia without obstruction or gangrene (8) Pleurisy Code(s): R09.1 - PLEURISY (9) HLD (hyperlipidemia) Code(s): E78.5 - HYPERLIPIDEMIA, UNSPECIFIED plan will stop ceftriaxone switched zithro to po rest continue current mgmt rest as per primary team
--- NOTE | 2017-12-17 15:22 | PN ---
Progress Note (short form) - Note Progress Note: Renal follow up for ESRD on HD Pt seen and examined during dialysis BP stable, goal UF 1.5L pt w/o any issues with dialysis pt reports having diarrhea b/c of eliquis reports having watery stools 9x since yesterday Vital Signs Temperature 98.6 F 12/17/17 10:13 Pulse Rate 69 12/17/17 12:10 Respiratory Rate 18 12/17/17 12:10 Blood Pressure 169/78 12/17/17 12:10 O2 Sat by Pulse Oximetry (%) 95 12/17/17 09:00 Intake & Output 12/14/17 12/15/17 12/16/17 12/17/17 23:59 23:59 23:59 23:59 Intake Total 1280 660 700 Output Total 600 Balance 1280 60 700 Weight 65 kg 78.199 kg 101.174 kg 72.938 kg awake and alert CTA soft NT/ND No Le edema CBC, BMP 12/17/17 06:44 12/17/17 06:44 Current Medications Acetaminophen (Tylenol -) 650 mg PO Q6H PRN PRN Reason: FEVER Last Admin: 12/15/17 00:51 Dose: 650 mg Amlodipine Besylate (Norvasc -) 5 mg PO DAILY [facility] Last Admin: 12/17/17 10:29 Dose: 5 mg Apixaban (Eliquis -) 2.5 mg PO BID [facility] Atorvastatin Calcium (Lipitor -) 80 mg PO HS [facility] Last Admin: 12/16/17 21:22 Dose: 80 mg Azithromycin (Zithromax -) 250 mg PO DAILY [facility] Calcium Acetate (Phoslo -) 667 mg PO TIDCM [facility] Last Admin: 12/17/17 12:23 Dose: Not Given Docusate Sodium (Colace -) 100 mg PO Q8H PRN PRN Reason: CONSTIPATION Eucalyptus/Menthol/Phenol/Sorbitol (Cepastat Lozenge -) 1 each MM Q4H PRN PRN Reason: SORE THROAT Last Admin: 12/15/17 07:45 Dose: 1 each Guaifenesin (Diabetic Tussin Dm -) 5 ml PO Q6H PRN PRN Reason: COUGH Last Admin: 12/17/17 10:42 Dose: 5 ml Hydralazine HCl (Apresoline -) 100 mg PO TID [facility] Last Admin: 12/17/17 14:51 Dose: 100 mg Insulin Detemir (Levemir Vial) 15 units SQ BID@0700,2200 [facility] Last Admin: 12/17/17 06:56 Dose: 15 unit Isosorbide Mononitrate (Imdur -) 60 mg PO BID [facility] Last Admin: 12/17/17 10:29 Dose: 60 mg Lactobacillus Acidophilus (Bacid -) 1 tab PO DAILY [facility] Last Admin: 12/17/17 10:29 Dose: 1 tab Metoprolol Succinate (Toprol Xl -) 25 mg PO DAILY [facility] Last Admin: 12/17/17 10:30 Dose: 25 mg Oseltamivir Phosphate (Tamiflu -) 30 mg PO MOWEFR [facility] Stop: 12/24/17 09:59 Last Admin: 12/17/17 10:30 Dose: 30 mg 67 year old woman with PMhx of ESRD on HD (MWF), Hypertension, DM, Hx of Pancreatitis who presented with complaints of cough, throat pain and abd pain and found to have influenza and slightly elevated lipase. #Fever/Influenza/Abd pain + for Influenza A continue tamiflu on Azithromax on cough suppressant ID following #ESRD on HD tolerating dialysis well #Diarrhea ? etiology pt attributes it to eliquis, ? need for continued A/c check stool for C-diff #Hypertension BP well controlled Ignacio Callahan DO
[2017-12-17] MEDS: ATORVASTATIN CA 80 MG TABLET (FP) PO SCH (21:25)
[2017-12-17] MEDS: APIXABAN 2.5 MG TABLET PO SCH (21:25)
[2017-12-17] MEDS: ACETAMINOPHEN 325 MG TABLET (FP) PO PRN (21:25)
[2017-12-18 00:11] LABS: HBSAG SCREEN Negative (Negative); HEP A AB, IGM Negative (Negative); HEP B CORE AB, TOT Negative (Negative)
[2017-12-18] MEDS: hydrALAZINE HCL 50 MG TABLET (FP) PO SCH ×3 (06:56→21:51)
[2017-12-18] MEDS: INSULIN DETEMIR 100 UNITS/ML MDV SQ SCH ×2 (06:57→21:52)
[2017-12-18 07:46] LABS: BASO % 0.9 % (0-2.0); EOS % 4.2 % (0-4.5); HEMATOCRIT 34.4 % (32.4-45.2); HEMOGLOBIN 10.5 GM/dL (10.7-15.3); LYMPH % 48.9 % (8-40); MCH 21.3 pg (25.7-33.7); MCHC 30.5 g/dl (32.0-36.0); MEAN CELL VOLUME 69.6 fl (80-96); MEAN PLT VOLUME 11.4 fl (7.5-11.1); MONO % 13.6 % (3.8-10.2); NEUT % 32.4 % (42.8-82.8); PLATELET COUNT 116 K/MM3 (134-434); RBC 4.94 M/mm3 (3.60-5.2); RDW 15.3 % (11.6-15.6); WHITE BLOOD COUNT 3.4 K/mm3 (4.0-10.0)
[2017-12-18 08:06] LABS: ANION GAP 9 (8-16); BLOOD UREA NITROGEN 32 mg/dL (7-18); CALCIUM 8.1 mg/dL (8.5-10.1); CHLORIDE 100 mmol/L (98-107); CO2 31 mmol/L (21-32); GLUCOSE,RANDOM 73 mg/dL (74-106); MAGNESIUM 1.9 mg/dL (1.8-2.4); POTASSIUM 3.8 mmol/L (3.5-5.1); SODIUM 140 mmol/L (136-145)
[2017-12-18 08:12] LABS: PHOSPHOROUS 3.8 mg/dL (2.5-4.9)
--- NOTE | 2017-12-18 08:14 | PN ---
Progress Note, Physician Chief Complaint: Pt in bed,pt appears in no acute distress. She reports she is feeling ok and no diarrhea overnight. Pt reports cough is better as well. Denies chest pain, sob, or n/v/d. - Current Medication List Current Medications: Active Medications Acetaminophen (Tylenol -) 650 mg PO Q6H PRN PRN Reason: FEVER Last Admin: 12/17/17 21:25 Dose: 650 mg Amlodipine Besylate (Norvasc -) 5 mg PO DAILY [facility] Last Admin: 12/17/17 10:29 Dose: 5 mg Apixaban (Eliquis -) 2.5 mg PO BID [facility] Last Admin: 12/17/17 21:25 Dose: Not Given Atorvastatin Calcium (Lipitor -) 80 mg PO HS [facility] Last Admin: 12/17/17 21:25 Dose: 80 mg Azithromycin (Zithromax -) 250 mg PO DAILY [facility] Calcium Acetate (Phoslo -) 667 mg PO TIDCM [facility] Last Admin: 12/17/17 17:42 Dose: 667 mg Docusate Sodium (Colace -) 100 mg PO Q8H PRN PRN Reason: CONSTIPATION Eucalyptus/Menthol/Phenol/Sorbitol (Cepastat Lozenge -) 1 each MM Q4H PRN PRN Reason: SORE THROAT Last Admin: 12/15/17 07:45 Dose: 1 each Guaifenesin (Diabetic Tussin Dm -) 5 ml PO Q6H PRN PRN Reason: COUGH Last Admin: 12/17/17 10:42 Dose: 5 ml Hydralazine HCl (Apresoline -) 100 mg PO TID [facility] Last Admin: 12/18/17 06:56 Dose: Not Given Insulin Detemir (Levemir Vial) 15 units SQ BID@0700,2200 [facility] Last Admin: 12/18/17 06:57 Dose: Not Given Isosorbide Mononitrate (Imdur -) 60 mg PO BID [facility] Last Admin: 12/17/17 21:25 Dose: 60 mg Lactobacillus Acidophilus (Bacid -) 1 tab PO DAILY [facility] Last Admin: 12/17/17 10:29 Dose: 1 tab Metoprolol Succinate (Toprol Xl -) 25 mg PO DAILY [facility] Last Admin: 12/17/17 10:30 Dose: 25 mg Oseltamivir Phosphate (Tamiflu -) 30 mg PO MOWEFR [facility] Stop: 12/24/17 09:59 Last Admin: 12/17/17 10:30 Dose: 30 mg - Objective Vital Signs: Vital Signs Temperature 98.5 F 12/18/17 05:38 Pulse Rate 63 12/18/17 05:38 Respiratory Rate 20 12/18/17 05:38 Blood Pressure 136/56 12/18/17 05:38 O2 Sat by Pulse Oximetry (%) 95 12/17/17 22:00 Constitutional: Yes: Well Nourished, No Distress, Calm Neck: Yes: WNL Cardiovascular: Yes: WNL, Regular Rate and Rhythm. No: Tachycardia, Gallop, Rub Respiratory: Yes: WNL, Regular, CTA Bilaterally, Diminished. No: Rhonchi, SOB, Tachypnea, Wheezes Gastrointestinal: Yes: Normal Bowel Sounds, Soft, Abdomen, Obese, Tenderness ( suprapubic). No: Distention Musculoskeletal: Yes: WNL Extremities: Yes: WNL Edema: No Neurological: Yes: WNL, Alert, Oriented Psychiatric: Yes: WNL, Alert Labs: CBC, BMP 12/18/17 06:00 INR, PTT INR 1.12 (0.82-1.09) 12/13/17 21:20 Problem List - Problems (1) Influenza A Code(s): J10.1 - FLU DUE TO OTH IDENT INFLUENZA VIRUS W OTH RESP MANIFEST (2) Fever Code(s): R50.9 - FEVER, UNSPECIFIED Qualifiers: Fever type: unspecified Qualified Code(s): R50.9 - Fever, unspecified (3) Dysuria Code(s): R30.0 - DYSURIA (4) CKD (chronic kidney disease) Code(s): N18.9 - CHRONIC KIDNEY DISEASE, UNSPECIFIED Qualifiers: Chronic kidney disease stage: on chronic dialysis Qualified Code(s): N18.6 - End stage renal disease (5) Diabetes Code(s): E11.9 - TYPE 2 DIABETES MELLITUS WITHOUT COMPLICATIONS Qualifiers: Diabetes mellitus type: type 2 Diabetes mellitus complication status: with kidney complications Diabetes mellitus complication detail: with chronic kidney disease Diabetes mellitus buttermaker insulin use: with correction use Chronic kidney disease stage: on chronic dialysis Qualified Code(s): E11.22 - Type 2 diabetes mellitus with diabetic chronic kidney disease; N18.6 - End stage renal disease; N18.6 - End stage renal disease; N18.6 - End stage renal disease; N18.6 - End stage renal disease; Z79.4 - senior living (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 insulin; Z79.4 - 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 (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 insulin; Z79.4 - senior living (current ) use of insulin; Z79.4 - 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 (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 insulin; Z99.2 - Dependence on renal dialysis; Z99.2 - Dependence on renal dialysis; Z99.2 - Dependence on renal dialysis; Z99.2 - Dependence on renal dialysis (6) Hypertension Code(s): I10 - ESSENTIAL (PRIMARY) HYPERTENSION Qualifiers: Hypertension type: essential hypertension Qualified Code(s): I10 - Essential (primary) hypertension (7) Umbilical hernia Code(s): K42.9 - UMBILICAL HERNIA WITHOUT OBSTRUCTION OR GANGRENE Qualifiers: Obstruction and gangrene presence: without obstruction or gangrene Qualified Code(s): K42.9 - Umbilical hernia without obstruction or gangrene (8) Pleurisy Code(s): R09.1 - PLEURISY (9) HLD (hyperlipidemia) Code(s): E78.5 - HYPERLIPIDEMIA, UNSPECIFIED (10) Pancreatitis Code(s): K85.9 - ACUTE PANCREATITIS, UNSPECIFIED * DO NOT USE * Qualifiers: Chronicity: chronic Pancreatitis type: biliary Qualified Code(s): K86.1 - Other chronic pancreatitis (11) Abdominal pain Code(s): R10.9 - UNSPECIFIED ABDOMINAL PAIN Qualifiers: Abdominal location: lower abdomen, unspecified Qualified Code(s): R10.30 - Lower abdominal pain, unspecified (12) Diarrhea Code(s): R19.7 - DIARRHEA, UNSPECIFIED Assessment/Plan (1) Influenza A Assessment/Plan: Influenza A positive Tamiflu after HD on MWF, tx completed d/c droplet prec Code(s): J10.1 - FLU DUE TO OTH IDENT INFLUENZA VIRUS W OTH RESP MANIFEST (2) Fever Assessment/Plan: pt afebrile for 48 hrs UA/UC, blood cultures neg on PO Azithromycin Code(s): R50.9 - FEVER, UNSPECIFIED Qualifiers: Fever type: unspecified Qualified Code(s): R50.9 - Fever, unspecified (3) Dysuria Assessment/Plan: UA/UC neg Code(s): R30.0 - DYSURIA (4) CKD (chronic kidney disease) Assessment/Plan: ESRD, on HD ([facility]) Nephrology following Code(s): N18.9 - CHRONIC KIDNEY DISEASE, UNSPECIFIED Qualifiers: Chronic kidney disease stage: on chronic dialysis Qualified Code(s): N18.6 - End stage renal disease (5) Pleurisy Assessment/Plan: secondary to flu improved Code(s): R09.1 - PLEURISY (6) Pancreatitis Assessment/Plan: History of gallstones/pancreatitis, lipase normal No further intervention per GI Code(s): K85.9 - ACUTE PANCREATITIS, UNSPECIFIED * DO NOT USE * Qualifiers: Chronicity: chronic Pancreatitis type: biliary Qualified Code(s): K86.1 - Other chronic pancreatitis (7)Abdominal pain Assessment/Plan: surprapubic tenderness GI consulted, no further intervention F/u outpt with urology Code(s): R10.9 - UNSPECIFIED ABDOMINAL PAIN Qualifiers: Abdominal location: lower abdomen, unspecified Qualified Code(s): R10.30 - Lower abdominal pain, unspecified (8) Diabetes Assessment/Plan: blood sugars stable continue Lantus 30units daily Code(s): E11.9 - TYPE 2 DIABETES MELLITUS WITHOUT COMPLICATIONS Qualifiers: Diabetes mellitus type: type 2 Diabetes mellitus complication status: with kidney complications Diabetes mellitus complication detail: with chronic kidney disease Diabetes mellitus correction insulin use: with correction use Chronic kidney disease stage: on chronic dialysis Qualified Code(s): E11.22 - Type 2 diabetes mellitus with diabetic chronic kidney disease; N18.6 - End stage renal disease; N18.6 - End stage renal disease; N18.6 - End stage renal disease; N18.6 - End stage renal disease; 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.4 - 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 (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 insulin; Z79.4 - senior living (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 insulin; Z79.4 - senior living (current ) use of insulin; Z79.4 - 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 (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 insulin; Z99.2 - Dependence on renal dialysis; Z99.2 - Dependence on renal dialysis; Z99.2 - Dependence on renal dialysis; Z99.2 - Dependence on renal dialysis (9) HLD (hyperlipidemia) Assessment/Plan: Lipitor 80mg daily Code(s): E78.5 - HYPERLIPIDEMIA, UNSPECIFIED (10) Hypertension Assessment/Plan: Continue home meds Amlodipine 5mg daily Hydralazine 100mg TID Eliquis 5mg bid- stopped, pt refuses because "it causes her diarrhea" pt reports she was told to take aspirin by pcp. Cardiology consulted for further medication management Isosorbide mononitrate 60mg BID Metoprolol 25mg daily Code(s): I10 - ESSENTIAL (PRIMARY) HYPERTENSION Qualifiers: Hypertension type: essential hypertension Qualified Code(s): I10 - Essential (primary) hypertension (11) Umbilical hernia Assessment/Plan: Stable Will monitor for changes Code(s): K42.9 - UMBILICAL HERNIA WITHOUT OBSTRUCTION OR GANGRENE Qualifiers: Obstruction and gangrene presence: without obstruction or gangrene Qualified Code(s): K42.9 - Umbilical hernia without obstruction or gangrene (12) Diarrhea Assessment/plan: resolved, no diarrhea overnight Cdiff test pending Dispo: Home, cdif pending, cardiology consult pending.
[2017-12-18] MEDS ORDERED: ASPIRIN COATED 81 MG TABLET.EC PO SCH (10:00)
--- NOTE | 2017-12-18 10:05 | PN ---
Progress Note (short form) - Note Progress Note: Renal follow up for ESRD on HD Pt seen and examined at the bedside overall feels better did not take eliquis, no further diarrhea no sob, chest pain continues to have abd discomfort Vital Signs Temperature 98.5 F 12/18/17 05:38 Pulse Rate 63 12/18/17 05:38 Respiratory Rate 20 12/18/17 05:38 Blood Pressure 136/56 12/18/17 05:38 O2 Sat by Pulse Oximetry (%) 95 12/17/17 22:00 Intake & Output 12/15/17 12/16/17 12/17/17 12/18/17 23:59 23:59 23:59 23:59 Intake Total 1280 660 710 Output Total 600 Balance 1280 60 710 Weight 78.199 kg 101.174 kg 72.938 kg awake and alert CTA soft NT/ND No Le edema CBC, BMP 12/18/17 06:00 12/18/17 06:00 Current Medications Acetaminophen (Tylenol -) 650 mg PO Q6H PRN PRN Reason: FEVER Last Admin: 12/17/17 21:25 Dose: 650 mg Amlodipine Besylate (Norvasc -) 5 mg PO DAILY [facility] Last Admin: 12/17/17 10:29 Dose: 5 mg Apixaban (Eliquis -) 2.5 mg PO BID [facility] Last Admin: 12/17/17 21:25 Dose: Not Given Atorvastatin Calcium (Lipitor -) 80 mg PO HS [facility] Last Admin: 12/17/17 21:25 Dose: 80 mg Azithromycin (Zithromax -) 250 mg PO DAILY [facility] Calcium Acetate (Phoslo -) 667 mg PO TIDCM [facility] Last Admin: 12/17/17 17:42 Dose: 667 mg Docusate Sodium (Colace -) 100 mg PO Q8H PRN PRN Reason: CONSTIPATION Eucalyptus/Menthol/Phenol/Sorbitol (Cepastat Lozenge -) 1 each MM Q4H PRN PRN Reason: SORE THROAT Last Admin: 12/15/17 07:45 Dose: 1 each Guaifenesin (Diabetic Tussin Dm -) 5 ml PO Q6H PRN PRN Reason: COUGH Last Admin: 12/17/17 10:42 Dose: 5 ml Hydralazine HCl (Apresoline -) 100 mg PO TID [facility] Last Admin: 12/18/17 06:56 Dose: Not Given Insulin Detemir (Levemir Vial) 15 units SQ BID@0700,2200 [facility] Last Admin: 12/18/17 06:57 Dose: Not Given Isosorbide Mononitrate (Imdur -) 60 mg PO BID [facility] Last Admin: 12/17/17 21:25 Dose: 60 mg Lactobacillus Acidophilus (Bacid -) 1 tab PO DAILY [facility] Last Admin: 12/17/17 10:29 Dose: 1 tab Metoprolol Succinate (Toprol Xl -) 25 mg PO DAILY [facility] Last Admin: 12/17/17 10:30 Dose: 25 mg Oseltamivir Phosphate (Tamiflu -) 30 mg PO MOWEFR [facility] Stop: 12/24/17 09:59 Last Admin: 12/17/17 10:30 Dose: 30 mg 67 year old woman with PMhx of ESRD on HD (MWF), Hypertension, DM, Hx of Pancreatitis who presented with complaints of cough, throat pain and abd pain and found to have influenza and slightly elevated lipase. 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
[2017-12-18] MEDS ORDERED: PT OWN MED DRAWER 7, Y5N ONE ×2 (11:01→12:17)
[2017-12-18] MEDS: ISOSORBIDE MONONITRATE 60 MG TAB.SR.24H (FP) PO SCH ×2 (11:02→21:51)
[2017-12-18] MEDS: CALCIUM ACETATE 667 MG CAPSULE (FP) PO SCH ×3 (11:02→17:28)
[2017-12-18] MEDS: amLODIPine BESYLATE 5 MG TABLET (FP) PO SCH (11:02)
[2017-12-18] MEDS: AZITHROMYCIN 250 MG TABLET PO SCH (11:03)
[2017-12-18] MEDS: LACTOBACILLUS ACIDOPHILUS 1 EACH TAB (FP) PO SCH (11:03)
[2017-12-18] MEDS: METOPROLOL SUCCINATE 25 MG TAB.SR.24H (FP) PO SCH (11:03)
[2017-12-18] MEDS: APIXABAN 2.5 MG TABLET PO SCH (11:03)
--- NOTE | 2017-12-18 11:46 | PN ---
Progress Note, Physician History of Present Illness: not feeling well dirrhoea abd discomfort - Current Medication List Current Medications: Active Medications Acetaminophen (Tylenol -) 650 mg PO Q6H PRN PRN Reason: FEVER Last Admin: 12/17/17 21:25 Dose: 650 mg Amlodipine Besylate (Norvasc -) 5 mg PO DAILY [facility] Last Admin: 12/18/17 11:02 Dose: 5 mg Apixaban (Eliquis -) 2.5 mg PO BID [facility] Last Admin: 12/18/17 11:03 Dose: Not Given Atorvastatin Calcium (Lipitor -) 80 mg PO HS [facility] Last Admin: 12/17/17 21:25 Dose: 80 mg Azithromycin (Zithromax -) 250 mg PO DAILY [facility] Last Admin: 12/18/17 11:03 Dose: 250 mg Calcium Acetate (Phoslo -) 667 mg PO TIDCM [facility] Last Admin: 12/18/17 11:02 Dose: 667 mg Docusate Sodium (Colace -) 100 mg PO Q8H PRN PRN Reason: CONSTIPATION Eucalyptus/Menthol/Phenol/Sorbitol (Cepastat Lozenge -) 1 each MM Q4H PRN PRN Reason: SORE THROAT Last Admin: 12/15/17 07:45 Dose: 1 each Guaifenesin (Diabetic Tussin Dm -) 5 ml PO Q6H PRN PRN Reason: COUGH Last Admin: 12/17/17 10:42 Dose: 5 ml Hydralazine HCl (Apresoline -) 100 mg PO TID [facility] Last Admin: 12/18/17 06:56 Dose: Not Given Insulin Detemir (Levemir Vial) 15 units SQ BID@0700,2200 [facility] Last Admin: 12/18/17 06:57 Dose: Not Given Isosorbide Mononitrate (Imdur -) 60 mg PO BID [facility] Last Admin: 12/18/17 11:02 Dose: 60 mg Lactobacillus Acidophilus (Bacid -) 1 tab PO DAILY [facility] Last Admin: 12/18/17 11:03 Dose: 1 tab Metoprolol Succinate (Toprol Xl -) 25 mg PO DAILY [facility] Last Admin: 12/18/17 11:03 Dose: 25 mg Oseltamivir Phosphate (Tamiflu -) 30 mg PO MOWEFR [facility] Stop: 12/24/17 09:59 Last Admin: 12/17/17 10:30 Dose: 30 mg Ranitidine HCl (Zantac Oral Solution -) 150 mg PO DAILY [facility] - Objective Vital Signs: Vital Signs Temperature 98.5 F 12/18/17 05:38 Pulse Rate 63 12/18/17 05:38 Respiratory Rate 20 12/18/17 05:38 Blood Pressure 136/56 12/18/17 05:38 O2 Sat by Pulse Oximetry (%) 95 12/17/17 22:00 Constitutional: Yes: Calm, Mild Distress Cardiovascular: Yes: S1, S2 Respiratory: Yes: Regular, CTA Bilaterally Gastrointestinal: Yes: Normal Bowel Sounds, Soft Musculoskeletal: Yes: WNL Extremities: Yes: WNL Neurological: Yes: Alert, Oriented Psychiatric: Yes: Alert Labs: CBC, BMP 12/18/17 06:00 12/18/17 06:00 INR, PTT INR 1.12 (0.82-1.09) 12/13/17 21:20 Assessment/Plan Problem List - Problems (1) Influenza A Code(s): J10.1 - FLU DUE TO OTH IDENT INFLUENZA VIRUS W OTH RESP MANIFEST (2) Fever Code(s): R50.9 - FEVER, UNSPECIFIED Qualifiers: Fever type: unspecified Qualified Code(s): R50.9 - Fever, unspecified (3) Dysuria Code(s): R30.0 - DYSURIA (4) CKD (chronic kidney disease) Code(s): N18.9 - CHRONIC KIDNEY DISEASE, UNSPECIFIED Qualifiers: Chronic kidney disease stage: on chronic dialysis Qualified Code(s): N18.6 - End stage renal disease (5) Diabetes Code(s): E11.9 - TYPE 2 DIABETES MELLITUS WITHOUT COMPLICATIONS Qualifiers: Diabetes mellitus type: type 2 Diabetes mellitus complication status: with kidney complications Diabetes mellitus complication detail: with chronic kidney disease Diabetes mellitus correction insulin use: with correction use Chronic kidney disease stage: on chronic dialysis Qualified Code(s): E11.22 - Type 2 diabetes mellitus with diabetic chronic kidney disease; N18.6 - End stage renal disease; N18.6 - End stage renal disease; N18.6 - End stage renal disease; N18.6 - End stage renal disease; 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.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 insulin; Z79.4 - custodial (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 insulin; Z79.4 - custodial (current ) use of insulin; Z79.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 insulin; Z99.2 - Dependence on renal dialysis; Z99.2 - Dependence on renal dialysis; Z99.2 - Dependence on renal dialysis; Z99.2 - Dependence on renal dialysis (6) Hypertension Code(s): I10 - ESSENTIAL (PRIMARY) HYPERTENSION Qualifiers: Hypertension type: essential hypertension Qualified Code(s): I10 - Essential (primary) hypertension (7) Umbilical hernia Code(s): K42.9 - UMBILICAL HERNIA WITHOUT OBSTRUCTION OR GANGRENE Qualifiers: Obstruction and gangrene presence: without obstruction or gangrene Qualified Code(s): K42.9 - Umbilical hernia without obstruction or gangrene (8) Pleurisy Code(s): R09.1 - PLEURISY (9) HLD (hyperlipidemia) Code(s): E78.5 - HYPERLIPIDEMIA, UNSPECIFIED plan continue and finish 5 days of zithro if patient has loose bm send cdiff rest as per primary
[2017-12-18] MEDS: RANITIDINE HCL 150 MG/10 ML UNIT-DOSE PO SCH (12:22)
--- NOTE | 2017-12-18 13:58 | CON.CARD ---
Cardiology Consult (text) - Consultation Consultation Note: cc: fever hpi: 67 yo with h/o paroxysmal afib (dx 04/2017), htn, hld, esrd on hd, dm, gerd , anemia, sickle cell trait here with sepsis/influenza A. + fever/chills, + dysuria. + dry cough + surprapubic tenderness, + diarrhea States eliquis was causing diarrhea and recently stopped it. Was prescribed eliquis 5 bid here and switched to 2.5 bid yesterday evening, but patient has been refusing since 12/16. States she has had GIB and diarrhea from eliquis in the past and has been taking only ASA. States her coordinator of library services is aware. No cp sob palps dizzy loc pnd orthopnea le edema. Sees Dr. Kerr for cardio. pmh: per hpi psh: avf social: never tob fam: no premature cad ros: per hpi; no vomiting, alejandra, vision changes, wt loss, rash, bleeding, nasal congestion meds: Ambulatory Orders Hydralazine HCl [Apresoline -] 100 mg PO TID 05/30/14 Atorvastatin Ca [Lipitor] 80 mg PO DAILY 12/08/16 Amlodipine Besylate [Norvasc -] 5 mg PO DAILY #30 tablet 05/03/17 Metoprolol Succinate [Toprol XL -] 25 mg PO DAILY #30 tab.sr 05/28/17 Current Medications Acetaminophen (Tylenol -) 650 mg PO Q6H PRN PRN Reason: FEVER Last Admin: 12/17/17 21:25 Dose: 650 mg Amlodipine Besylate (Norvasc -) 5 mg PO DAILY [facility] Last Admin: 12/18/17 11:02 Dose: 5 mg Apixaban (Eliquis -) 2.5 mg PO BID [facility] Last Admin: 12/18/17 11:03 Dose: Not Given Atorvastatin Calcium (Lipitor -) 80 mg PO HS [facility] Last Admin: 12/17/17 21:25 Dose: 80 mg Azithromycin (Zithromax -) 250 mg PO DAILY [facility] Last Admin: 12/18/17 11:03 Dose: 250 mg Calcium Acetate (Phoslo -) 667 mg PO TIDCM [facility] Last Admin: 12/18/17 12:22 Dose: 667 mg Docusate Sodium (Colace -) 100 mg PO Q8H PRN PRN Reason: CONSTIPATION Eucalyptus/Menthol/Phenol/Sorbitol (Cepastat Lozenge -) 1 each MM Q4H PRN PRN Reason: SORE THROAT Last Admin: 12/15/17 07:45 Dose: 1 each Guaifenesin (Diabetic Tussin Dm -) 5 ml PO Q6H PRN PRN Reason: COUGH Last Admin: 12/17/17 10:42 Dose: 5 ml Hydralazine HCl (Apresoline -) 100 mg PO TID [facility] Last Admin: 12/18/17 13:33 Dose: 100 mg Insulin Detemir (Levemir Vial) 15 units SQ BID@0700,2200 [facility] Last Admin: 12/18/17 06:57 Dose: Not Given Isosorbide Mononitrate (Imdur -) 60 mg PO BID [facility] Last Admin: 12/18/17 11:02 Dose: 60 mg Lactobacillus Acidophilus (Bacid -) 1 tab PO DAILY [facility] Last Admin: 12/18/17 11:03 Dose: 1 tab Metoprolol Succinate (Toprol Xl -) 25 mg PO DAILY [facility] Last Admin: 12/18/17 11:03 Dose: 25 mg Oseltamivir Phosphate (Tamiflu -) 30 mg PO MOWEFR [facility] Stop: 12/24/17 09:59 Last Admin: 12/17/17 10:30 Dose: 30 mg Ranitidine HCl (Zantac Oral Solution -) 150 mg PO DAILY [facility] Last Admin: 12/18/17 12:22 Dose: 150 mg pe: Vital Signs - 24 hr 12/17/17 12/17/17 12/17/17 14:10 14:30 15:00 Temperature 98.7 F Pulse Rate 71 71 75 Respiratory 18 18 20 Rate Blood Pressure 144/63 158/79 158/79 O2 Sat by Pulse Oximetry (%) 12/17/17 12/17/17 12/18/17 18:06 22:00 01:58 Temperature 99 F 98.9 F 98.1 F Pulse Rate 74 73 64 Respiratory 18 20 20 Rate Blood Pressure 154/64 143/68 143/68 O2 Sat by Pulse 95 Oximetry (%) 12/18/17 12/18/17 05:38 09:00 Temperature 98.5 F 98.5 F Pulse Rate 63 71 Respiratory 20 19 Rate Blood Pressure 136/56 132/61 O2 Sat by Pulse 95 Oximetry (%) Intake & Output 12/16/17 12/17/17 12/18/17 12/19/17 07:59 07:59 07:59 07:59 Intake Total 1180 660 710 Output Total 600 Balance 580 660 710 Weight 223 lb 0.8 oz 160 lb 12.8 oz nad no jvd rrr s1s2 no mrg cta bl nl eff aaox3 no le le/c/c + bs soft nt nd no jaundice diaphoresis +dp pt no carotid bruits CBC, BMP 12/18/17 06:00 12/18/17 06:00 Microbiology 12/14/17 01:00 Nasopharyngeal Swab Influenza Types A,B Antigen (MONIKA) - Final 12/14/17 01:00 Nasopharyngeal Swab - Final Laboratory Tests 12/13/17 12/13/17 12/16/17 21:20 21:20 07:15 Plt Count Magnesium Total Bilirubin 0.2 AST 32 ALT 43 Alkaline Phosphatase 100 Creatine Kinase Index 0.5 Troponin I 0.03 Albumin 3.7 Lipase 449 H 319 12/17/17 12/18/17 06:44 06:00 Plt Count 109 L Magnesium 1.9 Total Bilirubin AST ALT Alkaline Phosphatase Creatine Kinase Index Troponin I Albumin Lipase ecg 11/2017: nsr, non-specific t wave abnormality. no acute ischemic changes Echo 05/08 here: nl LVSF; nl RV; mod LAE; mild MR mibi 08/2016: no ecg changes, nl mpi, nl lvef A/P 67 yo with h/o paroxysmal afib (dx 04/2017), htn, hld, esrd on hd, dm, gerd, anemia, sickle cell trait here with sepsis/influenza A. sepsis/flu - improving, ongoing mgm't per pmd/ID. afib: - patient states she has had prior side effects of diarrhea and gib on eliquis in the past and has been on asa. Will review office records. Patient is currently in SR with recovering thrombocytopenia. For now, ok to d/c eliquis and start asa instead, will follow up office records. -HR controlled on low dose toprol htn: -overall controlled on home regimen (norvasc, hydralazine, imdur, toprol), con' t hld: -cont home statin thrombocytopenia - platelet maureen 92, now improving ESRD on HD - HD per renal.
[2017-12-18] MEDS: ATORVASTATIN CA 80 MG TABLET (FP) PO SCH (21:51)
[2017-12-19] MEDS: hydrALAZINE HCL 50 MG TABLET (FP) PO SCH (05:55)
[2017-12-19] MEDS: INSULIN DETEMIR 100 UNITS/ML MDV SQ SCH (06:00)
[2017-12-19 08:09] LABS: CHLORIDE 104 mmol/L (98-107); POTASSIUM 4.2 mmol/L (3.5-5.1); SODIUM 140 mmol/L (136-145)
[2017-12-19] MEDS: CALCIUM ACETATE 667 MG CAPSULE (FP) PO SCH (08:14)
[2017-12-19 08:16] LABS: ANION GAP 11 (8-16); BLOOD UREA NITROGEN 44 mg/dL (7-18); CALCIUM 8.3 mg/dL (8.5-10.1); CO2 25 mmol/L (21-32); CREATININE 3.6 mg/dL (0.55-1.02); GLUCOSE,RANDOM 156 mg/dL (74-106)
--- NOTE | 2017-12-19 09:37 | DS ---
Physical Examination Vital Signs: Vital Signs Temperature 98.7 F 12/19/17 06:00 Pulse Rate 65 12/19/17 06:00 Respiratory Rate 18 12/19/17 06:00 Blood Pressure 143/69 12/19/17 06:00 O2 Sat by Pulse Oximetry (%) 95 12/18/17 21:00 Constitutional: Yes: Well Nourished, No Distress, Calm Cardiovascular: Yes: WNL, Regular Rate and Rhythm Respiratory: Yes: Regular, CTA Bilaterally, Diminished Gastrointestinal: Yes: Normal Bowel Sounds, Soft, Hernia. No: Distention Edema: No Neurological: Yes: WNL, Alert, Oriented Psychiatric: Yes: WNL, Alert, Oriented Labs: CBC, BMP 12/18/17 06:00 12/19/17 06:20 <Meena Sellers - Last Filed: 12/19/17 10:29> Vital Signs: Vital Signs Temperature 98.7 F 12/19/17 06:00 Pulse Rate 65 12/19/17 06:00 Respiratory Rate 18 12/19/17 06:00 Blood Pressure 143/69 12/19/17 06:00 O2 Sat by Pulse Oximetry (%) 95 12/18/17 21:00 Labs: CBC, BMP 12/18/17 06:00 12/19/17 06:20 <Darci Duke - Last Filed: 12/19/17 10:43> Discharge Summary Reason For Visit: FEVER Current Active Problems DVT prophylaxis (Acute) Diarrhea (Acute) Dysuria (Acute) Fever (Acute) Influenza A (Acute) Pancreatitis (Acute) Pleurisy (Acute) Umbilical hernia (Acute) Hospital Course: is a 67 year old female with pmh of ESRD (M,W,F), HTN, DM who was admitted for Sepsis secondary to Influenza A. Pt completed tamiflu and will finish total 5 days of Azithromycin. She has been afebrile for the last 72 hours , wbcs wnl, chest xray neg. Pt had mild elevation in lipase and abdominal pain in which GI was consulted, no further intervention/workup were recommended. Pt was placed on eliquis by cardiology in june for paroxysmal afib which resolved , eliquis was restarted here and had an intolerance(gi discomfort,diarrhea). Pt reports this has happened before and stopped taking it. Cardiology was consulted , ok to d/c eliquis and have pt on aspirin. Pt hasnt had diarrhea for the last 48 hours. - Home Medications Comprehensive Discharge Medication List: Ambulatory Orders Hydralazine HCl [Apresoline -] 100 mg PO TID 05/30/14 Atorvastatin Ca [Lipitor] 80 mg PO DAILY 12/08/16 Amlodipine Besylate [Norvasc -] 5 mg PO DAILY #30 tablet 05/03/17 Metoprolol Succinate [Toprol XL -] 25 mg PO DAILY #30 tab.sr 05/28/17 Aspirin [ASA -] 81 mg PO DAILY tab.chew 12/19/17 Azithromycin [Zithromax 250mg Tablets -] 250 mg PO DAILY 4 Days #4 tablet Calcium Acetate [Phoslo -] 667 mg PO TIDCM capsule 12/19/17 Insulin (Levemir) [Levemir Vial] 15 units SQ BID@0700,2200 ml 12/19/17 Isosorbide Mononitrate [Imdur -] 60 mg PO BID tab.sr.24h 12/19/17 <Meena Sellers - Last Filed: 12/19/17 10:29> Current Active Problems Umbilical hernia (Chronic) - Home Medications Comprehensive Discharge Medication List: Ambulatory Orders Hydralazine HCl [Apresoline -] 100 mg PO TID 05/30/14 Atorvastatin Ca [Lipitor] 80 mg PO DAILY 12/08/16 Amlodipine Besylate [Norvasc -] 5 mg PO DAILY #30 tablet 05/03/17 Metoprolol Succinate [Toprol XL -] 25 mg PO DAILY #30 tab.sr 05/28/17 Aspirin [ASA -] 81 mg PO DAILY tab.chew 12/19/17 Azithromycin [Zithromax 250mg Tablets -] 250 mg PO DAILY 4 Days #4 tablet Calcium Acetate [Phoslo -] 667 mg PO TIDCM capsule 12/19/17 Insulin (Levemir) [Levemir Vial] 15 units SQ BID@0700,2200 ml 12/19/17 Isosorbide Mononitrate [Imdur -] 60 mg PO BID tab.sr.24h 12/19/17 <Darci Duke - Last Filed: 12/19/17 10:43> Condition: Fair - Instructions Diet, Activity, Other Instructions: resume prev diet, ambulate as tolerated Take Azithromycin for 4 more days as directed to complete treatment Dialysis MWF Please f/u with in 1 WEEK. Referrals: Erin Jack MD [Non Staff, Medical] - 1 Week (Please f/u in 1 week) Alex Pearce MD [Staff Physician] - Disposition: HOME
[2017-12-19] MEDS ORDERED: ASPIRIN 81 MG CHEWABLE TABLETS PO SCH (10:00)
[2017-12-19] MEDS ORDERED: PT OWN MED DRAWER 7, Y5N ONE (10:14)
[2017-12-19] MEDS: RANITIDINE HCL 150 MG/10 ML UNIT-DOSE PO SCH (10:21)
[2017-12-19] MEDS: amLODIPine BESYLATE 5 MG TABLET (FP) PO SCH (10:21)
[2017-12-19] MEDS: AZITHROMYCIN 250 MG TABLET PO SCH (10:21)
[2017-12-19] MEDS: ISOSORBIDE MONONITRATE 60 MG TAB.SR.24H (FP) PO SCH (10:21)
[2017-12-19] MEDS: LACTOBACILLUS ACIDOPHILUS 1 EACH TAB (FP) PO SCH (10:21)
[2017-12-19] MEDS: METOPROLOL SUCCINATE 25 MG TAB.SR.24H (FP) PO SCH (10:21)
[2017-12-19 12:04] VITALS: BP 144/87; PULSE 66; TEMP 98.4
== END 2017-12-19 11:38 | disposition home or self-care (01) | DRG 871 ==
LOC: JER 19:00 → JERBED 12-14 02:59 → J4S 12-14 16:42
PROVIDERS: ADMIT Internal Medicine; ATTEND Internal Medicine
PROC: 5A1D70Z Performance of Urinary Filtration, Intermittent, Less than 6 Hours Per Day (ICD-10-PCS; principal; 2017-12-15)
DX: A41.9 Sepsis, unspecified organism (principal); N18.6 End stage renal disease; I12.0 Hypertensive chronic kidney disease with stage 5 chronic kidney disease or end stage renal disease; K86.1 Other chronic pancreatitis; J11.1 Influenza due to unidentified influenza virus with other respiratory manifestations; E11.22 Type 2 diabetes mellitus with diabetic chronic kidney disease; Z99.2 Dependence on renal dialysis; E78.5 Hyperlipidemia, unspecified; K42.9 Umbilical hernia without obstruction or gangrene; R19.7 Diarrhea, unspecified; R09.1 Pleurisy; I48.0 Paroxysmal atrial fibrillation; K21.9 Gastro-esophageal reflux disease without esophagitis; D64.9 Anemia, unspecified; D57.3 Sickle-cell trait; D69.6 Thrombocytopenia, unspecified
CPT/HCPCS: 36415; 71045-TC; 80048; 80053; 81003; 81015; 82150; 82550; 82553; 82565; 82962; 83605; 83690; 83735; 84100; 84484; 84520; 85025; 85027; 85610; 85730; 86704; 86706; 86708; 86803; 86850; 86900; 86901; 87040; 87086; 87340; 87804; 93005; 93010; 99284-25; J1644

== ENCOUNTER 2018-03-22 10:00 | Day surgery (SDC) | payer OTHER ==
[2018-03-21 14:25] VITALS: BMI 26.6
[2018-03-22 12:09] VITALS: TEMP 97.8
[2018-03-22 13:18] VITALS: BP 177/74; PULSE 64
--- NOTE | 2018-03-24 15:45 | PATH ---
Surgical Pathology Report Patient Name: AMAURY RONDON [facility]. Rec. #: [id number] /Age/Gender: 1950 (Age: 67) / F Account: [id number] Location: [facility]-ENDOSCOPY Taken: 03/22/2018 Received: 03/22/2018 Reported: 03/24/2018 Physicians: Alex Pearce M.D. Specimen(s) Received A: BX RIGHT COLON B: POLYP FROM TRANSVERSE COLON Clinical History History of colonic polyps Final Diagnosis A. RIGHT COLON, BIOPSY: TUBULAR ADENOMA. B. TRANSVERSE COLON, POLYP, POLYPECTOMY: TUBULAR ADENOMA. Electronically Signed Carol Lim M.D. Gross Description A. Received in formalin, labeled "biopsy of right colon" are 2 kim, irregular portions of soft tissue measuring 0.4 and 0.5 cm. in greatest dimension. The specimens are submitted in toto in one cassette. B. Received in formalin, labeled "polyp from transverse colon" is a kim, irregular portion of soft tissue measuring 0.4 cm. in greatest dimension. The specimen is submitted in toto in one cassette. DL/03/22/2018 saudi/03/22/2018
== END 2018-03-22 13:40 | disposition home or self-care (01) ==
LOC: JASU-ENDO 10:00
PROVIDERS: ATTEND Internal Medicine Gastroenterology
PROC: 0DBK8ZX Excision of Ascending Colon, Via Natural or Artificial Opening Endoscopic, Diagnostic (ICD-10-PCS; 2018-03-22)
PROC: 0DBL8ZX Excision of Transverse Colon, Via Natural or Artificial Opening Endoscopic, Diagnostic (ICD-10-PCS; principal; 2018-03-22 10:00)
DX: Z86.010 Personal history of colon polyps (principal); D12.2 Benign neoplasm of ascending colon; D12.3 Benign neoplasm of transverse colon; E78.5 Hyperlipidemia, unspecified; E11.9 Type 2 diabetes mellitus without complications; I10 Essential (primary) hypertension; Z79.4 Long term (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 insulin
CPT/HCPCS: 36415; 82962; 84132; 88305-TC

== ENCOUNTER → 2018-06-02 | Day surgery (SDC) | payer MEDICARE, OTHER | END | disposition home or self-care (01) | LOC: JRADIR 10:32 | PROVIDERS: ATTEND Physician Assistant | PROC: 02PY03Z Removal of Infusion Device from Great Vessel, Open Approach (ICD-10-PCS; principal; 2018-06-02) | DX: Z45.2 Encounter for adjustment and management of vascular access device (principal) | CPT/HCPCS: 36589 ==